=== PATIENT | male | born 1940 | race Caucasian/White ===

== ENCOUNTER → 2018-04-27 11:59 | Outpatient (CLI) | payer MEDICARE, OTHER, SELFPAY ==
--- NOTE | 2018-04-27 12:09 | RAD_ITS ---
STUDY: X-RAY CHEST REASON FOR EXAM: Male, 77 years old. Pre-op for generator change TECHNIQUE: Frontal and lateral views of the chest. COMPARISON: None. FINDINGS: Median sternotomy wires. Dual-chamber pacemaker on the left. The lungs are clear and expanded. There is no demonstrated pleural abnormality. Normal size heart. Normal mediastinum and luana. Normal visualized pulmonary arteries. Normal visualized aortic arch and descending thoracic aorta. Normal visualized thoracic spine. Normal visualized ribs, clavicles, and shoulders. There is no demonstrated abnormality of the visualized soft tissue structures of the upper abdomen. RAD/Chest PA and Lateral IMPRESSION: No acute pulmonary findings. Electronically Signed: Ramon Mireles MD at 8:41 EST Tel , Service support ,
[2018-04-27 12:35] LABS: Mucous, Urine 0 SEEN /hpf (<or=2+); Red Blood Cells-Urine 0 SEEN /hpf (0-5); Squamous Epithelial Cells - UA 0 SEEN /hpf (0-5)
[2018-04-27 13:44] LABS: Hematocrit 39.6 % (40-54); Hemoglobin 13.4 g/dl (13.0-16.5); Mean Corp Hgb Conc 33.8 g/gl (32-36); Mean Corpuscular Hgb 32.1 pg (27.0-32.0); Mean Platelet Vol. 9.3 fl (6.2-12.0); Platelet Count 95 K/mm3 (150-450); RBC Distribution Width CV 13.3 % (11.6-14.6); RBC Distribution Width SD 44.2 fl (35.1-43.9); Red Blood Count 4.17 M/mm3 (4.6-6.2); White Blood Count 5.2 K/mm3 (4.4-11.0)
[2018-04-27 13:46] LABS: Scan Indicated on CBC? Y/N NO
[2018-04-27 13:54] LABS: International Normalized Ratio 2.1; Prothrombin Time (Protime)PT. 23.9 SECONDS (11.7-14.9)
[2018-04-27 14:00] LABS: Color, Urine Yellow (Yellow); Glucose, Dipstick Normal (Normal); Ketone-Dipstick Negative (Negative); Leukocyte Esterase-Dipstick 25 /ul (Negative); Nitrite-Dipstick Negative (Negative); Occult Blood-Urine Negative /ul (Negative); Protein-Dipstick Negative (Negative); Specific Gravity, Urine 1.015 (1.002-1.030); Urine Bilirubin Dipstick Negative (Negative); Urine Clarity Clear (Clear); Urine Urobilinogen 1 mg/dl (Normal); Urine pH 6.5 (5.0 - 8.0)
[2018-04-27 14:07] LABS: Bacteria RARE /hpf (None Seen); White Blood Cells 0-5 SEEN /hpf (0-5)
[2018-04-27 14:09] LABS: Anion Gap 6 (5-15); BUN 32 mg/dL (7-18); BUN/Creat Ratio 22.9 RATIO (10-20); Calcium,Total 9.1 mg/dL (8.5-10.1); Chloride 104 mmol/L (98-107); EST Glomerular Filtration Rate 52 mL/min (>60); Est Glom Filt Rate - Afr Amer 63 mL/min (>60); Glucose 195 mg/dL (74-106); Potassium 4.7 mmol/L (3.5-5.1); Sodium Level 140 mmol/L (136-145)
== END ==
PROVIDERS: Family Provider Family Medicine; PCP Family Medicine; Referring Provider Internal Medicine Cardiovascular Disease; Visit Provider Internal Medicine Cardiovascular Disease
DX: I44.1 Atrioventricular block, second degree (principal); Z95.0 Presence of cardiac pacemaker; I48.92 Unspecified atrial flutter
CPT/HCPCS: 36415; 71046; 80048; 81001; 85027; 85610

== ENCOUNTER 2018-05-08 08:57 | Day surgery (SDC) | payer MEDICARE, OTHER, SELFPAY ==
[2018-05-08 09:40] LABS: International Normalized Ratio 1.2; Prothrombin Time (Protime)PT. 14.7 SECONDS (11.7-14.9)
--- NOTE | 2018-05-17 11:41 | CL.IE_ITS ---
Patient: WILBUR GORMAN Study Date: 05/08/2018 Performing: Marty Blankenship MD : 1940 Age: 77 Gender: male PROCEDURES PERFORMED [id number] REMOVAL+REPLACEMENT PACER-DUAL LEAD INDICATIONS End-of-life replacement indicator Sinoatrial node dysfunction/Sick sinus syndrome PROCEDURE DETAILS The patient was brought to the Catheterization Lab in the postabsorptive nonsedated state. Infor med consent was obtained prior to the procedure. Local anesthetic was given subcutaneously to the le ft subclavian region with Lidocaine 2%. Incision was made to the left upper chest. PPM generator was removed. PPM atrial lead (existing) was checked and tested. PPM ventricular lead (existing) was check ed and tested. Device pocket was irrigated with antibiotic. Steri-strips applied to left subclavicula r incision. Instrument, sponge, and needle counts were noted to be normal. The patient tolerated the procedure well. 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: [employer], Model # Elyse XT DR JAMIE Stack [id number] , Serial # [id number] H DEVICE PARAMETERS DEVICE PARAMETERS: Mode - DDDR lower rate - 60 upper rate - 130 rate response off Mode- DDDR Lower rate- 60 Upper rate- 130 CONCLUSIONS / RECOMMENDATIONS Device Conclusions: Successful implantation of a dual chamber pacemaker battery change and replacemen t Device Recommendations: Follow up with Primary Care Physician PROCEDURE MEDICATIONS Versed 1 mg IV Fentanyl 50 mcg IV Oxygen: 2 L/min via nasal cannula Ancef 2 Gm IV @ 05/08/2018 10:57:29 Signed By Marty Blankenship MD On 05/17/2018 11:40:26 Marty Blankenship MD
--- OUTSIDE RECORDS SUMMARY | 2018-08-09 20:20 | XMS RPT_ITS ---
:1940 Author Organization [place] Care Team Providers Name Role Phone LEONIDES WISE Attending Unavailable LEONIDES WISE Referring Unavailable TAMAR MERRILL Primary Care Unavailable LEONIDES WISE Attending Unavailable IMCA Referring Unavailable TAMAR MERRILL Primary Care Unavailable TAMAR MERRILL) Referring Unavailable LEONIDES WISE Referring Unavailable ABRAHAM GIBSON Attending Unavailable TAMAR MERRILL) Referring Unavailable TAMAR MERRILL) Referring Unavailable TAMAR MERRILL) Referring Unavailable TAMAR MERRILL) Attending Unavailable BURSLEY, TAMAR LEAL) Referring Unavailable BURSLEY, TAMAR LEAL) Referring Unavailable BURSLEY, TAMAR LEAL) Referring Unavailable BURSLEY, TAMAR LEAL) Referring Unavailable TESTRAKE, ABRAHAM Attending Unavailable BURSLEY, TAMAR LEAL) Referring Unavailable BURSLEY, TAMAR LEAL) Referring Unavailable BURSLEY, TAMAR LEAL) Referring Unavailable BURSLEY, TAMAR LEAL) Referring Unavailable BURSLEY, TAMAR LEAL) Referring Unavailable BURSLEY, TAMAR LEAL) Attending Unavailable BURSLEY, TAMAR LEAL) Referring Unavailable MASOUDJUNI) Attending Unavailable BURSLEY, TAMAR LEAL) Referring Unavailable TESTRAKE, ABRAHAM Attending Unavailable TESTRAKE, ABRAHAM Referring Unavailable BURSLEY, TAMAR LEAL) Referring Unavailable BURSLEY, TAMAR LEAL) Referring Unavailable FRANDY, LEONIDES E Attending Unavailable FRANDY, LEONIDES E Referring Unavailable BURSLEY, TAMAR LEAL) Referring Unavailable BURSLEY, TAMAR LEAL) Referring Unavailable FRANDY, LEONIDES Galindo Attending Unavailable FRANDY, LEONIDES E Referring Unavailable FRANDY, LEONIDES E Referring Unavailable BURSLEY, TAMAR LEAL) Attending Unavailable BURSLEY, TAMAR LEAL) Referring Unavailable BURSLEY, TAMAR LEAL) Referring Unavailable BURSLEY, TAMAR LEAL) Referring Unavailable BURSLEY, TAMAR LEAL) Referring Unavailable TESTRAKE, ABRAHAM Attending Unavailable TESTRAKE, ABRAHAM Referring Unavailable FRANDY, LEONIDES E Attending Unavailable RAMON ELLIS Referring Unavailable Luis, Latanya Attending Unavailable Pattie, Marty Attending Unavailable Pattie, Sheridan Referring Unavailable Bursley, Billy Primary Care Unavailable Luis, Latanya Attending Unavailable Bursley, Billy Referring Unavailable Pattie, Sheridan Attending Unavailable Penfield, Leonides Referring Unavailable Luis, Latanya Attending Unavailable Bursley, Billy Referring Unavailable Luis, Latanya Attending Unavailable Bursley, Billy Referring Unavailable Luis, Latanya Attending Unavailable Bursley, Billy Referring Unavailable Pattie, Sheridan Attending Unavailable Pattie, Sheridan Referring Unavailable Bursley, Billy Primary Care Unavailable PROBLEMS PROBLEMS DATE TYPE CONDITION / CODE ATTENDING STATUS SOURCE Active Sick sinus syndrome / NA Active [facility] I49.5(ICD-10) Clinic Main [place] Repository Unknown I48.92 - Unspecified Latanya Smith Active [facility] atrial flutter / Community I48.92(ICD-10) Hospital Repository Unknown I44.1 - Latanya Smith Active [facility] Atrioventricular Community block, second degree Hospital / I44.1(ICD-10) Repository Unknown Z95.0 - Presence of Latanya Smith Active [facility] cardiac pacemaker / Community Z95.0(ICD-10) Hospital Repository Active Type 2 diabetes NA Active [facility] 8 mellitus with [facility] diabetic [place] polyneuropathy / Repository E11.42(ICD-10) Active Mixed hyperlipidemia NA Active [facility] / E78.2(ICD-10) Clinic Main [place] Repository Active Thrombocytopenia, NA Active [facility] unspecified / Clinic Main D69.6(ICD-10) [place] Repository Active Unknown / DESIRAE Active [facility] UNK(Unknown) TAAMR Hay [facility] AMOS) [place] Repository Active Type 2 diabetes NA Active [facility] 8 mellitus with [facility] Main proliferative [place] diabetic retinopathy Repository without macular edema, unspecified eye / E11.3599(ICD-10) Active Essential (primary) NA Active [facility] hypertension / Clinic Main I10(ICD-10) [place] Repository Active Atherosclerotic heart NA Active [facility] disease of [place] [facility] coronary artery [place] without angina Repository pectoris / I25.10(ICD-10) Admitting Unknown / LEONIDES WISE Active [facility] 6 diagnosis UNK(Unknown) Health System Repository PROCEDURES PROCEDURES No Procedure Records FoundRESULTS RESULTS PROGRESS Observed: 06/09/2018 Status: COMPLETED Source: [place] 1:30 PM [facility] REPOSITORY HNO ID: [id number] Author: Abraham Gibson Service: (none) Author Type: Physician Type: Progress Notes Filed: 06/09/2018 1:39 PM Note Text: Subjective: Patient presents to clinic c/o painful toenails. They state that the nails are especially painful with shoe gear and pressure. Patient states that nails 1-5 b/l are painful. Patient admits to being diabetic but has not checked his sugars. No other pedal complaints at this time. Patient states no change in medications or medical history since last visit. Objective: Patient presents to clinic ambulating in diabetic shoes. Vasc: DP and PT pulses are decreased bilateral. CFT is less than 5 seconds bilateral. Skin temperature is warm to cool proximal to distal bilateral. There is moderate edema or varicosities noted. Neuro: Protective sensation is absent to the foot and toes when tested with the 5.07 SWM bilateral. Vibratory sensation is absent at the hallux IPJ bilateral. The hallux is downgoing bilateral. Derm: Nails 1-5 b/l are discolored-yellow, thick, crumbly, dystrophic and with subungal debris. Skin is thin, dry, shiny. There is pallor upon elevation. There are no hyperkeratosis, ulcerations, scars, verruca or other lesions noted. Ortho: Muscle strength is 5/5 for all pedal groups tested. Ankle joint DF is full with the knee extended with no pain or crepitus noted. 1st MPJ ROM is full bilateral. Assessment: (B35.1) Onychomycosis (primary encounter diagnosis) (M79.675) Pain in toe of left foot (M79.674) Pain in toe of right foot (E11.42) Diabetic polyneuropathy associated with type 2 diabetes mellitus (HCC) (I87.2) Venous (peripheral) insufficiency Plan: Patient was seen and evaluated. Nails 1-5 bilateral were debrided in length and thickness. Continue with elevation and light compression if possible for swelling Recommend lotion to feet daily. Patient was instructed on the continued importance of diabetic foot care along with proper diet and keeping their blood sugar under control to prevent complications. Patient is to RTC in 3-4 months. Abraham Gibson DPM PROGRESS Observed: 06/09/2018 Status: COMPLETED Source: [place] 1:18 PM [facility] REPOSITORY HNO ID: [id number] Author: Cinthya Yusuf Ma Service: (none) Author Type: (none) Type: Progress Notes Filed: 06/09/2018 1:39 PM Note Text: AMB ROOMING INTAKE FLOWSHEET DATA Risk Screening Do you have concerns about personal safety or safety in the home?: No Patient here for diabetic nail care. States he has no pain. No redness or swelling present on feet. States that his blood sugar this morning was 160. CNOV Observed: 06/09/2018 Status: COMPLETED Source: [place] 12:50 PM [facility] REPOSITORY Office Visit (PODIWS) WILBUR WRIGHT ([id number]) 1940 M Date Time Provider Department 06/09/18 12:50 PM ABRAHAM GIBSON PODIWS During your visit today, we recorded the following information about you: Cinthya Yusuf Ma 06/09/2018 1:39 PM Signed [facility] FLOWSHEET DATA Risk Screening Do you have concerns about personal safety or safety in the home?: No Patient here for diabetic nail care. States he has no pain. No redness or swelling present on feet. States that his blood sugar this morning was 160. Abraham Gibson DPM 06/09/2018 1:39 PM Signed Subjective: Patient presents to clinic c/o painful toenails. They state that the nails are especially painful with shoe gear and pressure. Patient states that nails 1-5 b/l are painful. Patient admits to being diabetic but has not checked his sugars. No other pedal complaints at this time. Patient states no change in medications or medical history since last visit. Objective: Patient presents to clinic ambulating in diabetic shoes. Vasc: DP and PT pulses are decreased bilateral. CFT is less than 5 seconds bilateral. Skin temperature is warm to cool proximal to distal bilateral. There is moderate edema or varicosities noted. Neuro: Protective sensation is absent to the foot and toes when tested with the 5.07 SWM bilateral. Vibratory sensation is absent at the hallux IPJ bilateral. The hallux is downgoing bilateral. Derm: Nails 1-5 b/l are discolored-yellow, thick, crumbly, dystrophic and with subungal debris. Skin is thin, dry, shiny. There is pallor upon elevation. There are no hyperkeratosis, ulcerations, scars, verruca or other lesions noted. Ortho: Muscle strength is 5/5 for all pedal groups tested. Ankle joint DF is full with the knee extended with no pain or crepitus noted. 1st MPJ ROM is full bilateral. Assessment: (B35.1) Onychomycosis (primary encounter diagnosis) (M79.675) Pain in toe of left foot (M79.674) Pain in toe of right foot (E11.42) Diabetic polyneuropathy associated with type 2 diabetes mellitus (HCC) (I87.2) Venous (peripheral) insufficiency Plan: Patient was seen and evaluated. Nails 1-5 bilateral were debrided in length and thickness. Continue with elevation and light compression if possible for swelling Recommend lotion to feet daily. Patient was instructed on the continued importance of diabetic foot care along with proper diet and keeping their blood sugar under control to prevent complications. Patient is to RTC in 3-4 months. Abraham Gibson DPM Referring Provider: ABRAHAM GIBSON [[id number]] Allergies As of Date: 06/09/2018 Noted Allergy Reaction AVANDIA (ROSIGLITAZONE MALEATE) 02/18/2005 7 - Swelling Comments: fluid retention GLIMEPIRIDE 07/12/2013 5 - Intolerance Comments: hypoglycemia AMLODIPINE 05/18/2012 7 - Swelling Comments: Leg swelling with 2.5mg Date Reviewed: 06/09/2018 Reviewed by: Cinthya Yusuf Ma - Fully Assessed Reason for Visit: Established Patient [175] Primary Visit Diagnosis:Onychomycosis [B35.1] Other Visit Diagnoses:Pain in toe of left foot [M79.675] Pain in toe of right foot [M79.674] Diabetic polyneuropathy associated with type 2 diabetes mellitus (HCC) [E11.42] Venous (peripheral) insufficiency [I87.2] Prescriptions as of 06/09/2018 Sig: LOVASTATIN 40 MG TABLET Take 1 tablet by mouth daily * COMPOUNDED PRESCRIPTION ZIPPERED KNEE HIGH COMPRESSIO* LISINOPRIL 20 MG-HYDROCHLOROT* Take 2 tablets by mouth every* METOPROLOL TARTRATE 25 MG TAB* Take 1 tablet by mouth twice * WARFARIN 2 MG TABLET 4 mg PO daily COMPOUNDED PRESCRIPTION Adjustable quad cane. To be u* BLOOD SUGAR DIAGNOSTIC STRIPS Pt usesTrue Metric Meter. Sarah* LANCETS Test blood sugar(s) 2 times d* ASPIRIN 81 MG TABLET Take 1 tablet by mouth once d* CHOLECALCIFEROL (VITAMIN D3) * 2 tab daily METFORMIN 1,000 MG TABLET Take 1 tablet by mouth twice * ALBUTEROL SULFATE HFA 90 MCG/* Inhale 2 Puffs as instructed * Patient not taking: Reported on 01/10/2018 Problem List As Of Date 06/09/2018 Noted Resolved Esophageal reflux [K21.9] INVALID FOR* More... ABDOMINAL PAIN( Epigastric) [R10.13] INVALID FOR*05/18/2012 Mixed hyperlipidemia [E78.2] INVALID FOR* More... Type II or unspecified type diabetes mellitus w*INVALID FOR*02/28/2013 More... Other malaise and fatigue [R53.81, R53.83] 05/18/2012 Infection and inflammatory reaction due to card*INVALID FOR*02/25/2016 ASHD (arteriosclerotic heart disease) [I25.10] INVALID FOR*08/07/2016 Thrombocytopenia [D69.6] INVALID FOR* Hypertension [I10] INVALID FOR*04/27/2016 CAD (coronary artery disease) [I25.10] INVALID FOR* More... Coronary atherosclerosis of [place] coronary art*INVALID FOR* More... Atrioventricular block, unspecified [I44.30] INVALID FOR*08/07/2016 More... Other second degree atrioventricular block [I44*INVALID FOR* More... Atrial flutter [I48.92] INVALID FOR* More... Other specified cardiac dysrhythmias [I49.8] INVALID FOR* More... Unspecified disorder of kidney and ureter [N28.*INVALID FOR* More... Cardiac pacemaker in situ [Z95.0] INVALID FOR* More... 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 TAMAYO (nonalcoholic steatohepatitis) [K75.81] INVALID FOR* Ischemic colitis (HCC) [K55.9] INVALID FOR*09/14/2017 Compression fracture of lumbar vertebra [S32.00*INVALID FOR* More... 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*INVALID FOR* Uncontrolled type 2 diabetes mellitus with diab*INVALID FOR*08/07/2016 Type 2 diabetes mellitus with diabetic polyneur*INVALID FOR*06/14/2017 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] INVALID FOR* Obesity (BMI 30.0-34.9) [E66.9] INVALID FOR* Essential hypertension [I10] INVALID FOR* Chronic anticoagulation [Z79.01] INVALID FOR* Dyspnea on exertion [R06.09] INVALID FOR* Chronic venous insufficiency [I87.2] INVALID FOR* Diabetes mellitus type II, controlled ([facility]) [E1* 06/14/2017 CKD (chronic kidney disease) stage 3, GFR 30-59* Falls infrequently [Z91.81] INVALID FOR* Encounter Status:Closed by ABRAHAM GIBSON DPM on 06/09/18 PROGRESS Observed: 06/01/2018 Status: COMPLETED Source: [place] 3:12 PM [facility] REPOSITORY HNO ID: [id number] Author: Tamar Merrill Service: (none) Author Type: Physician Type: Progress Notes Filed: 06/01/2018 3:12 PM Note Text: INR therapeutic. Continue current coumadin dosage and follow up in 4 weeks. PROGRESS Observed: 06/01/2018 Status: COMPLETED Source: [place] 2:25 PM [facility] REPOSITORY HNO ID: [id number] Author: Tanesha Shearer RN Service: (none) Author Type: (none) Type: Progress Notes Filed: 06/01/2018 2:26 PM Note Text: patient had inr completed at [facility] patients inr is 2.0 (patients inr range is 2.0-3.0) patient is currently taking 4mg daily patients last dose change was on 11/09/17 due to a high level of 3.5 (dose at that time was 6mg Mon and 4mg all other days) patient has had no changes in medication and no missed dosees and no change in diet Advised patient to continue on the same dose(s) and that they would only be contacted regarding dosage and follow up instructions after review with provider, if a change is needed. Written instructions given and patient verbalized understanding. Presently scheduled in 4 weeks (06/29/18) for follow up INR. PACEMAKER CHECK Observed: 05/29/2018 Status: F Source: [place] 6:44 AM [facility] REPOSITORY [facility] [address] [place] [address] Pacemaker Check Date of Service: 05/25/18 1200 MR#: [id number] Acct: [id number] Name: WILBUR WRIGHT Rep #: [id number] : 1940 From: Latanya Smith Age/Sex: 77/M Location: [facility] [place] Status: Signed Billing Codes PM Device Codes: PM Dev Prog Eval, Dual 05/25/18 1201 <Electronically signed by Latanya Smith > Date Latanya Smith 05/29/18 0644<Electronically signed by Marty Blankenship MD> Emaniign Signature: Date (if applicable) Marty Blankenship MD CC: PROGRESS Observed: 05/18/2018 Status: COMPLETED Source: [place] 5:48 PM [facility] REPOSITORY O ID: [id number] Author: Sudeep Bautista Ma Service: (none) Author Type: (none) Type: Progress Notes Filed: 05/18/2018 5:49 PM Note Text: Patient notified - verbalized understanding. Scheduled for 1 week INR and tracker updated. Sudeep Bautista Ma PROGRESS Observed: 05/18/2018 Status: COMPLETED Source: [place] 4:29 PM [facility] REPOSITORY HNO ID: [id number] Author: Tamar Leal) Desirae Service: (none) Author Type: Physician Type: Progress Notes Filed: 05/18/2018 4:30 PM Note Text: INR subtherapeutic. Take 6 mg for next dose, then resume 4mg daily and recheck in 1 week. PROGRESS Observed: 05/18/2018 Status: COMPLETED Source: [place] 3:48 PM [facility] REPOSITORY HNO ID: [id number] Author: Tanesha Shearer RN Service: (none) Author Type: (none) Type: Progress Notes Filed: 05/18/2018 3:50 PM Note Text: patient had inr completed at [facility] patients inr is 1.4 (patients inr range is 2.0-3.0) patient is currently taking 4mg daily patients last dose change was on 11/09/17 due to a high level of 3.5 (dose at that time was 6mg Mon and 4mg all other days) patient has had no changes in medication and no missed doses and no change in diet FYI - patient was off coumadin from 05/03 - 05/09 and restarted coumadin on 05/10 for pacer change Advised patient that they would be contacted regarding medication dose and when to follow up after information is reviewed by provider. After provider review please contact the patient with information and schedule follow up appointment with coumadin clinic. FYI - patient has been scheduled for a 2 week follow up in [place] 06/01/18 ALBUMIN/CREAT RATIO Collected: 05/12/2018 Status: F Source: [place] 4:11 PM [facility] REPOSITORY TYPE CODE TESTS RESULT OUT OF REFERENCE UNITS RANGE LAB UCRR 20-300 mg/dL Creatinine,Ur 133.6 ine,Ran LAB UALBR 0.0-23.0 mg/L High Albumin Urine 52.7 Random LAB UALBCR 0-30 mg/g High Albumin/Creat 39 Ratio Result Comment: 30 to 300 mg/g indicates an increased risk for diabetic nephropathy. Greater than 300 mg/g is consistent with clinical nephropathy. (Am J Kidney Disease 1995, 25:107) Performed By: #### UACR #### [facility] [address] [place], [place] [address] PROGRESS Observed: 05/12/2018 Status: COMPLETED Source: [place] 3:02 PM [facility] REPOSITORY HNO ID: [id number] Author: Nohemy Hutton Ma Service: (none) Author Type: (none) Type: Progress Notes Filed: 05/12/2018 3:36 PM Note Text: 77 year old male here for INACTIVATED INFLUENZA VACCINE. [id number] Season Patient is identified by name and date of : Yes [] CONTRAINDICATIONS color enhanced section Age less than 6 months? No Allergy to eggs, chicken, chicken feathers, or chicken dander? No Allergy to thimerosal (a preservative) or formaldehyde, gelatin? No History of severe reaction to any vaccine component or a previous dose of influenza vaccination? No History of Guillain-[place] Syndrome within 6 weeks after a previous influenza vaccine? No Patient is not moderately or severely ill? No Current temperature greater or equal to 100.4F? No History of Bone Marrow Transplant prior 6 months or solid organ transplant in the past 3 months ? No History of fainting after a prior injection or medical procedure? No- ? If patient has fainted in the past, the CDC recommends sitting or lying down for 15 minutes after the vaccination. [] VERIFICATION color enhanced section Was the answer Yes for any of the above contraindications? No contraindications present. Acceptable to proceed with vaccine. Patient/guardian agrees the above answers are true to the best of their knowledge? Yes Flu vaccine information sheet given? Yes [facility] adminstered today. Patient age: [age] year old For The 7897-9681 Flu Season 6-35 months old: Fluzone 0.25 ml - IM (Preservative Free) 3 years of age: Fluzone 0.5 ml - IM (Preservative Free) 3 years and older: Fluzone 0.5 ml- IM-(with Preservatives) 65+ years old: 2-49 years old Fluzone High-Dose 0.5 ml - IM (Preservative Free) FLUMIST- intranasal REMEMBER: If patient is less than 9 years of age and this is the first vaccine of Influenza to be received in any flu season, they should receive a second dose in one months time. CNOV Observed: 05/12/2018 Status: COMPLETED Source: [place] 2:40 PM [facility] REPOSITORY [facility] ([id number]) 1940 M Date Time Provider Department 05/12/18 2:40 PM TAMAR MERRILL) [facility] During your visit today, we recorded the following information about you: Temperature Pulse Respiration Blood pressure 97.1 degrees 76/minute 14/minute 134/82 Weight 90.7 kg Tamar Merrill MD 05/12/2018 3:36 PM Signed Chief Complaint Patient presents with: Follow Up HPI Wilbur Wright is a 77 year old male who presents here today for 4 month follow up. Patient has been in good health without ER visits or recent falls. DIABETES MELLITUS: Mr. Wright was last seen 4 months ago. Since our last visit he denies excessive thirst or increased frequency of urination, numbness, tingling or pain in extremities, new or unusual visual symptoms and low sugar/hypoglycemic reactions. Follows a diabetic diet generally not very much. He is compliant with medication(s) and is tolerating med(s) without any side effects. He reports checking his glucose on a twice a day schedule with sugars in the <150 range. Patient's last HgA1C was Hemoglobin A1C (%) Date Value 01/04/2018 7.4 06/08/2017 7.8 Hemoglobin A1C (POCT) Date Value 05/12/2018 6.9 09/14/2017 6.2 % ) Last Ophthalmology exam was within the past 12 months-mild proliferative DM retinopathy bilaterally Last Podiatry exam was within the past 12 months CAD/a fib/sick sinus syndrome: pacemaker replaced on 05/08 without complication. Incision site healing well with steri strips in place. Thinks he has follow up on 05/25 with provider, but does not remember who and no OV scheduled in the system for this date. Recent blood work from Dr. Wise's office normal. Asymptomatic on current regimen. GERD: denies heartburn symptoms, not on daily medications. Edema: occasional swelling in LE. Admits to not watching salt in diet. Has compression stockings at home, but does not wear. Would consider if they were zippered stockings. HTN: controlled on current regimen. Due for influenza vaccine today. Past medical history, appointments, medications, allergies reviewed. Previous Medical History PAST MEDICAL HISTORY Diagnosis Date - Atrial fibrillation (HCC) - CAD (coronary artery disease) Seeing Dr. Wise - Cataracts, bilateral - CKD (chronic kidney disease) stage 3, GFR 30-59 ml/min ([facility]) - Compression fracture of lumbar vertebra ([facility]) - DDD (degenerative disc disease), lumbar - Diabetes mellitus type II, controlled ([facility]) - Diabetic neuropathy ([facility]) Dr. Gibson - Diabetic retinopathy ([facility]) Dr. Maria - Edema - GERD (gastroesophageal reflux disease) - Hyperlipidemia - Ischemic colitis ([facility]) - TAMAYO (nonalcoholic steatohepatitis) - Other malaise and fatigue - Pacemaker - PVD (peripheral vascular disease) ([facility]) - Thrombocytopenia ([facility]) - Unspecified essential hypertension Previous Surgical History PAST SURGICAL HISTORY Procedure Laterality Date - APPENDECTOMY 1951 - CABG (4) VEIN GRAFTS AND ARTERIAL GRAFT(S) 2008 aortocoronary bypass grafting - CATARACT EXTRACTION HX Right 2016 - COLONOSCOP W/ OR W/O [facility] SPEC 08/02/2005 Colonoscopy - COLONOSCOP W/ OR W/O [facility] SPEC 07/07/2011 Colonoscopy inpt [facility] - PAST SURGICAL HISTORY OF 03/06/2008 pacemaker placement - PAST SURGICAL HISTORY OF Bilateral laser eye surgery Family History FAMILY HISTORY Problem Relation Age of Onset - Heart Mother Patient Allergies ALLERGIES Allergen Reactions - Avandia [Rosiglitaz* Swelling fluid retention - Glimepiride Intolerance hypoglycemia - Amlodipine Swelling Leg swelling with 2.5mg Current Medications Current Outpatient Prescriptions on File Prior to Visit: albuterol HFA (VENTOLIN HFA) 90 mcg/actuation inhaler Inhale 2 Puffs as instructed every 4 hours as needed. (Patient not taking: Reported on 01/10/2018 ) Aspirin 81 mg Tab Take 1 tablet by mouth once daily. Take 1/2hr before niacin with food. blood sugar diagnostic (BLOOD GLUCOSE TEST) test strip Pt usesTrue Metric Meter. Test twice daily. Dx E11.65 Insulin: No CHOLECALCIFEROL (VITAMIN D3) 1,000 UNIT CAP 2 tab daily COMPOUNDED PRESCRIPTION Adjustable quad cane. To be used daily for ambulation. Dx: age related debility Lancets lancets Test blood sugar(s) 2 times daily. Dx: Type 2 DM - Uncontrolled E11.65 Insulin: No lisinopril-hydrochlorothiazide (PRINZIDE,ZESTORETIC) 20-12.5 mg per tablet Take 2 tablets by mouth every morning. Lovastatin 40 mg tablet Take 1 tablet by mouth daily at bedtime. metFORMIN (GLUCOPHAGE) 1,000 mg tablet Take 1 tablet by mouth twice daily with meals. metoprolol tartrate, short acting, (LOPRESSOR) 25 mg tablet Take 1 tablet by mouth twice daily. warfarin (COUMADIN) 2 mg tablet 4 mg PO daily No current facility-administered medications on file prior to visit. Social History Social History Marital status: Spouse name: Years of education: Number of children: Social History Main Topics Smoking status: Former Smoker Packs/day: 1.00 Years: 15.00 Types: Cigarettes Quit date: 05/23/1969 Smokeless tobacco: Never Used Alcohol use: No Drug use: No Sexual activity: Yes Partners with: Female Review of Symptoms REVIEW OF SYSTEMS GENERAL: No weight loss, malaise or fevers RESPIRATORY: Negative for cough, hemoptysis, wheezing, COPD, dyspnea or shortness of breath CARDIOVASCULAR: Negative for chest pain, leg swelling, hypertension, CHF or palpitations GI: No nausea, vomiting, or diarrhea SKIN: Negative for lesions, rash, and itching EXAM: BP 134/82 Pulse 76 Temp 36.2 ?C (97.1 ?F) (Left Tympanic) Resp 14 Wt 90.7 kg (200 lb) BMI 30.41 kg/m? General Appearance: Well appearing, alert, in no acute distress, well-hydrated, well nourished.. Skin: Skin color, texture, turgor normal, no suspicious rashes or lesions. Incision site for pacemaker replacement healing well. Steri strips in place. No erythema or drainage. Lungs: lungs clear to auscultation. No wheezing, rhonchi, rales. Heart: RRR without murmur, gallop, or rubs. No ectopy. Abdomen: Normal abdominal exam, Abdomen soft, non-tender. Bowel sounds normal. No masses, organomegaly. Extremities: Edema: Trace to mid boss bilaterally. Feet: Shoes and socks removed, No deformities, ulcers, calluses and normal distal pulses Health Maintenance List BP CONTROLLED (<130/80) due on 1956 INFLUENZA(1) due on 01/21/2018 URINE ALBUMIN:CREATININE RATIO due on 06/08/2018 STATIN MED ADHERENCE due on 05/23/2018 HBA1C due on 07/07/2018 DIABETIC FOOT EXAM due on 09/14/2018 LDL CHOLESTEROL due on 01/04/2019 SERUM CREATININE due on 01/04/2019 ANNUAL PCP TEAM CHRONIC DISEASE VISIT due on 01/10/2019 DILATED RETINAL EXAM due on 04/24/2019 COLORECTAL CANCER SCREENING,SEE MODIFIER due on 07/07/2021 DTAP,TDAP,TD(3 - Td) due on 05/18/2022 ADULT PREVNAR-13 Completed PNEUMOVAX AGE 65 AND OVER WITH 5YR LOOKBACK Completed Data reviewed Component Latest Ref Rng AND Units 01/04/2018 WBC 3.70 - 11.00 k/uL 5.08 RBC 4.20 - 6.00 m/uL 4.09 (L) Hemoglobin 13.0 - 17.0 g/dL 12.8 (L) Hematocrit 39.0 - 51.0 % 39.6 MCV 80.0 - 100.0 fL 96.8 MCH 26.0 - 34.0 pG 31.3 MCHC 30.5 - 36.0 g/dL 32.3 RDW-CV 11.5 - 15.0 % 13.6 Platelet Count 150 - 400 k/uL 92 (L) MPV 9.0 - 12.7 fL 9.3 Neut% % 44.3 Abs Neut (ANC) 1.45 - 7.50 k/uL 2.25 Lymph% % 29.3 Abs Lymph 1.00 - 4.00 k/uL 1.49 Meigs% % 8.3 Abs Meigs <0.87 k/uL 0.42 Eosin% % 17.5 Abs Eosin <0.46 k/uL 0.89 (H) Baso% % 0.6 Abs Baso <0.11 k/uL 0.03 Nucleated Reds 0 /100 WBC 0.0 Absolute nRBC <0.01 k/uL <0.01 Diff Type Auto Diff Protein, Total 6.3 - 8.0 g/dL 7.0 Albumin 3.9 - 4.9 g/dL 4.0 Calcium 8.5 - 10.2 mg/dL 9.1 Bilirubin, Total 0.2 - 1.3 mg/dL 0.5 Alkaline Phosphatase 36 - 108 U/L 55 AST 14 - 40 U/L 19 Glucose 74 - 99 mg/dL 174 (H) BUN 9 - 24 mg/dL 24 Creatinine 0.73 - 1.22 mg/dL 1.14 Sodium 136 - 144 mmol/L 139 Potassium 3.7 - 5.1 mmol/L 4.6 Chloride 97 - 105 mmol/L 101 CO2 22 - 30 mmol/L 27 Anion Gap 9 - 18 mmol/L 11 ALT 10 - 54 U/L 10 eGFR- >60 eGFR-All Other Races . >60 Cholesterol, Total <200 mg/dL 128 Triglyceride <150 mg/dL 160 (H) HDL Cholesterol >39 mg/dL 25 (L) LDL Cholesterol <100 mg/dL 71 Non HDL Cholesterol <130 mg/dL 103 Fasting Time hrs 12 VLDL Cholesterol <30 mg/dL 32 (H) TC:HDL Ratio <5.10 5.12 (H) LDL:HDL Ratio <2.54 2.84 (H) Hemoglobin A1C 4.3 - 5.6 % 7.4 (H) Estimated Average Glucose mg/dL 166 ASSESSMENT/PLAN: 1. 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 - Continue current medications - Blood glucose monitoring on a once a day schedule - Encouraged regular aerobic exercise and weight loss - Daily Asprin therapy recommended - Follow up in 4 months, sooner should any other issues arise. - Discussed diabetic education issues of intermediate accountant diabetic complications, hypoglycemic symptoms, hyperglycemic symptoms, diet, medications- side effects and need for compliance and importance of exercise with patient. - HEMOGLOBIN A1C (POC) - ALBUMIN/CREAT RATIO RND UR 2. CKD (chronic kidney disease) stage 3, GFR 30-59 ml/min (HCC) - ICD9: 585.3, ICD10: N18.3 Stable with CMP earlier this month. 3. Essential hypertension - ICD9: 401.9, ICD10: I10 - good control - Continue current medication(s) - Encouraged dietary sodium restriction/DASH diet - Recommended regular aerobic exercise. - Reviewed risks of HTN and principles of treatment - Goal of BP <140/90 4. Obesity (BMI 30.0-34.9) - ICD9: 278.00, ICD10: E66.9 Diabetic diet and exercise as recommended. 5. Coronary artery disease involving [place] heart without angina pectoris, unspecified vessel or lesion type - ICD9: 414.01, ICD10: I25.10 Asymptomatic on current regimen. F/u with Dr. Wise as recommended. 6. Mixed hyperlipidemia - ICD9: 272.2, ICD10: E78.2 - good control - Continue current medication. - Encouraged following a low fat, low cholesterol diet. - Discussed the benefits of regular aerobic exercise and weight loss. 7. Atrial flutter, unspecified type (HCC) - ICD9: 427.32, ICD10: I48.92 Rate controlled. Continue beta cecil and coumadin. Recommendations per cardiology. 8. Cardiac pacemaker in situ - ICD9: V45.01, ICD10: Z95.0 Replacement successful. Healing well. 9. Chronic anticoagulation - ICD9: V58.61, ICD10: Z79.01 Continue coumadin at current dosage. Recheck INR on 05/18. 10. Bilateral lower extremity edema - ICD9: 782.3, ICD10: R60.0 zipppered compression stockings daily. Low sodium diet. Continue HCTZ/lisinopril combo. - COMPOUNDED PRESCRIPTION 11. Need for vaccination - ICD9: V05.9, ICD10: Z23 - INFLUENZA SEASONAL HIGH DOSE AGE 65+ MD Nohemy Gibbs Ma 05/12/2018 3:36 PM Signed 77 year old male here for INACTIVATED INFLUENZA VACCINE. [id number] Season Patient is identified by name and date of : Yes [] CONTRAINDICATIONS color enhanced section Age less than 6 months? No Allergy to eggs, chicken, chicken feathers, or chicken dander? No Allergy to thimerosal (a preservative) or formaldehyde, gelatin? No History of severe reaction to any vaccine component or a previous dose of influenza vaccination? No History of Guillain-[place] Syndrome within 6 weeks after a previous influenza vaccine? No Patient is not moderately or severely ill? No Current temperature greater or equal to 100.4F? No History of Bone Marrow Transplant prior 6 months or solid organ transplant in the past 3 months ? No History of fainting after a prior injection or medical procedure? No- ? If patient has fainted in the past, the CDC recommends sitting or lying down for 15 minutes after the vaccination. [] VERIFICATION color enhanced section Was the answer Yes for any of the above contraindications? No contraindications present. Acceptable to proceed with vaccine. Patient/guardian agrees the above answers are true to the best of their knowledge? Yes Flu vaccine information sheet given? Yes See immunization activity in [facility] for details of immunizations adminstered today. Patient age: [age] year old For The [id number] Flu Season 6-35 months old: Fluzone 0.25 ml - IM (Preservative Free) 3 years of age: Fluzone 0.5 ml - IM (Preservative Free) 3 years and older: Fluzone 0.5 ml- IM-(with Preservatives) 65+ years old: 2-49 years old Fluzone High-Dose 0.5 ml - IM (Preservative Free) FLUMIST- intranasal REMEMBER: If patient is less than 9 years of age and this is the first vaccine of Influenza to be received in any flu season, they should receive a second dose in one months time. 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01] Bilateral lower extremity edema [R60.0] Need for vaccination [Z23] Order(s):HEMOGLOBIN A1C (POC) [[id number]] Order #: [id number] ALBUMIN/CREAT RATIO RND UR [SQUACR] Order #: [id number] FUTURE INFLUENZA SEASONAL HIGH DOSE AGE 65+ [[id number]] Order #: [id number] Compression Knee HighsZIPPERED KNEE HIGH COMPRESSION STOCKINGS 20-30 MM. DX: EDEMADisp: 1 DeviceRfl: 1 Prescriptions as of 05/12/2018 Sig: ASPIRIN 81 MG TABLET Take 1 tablet by mouth once d* CHOLECALCIFEROL (VITAMIN D3) * 2 tab daily LISINOPRIL 20 MG-HYDROCHLOROT* Take 2 tablets by mouth every* LOVASTATIN 40 MG TABLET Take 1 tablet by mouth daily * METOPROLOL TARTRATE 25 MG TAB* Take 1 tablet by mouth twice * WARFARIN 2 MG TABLET 4 mg PO daily ALBUTEROL SULFATE HFA 90 MCG/* Inhale 2 Puffs as instructed * Patient not taking: Reported on 01/10/2018 BLOOD SUGAR DIAGNOSTIC STRIPS Pt usesTrue Metric Meter. Sarah* COMPOUNDED PRESCRIPTION Adjustable quad cane. To be u* COMPOUNDED PRESCRIPTION ZIPPERED KNEE HIGH COMPRESSIO* LANCETS Test blood sugar(s) 2 times d* METFORMIN 1,000 MG TABLET Take 1 tablet by mouth twice * Problem List As Of Date 05/12/2018 Noted Resolved Esophageal reflux [K21.9] INVALID FOR* More... ABDOMINAL PAIN( Epigastric) [R10.13] INVALID FOR*05/18/2012 Mixed hyperlipidemia [E78.2] INVALID FOR* More... Type II or unspecified type diabetes mellitus w*INVALID FOR*02/28/2013 More... Other malaise and fatigue [R53.81, R53.83] 05/18/2012 Infection and inflammatory reaction due to card*INVALID FOR*02/25/2016 ASHD (arteriosclerotic heart disease) [I25.10] INVALID FOR*08/07/2016 Thrombocytopenia [D69.6] INVALID FOR* Hypertension [I10] INVALID FOR*04/27/2016 CAD (coronary artery disease) [I25.10] INVALID FOR* More... Coronary atherosclerosis of [place] coronary art*INVALID FOR* More... Atrioventricular block, unspecified [I44.30] INVALID FOR*08/07/2016 More... Other second degree atrioventricular block [I44*INVALID FOR* More... Atrial flutter [I48.92] INVALID FOR* More... Other specified cardiac dysrhythmias [I49.8] INVALID FOR* More... Unspecified disorder of kidney and ureter [N28.*INVALID FOR* More... Cardiac pacemaker in situ [Z95.0] INVALID FOR* More... 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 TAMAYO (nonalcoholic steatohepatitis) [K75.81] INVALID FOR* Ischemic colitis (HCC) [K55.9] INVALID FOR*09/14/2017 Compression fracture of lumbar vertebra [S32.00*INVALID FOR* More... 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*INVALID FOR* Uncontrolled type 2 diabetes mellitus with diab*INVALID FOR*08/07/2016 Type 2 diabetes mellitus with diabetic polyneur*INVALID FOR*06/14/2017 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 DX: EDEMA Disposition: Return in about 4 months (around 09/10/2018). Follow-up and Disposition History Recorded Encounter Status:Closed by TAMAR MERRILL MD on 05/12/18 PROGRESS Observed: 05/12/2018 Status: COMPLETED Source: [place] 2:21 PM [facility] REPOSITORY O ID: [id number] Author: Tamar Leal) Desirae Service: (none) Author Type: Physician Type: Progress Notes Filed: 05/12/2018 3:36 PM Note Text: Chief Complaint Patient presents with: Follow Up HPI Wilbur Wright is a 77 year old male who presents here today for 4 month follow up. Patient has been in good health without ER visits or recent falls. DIABETES MELLITUS: Mr. Wright was last seen 4 months ago. Since our last visit he denies excessive thirst or increased frequency of urination, numbness, tingling or pain in extremities, new or unusual visual symptoms and low sugar/hypoglycemic reactions. Follows a diabetic diet generally not very much. He is compliant with medication(s) and is tolerating med(s) without any side effects. He reports checking his glucose on a twice a day schedule with sugars in the <150 range. Patient's last HgA1C was Hemoglobin A1C (%) Date Value 01/04/2018 7.4 06/08/2017 7.8 Hemoglobin A1C (POCT) Date Value 05/12/2018 6.9 09/14/2017 6.2 % ) Last Ophthalmology exam was within the past 12 months-mild proliferative DM retinopathy bilaterally Last Podiatry exam was within the past 12 months CAD/a fib/sick sinus syndrome: pacemaker replaced on 05/08 without complication. Incision site healing well with steri strips in place. Thinks he has follow up on 05/25 with provider, but does not remember who and no OV scheduled in the system for this date. Recent blood work from Dr. Wise's office normal. Asymptomatic on current regimen. GERD: denies heartburn symptoms, not on daily medications. Edema: occasional swelling in LE. Admits to not watching salt in diet. Has compression stockings at home, but does not wear. Would consider if they were zippered stockings. HTN: controlled on current regimen. Due for influenza vaccine today. Past medical history, appointments, medications, allergies reviewed. Previous Medical History PAST MEDICAL HISTORY Diagnosis Date - Atrial fibrillation (HCC) - CAD (coronary artery disease) Seeing Dr. Wise - Cataracts, bilateral - CKD (chronic kidney disease) stage 3, GFR 30-59 ml/min ([facility]) - Compression fracture of lumbar vertebra ([facility]) - DDD (degenerative disc disease), lumbar - Diabetes mellitus type II, controlled ([facility]) - Diabetic neuropathy ([facility]) Dr. Gibson - Diabetic retinopathy ([facility]) Dr. Maria - Edema - GERD (gastroesophageal reflux disease) - Hyperlipidemia - Ischemic colitis ([facility]) - TAMAYO (nonalcoholic steatohepatitis) - Other malaise and fatigue - Pacemaker - PVD (peripheral vascular disease) (HCC) - Thrombocytopenia (HCC) - Unspecified essential hypertension Previous Surgical History PAST SURGICAL HISTORY Procedure Laterality Date - APPENDECTOMY 1951 - CABG (4) VEIN GRAFTS AND ARTERIAL GRAFT(S) 2008 aortocoronary bypass grafting - CATARACT EXTRACTION HX Right 2016 - COLONOSCOP W/ OR W/O [facility] SPEC 08/02/2005 Colonoscopy - COLONOSCOP W/ OR W/O [facility] SPEC 07/07/2011 Colonoscopy inpt [facility] - PAST SURGICAL HISTORY OF 03/06/2008 pacemaker placement - PAST SURGICAL HISTORY OF Bilateral laser eye surgery Family History FAMILY HISTORY Problem Relation Age of Onset - Heart Mother Patient Allergies ALLERGIES Allergen Reactions - Avandia [Rosiglitaz* Swelling fluid retention - Glimepiride Intolerance hypoglycemia - Amlodipine Swelling Leg swelling with 2.5mg Current Medications Current Outpatient Prescriptions on File Prior to Visit: albuterol HFA (VENTOLIN HFA) 90 mcg/actuation inhaler Inhale 2 Puffs as instructed every 4 hours as needed. (Patient not taking: Reported on 01/10/2018 ) Aspirin 81 mg Tab Take 1 tablet by mouth once daily. Take 1/2hr before niacin with food. blood sugar diagnostic (BLOOD GLUCOSE TEST) test strip Pt usesTrue Metric Meter. Test twice daily. Dx E11.65 Insulin: No CHOLECALCIFEROL (VITAMIN D3) 1,000 UNIT CAP 2 tab daily COMPOUNDED PRESCRIPTION Adjustable quad cane. To be used daily for ambulation. Dx: age related debility Lancets lancets Test blood sugar(s) 2 times daily. Dx: Type 2 DM - Uncontrolled E11.65 Insulin: No lisinopril-hydrochlorothiazide (PRINZIDE,ZESTORETIC) 20-12.5 mg per tablet Take 2 tablets by mouth every morning. Lovastatin 40 mg tablet Take 1 tablet by mouth daily at bedtime. metFORMIN (GLUCOPHAGE) 1,000 mg tablet Take 1 tablet by mouth twice daily with meals. metoprolol tartrate, short acting, (LOPRESSOR) 25 mg tablet Take 1 tablet by mouth twice daily. warfarin (COUMADIN) 2 mg tablet 4 mg PO daily No current facility-administered medications on file prior to visit. Social History Social History Marital status: Spouse name: Years of education: Number of children: Social History Main Topics Smoking status: Former Smoker Packs/day: 1.00 Years: 15.00 Types: Cigarettes Quit date: 05/23/1969 Smokeless tobacco: Never Used Alcohol use: No Drug use: No Sexual activity: Yes Partners with: Female Review of Symptoms REVIEW OF SYSTEMS GENERAL: No weight loss, malaise or fevers RESPIRATORY: Negative for cough, hemoptysis, wheezing, COPD, dyspnea or shortness of breath CARDIOVASCULAR: Negative for chest pain, leg swelling, hypertension, CHF or palpitations GI: No nausea, vomiting, or diarrhea SKIN: Negative for lesions, rash, and itching EXAM: BP 134/82 Pulse 76 Temp 36.2 ?C (97.1 ?F) (Left Tympanic) Resp 14 Wt 90.7 kg (200 lb) BMI 30.41 kg/m? General Appearance: Well appearing, alert, in no acute distress, well-hydrated, well nourished.. Skin: Skin color, texture, turgor normal, no suspicious rashes or lesions. Incision site for pacemaker replacement healing well. Steri strips in place. No erythema or drainage. Lungs: lungs clear to auscultation. No wheezing, rhonchi, rales. Heart: RRR without murmur, gallop, or rubs. No ectopy. Abdomen: Normal abdominal exam, Abdomen soft, non-tender. Bowel sounds normal. No masses, organomegaly. Extremities: Edema: Trace to mid boss bilaterally. Feet: Shoes and socks removed, No deformities, ulcers, calluses and normal distal pulses Health Maintenance List BP CONTROLLED (<130/80) due on 1956 INFLUENZA(1) due on 01/21/2018 URINE ALBUMIN:CREATININE RATIO due on 06/08/2018 STATIN MED ADHERENCE due on 05/23/2018 HBA1C due on 07/07/2018 DIABETIC FOOT EXAM due on 09/14/2018 LDL CHOLESTEROL due on 01/04/2019 SERUM CREATININE due on 01/04/2019 ANNUAL PCP TEAM CHRONIC DISEASE VISIT due on 01/10/2019 DILATED RETINAL EXAM due on 04/24/2019 COLORECTAL CANCER SCREENING,SEE MODIFIER due on 07/07/2021 DTAP,TDAP,TD(3 - Td) due on 05/18/2022 ADULT PREVNAR-13 Completed PNEUMOVAX AGE 65 AND OVER WITH 5YR LOOKBACK Completed Data reviewed Component Latest Ref Rng AND Units 01/04/2018 WBC 3.70 - 11.00 k/uL 5.08 RBC 4.20 - 6.00 m/uL 4.09 (L) Hemoglobin 13.0 - 17.0 g/dL 12.8 (L) Hematocrit 39.0 - 51.0 % 39.6 MCV 80.0 - 100.0 fL 96.8 MCH 26.0 - 34.0 pG 31.3 MCHC 30.5 - 36.0 g/dL 32.3 RDW-CV 11.5 - 15.0 % 13.6 Platelet Count 150 - 400 k/uL 92 (L) MPV 9.0 - 12.7 fL 9.3 Neut% % 44.3 Abs Neut (ANC) 1.45 - 7.50 k/uL 2.25 Lymph% % 29.3 Abs Lymph 1.00 - 4.00 k/uL 1.49 Meigs% % 8.3 Abs [place] <0.87 k/uL 0.42 Eosin% % 17.5 Abs Eosin <0.46 k/uL 0.89 (H) Baso% % 0.6 Abs Baso <0.11 k/uL 0.03 Nucleated Reds 0 /100 WBC 0.0 Absolute nRBC <0.01 k/uL <0.01 Diff Type Auto Diff Protein, Total 6.3 - 8.0 g/dL 7.0 Albumin 3.9 - 4.9 g/dL 4.0 Calcium 8.5 - 10.2 mg/dL 9.1 Bilirubin, Total 0.2 - 1.3 mg/dL 0.5 Alkaline Phosphatase 36 - 108 U/L 55 AST 14 - 40 U/L 19 Glucose 74 - 99 mg/dL 174 (H) BUN 9 - 24 mg/dL 24 Creatinine 0.73 - 1.22 mg/dL 1.14 Sodium 136 - 144 mmol/L 139 Potassium 3.7 - 5.1 mmol/L 4.6 Chloride 97 - 105 mmol/L 101 CO2 22 - 30 mmol/L 27 Anion Gap 9 - 18 mmol/L 11 ALT 10 - 54 U/L 10 eGFR- >60 eGFR-All Other Races . >60 Cholesterol, Total <200 mg/dL 128 Triglyceride <150 mg/dL 160 (H) HDL Cholesterol >39 mg/dL 25 (L) LDL Cholesterol <100 mg/dL 71 Non HDL Cholesterol <130 mg/dL 103 Fasting Time hrs 12 VLDL Cholesterol <30 mg/dL 32 (H) TC:HDL Ratio <5.10 5.12 (H) LDL:HDL Ratio <2.54 2.84 (H) Hemoglobin A1C 4.3 - 5.6 % 7.4 (H) Estimated Average Glucose mg/dL 166 ASSESSMENT/PLAN: 1. 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 - Continue current medications - Blood glucose monitoring on a once a day schedule - Encouraged regular aerobic exercise and weight loss - Daily Asprin therapy recommended - Follow up in 4 months, sooner should any other issues arise. - Discussed diabetic education issues of intermediate accountant diabetic complications, hypoglycemic symptoms, hyperglycemic symptoms, diet, medications- side effects and need for compliance and importance of exercise with patient. - HEMOGLOBIN A1C (POC) - ALBUMIN/CREAT RATIO RND UR 2. CKD (chronic kidney disease) stage 3, GFR 30-59 ml/min (HCC) - ICD9: 585.3, ICD10: N18.3 Stable with CMP earlier this month. 3. Essential hypertension - ICD9: 401.9, ICD10: I10 - good control - Continue current medication(s) - Encouraged dietary sodium restriction/DASH diet - Recommended regular aerobic exercise. - Reviewed risks of HTN and principles of treatment - Goal of BP <140/90 4. Obesity (BMI 30.0-34.9) - ICD9: 278.00, ICD10: E66.9 Diabetic diet and exercise as recommended. 5. Coronary artery disease involving [place] heart without angina pectoris, unspecified vessel or lesion type - ICD9: 414.01, ICD10: I25.10 Asymptomatic on current regimen. F/u with Dr. Wise as recommended. 6. Mixed hyperlipidemia - ICD9: 272.2, ICD10: E78.2 - good control - Continue current medication. - Encouraged following a low fat, low cholesterol diet. - Discussed the benefits of regular aerobic exercise and weight loss. 7. Atrial flutter, unspecified type (HCC) - ICD9: 427.32, ICD10: I48.92 Rate controlled. Continue beta cecil and coumadin. Recommendations per cardiology. 8. Cardiac pacemaker in situ - ICD9: V45.01, ICD10: Z95.0 Replacement successful. Healing well. 9. Chronic anticoagulation - ICD9: V58.61, ICD10: Z79.01 Continue coumadin at current dosage. Recheck INR on 05/18. 10. Bilateral lower extremity edema - ICD9: 782.3, ICD10: R60.0 zipppered compression stockings daily. Low sodium diet. Continue HCTZ/lisinopril combo. - COMPOUNDED PRESCRIPTION 11. Need for vaccination - ICD9: V05.9, ICD10: Z23 - INFLUENZA SEASONAL HIGH DOSE AGE 65+ Tamar Merrill MD PROTHROMBIN TIME W/INR Collected: 05/08/2018 Status: F Source: [place] 9:06 AM [facility] REPOSITORY TYPE CODE TESTS RESULT OUT OF RANGE REFERENCE UNITS LAB L300.4150 11.7-14.9 SECONDS Normal PROTIME 14.7 LAB L300.4200 Normal INR 1.2 Performed By: #### L300.3900 #### [facility] [address] [place], [address] EKG1 Observed: 05/04/2018 Status: F Source: [place] 4:05 PM [facility] REPOSITORY NAME : WILBUR WRIGHT PID : [id number] : 1940 Gender : Male Race : ORD : Procedure Date : May 04 2018 16:05:14 Edit Date : May 05 2018 10:39:47 Diagnosis:ELECTRONIC VENTRICULAR PACEMAKER BACKGROUND RHYTHM PROBABLY SINUS, WITHOUT AV CONDUCTION CONSIDER PACEMAKER MALFUNCTION Confirmed by LEONIDES WISE MD ([id number]) on 05/05/2018 10:39:38 AM Ventricular Rate : 65 BPM Atrial Rate : 64 BPM QRS Duration : 170 ms Q-T Interval : 448 ms QTC Calculation(Bezet) : 465 ms R [place] : -68 degrees T [place] : 92 degrees Test Reason : Location : 136 : [place] Overread By : LEONIDES WISE MD Edited By : LEONIDES WISE MD Referred By : LEONIDES WISE Acquired by : GLORIA, PROGRESS Observed: 05/04/2018 Status: COMPLETED Source: [place] 3:17 PM [facility] REPOSITORY HNO ID: [id number] Author: Leonides Wise Service: (none) Author Type: Physician Type: Progress Notes Filed: 05/04/2018 5:33 PM Note Text: PERTINENT CARDIAC HISTORY ASHD - CABG (DELGADO to the LAD and vein grafts to the first diagonal, obtuse marginal and PDA) 2008 SSS - PPM 2007 Atrial fib - chronic?, on a/c HTN HL DM PAD Venous insufficiency Obesity ADHERENCE TO GUIDELINES PRIYANKA-I or ARB for HF with prior LVEF<40 (NQF 0081) - N/A ASA or Plavix for ASHD (NQF 0067) - met Beta cecil for ASHD with prior NV or prior LVEF<40 (NQF 0070) - N/A Beta cecil for HF with prior LVEF<40 (NQF 0083) - N/A PRIYANKA-I or ARB for ASHD with DM or prior LVEF<40 (NQF 0066) - met Statin therapy for ASHD or FHL or DM - met BMI documented and plan if >25 (NQF 0421) - lifestyle recommendation form Tobacco use screening and referral (NQF 0028) - lifestyle recommendation form Recommendation for whole food, plant based diet - lifestyle recommendation form CLINICAL IMPRESSION/PLAN: Wilbur Wright is clinically stable. Pacemaker change out will be done at [facility]. This report and EKG will be faxed. He has not yet been told what to do with his warfarin and this will be clarified. He is optimized for surgery. I will see him as scheduled. Written and verbal health teaching given to patient, patient verbalizes understanding and agrees with treatment plan. DIAGNOSIS FOR VISIT: Sick sinus syndrome ASHD HISTORY OF PRESENT ILLNESS Wilbur Wright is seen for preoperative evaluation prior to pacemaker change out. His pacemaker is at [employer]. He has had no sensation of palpitations. He denies syncope or near syncope. He's had no recent chest discomfort. Exercise tolerance has been stable. He's had no orthopnea or edema. He denies TIAs, amaurosis and claudication. ALLERGIES: ALLERGIES Allergen Reactions - Avandia [Rosiglitaz* Swelling fluid retention - Glimepiride Intolerance hypoglycemia - Amlodipine Swelling Leg swelling with 2.5mg CURRENT OUTPATIENT MEDICATIONS: Aspirin 81 mg Tab Take 1 tablet by mouth once daily. Take 1/2hr before niacin with food. CHOLECALCIFEROL (VITAMIN D3) 1,000 UNIT CAP 2 tab daily COMPOUNDED PRESCRIPTION Adjustable quad cane. To be used daily for ambulation. Dx: age related debility lisinopril-hydrochlorothiazide (PRINZIDE,ZESTORETIC) 20-12.5 mg per tablet Take 2 tablets by mouth every morning. Lovastatin 40 mg tablet Take 1 tablet by mouth daily at bedtime. metFORMIN (GLUCOPHAGE) 1,000 mg tablet Take 1 tablet by mouth twice daily with meals. metoprolol tartrate, short acting, (LOPRESSOR) 25 mg tablet Take 1 tablet by mouth twice daily. warfarin (COUMADIN) 2 mg tablet 4 mg PO daily albuterol HFA (VENTOLIN HFA) 90 mcg/actuation inhaler Inhale 2 Puffs as instructed every 4 hours as needed. blood sugar diagnostic (BLOOD GLUCOSE TEST) test strip Pt usesTrue Metric Meter. Test twice daily. Dx E11.65 Insulin: No Lancets lancets Test blood sugar(s) 2 times daily. Dx: Type 2 DM - Uncontrolled E11.65 Insulin: No PAST MEDICAL HISTORY Diagnosis Date - Atrial fibrillation (HCC) - CAD (coronary artery disease) Seeing Dr. Wise - Cataracts, bilateral - CKD (chronic kidney disease) stage 3, GFR 30-59 ml/min ([facility]) - Compression fracture of lumbar vertebra ([facility]) - DDD (degenerative disc disease), lumbar - Diabetes mellitus type II, controlled ([facility]) - Diabetic neuropathy ([facility]) Dr. Gibson - Diabetic retinopathy ([facility]) Dr. Maria - Edema - GERD (gastroesophageal reflux disease) - Hyperlipidemia - Ischemic colitis ([facility]) - TAMAYO (nonalcoholic steatohepatitis) - Other malaise and fatigue - Pacemaker - PVD (peripheral vascular disease) ([facility]) - Thrombocytopenia ([facility]) - Unspecified essential hypertension PAST SURGICAL HISTORY Procedure Laterality Date - APPENDECTOMY 1951 - CABG (4) VEIN GRAFTS AND ARTERIAL GRAFT(S) 2008 aortocoronary bypass grafting - CATARACT EXTRACTION HX Right 2016 - COLONOSCOP W/ OR W/O [facility] SPEC 08/02/2005 Colonoscopy - COLONOSCOP W/ OR W/O [facility] SPEC 07/07/2011 [facility] - PAST SURGICAL HISTORY OF 03/06/2008 pacemaker placement - PAST SURGICAL HISTORY OF Bilateral laser eye surgery FAMILY HISTORY Problem Relation Age of Onset - Heart Mother Social History Marital status: Spouse name: Years of education: Number of children: Social History Main Topics Smoking status: Former Smoker Packs/day: 1.00 Years: 15.00 Types: Cigarettes Quit date: 05/23/1969 Smokeless tobacco: Never Used Alcohol use: No Drug use: No Sexual activity: Yes Partners with: Female REVIEW OF SYSTEMS: General: No chills, fever, weight loss, night sweats. Respiratory: No productive cough. Cardiac: As noted above. GI: No melena. : No dysuria. Musculoskeletal: No myalgias. PHYSICAL EXAMINATION: S/he is alert and in no distress. VITAL SIGNS: BP 140/67 Pulse 65 Wt 196 lb 3.2 oz (89.0kg) SHEENT: Skin is warm and dry. No xanthelasmas appreciated. Pharynx is benign. There is no oral cyanosis. Neck: supple. No adenopathy or thyroid enlargement. Chest: Clear to auscultation. Trachea is midline. Air entry is equal. There is no chest wall tenderness. Cardiac: Regular rhythm. S1 and S2 are normal. PMI is nondisplaced. There is a soft systolic ejection murmur. No click is heard. Carotids are brisk without bruits. JVP is less than 10 cm. Abdomen: Soft and nontender. There are no pulsatile masses or bruits. No liver enlargement. Bowel sounds are active. Extremities: 1 plus edema. Pulses are diminished but symmetrical. No clubbing or cyanosis. No femoral bruits. Neurologic: Grossly normal motor and sensory. S/he is alert and oriented x4. EKG shows electronic ventricular pacemaker. This seems to be independent of atrial activity, suggesting that it has reverted to a VVI mode. Electronically Signed: Leonides Wise MD May 04, 2018 3:17 PM CC:Tamar Merrill MD CNOV Observed: 05/04/2018 Status: COMPLETED Source: [place] 2:00 PM [facility] REPOSITORY Office Visit (CAWSTR) WILBUR WRIGHT ([id number]) 1940 M Date Time Provider Department 05/04/18 2:00 PM LEONIDES WISE During your visit today, we recorded the following information about you: Pulse Blood pressure Weight 65/minute 140/67 89 kg Leonides Wise MD 05/04/2018 5:33 PM Signed PERTINENT CARDIAC HISTORY ASHD - CABG (DELG[place]O to the LAD and vein grafts to the first diagonal, obtuse marginal and PDA) 2008 SSS - PPM 2007 Atrial fib - chronic?, on a/c HTN HL DM PAD Venous insufficiency Obesity ADHERENCE TO GUIDELINES PRIYANKA-I or ARB for HF with prior LVEF<40 (NQF 0081) - N/A ASA or Plavix for ASHD (NQF 0067) - met Beta cecil for ASHD with prior NV or prior LVEF<40 (NQF 0070) - N/A Beta cecil for HF with prior LVEF<40 (NQF 0083) - N/A PRIYANKA-I or ARB for ASHD with DM or prior LVEF<40 (NQF 0066) - met Statin therapy for ASHD or FHL or DM - met BMI documented and plan if >25 (NQF 0421) - lifestyle recommendation form Tobacco use screening and referral (NQF 0028) - lifestyle recommendation form Recommendation for whole food, plant based diet - lifestyle recommendation form CLINICAL IMPRESSION/PLAN: Wilbur Wright is clinically stable. Pacemaker change out will be done at [facility]. This report and EKG will be faxed. He has not yet been told what to do with his warfarin and this will be clarified. He is optimized for surgery. I will see him as scheduled. Written and verbal health teaching given to patient, patient verbalizes understanding and agrees with treatment plan. DIAGNOSIS FOR VISIT: Sick sinus syndrome ASHD HISTORY OF PRESENT ILLNESS Wilbur Wright is seen for preoperative evaluation prior to pacemaker change out. His pacemaker is at [employer]. He has had no sensation of palpitations. He denies syncope or near syncope. He's had no recent chest discomfort. Exercise tolerance has been stable. He's had no orthopnea or edema. He denies TIAs, amaurosis and claudication. ALLERGIES: ALLERGIES Allergen Reactions - Avandia [Rosiglitaz* Swelling fluid retention - Glimepiride Intolerance hypoglycemia - Amlodipine Swelling Leg swelling with 2.5mg CURRENT OUTPATIENT MEDICATIONS: Aspirin 81 mg Tab Take 1 tablet by mouth once daily. Take 1/2hr before niacin with food. CHOLECALCIFEROL (VITAMIN D3) 1,000 UNIT CAP 2 tab daily COMPOUNDED PRESCRIPTION Adjustable quad cane. To be used daily for ambulation. Dx: age related debility lisinopril-hydrochlorothiazide (PRINZIDE,ZESTORETIC) 20-12.5 mg per tablet Take 2 tablets by mouth every morning. Lovastatin 40 mg tablet Take 1 tablet by mouth daily at bedtime. metFORMIN (GLUCOPHAGE) 1,000 mg tablet Take 1 tablet by mouth twice daily with meals. metoprolol tartrate, short acting, (LOPRESSOR) 25 mg tablet Take 1 tablet by mouth twice daily. warfarin (COUMADIN) 2 mg tablet 4 mg PO daily albuterol HFA (VENTOLIN HFA) 90 mcg/actuation inhaler Inhale 2 Puffs as instructed every 4 hours as needed. blood sugar diagnostic (BLOOD GLUCOSE TEST) test strip Pt usesTrue Metric Meter. Test twice daily. Dx E11.65 Insulin: No Lancets lancets Test blood sugar(s) 2 times daily. Dx: Type 2 DM - Uncontrolled E11.65 Insulin: No PAST MEDICAL HISTORY Diagnosis Date - Atrial fibrillation (HCC) - CAD (coronary artery disease) Seeing Dr. Wise - Cataracts, bilateral - CKD (chronic kidney disease) stage 3, GFR 30-59 ml/min ([facility]) - Compression fracture of lumbar vertebra ([facility]) - DDD (degenerative disc disease), lumbar - Diabetes mellitus type II, controlled ([facility]) - Diabetic neuropathy ([facility]) Dr. Gibson - Diabetic retinopathy ([facility]) Dr. Maria - Edema - GERD (gastroesophageal reflux disease) - Hyperlipidemia - Ischemic colitis ([facility]) - TAMAYO (nonalcoholic steatohepatitis) - Other malaise and fatigue - Pacemaker - PVD (peripheral vascular disease) ([facility]) - Thrombocytopenia ([facility]) - Unspecified essential hypertension PAST SURGICAL HISTORY Procedure Laterality Date - APPENDECTOMY 1951 - CABG (4) VEIN GRAFTS AND ARTERIAL GRAFT(S) 2008 aortocoronary bypass grafting - CATARACT EXTRACTION HX Right 2016 - COLONOSCOP W/ OR W/O [facility] SPEC 08/02/2005 Colonoscopy - COLONOSCOP W/ OR W/O [facility] SPEC 07/07/2011 [facility] - PAST SURGICAL HISTORY OF 03/06/2008 pacemaker placement - PAST SURGICAL HISTORY OF Bilateral laser eye surgery FAMILY HISTORY Problem Relation Age of Onset - Heart Mother Social History Marital status: Spouse name: Years of education: Number of children: Social History Main Topics Smoking status: Former Smoker Packs/day: 1.00 Years: 15.00 Types: Cigarettes Quit date: 05/23/1969 Smokeless tobacco: Never Used Alcohol use: No Drug use: No Sexual activity: Yes Partners with: Female REVIEW OF SYSTEMS: General: No chills, fever, weight loss, night sweats. Respiratory: No productive cough. Cardiac: As noted above. GI: No melena. : No dysuria. Musculoskeletal: No myalgias. PHYSICAL EXAMINATION: S/he is alert and in no distress. VITAL SIGNS: BP 140/67 Pulse 65 Wt 196 lb 3.2 oz (89.0kg) SHEENT: Skin is warm and dry. No xanthelasmas appreciated. Pharynx is benign. There is no oral cyanosis. Neck: supple. No adenopathy or thyroid enlargement. Chest: Clear to auscultation. Trachea is midline. Air entry is equal. There is no chest wall tenderness. Cardiac: Regular rhythm. S1 and S2 are normal. PMI is nondisplaced. There is a soft systolic ejection murmur. No click is heard. Carotids are brisk without bruits. JVP is less than 10 cm. Abdomen: Soft and nontender. There are no pulsatile masses or bruits. No liver enlargement. Bowel sounds are active. Extremities: 1 plus edema. Pulses are diminished but symmetrical. No clubbing or cyanosis. No femoral bruits. Neurologic: Grossly normal motor and sensory. S/he is alert and oriented x4. EKG shows electronic ventricular pacemaker. This seems to be independent of atrial activity, suggesting that it has reverted to a VVI mode. Electronically Signed: Leonides Wise MD May 04, 2018 3:17 PM CC:Tamar Merrill MD Referring Provider: LEONIDES WISE [[id number]] Allergies As of Date: 05/04/2018 Noted Allergy Reaction AVANDIA (ROSIGLITAZONE MALEATE) 02/18/2005 7 - Swelling Comments: fluid retention GLIMEPIRIDE 07/12/2013 5 - Intolerance Comments: hypoglycemia AMLODIPINE 05/18/2012 7 - Swelling Comments: Leg swelling with 2.5mg Date Reviewed: 05/04/2018 Reviewed by: Jarred Alex RN - Fully Assessed Reason for Visit: Recheck [92] Primary Visit Diagnosis:Sick sinus syndrome (HCC) [I49.5] Order(s):ECG COMPLETE W INTERPRETATION [ECG01] Order #: [id number] FUTURE Prescriptions as of 05/04/2018 Sig: ASPIRIN 81 MG TABLET Take 1 tablet by mouth once d* CHOLECALCIFEROL (VITAMIN D3) * 2 tab daily COMPOUNDED PRESCRIPTION Adjustable quad cane. To be u* LISINOPRIL 20 MG-HYDROCHLOROT* Take 2 tablets by mouth every* LOVASTATIN 40 MG TABLET Take 1 tablet by mouth daily * METFORMIN 1,000 MG TABLET Take 1 tablet by mouth twice * METOPROLOL TARTRATE 25 MG TAB* Take 1 tablet by mouth twice * WARFARIN 2 MG TABLET 4 mg PO daily ALBUTEROL SULFATE HFA 90 MCG/* Inhale 2 Puffs as instructed * Patient not taking: Reported on 01/10/2018 BLOOD SUGAR DIAGNOSTIC STRIPS Pt usesTrue Metric Meter. Sarah* LANCETS Test blood sugar(s) 2 times d* Problem List As Of Date 05/04/2018 Noted Resolved Esophageal reflux [K21.9] INVALID FOR* More... ABDOMINAL PAIN( Epigastric) [R10.13] INVALID FOR*05/18/2012 Mixed hyperlipidemia [E78.2] INVALID FOR* More... Type II or unspecified type diabetes mellitus w*INVALID FOR*02/28/2013 More... Other malaise and fatigue [R53.81, R53.83] 05/18/2012 Infection and inflammatory reaction due to card*INVALID FOR*02/25/2016 ASHD (arteriosclerotic heart disease) [I25.10] INVALID FOR*08/07/2016 Thrombocytopenia [D69.6] INVALID FOR* Hypertension [I10] INVALID FOR*04/27/2016 CAD (coronary artery disease) [I25.10] INVALID FOR* More... Coronary atherosclerosis of [place] coronary art*INVALID FOR* More... Atrioventricular block, unspecified [I44.30] INVALID FOR*08/07/2016 More... Other second degree atrioventricular block [I44*INVALID FOR* More... Atrial flutter [I48.92] INVALID FOR* More... Other specified cardiac dysrhythmias [I49.8] INVALID FOR* More... Unspecified disorder of kidney and ureter [N28.*INVALID FOR* More... Cardiac pacemaker in situ [Z95.0] INVALID FOR* More... 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 TAMAYO (nonalcoholic steatohepatitis) [K75.81] INVALID FOR* Ischemic colitis (HCC) [K55.9] INVALID FOR*09/14/2017 Compression fracture of lumbar vertebra [S32.00*INVALID FOR* More... 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*INVALID FOR* Uncontrolled type 2 diabetes mellitus with diab*INVALID FOR*08/07/2016 Type 2 diabetes mellitus with diabetic polyneur*INVALID FOR*06/14/2017 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] INVALID FOR* Obesity (BMI 30.0-34.9) [E66.9] INVALID FOR* Essential hypertension [I10] INVALID FOR* Chronic anticoagulation [Z79.01] INVALID FOR* Dyspnea on exertion [R06.09] INVALID FOR* Chronic venous insufficiency [I87.2] INVALID FOR* Diabetes mellitus type II, controlled ([facility]) [E1* 06/14/2017 CKD (chronic kidney disease) stage 3, GFR 30-59* Falls infrequently [Z91.81] INVALID FOR* Follow-up and Disposition History Recorded Encounter Status:Closed by LEONIDES WISE MD on 05/04/18 CNNURSE Observed: 05/04/2018 Status: COMPLETED Source: [place] 10:30 AM [facility] REPOSITORY Nurse Visit (CAWSTR) SHERIFWILBUR ([id number]) 1940 M Date Time Provider Department 05/04/18 10:30 AM [facility] During your visit today, we recorded the following information about you: Jarred Johnson RN 05/04/2018 4:06 PM Signed Ekg completed per order. Pt tolerated procedure without distress. Jarred Johnson RN Referring Provider: LEONIDES WISE [[id number]] Allergies As of Date: 05/04/2018 Noted Allergy Reaction AVANDIA (ROSIGLITAZONE MALEATE) 02/18/2005 7 - Swelling Comments: fluid retention GLIMEPIRIDE 07/12/2013 5 - Intolerance Comments: hypoglycemia AMLODIPINE 05/18/2012 7 - Swelling Comments: Leg swelling with 2.5mg Date Reviewed: 05/04/2018 Reviewed by: Jarred Johnson RN - Fully Assessed Reason for Visit: Nurse Visit [792] Visit Diagnosis:Sick sinus syndrome (HCC) [I49.5] Order(s):ECG COMPLETE W INTERPRETATION [ECG01] Order #: [id number] Prescriptions as of 05/04/2018 Sig: ALBUTEROL SULFATE HFA 90 MCG/* Inhale 2 Puffs as instructed * Patient not taking: Reported on 01/10/2018 ASPIRIN 81 MG TABLET Take 1 tablet by mouth once d* BLOOD SUGAR DIAGNOSTIC STRIPS Pt usesTrue Metric Meter. Sarah* CHOLECALCIFEROL (VITAMIN D3) * 2 tab daily COMPOUNDED PRESCRIPTION Adjustable quad cane. To be u* LANCETS Test blood sugar(s) 2 times d* LISINOPRIL 20 MG-HYDROCHLOROT* Take 2 tablets by mouth every* LOVASTATIN 40 MG TABLET Take 1 tablet by mouth daily * METFORMIN 1,000 MG TABLET Take 1 tablet by mouth twice * METOPROLOL TARTRATE 25 MG TAB* Take 1 tablet by mouth twice * WARFARIN 2 MG TABLET 4 mg PO daily Problem List As Of Date 05/04/2018 Noted Resolved Esophageal reflux [K21.9] INVALID FOR* More... ABDOMINAL PAIN( Epigastric) [R10.13] INVALID FOR*05/18/2012 Mixed hyperlipidemia [E78.2] INVALID FOR* More... Type II or unspecified type diabetes mellitus w*INVALID FOR*02/28/2013 More... Other malaise and fatigue [R53.81, R53.83] 05/18/2012 Infection and inflammatory reaction due to card*INVALID FOR*02/25/2016 ASHD (arteriosclerotic heart disease) [I25.10] INVALID FOR*08/07/2016 Thrombocytopenia [D69.6] INVALID FOR* Hypertension [I10] INVALID FOR*04/27/2016 CAD (coronary artery disease) [I25.10] INVALID FOR* More... Coronary atherosclerosis of [place] coronary art*INVALID FOR* More... Atrioventricular block, unspecified [I44.30] INVALID FOR*08/07/2016 More... Other second degree atrioventricular block [I44*INVALID FOR* More... Atrial flutter [I48.92] INVALID FOR* More... Other specified cardiac dysrhythmias [I49.8] INVALID FOR* More... Unspecified disorder of kidney and ureter [N28.*INVALID FOR* More... Cardiac pacemaker in situ [Z95.0] INVALID FOR* More... 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 TAMAYO (nonalcoholic steatohepatitis) [K75.81] INVALID FOR* Ischemic colitis (HCC) [K55.9] INVALID FOR*09/14/2017 Compression fracture of lumbar vertebra [S32.00*INVALID FOR* More... 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*INVALID FOR* Uncontrolled type 2 diabetes mellitus with diab*INVALID FOR*08/07/2016 Type 2 diabetes mellitus with diabetic polyneur*INVALID FOR*06/14/2017 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] INVALID FOR* Obesity (BMI 30.0-34.9) [E66.9] INVALID FOR* Essential hypertension [I10] INVALID FOR* Chronic anticoagulation [Z79.01] INVALID FOR* Dyspnea on exertion [R06.09] INVALID FOR* Chronic venous insufficiency [I87.2] INVALID FOR* Diabetes mellitus type II, controlled (HCC) [E1* 06/14/2017 CKD (chronic kidney disease) stage 3, GFR 30-59* Falls infrequently [Z91.81] INVALID FOR* Visit Notes: >> Jarred Johnson RN [facility] May 04, 2018 4:06 PM Status: Signed Ekg completed per order. Pt tolerated procedure without distress. Jarred Johnson RN Encounter Status:Closed by JARRED JOHNSON RN on 05/04/18 PROGRESS Observed: 05/02/2018 Status: COMPLETED Source: [place] 2:45 PM [facility] REPOSITORY HNO ID: [id number] Author: Tamar Merrill Service: (none) Author Type: Physician Type: Progress Notes Filed: 05/02/2018 2:46 PM Note Text: INR therapeutic. Continue current coumadin dosage and follow up in 2 weeks. PROGRESS Observed: 05/02/2018 Status: COMPLETED Source: [place] 2:17 PM [facility] REPOSITORY HNO ID: [id number] Author: Tanesha Shearer RN Service: (none) Author Type: (none) Type: Progress Notes Filed: 05/02/2018 2:19 PM Note Text: patient had inr completed at [facility] patients inr is 2.1 (patients inr range is 2.0 - 3.0) patient is currently taking 4mg daily patients last dose change was on 11/09/17 due to a high level of 3.5 (dose at that time was 6mg Mon and 4mg all other days) patient has had no changes in medication and no missed doses and no change in diet FYI - patient will be stopping coumadin on 05/03/18 due to he is having a pacemaker change on Tuesday 05/08. Patient will be restarting coumadin on 05/09/18. Advised patient to continue on the same dose(s) and that they would only be contacted regarding dosage and follow up instructions after review with provider, if a change is needed. Written instructions given and patient verbalized understanding. Presently scheduled in 2 week (05/18/18 - 1 week after restarting couamdin) for follow up INR. PACEMAKER CHECK Observed: 05/01/2018 Status: F Source: [place] 7:29 AM [facility] [facility] REPOSITORY [facility] [address] [place] [address] Pacemaker Check Date of Service: 04/27/18 1303 MR#: [id number] Acct: [id number] Name: WILBUR WRIGHT Rep #: [id number] : 1940 From: Latanya Smith Age/Sex: 77/M Location: [facility] [place] Status: Signed Billing Codes PM Device Codes: PM Dev Prog Eval, Dual 04/27/18 1305 <Electronically signed by Latanya Smith > Date Latanya Smith 05/01/18 0729<Electronically signed by Marty Blankenship MD> Cosigner Signature: Date (if applicable) Marty Blankenship MD CC: CBC-COMPLETE BLOOD CNT Collected: 04/27/2018 Status: F Source: PHI NO DIFF 12:34 PM [facility] REPOSITORY TYPE CODE TESTS RESULT OUT OF RANGE REFERENCE UNITS LAB L100.1000 4.4-11.0 K/mm3 Normal WBC 5.2 LAB L100.1200 4.6-6.2 M/mm3 Low RBC 4.17 LAB L100.1300 13.0-16.5 g/dl Normal HGB 13.4 LAB L100.1400 40-54 % Low HCT 39.6 LAB L100.1500 80-94 fL High MCV 95.0 LAB L100.1600 27.0-32.0 pg High MCH 32.1 LAB L100.1700 32-36 g/gl Normal MCHC 33.8 LAB L100.1810 11.6-14.6 % Normal RDW CV 13.3 LAB L100.1820 35.1-43.9 fl High RDW SD 44.2 LAB L100.1900 150-450 K/mm3 Low PLT 95 LAB L100.2000 6.2-12.0 fl Normal MPV 9.3 Performed By: #### L100.0500 #### [facility] [address] [place], [place], [address] PROTHROMBIN TIME W/INR Collected: 04/27/2018 Status: F Source: [place] 12:34 PM [facility] REPOSITORY TYPE CODE TESTS RESULT OUT OF RANGE REFERENCE UNITS LAB L300.4150 11.7-14.9 SECONDS High PROTIME 23.9 LAB L300.4200 Normal INR 2.1 Performed By: #### L300.3900 #### [facility] [address] [place], [address] URINALYSIS, COMPLETE Collected: 04/27/2018 Status: F Source: [place] 12:34 PM [facility] REPOSITORY Order Comment: How was Urine Obtained? WELDER PRODUCTION LINE COMBINATION TO SPECIFY TYPE CODE TESTS RESULT OUT OF RANGE REFERENCE UNITS LAB L400.3000 Yellow COLOR Normal Yellow LAB L400.3050 Clear Normal CLARITY Clear LAB L400.3200 Normal mg/dl Normal GLUCOSE, UR Normal LAB L400.3300 Negative mg/dL Normal BILIRUBIN URINE Negative LAB L400.3400 Negative mg/dl Normal KETONE UR Negative LAB L400.3465 1.002-1.030 Normal SP.GR. DIPSTX 1.015 LAB L400.3550 5.0 - 8.0 pH UR Normal 6.5 LAB L400.3600 Negative mg/dl PROT Normal DIPSTX Negative LAB L400.3700 Normal mg/dl High 1 UROBILI LAB L400.3750 Negative Normal NITRITE UR Negative LAB L400.3780 Negative /ul Normal OCCULT BLOOD-UR Negative LAB L400.3800 Negative /ul High LEUK 25 ESTERASE LAB L400.4050 0-5 /hpf WBC Normal 0-5 SEEN LAB L400.4100 0-5 /hpf 0 Normal RBC-UA SEEN LAB L400.4150 0-5 /hpf SQUAM 0 Normal EPI SEEN LAB L400.4300 None Seen /hpf Normal BACTERIA RARE LAB L400.4350 <or=2+ /hpf 0 Normal MUCUS, URINE SEEN Performed By: #### L400.0001 #### [facility] [address] [place], [place], [address] BASIC METABOLIC Collected: 04/27/2018 Status: F Source: PHI PROFILE (BMP) 12:34 PM [facility] REPOSITORY TYPE CODE TESTS RESULT OUT OF RANGE REFERENCE UNITS LAB L501.0100 74-106 mg/dL High GLU 195 Result Comment: Fasting Glucose result greater than or equal to 126 mg/dL suggests DIABETES MELLITUS per A.D.A. criteria. Please note revised GLUCOSE reference range effective 2017. LAB L501.1000 7-18 mg/dL High BUN 32 LAB L501.1100 0.70-1.30 mg/dL High CREAT,SERUM 1.40 Result Comment: The validity of the calculated GFR AND GFRAA in patients over 70 years has not been determined. Clinical correlation is essential. LAB L501.1110 >60 mL/min Low EST GFR 52 Result Comment: Non- GFR Calc LAB L501.1115 >60 mL/min Normal EST GFR - AA 63 Result Comment: GFR Calc LAB L501.1300 10-20 RATIO High BUN/CRE 22.9 LAB L501.2200 8.5-10.1 mg/dL CA Normal 9.1 LAB L501.5300 136-145 mmol/L NA Normal 140 LAB L501.5600 3.5-5.1 mmol/L K Normal 4.7 LAB L501.5900 98-107 mmol/L CL Normal 104 LAB L501.6100 21.0-32.0 mmol/L Normal CO2 30.0 LAB L501.6200 5-15 Normal GAP 6 Performed By: #### L500.2500 #### [facility] [address] [place], [address] CHEST PA AND LATERAL Observed: 04/27/2018 Status: F Source: PHI 12:03 PM [facility] Imaging Services [address] [place] [address] Chest PA and Lateral MR#: [id number] Acct: [id number] Name: WILBUR WRIGHT Rep #: [id number] : 1940 M 77 From: Ramon Mireles MD PCP: Billy Merrill MD Status: REG CLI Study: Chest PA and Lateral Date of Exam: 04/27/18 Exam# [id number] Ordering Dr: Marty Blankenship MD STUDY: X-RAY CHEST REASON FOR EXAM: Male, 77 years old. Pre-op for generator change TECHNIQUE: Frontal and lateral views of the chest. COMPARISON: None. FINDINGS: Median sternotomy wires. Dual-chamber pacemaker on the left. The lungs are clear and expanded. There is no demonstrated pleural abnormality. Normal size heart. Normal mediastinum and luana. Normal visualized pulmonary arteries. Normal visualized aortic arch and descending thoracic aorta. Normal visualized thoracic spine. Normal visualized ribs, clavicles, and shoulders. There is no demonstrated abnormality of the visualized soft tissue structures of the upper abdomen. RAD/Chest PA and Lateral IMPRESSION: No acute pulmonary findings. Electronically Signed: Ramon Mireles MD at 8:41 EST Tel , Service support , CC: Billy Merrill MD; Marty Blankenship MD Flue Cleaner: Signed JENNYFERTOUTRRAMOS Observed: 04/25/2018 Status: COMPLETED Source: [place] 12:00 AM [facility] REPOSITORY Patient Outreach (INTMWH) WILBUR WRIGHT ([id number]) 1940 M Date Time Provider Department 04/25/18 TAMAR MERRILL) [facility] During your visit today, we recorded the following information about you: Allergies As of Date: 04/25/2018 Noted Allergy Reaction AVANDIA (ROSIGLITAZONE MALEATE) 02/18/2005 7 - Swelling Comments: fluid retention GLIMEPIRIDE 07/12/2013 5 - Intolerance Comments: hypoglycemia AMLODIPINE 05/18/2012 7 - Swelling Comments: Leg swelling with 2.5mg Date Reviewed: 03/07/2018 Reviewed by: Rebeca Arreola MA - Fully Assessed Visit Diagnosis:Medication management [Z79.899] Order(s):ALBUMIN/CREAT RATIO RND UR [SQUACR] Order #: [id number] FUTURE Prescriptions as of 04/25/2018 Sig: ALBUTEROL SULFATE HFA 90 MCG/* Inhale 2 Puffs as instructed * Patient not taking: Reported on 01/10/2018 ASPIRIN 81 MG TABLET Take 1 tablet by mouth once d* BLOOD SUGAR DIAGNOSTIC STRIPS Pt usesTrue Metric Meter. Sarah* CHOLECALCIFEROL (VITAMIN D3) * 2 tab daily COMPOUNDED PRESCRIPTION Adjustable quad cane. To be u* LANCETS Test blood sugar(s) 2 times d* LISINOPRIL 20 MG-HYDROCHLOROT* Take 2 tablets by mouth every* LOVASTATIN 40 MG TABLET Take 1 tablet by mouth daily * METFORMIN 1,000 MG TABLET Take 1 tablet by mouth twice * METOPROLOL TARTRATE 25 MG TAB* Take 1 tablet by mouth twice * WARFARIN 2 MG TABLET 4 mg PO daily Problem List As Of Date 04/25/2018 Noted Resolved Esophageal reflux [K21.9] INVALID FOR* More... ABDOMINAL PAIN( Epigastric) [R10.13] INVALID FOR*05/18/2012 Mixed hyperlipidemia [E78.2] INVALID FOR* More... Type II or unspecified type diabetes mellitus w*INVALID FOR*02/28/2013 More... Other malaise and fatigue [R53.81, R53.83] 05/18/2012 Infection and inflammatory reaction due to card*INVALID FOR*02/25/2016 ASHD (arteriosclerotic heart disease) [I25.10] INVALID FOR*08/07/2016 Thrombocytopenia [D69.6] INVALID FOR* Hypertension [I10] INVALID FOR*04/27/2016 CAD (coronary artery disease) [I25.10] INVALID FOR* More... Coronary atherosclerosis of [place] coronary art*INVALID FOR* More... Atrioventricular block, unspecified [I44.30] INVALID FOR*08/07/2016 More... Other second degree atrioventricular block [I44*INVALID FOR* More... Atrial flutter [I48.92] INVALID FOR* More... Other specified cardiac dysrhythmias [I49.8] INVALID FOR* More... Unspecified disorder of kidney and ureter [N28.*INVALID FOR* More... Cardiac pacemaker in situ [Z95.0] INVALID FOR* More... 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 TAMAYO (nonalcoholic steatohepatitis) [K75.81] INVALID FOR* Ischemic colitis (HCC) [K55.9] INVALID FOR*09/14/2017 Compression fracture of lumbar vertebra [S32.00*INVALID FOR* More... 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*INVALID FOR* Uncontrolled type 2 diabetes mellitus with diab*INVALID FOR*08/07/2016 Type 2 diabetes mellitus with diabetic polyneur*INVALID FOR*06/14/2017 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] INVALID FOR* Obesity (BMI 30.0-34.9) [E66.9] INVALID FOR* Essential hypertension [I10] INVALID FOR* Chronic anticoagulation [Z79.01] INVALID FOR* Dyspnea on exertion [R06.09] INVALID FOR* Chronic venous insufficiency [I87.2] INVALID FOR* Diabetes mellitus type II, controlled (HCC) [E1* 06/14/2017 CKD (chronic kidney disease) stage 3, GFR 30-59* Falls infrequently [Z91.81] INVALID FOR* Encounter Status:Closed by Curverider, PRODUSER on 05/18/18 PROGRESS Observed: 04/04/2018 Status: COMPLETED Source: [place] 3:24 PM [facility] REPOSITORY HNO ID: [id number] Author: Tamar Leal) Desirae Service: (none) Author Type: Physician Type: Progress Notes Filed: 04/04/2018 3:24 PM Note Text: INR therapeutic. Continue current coumadin dosage and follow up in 4 weeks. PROGRESS Observed: 04/04/2018 Status: COMPLETED Source: [place] 2:41 PM [facility] REPOSITORY HNO ID: [id number] Author: Tanesha Shearer RN Service: (none) Author Type: (none) Type: Progress Notes Filed: 04/04/2018 2:42 PM Note Text: patient had inr completed at [facility] patients inr is 2.2 (patients inr range is 2.0-3.0) patient is currently taking 4mg daily patients last dose change was on 11/09/17 due to a high level of 3.5 (dose at that time was 6mg Mon and 4mg all other days) patient has had no change in medicatin and no missed doses and no change in diet Advised patient to continue on the same dose(s) and that they would only be contacted regarding dosage and follow up instructions after review with provider, if a change is needed. Written instructions given and patient verbalized understanding. Presently scheduled in 4 weeks (05/02/18) for follow up INR. PROGRESS Observed: 03/14/2018 Status: COMPLETED Source: [place] 6:22 PM [facility] REPOSITORY HNO ID: [id number] Author: Tamar Leal) Desirae Service: (none) Author Type: Physician Type: Progress Notes Filed: 03/14/2018 6:22 PM Note Text: Reviewed. PROGRESS Observed: 03/14/2018 Status: COMPLETED Source: [place] 4:56 PM [facility] REPOSITORY HNO ID: [id number] Author: Juliane Staley) Edmundo Service: (none) Author Type: Registered Nurse Type: Progress Notes Filed: 03/14/2018 5:03 PM Note Text: PRIMARY CARE COORDINATION DISCHARGE Patient has been identified by name and date of : Yes Patient discharged from Primary Care Coordination: YES Goals met Appointment adherence (PCP and specialists) over 6-12 month period Diagnostic/laboratory/screening adherence over 6-12 month period Patient demonstrates ability to set and achieve healthcare self-management goals Demonstrates engagement through active participation in self-care Goals not met PCP determination Patient is overdue for DM Eye Exam but has scheduled appt with [facility] in April Patient knowledgeable and confident in contacting Health Care Providers for questions or concerns: YES Reinforced with patient and/or caregiver that Primary Care Coordination may be reinitiated if a change in status warrants navigation readmission: YES Discussed with: Patient PCP Agree What was the Focus/Challenges addressed in Care Coordination? Education on Chronic Disease Management Care Gaps Disposition: Follow up with PCP Care Team Tab - End: YES Discussed with PCP, pt's A1C of 7.4 is within goal. Pt's goal for BP is 140/90 Juliane Wyatt RN CNPTOUTREACH Observed: 03/14/2018 Status: COMPLETED Source: [place] 12:00 AM [facility] REPOSITORY Patient Outreach (FAMPWS) WILBUR WRIGHT ([id number]) 1940 M Date Time Provider Department 03/14/18 JULIANE WYATT) FAMPWS During your visit today, we recorded the following information about you: Juliane Wyatt RN 03/14/2018 5:03 PM Signed PRIMARY CARE COORDINATION DISCHARGE Patient has been identified by name and date of : Yes Patient discharged from Primary Care Coordination: YES Goals met Appointment adherence (PCP and specialists) over 6-12 month period Diagnostic/laboratory/screening adherence over 6-12 month period Patient demonstrates ability to set and achieve healthcare self-management goals Demonstrates engagement through active participation in self-care Goals not met PCP determination Patient is overdue for DM Eye Exam but has scheduled appt with [facility] in April Patient knowledgeable and confident in contacting Health Care Providers for questions or concerns: YES Reinforced with patient and/or caregiver that Primary Care Coordination may be reinitiated if a change in status warrants navigation readmission: YES Discussed with: Patient PCP Agree What was the Focus/Challenges addressed in Care Coordination? Education on Chronic Disease Management Care Gaps Disposition: Follow up with PCP Care Team Tab - End: YES Discussed with PCP, pt's A1C of 7.4 is within goal. Pt's goal for BP is 140/90 AKSHAT Munoz MD 03/14/2018 6:22 PM Signed Reviewed. 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 To be u* ALBUTEROL SULFATE HFA 90 MCG/* Inhale 2 Puffs as instructed * Patient not taking: Reported on 01/10/2018 BLOOD SUGAR DIAGNOSTIC STRIPS Pt usesTrue Metric Meter. Sarah* LANCETS Test blood sugar(s) 2 times d* ASPIRIN 81 MG TABLET Take 1 tablet by mouth once d* CHOLECALCIFEROL (VITAMIN D3) * 2 tab daily Problem List As Of Date 03/14/2018 Noted Resolved Esophageal reflux [K21.9] INVALID FOR* More... ABDOMINAL PAIN( Epigastric) [R10.13] INVALID FOR*05/18/2012 Mixed hyperlipidemia [E78.2] INVALID FOR* More... Type II or unspecified type diabetes mellitus w*INVALID FOR*02/28/2013 More... Other malaise and fatigue [R53.81, R53.83] 05/18/2012 Infection and inflammatory reaction due to card*INVALID FOR*02/25/2016 ASHD (arteriosclerotic heart disease) [I25.10] INVALID FOR*08/07/2016 Thrombocytopenia [D69.6] INVALID FOR* Hypertension [I10] INVALID FOR*04/27/2016 CAD (coronary artery disease) [I25.10] INVALID FOR* More... Coronary atherosclerosis of [place] coronary art*INVALID FOR* More... Atrioventricular block, unspecified [I44.30] INVALID FOR*08/07/2016 More... Other second degree atrioventricular block [I44*INVALID FOR* More... Atrial flutter [I48.92] INVALID FOR* More... Other specified cardiac dysrhythmias [I49.8] INVALID FOR* More... Unspecified disorder of kidney and ureter [N28.*INVALID FOR* More... Cardiac pacemaker in situ [Z95.0] INVALID FOR* More... 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 TAMAYO (nonalcoholic steatohepatitis) [K75.81] INVALID FOR* Ischemic colitis (HCC) [K55.9] INVALID FOR*09/14/2017 Compression fracture of lumbar vertebra [S32.00*INVALID FOR* More... 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*INVALID FOR* Uncontrolled type 2 diabetes mellitus with diab*INVALID FOR*08/07/2016 Type 2 diabetes mellitus with diabetic polyneur*INVALID FOR*06/14/2017 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] INVALID FOR* Obesity (BMI 30.0-34.9) [E66.9] INVALID FOR* Essential hypertension [I10] INVALID FOR* Chronic anticoagulation [Z79.01] INVALID FOR* Dyspnea on exertion [R06.09] INVALID FOR* Chronic venous insufficiency [I87.2] INVALID FOR* Diabetes mellitus type II, controlled (HCC) [E1* 06/14/2017 CKD (chronic kidney disease) stage 3, GFR 30-59* Falls infrequently [Z91.81] INVALID FOR* Encounter Status:Closed by TAMAR MERRILL MD on 03/14/18 PROGRESS Observed: 03/07/2018 Status: COMPLETED Source: [place] 3:41 PM [facility] REPOSITORY O ID: [id number] Author: Leonides Wise Service: (none) Author Type: Physician Type: Progress Notes Filed: 03/07/2018 3:49 PM Note Text: PERTINENT CARDIAC HISTORY ASHD - CABG (DELGADO to the LAD and vein grafts to the first diagonal, obtuse marginal and PDA) 2008 SSS - PPM 2007 Atrial fib - chronic?, on a/c HTN HL DM PAD Venous insufficiency Obesity ADHERENCE TO GUIDELINES PRIYANKA-I or ARB for HF with prior LVEF<40 (NQF 0081) - N/A ASA or Plavix for ASHD (NQF 0067) - met Beta cecil for ASHD with prior NV or prior LVEF<40 (NQF 0070) - N/A Beta cecil for HF with prior LVEF<40 (NQF 0083) - N/A PRIYANKA-I or ARB for ASHD with DM or prior LVEF<40 (NQF 0066) - met Statin therapy for ASHD or FHL or DM - met BMI documented and plan if >25 (NQF 0421) - lifestyle recommendation form Tobacco use screening and referral (NQF 0028) - lifestyle recommendation form Recommendation for whole food, plant based diet - lifestyle recommendation form CLINICAL IMPRESSION/PLAN: Wilbur Wright is doing well. Platelet count is stable. He's had no complications from his anticoagulation. Coronary disease is well controlled. Blood pressure is slightly high today, but he has been advised to contact us with vital signs in the next few weeks. He continues to decline stress testing. Exercise tolerance has been stable. His pacemaker is nearing RADHIKA. This is being monitored at [facility]. I'll see him in 6 months or as needed. If there is increased chest pain or shortness of breath, he has been advised to contact me. Written and verbal health teaching given to patient, patient verbalizes understanding and agrees with treatment plan. DIAGNOSIS FOR VISIT: ASHD Hypertension HISTORY OF PRESENT ILLNESS Wilbur Wright returns for follow-up of multiple cardiac issues, as noted above. He reports stable exercise tolerance. He's had no chest discomfort. He denies orthopnea. He has had minimal edema. He has had no syncope, palpitations, TIAs, amaurosis or claudication. He has been checking her blood pressures regularly at home, but has some difficulty. He will be getting a new blood pressure cuff. ALLERGIES: ALLERGIES Allergen Reactions - Avandia [Rosiglitaz* Swelling fluid retention - Glimepiride Intolerance hypoglycemia - Amlodipine Swelling Leg swelling with 2.5mg CURRENT OUTPATIENT MEDICATIONS: Lovastatin 40 mg tablet Take 1 tablet by mouth daily at bedtime. lisinopril-hydrochlorothiazide (PRINZIDE,ZESTORETIC) 20-12.5 mg per tablet Take 2 tablets by mouth every morning. metoprolol tartrate, short acting, (LOPRESSOR) 25 mg tablet Take 1 tablet by mouth twice daily. metFORMIN (GLUCOPHAGE) 1,000 mg tablet Take 1 tablet by mouth twice daily with meals. warfarin (COUMADIN) 2 mg tablet 4 mg PO daily COMPOUNDED PRESCRIPTION Adjustable quad cane. To be used daily for ambulation. Dx: age related debility blood sugar diagnostic (BLOOD GLUCOSE TEST) test strip Pt usesTrue Metric Meter. Test twice daily. Dx E11.65 Insulin: No Lancets lancets Test blood sugar(s) 2 times daily. Dx: Type 2 DM - Uncontrolled E11.65 Insulin: No Aspirin 81 mg Tab Take 1 tablet by mouth once daily. Take 1/2hr before niacin with food. CHOLECALCIFEROL (VITAMIN D3) 1,000 UNIT CAP 2 tab daily albuterol HFA (VENTOLIN HFA) 90 mcg/actuation inhaler Inhale 2 Puffs as instructed every 4 hours as needed. PHYSICAL EXAMINATION: VITAL SIGNS: BP 140/61 Pulse 76 Ht 5' 8 (1.73m) Chest: Clear to auscultation. Trachea is midline. Air entry is equal. Cardiac: Regular rhythm. S1 and S2 are normal. PMI is nondisplaced. There is a soft systolic ejection murmur. Carotids are brisk without bruits. JVP is less than 10 cm. Abdomen: Soft and nontender. He is obese. There are no pulsatile masses or bruits. No liver enlargement. Bowel sounds are active. Extremities: 1 plus edema. Pulses are diminished but symmetrical. Echocardiogram was performed since last visit. Global left ventricular function appears normal. There is no significant valvular abnormality. Recent labs were reviewed. Renal function is normal. LDL was 71. Platelet count was 92,000. Electronically Signed: Leonides Wise MD March 07, 2018 3:41 PM CC: Tamar Merrill MD CNOV Observed: 03/07/2018 Status: COMPLETED Source: [place] 3:30 PM [facility] REPOSITORY Office Visit (CAWSTR) WILBUR WRIGHT ([id number]) 1940 M Date Time Provider Department 03/07/18 3:30 PM LEONIDES WISE CAWSTR During your visit today, we recorded the following information about you: Pulse Blood pressure Height 76/minute 140/61 1.727 m Leonides Wise MD 03/07/2018 3:49 PM Signed PERTINENT CARDIAC HISTORY ASHD - CABG (DELGADO to the LAD and vein grafts to the first diagonal, obtuse marginal and PDA) 2008 SSS - PPM 2007 Atrial fib - chronic?, on a/c HTN HL DM PAD Venous insufficiency Obesity ADHERENCE TO GUIDELINES PRIYANKA-I or ARB for HF with prior LVEF<40 (NQF 0081) - N/A ASA or Plavix for ASHD (NQF 0067) - met Beta cecil for ASHD with prior NV or prior LVEF<40 (NQF 0070) - N/A Beta cecil for HF with prior LVEF<40 (NQF 0083) - N/A PRIYANKA-I or ARB for ASHD with DM or prior LVEF<40 (NQF 0066) - met Statin therapy for ASHD or FHL or DM - met BMI documented and plan if >25 (NQ 0421) - lifestyle recommendation form Tobacco use screening and referral (NQ 0028) - lifestyle recommendation form Recommendation for whole food, plant based diet - lifestyle recommendation form CLINICAL IMPRESSION/PLAN: Wilbur Wright is doing well. Platelet count is stable. He's had no complications from his anticoagulation. Coronary disease is well controlled. Blood pressure is slightly high today, but he has been advised to contact us with vital signs in the next few weeks. He continues to decline stress testing. Exercise tolerance has been stable. His pacemaker is nearing RADHIKA. This is being monitored at [facility]. I'll see him in 6 months or as needed. If there is increased chest pain or shortness of breath, he has been advised to contact me. Written and verbal health teaching given to patient, patient verbalizes understanding and agrees with treatment plan. DIAGNOSIS FOR VISIT: ASHD Hypertension HISTORY OF PRESENT ILLNESS Wilbur Wright returns for follow-up of multiple cardiac issues, as noted above. He reports stable exercise tolerance. He's had no chest discomfort. He denies orthopnea. He has had minimal edema. He has had no syncope, palpitations, TIAs, amaurosis or claudication. He has been checking her blood pressures regularly at home, but has some difficulty. He will be getting a new blood pressure cuff. ALLERGIES: ALLERGIES Allergen Reactions - Avandia [Rosiglitaz* Swelling fluid retention - Glimepiride Intolerance hypoglycemia - Amlodipine Swelling Leg swelling with 2.5mg CURRENT OUTPATIENT MEDICATIONS: Lovastatin 40 mg tablet Take 1 tablet by mouth daily at bedtime. lisinopril-hydrochlorothiazide (PRINZIDE,ZESTORETIC) 20-12.5 mg per tablet Take 2 tablets by mouth every morning. metoprolol tartrate, short acting, (LOPRESSOR) 25 mg tablet Take 1 tablet by mouth twice daily. metFORMIN (GLUCOPHAGE) 1,000 mg tablet Take 1 tablet by mouth twice daily with meals. warfarin (COUMADIN) 2 mg tablet 4 mg PO daily COMPOUNDED PRESCRIPTION Adjustable quad cane. To be used daily for ambulation. Dx: age related debility blood sugar diagnostic (BLOOD GLUCOSE TEST) test strip Pt usesTrue Metric Meter. Test twice daily. Dx E11.65 Insulin: No Lancets lancets Test blood sugar(s) 2 times daily. Dx: Type 2 DM - Uncontrolled E11.65 Insulin: No Aspirin 81 mg Tab Take 1 tablet by mouth once daily. Take 1/2hr before niacin with food. CHOLECALCIFEROL (VITAMIN D3) 1,000 UNIT CAP 2 tab daily albuterol HFA (VENTOLIN HFA) 90 mcg/actuation inhaler Inhale 2 Puffs as instructed every 4 hours as needed. PHYSICAL EXAMINATION: VITAL SIGNS: BP 140/61 Pulse 76 Ht 5' 8 (1.73m) Chest: Clear to auscultation. Trachea is midline. Air entry is equal. Cardiac: Regular rhythm. S1 and S2 are normal. PMI is nondisplaced. There is a soft systolic ejection murmur. Carotids are brisk without bruits. JVP is less than 10 cm. Abdomen: Soft and nontender. He is obese. There are no pulsatile masses or bruits. No liver enlargement. Bowel sounds are active. Extremities: 1 plus edema. Pulses are diminished but symmetrical. Echocardiogram was performed since last visit. Global left ventricular function appears normal. There is no significant valvular abnormality. Recent labs were reviewed. Renal function is normal. LDL was 71. Platelet count was 92,000. Electronically Signed: Leonides Wise MD March 07, 2018 3:41 PM CC: MD Leonides Gibbs MD 03/07/2018 3:41 PM Signed LIFESTYLE CHANGE A healthy lifestyle is the most important component of your overall treatment plan. Please give serious thought to the following areas and commit to making alf changes. EAT A WHOLE FOOD, PLANT BASED DIET The nutrition your body gets is more important than the medicine you take. What matters most is the overall way you eat. We encourage you to minimize the use of animal products (which include dairy and all meats except fatty fish) and use whole, unprocessed plant foods to provide your protein, vitamins and other nutrients. We have a lot of information to share with you on this topic. This is not a diet. It is a way of life that you will keep with you. EXERCISE REGULARLY It is not important to spend hours in the gym, lifting weights and perspiring heavily. A total of 2-3 hours per week of aerobic (causing you to be moderately short of breath) exercise is sufficient to improve your health. Talk to us before you begin a new exercise program, if you have heart disease or experience shortness of breath or chest pain. REDUCE STRESS Chronic emotional and physical stress leads to disease. Ways of reducing stress include meditation, visualization, prayer, yoga and other forms of relaxation therapy. Consistency is the garcia. Find a technique that works for you and do it every day. CULTIVATE RELATIONSHIPS Loneliness and isolation have a major negative impact on health. Seek out others who can love, care for and nurture you. Avoid hurtful relationships. MAINTAIN IDEAL BODY WEIGHT The best way to do this is to do all the things above. Our bodies naturally find the right weight if we keep moving and feed ourselves the right food. If your BMI is greater than 25, we strongly recommend a referral to a weight management program. Please speak to us or your family physician about available programs. AVOID NICOTINE IN ALL FORMS This includes all tobacco products, whether chewed, smoked, vaped, or rubbed on the skin. Smoking cessation programs, which can make use of tobacco substitutes, medications to suppress cravings and behavior management, are available. Please contact your family physician about programs in your area. Referring Provider: LEONIDES WISE [[id number]] Allergies As of Date: 03/07/2018 Noted Allergy Reaction AVANDIA (ROSIGLITAZONE MALEATE) 02/18/2005 7 - Swelling Comments: fluid retention GLIMEPIRIDE 07/12/2013 5 - Intolerance Comments: hypoglycemia AMLODIPINE 05/18/2012 7 - Swelling Comments: Leg swelling with 2.5mg Date Reviewed: 03/07/2018 Reviewed by: Rebeca Arreola MA - Fully Assessed Reason for Visit: Established Patient [175] Visit Diagnoses:ASHD (arteriosclerotic heart disease) [I25.10] Essential hypertension [I10] Prescriptions as of 03/07/2018 Sig: LOVASTATIN 40 MG TABLET Take 1 tablet by mouth daily * LISINOPRIL 20 MG-HYDROCHLOROT* Take 2 tablets by mouth every* METOPROLOL TARTRATE 25 MG TAB* Take 1 tablet by mouth twice * METFORMIN 1,000 MG TABLET Take 1 tablet by mouth twice * WARFARIN 2 MG TABLET 4 mg PO daily COMPOUNDED PRESCRIPTION Adjustable quad cane. To be u* BLOOD SUGAR DIAGNOSTIC STRIPS Pt usesTrue Metric Meter. Sarah* LANCETS Test blood sugar(s) 2 times d* ASPIRIN 81 MG TABLET Take 1 tablet by mouth once d* CHOLECALCIFEROL (VITAMIN D3) * 2 tab daily ALBUTEROL SULFATE HFA 90 MCG/* Inhale 2 Puffs as instructed * Patient not taking: Reported on 01/10/2018 Problem List As Of Date 03/07/2018 Noted Resolved Esophageal reflux [K21.9] INVALID FOR* More... ABDOMINAL PAIN( Epigastric) [R10.13] INVALID FOR*05/18/2012 Mixed hyperlipidemia [E78.2] INVALID FOR* More... Type II or unspecified type diabetes mellitus w*INVALID FOR*02/28/2013 More... Other malaise and fatigue [R53.81, R53.83] 05/18/2012 Infection and inflammatory reaction due to card*INVALID FOR*02/25/2016 ASHD (arteriosclerotic heart disease) [I25.10] INVALID FOR*08/07/2016 Thrombocytopenia [D69.6] INVALID FOR* Hypertension [I10] INVALID FOR*04/27/2016 CAD (coronary artery disease) [I25.10] INVALID FOR* More... Coronary atherosclerosis of [place] coronary art*INVALID FOR* More... Atrioventricular block, unspecified [I44.30] INVALID FOR*08/07/2016 More... Other second degree atrioventricular block [I44*INVALID FOR* More... Atrial flutter [I48.92] INVALID FOR* More... Other specified cardiac dysrhythmias [I49.8] INVALID FOR* More... Unspecified disorder of kidney and ureter [N28.*INVALID FOR* More... Cardiac pacemaker in situ [Z95.0] INVALID FOR* More... 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 TAMAYO (nonalcoholic steatohepatitis) [K75.81] INVALID FOR* Ischemic colitis (HCC) [K55.9] INVALID FOR*09/14/2017 Compression fracture of lumbar vertebra [S32.00*INVALID FOR* More... 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*INVALID FOR* Uncontrolled type 2 diabetes mellitus with diab*INVALID FOR*08/07/2016 Type 2 diabetes mellitus with diabetic polyneur*INVALID FOR*06/14/2017 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 Please give serious thought to the following areas and commit to making alf changes. EAT A WHOLE FOOD, PLANT BASED DIET The nutrition your body gets is more important than the medicine you take. What matters most is the overall way you eat. We encourage you to minimize the use of animal products (which include dairy and all meats except fatty fish) and use whole, unprocessed plant foods to provide your protein, vitamins and other nutrients. We have a lot of information to share with you on this topic. This is not a diet. It is a way of life that you will keep with you. EXERCISE REGULARLY It is not important to spend hours in the gym, lifting weights and perspiring heavily. A total of 2-3 hours per week of aerobic (causing you to be moderately short of breath) exercise is sufficient to improve your health. Talk to us before you begin a new exercise program, if you have heart disease or experience shortness of breath or chest pain. REDUCE STRESS Chronic emotional and physical stress leads to disease. Ways of reducing stress include meditation, visualization, prayer, yoga and other forms of relaxation therapy. Consistency is the garcia. Find a technique that works for you and do it every day. CULTIVATE RELATIONSHIPS Loneliness and isolation have a major negative impact on health. Seek out others who can love, care for and nurture you. Avoid hurtful relationships. MAINTAIN IDEAL BODY WEIGHT The best way to do this is to do all the things above. Our bodies naturally find the right weight if we keep moving and feed ourselves the right food. If your BMI is greater than 25, we strongly recommend a referral to a weight management program. Please speak to us or your family physician about available programs. AVOID NICOTINE IN ALL FORMS This includes all tobacco products, whether chewed, smoked, vaped, or rubbed on the skin. Smoking cessation programs, which can make use of tobacco substitutes, medications to suppress cravings and behavior management, are available. Please contact your family physician about programs in your area. Encounter Status:Closed by LEONIDES WISE MD on 03/07/18 PROGRESS Observed: 03/07/2018 Status: COMPLETED Source: [place] 3:21 PM [facility] REPOSITORY HNO ID: [id number] Author: Tamar Leal) Desirae Service: (none) Author Type: Physician Type: Progress Notes Filed: 03/07/2018 3:21 PM Note Text: INR therapeutic. Continue current coumadin dosage and follow up in 4 weeks. PROGRESS Observed: 03/07/2018 Status: COMPLETED Source: [place] 3:19 PM [facility] REPOSITORY HNO ID: [id number] Author: Tanesha Shearer RN Service: (none) Author Type: (none) Type: Progress Notes Filed: 03/07/2018 3:20 PM Note Text: patient had inr completed at [facility] patients inr is 2.3 (patients inr range is 2.0-3.0) patient is currently taking 4mg daily patients last dose change was on 11/09/17 due to a high level of 3.5 (dose at that time was 6mg Mon and 4mg all other days) patient has had no changes in medication and no missed doses and no change in diet Advised patient to continue on the same dose(s) and that they would only be contacted regarding dosage and follow up instructions after review with provider, if a change is needed. Written instructions given and patient verbalized understanding. Presently scheduled in 4 weeks (04/04/18) for follow up INR. CNPN Observed: 02/22/2018 Status: COMPLETED Source: [place] 12:00 AM [facility] REPOSITORY [facility] SHERIFWILBUR ([id number]) 1940 M Date Time Provider Department 02/22/18 TAMAR MERRILL) [facility] During your visit today, we recorded the following information about you: Smitha [employer] Psr 02/22/2018 3:17 PM Signed Left message for patient to call back and let us know if he is going to see Dermatology. If he needs help scheduling, we would be happy to help. This is the 2nd attempt. [employer] Psr 04/10/2018 8:32 AM Signed 3rd attempt to reach patient was made on 03/28/18 [employer] Ps[employer] 04/10/2018 8:32 AM Signed 4th attempt to reach patient- left message for patient to call back and let us know if he still needs the referral Allergies As of Date: 02/22/2018 Noted Allergy Reaction AVANDIA (ROSIGLITAZONE MALEATE) 02/18/2005 7 - Swelling Comments: fluid retention GLIMEPIRIDE 07/12/2013 5 - Intolerance Comments: hypoglycemia AMLODIPINE 05/18/2012 7 - Swelling Comments: Leg swelling with 2.5mg Date Reviewed: 02/09/2018 Reviewed by: Brandi Reynaga Ma - Fully Assessed Reason for Visit: ERIC DERM [Other] Prescriptions as of 02/22/2018 Sig: LISINOPRIL 20 MG-HYDROCHLOROT* Take 2 tablets by mouth every* X LOVASTATIN 40 MG TABLET Take 1 tablet by mouth daily * METOPROLOL TARTRATE 25 MG TAB* Take 1 tablet by mouth twice * METFORMIN 1,000 MG TABLET Take 1 tablet by mouth twice * WARFARIN 2 MG TABLET 4 mg PO daily COMPOUNDED PRESCRIPTION Adjustable quad cane. To be u* ALBUTEROL SULFATE HFA 90 MCG/* Inhale 2 Puffs as instructed * Patient not taking: Reported on 01/10/2018 BLOOD SUGAR DIAGNOSTIC STRIPS Pt usesTrue Metric Meter. Sarah* LANCETS Test blood sugar(s) 2 times d* ASPIRIN 81 MG TABLET Take 1 tablet by mouth once d* CHOLECALCIFEROL (VITAMIN D3) * 2 tab daily Problem List As Of Date 02/22/2018 Noted Resolved Esophageal reflux [K21.9] INVALID FOR* More... ABDOMINAL PAIN( Epigastric) [R10.13] INVALID FOR*05/18/2012 Mixed hyperlipidemia [E78.2] INVALID FOR* More... Type II or unspecified type diabetes mellitus w*INVALID FOR*02/28/2013 More... Other malaise and fatigue [R53.81, R53.83] 05/18/2012 Infection and inflammatory reaction due to card*INVALID FOR*02/25/2016 ASHD (arteriosclerotic heart disease) [I25.10] INVALID FOR*08/07/2016 Thrombocytopenia [D69.6] INVALID FOR* Hypertension [I10] INVALID FOR*04/27/2016 CAD (coronary artery disease) [I25.10] INVALID FOR* More... Coronary atherosclerosis of [place] coronary art*INVALID FOR* More... Atrioventricular block, unspecified [I44.30] INVALID FOR*08/07/2016 More... Other second degree atrioventricular block [I44*INVALID FOR* More... Atrial flutter [I48.92] INVALID FOR* More... Other specified cardiac dysrhythmias [I49.8] INVALID FOR* More... Unspecified disorder of kidney and ureter [N28.*INVALID FOR* More... Cardiac pacemaker in situ [Z95.0] INVALID FOR* More... 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 TAMAYO (nonalcoholic steatohepatitis) [K75.81] INVALID FOR* Ischemic colitis (HCC) [K55.9] INVALID FOR*09/14/2017 Compression fracture of lumbar vertebra [S32.00*INVALID FOR* More... 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*INVALID FOR* Uncontrolled type 2 diabetes mellitus with diab*INVALID FOR*08/07/2016 Type 2 diabetes mellitus with diabetic polyneur*INVALID FOR*06/14/2017 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] INVALID FOR* Obesity (BMI 30.0-34.9) [E66.9] INVALID FOR* Essential hypertension [I10] INVALID FOR* Chronic anticoagulation [Z79.01] INVALID FOR* Dyspnea on exertion [R06.09] INVALID FOR* Chronic venous insufficiency [I87.2] INVALID FOR* Diabetes mellitus type II, controlled (HCC) [E1* 06/14/2017 CKD (chronic kidney disease) stage 3, GFR 30-59* Falls infrequently [Z91.81] INVALID FOR* Encounter Status:Closed by SMITHA KING on 02/22/18 OTIS Observed: 02/21/2018 Status: COMPLETED Source: [place] 12:00 AM [facility] RE[facility]IT[facility] WILBUR WRIGHT ([id number]) 1940 M Date Time Provider Department 02/21/18 TAMAR MERRILL) [facility] During your visit today, we recorded the following information about you: Tamika Nagel 02/21/2018 11:42 AM Signed Patient phones requesting refills as follows: Pending Prescriptions Disp Refills LISINOPRIL 20 MG-HYDROCHLOROTHIAZIDE 12.5 MG TABLET 180 tablet 3 Sig: Take 2 tablets by mouth every morning. URSULA: No LOVASTATIN 40 MG TABLET 90 tablet 0 Sig: Take 1 tablet by mouth daily at bedtime. URSULA: No Please review and advise. Tamika Sim Psr Melba Cody MA, MA 02/22/2018 8:47 AM Signed Last Office Visit:01/10/18 Next Scheduled Office Visit:05/12/18 Last Refill:02/08/18 Qty:180 Refills:3-lisinopril 02/08/18 Qty:90 Refills:0-lovastatin TIM Tucker Psr 02/24/2018 8:29 AM Signed Patient is calling to check on the status of this refill request. Allergies As of Date: 02/21/2018 Noted Allergy Reaction AVANDIA (ROSIGLITAZONE MALEATE) 02/18/2005 7 - Swelling Comments: fluid retention GLIMEPIRIDE 07/12/2013 5 - Intolerance Comments: hypoglycemia AMLODIPINE 05/18/2012 7 - Swelling Comments: Leg swelling with 2.5mg Date Reviewed: 02/09/2018 Reviewed by: Brandi Reynaga Ma - Fully Assessed Reason for Visit: Refill Request [94] Visit Diagnosis:Essential hypertension [I10] Order(s):lisinopril-hydrochlorothiazide (PRINZIDE,ZESTORETIC) 20-12.5 mg per tabletTake 2 tablets by mouth every morning.Disp: 180 tabletRfl: 3 Lovastatin 40 mg tabletTake 1 tablet by mouth daily at bedtime.Disp: 90 tabletRfl: 0 Prescriptions as of 02/21/2018 Sig: LISINOPRIL 20 MG-HYDROCHLOROT* Take 2 tablets by mouth every* LOVASTATIN 40 MG TABLET Take 1 tablet by mouth daily * METOPROLOL TARTRATE 25 MG TAB* Take 1 tablet by mouth twice * METFORMIN 1,000 MG TABLET Take 1 tablet by mouth twice * WARFARIN 2 MG TABLET 4 mg PO daily COMPOUNDED PRESCRIPTION Adjustable quad cane. To be u* ALBUTEROL SULFATE HFA 90 MCG/* Inhale 2 Puffs as instructed * Patient not taking: Reported on 01/10/2018 BLOOD SUGAR DIAGNOSTIC STRIPS Pt usesTrue Metric Meter. Sarah* LANCETS Test blood sugar(s) 2 times d* ASPIRIN 81 MG TABLET Take 1 tablet by mouth once d* CHOLECALCIFEROL (VITAMIN D3) * 2 tab daily Problem List As Of Date 02/21/2018 Noted Resolved Esophageal reflux [K21.9] INVALID FOR* More... ABDOMINAL PAIN( Epigastric) [R10.13] INVALID FOR*05/18/2012 Mixed hyperlipidemia [E78.2] INVALID FOR* More... Type II or unspecified type diabetes mellitus w*INVALID FOR*02/28/2013 More... Other malaise and fatigue [R53.81, R53.83] 05/18/2012 Infection and inflammatory reaction due to card*INVALID FOR*02/25/2016 ASHD (arteriosclerotic heart disease) [I25.10] INVALID FOR*08/07/2016 Thrombocytopenia [D69.6] INVALID FOR* Hypertension [I10] INVALID FOR*04/27/2016 CAD (coronary artery disease) [I25.10] INVALID FOR* More... Coronary atherosclerosis of [place] coronary art*INVALID FOR* More... Atrioventricular block, unspecified [I44.30] INVALID FOR*08/07/2016 More... Other second degree atrioventricular block [I44*INVALID FOR* More... Atrial flutter [I48.92] INVALID FOR* More... Other specified cardiac dysrhythmias [I49.8] INVALID FOR* More... Unspecified disorder of kidney and ureter [N28.*INVALID FOR* More... Cardiac pacemaker in situ [Z95.0] INVALID FOR* More... 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 TAMAYO (nonalcoholic steatohepatitis) [K75.81] INVALID FOR* Ischemic colitis (HCC) [K55.9] INVALID FOR*09/14/2017 Compression fracture of lumbar vertebra [S32.00*INVALID FOR* More... 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*INVALID FOR* Uncontrolled type 2 diabetes mellitus with diab*INVALID FOR*08/07/2016 Type 2 diabetes mellitus with diabetic polyneur*INVALID FOR*06/14/2017 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 LOVASTATIN 40 MG TABLET 90 t* 0 02/22/2018 Route: ORAL Sig: Take 1 tablet by mouth daily at bedtime. Medications Discontinued During This Encounter lisinopril-hydrochlorothiazide (PRIN* 180 * 3 02/08/2018 02/22/2018 Route: ORAL Sig: Take 2 tablets by mouth every morning. Disc: Reason for discontinue is not on file. Lovastatin 40 mg tablet 90 t* 0 02/08/2018 02/22/2018 Route: ORAL Sig: Take 1 tablet by mouth daily at bedtime. Disc: Reason for discontinue is not on file. Encounter Status:Closed by PODLOGNEREYDA GONZALEZ CNP on 02/22/18 PROGRESS Observed: 02/15/2018 Status: COMPLETED Source: [place] 10:49 AM [facility] REPOSITORY HNO ID: [id number] Author: Juliane (Rn) Edmundo Service: (none) Author Type: Registered Nurse Type: Progress Notes Filed: 02/24/2018 5:14 PM Note Text: PRIMARY CARE COORDINATION FOLLOW-UP NOTE Provider Action/FYI No response from pt will contact pt in 2-3 weeks Patient identified by name and date of . YES Concerns: TC to patient, left message to please call PCC back regarding BS and how PT is doing. Juliane Wyatt RN February 15, 2018 10:49 AM Mobile Lounge Driver plan for next outreach: Will follow up 3 weeks Signature Juliane Wyatt RN February 15, 2018 JENNYFERTOUTRRAMOS Observed: 02/15/2018 Status: COMPLETED Source: [place] 12:00 AM [facility] REPOSITORY Patient Outreach ([facility]) WILBUR WRIGHT ([id number]) 1940 M Date Time Provider Department 02/15/18 JULIAN[facility] WYATT ([place] During your visit today, we recorded the following information about you: Juliane Wyatt RN 02/24/2018 5:14 PM Signed PRIMARY CARE COORDINATION FOLLOW-UP NOTE Provider Action/FYI No response from pt will contact pt in 2-3 weeks Patient identified by name and date of . YES Concerns: TC to patient, left message to please call PCC back regarding BS and how PT is doing. 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 To be u* ALBUTEROL SULFATE HFA 90 MCG/* Inhale 2 Puffs as instructed * Patient not taking: Reported on 01/10/2018 X METOPROLOL TARTRATE 25 MG TAB* Take 1 tablet by mouth twice * BLOOD SUGAR DIAGNOSTIC STRIPS Pt usesTrue Metric Meter. Sarah* LANCETS Test blood sugar(s) 2 times d* ASPIRIN 81 MG TABLET Take 1 tablet by mouth once d* CHOLECALCIFEROL (VITAMIN D3) * 2 tab daily Problem List As Of Date 02/15/2018 Noted Resolved Esophageal reflux [K21.9] INVALID FOR* More... ABDOMINAL PAIN( Epigastric) [R10.13] INVALID FOR*05/18/2012 Mixed hyperlipidemia [E78.2] INVALID FOR* More... Type II or unspecified type diabetes mellitus w*INVALID FOR*02/28/2013 More... Other malaise and fatigue [R53.81, R53.83] 05/18/2012 Infection and inflammatory reaction due to card*INVALID FOR*02/25/2016 ASHD (arteriosclerotic heart disease) [I25.10] INVALID FOR*08/07/2016 Thrombocytopenia [D69.6] INVALID FOR* Hypertension [I10] INVALID FOR*04/27/2016 CAD (coronary artery disease) [I25.10] INVALID FOR* More... Coronary atherosclerosis of [place] coronary art*INVALID FOR* More... Atrioventricular block, unspecified [I44.30] INVALID FOR*08/07/2016 More... Other second degree atrioventricular block [I44*INVALID FOR* More... Atrial flutter [I48.92] INVALID FOR* More... Other specified cardiac dysrhythmias [I49.8] INVALID FOR* More... Unspecified disorder of kidney and ureter [N28.*INVALID FOR* More... Cardiac pacemaker in situ [Z95.0] INVALID FOR* More... 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 TAMAYO (nonalcoholic steatohepatitis) [K75.81] INVALID FOR* Ischemic colitis (HCC) [K55.9] INVALID FOR*09/14/2017 Compression fracture of lumbar vertebra [S32.00*INVALID FOR* More... 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*INVALID FOR* Uncontrolled type 2 diabetes mellitus with diab*INVALID FOR*08/07/2016 Type 2 diabetes mellitus with diabetic polyneur*INVALID FOR*06/14/2017 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] INVALID FOR* Obesity (BMI 30.0-34.9) [E66.9] INVALID FOR* Essential hypertension [I10] INVALID FOR* Chronic anticoagulation [Z79.01] INVALID FOR* Dyspnea on exertion [R06.09] INVALID FOR* Chronic venous insufficiency [I87.2] INVALID FOR* Diabetes mellitus type II, controlled ([facility]) [E1* 06/14/2017 CKD (chronic kidney disease) stage 3, GFR 30-59* Falls infrequently [Z91.81] INVALID FOR* Encounter Status:Closed by JULIANE WYATT on 02/24/18 PROGRESS Observed: 02/09/2018 Status: COMPLETED Source: [place] 3:46 PM [facility] REPOSITORY HNO ID: [id number] Author: Joel Barlow Service: (none) Author Type: Physician Type: Progress Notes Filed: 02/09/2018 4:24 PM Note Text: I agree with the advice given; stay on 4 mg daily and recheck in 4 weeks Joel Barlow MD PROGRESS Observed: 02/09/2018 Status: COMPLETED Source: [place] 1:59 PM [facility] REPOSITORY HNO ID: [id number] Author: Tanesha Shearer RN Service: (none) Author Type: (none) Type: Progress Notes Filed: 02/09/2018 2:00 PM Note Text: patient had inr completed at [facility] patients inr is 2.9 (patients inr range is 2.0-3.0) patient is currently taking 4mg daily patients last dose change was on 11/09/17 due to a high level of 3.5 (dose at that time was 6mg Mon and 4mg all other days) patient has had no changes in medication and no missed doses and no change in diet Advised patient to continue on the same dose(s) and that they would only be contacted regarding dosage and follow up instructions after review with provider, if a change is needed. Written instructions given and patient verbalized understanding. Presently scheduled in 4 weeks (03/07/18) for follow up INR. PROGRESS Observed: 02/09/2018 Status: COMPLETED Source: [place] 12:58 PM [facility] REPOSITORY HNO ID: [id number] Author: Abraham Gibson Service: (none) Author Type: Physician Type: Progress Notes Filed: 02/09/2018 1:16 PM Note Text: Abraham Gibson DPM Department of Podiatry [address] [place] [id number] Dept: [phone] Dept Diabetic Nail Care SUBJECTIVE: Follow up office visit: This 77 year old male presents to clinic c/o painful toenails. Patient states that the nails are especially painful with shoe gear and pressure. Patient admits to being diabetic and states that their blood sugar was 192 mg/dL this AM. Patient denies claudication type symptoms when walking. No other pedal complaints at this time. No change in medications or medical history since last visit. The preliminary HPI obtained by the distribution technician was explained in detail with the patient and my findings have been incorporated in the documentation. Abraham Gibson DPM OBJECTIVE: Patient presents to clinic ambulating in Diabetic Shoes. Vasc: DP and PT pulses are faintly palpable bilateral. CFT is less than 5 seconds bilateral. Skin temperature is warm to warm proximal to distal bilateral. There is moderate edema or varicosities noted. Hair growth decreased. Neuro: Protective sensation is decreaesed to the foot and toes when tested with the 5.07 SWM bilateral. Vibratory sensation is decreased at the hallux bilateral. significant neurological defecits. Derm: Inspection and palpation performed. Nails 1-5 b/l are painful, discolored-yellow, thick, crumbly, dystrophic and with subungal debris. Left hallux lateral border is ingrowing with no signs of infection. Skin is of normal turgor and texture. Hyperkeratosis not present. No ulcerations, scars, verruca or other lesions noted. Ortho: Ankle joint DF is full with the knee extended and full with knee flexed. No pain or crepitus noted. STJ, MTJ ROM are full and free of pain or crepitus. Muscle strength is 5/5 for dorsiflexors, plantarflexors, inverters, everters. ASSESSMENT: (B35.1) Onychomycosis (primary encounter diagnosis) (M79.675) Pain in toe of left foot (M79.674) Pain in toe of right foot (E11.42) Diabetic polyneuropathy associated with type 2 diabetes mellitus (HCC) (B35.1) Onychomycosis (primary encounter diagnosis) (I87.2) Venous (peripheral) insufficiency PLAN: Patient was seen and evaluated. Nails 1-5 bilateral were debrided in length and thickness. Left hallux is ingrowing but no infection. Slant back was performed. Patient was instructed on the continued importance of diabetic foot care along with proper diet and keeping their blood sugar under control to prevent complications. Patient is to RTC in 3-4 months. Discussed swelling of legs. Offered compression stockings but he declined. Abraham Gibson DPM CNOV Observed: 02/09/2018 Status: COMPLETED Source: [place] 12:50 PM [facility] REPOSITORY Office Visit (PODIWS) WILBUR WRIGHT ([id number]) 1940 M Date Time Provider Department 02/09/18 12:50 PM ABRAHAM GIBSON [place] During your visit today, we recorded the following information about you: Abraham Gibson DPM 02/09/2018 1:16 PM Signed Abraham Gibson DPM Department of Podiatry [address] [facility] [address] Dept: [phone] Dept Diabetic Nail Care SUBJECTIVE: Follow up office visit: This 77 year old male presents to clinic c/o painful toenails. Patient states that the nails are especially painful with shoe gear and pressure. Patient admits to being diabetic and states that their blood sugar was 192 mg/dL this AM. Patient denies claudication type symptoms when walking. No other pedal complaints at this time. No change in medications or medical history since last visit. The preliminary HPI obtained by the distribution technician was explained in detail with the patient and my findings have been incorporated in the documentation. Abraham Gibson DPM OBJECTIVE: Patient presents to clinic ambulating in Diabetic Shoes. Vasc: DP and PT pulses are faintly palpable bilateral. CFT is less than 5 seconds bilateral. Skin temperature is warm to warm proximal to distal bilateral. There is moderate edema or varicosities noted. Hair growth decreased. Neuro: Protective sensation is decreaesed to the foot and toes when tested with the 5.07 SWM bilateral. Vibratory sensation is decreased at the hallux bilateral. significant neurological defecits. Derm: Inspection and palpation performed. Nails 1-5 b/l are painful, discolored-yellow, thick, crumbly, dystrophic and with subungal debris. Left hallux lateral border is ingrowing with no signs of infection. Skin is of normal turgor and texture. Hyperkeratosis not present. No ulcerations, scars, verruca or other lesions noted. Ortho: Ankle joint DF is full with the knee extended and full with knee flexed. No pain or crepitus noted. STJ, MTJ ROM are full and free of pain or crepitus. Muscle strength is 5/5 for dorsiflexors, plantarflexors, inverters, everters. ASSESSMENT: (B35.1) Onychomycosis (primary encounter diagnosis) (M79.675) Pain in toe of left foot (M79.674) Pain in toe of right foot (E11.42) Diabetic polyneuropathy associated with type 2 diabetes mellitus (HCC) (B35.1) Onychomycosis (primary encounter diagnosis) (I87.2) Venous (peripheral) insufficiency PLAN: Patient was seen and evaluated. Nails 1-5 bilateral were debrided in length and thickness. Left hallux is ingrowing but no infection. Slant back was performed. Patient was instructed on the continued importance of diabetic foot care along with proper diet and keeping their blood sugar under control to prevent complications. Patient is to RTC in 3-4 months. Discussed swelling of legs. Offered compression stockings but he declined. Arbaham Gibson DPM Referring Provider: ABRAHAM GIBSON [[id number]] Allergies As of Date: 02/09/2018 Noted Allergy Reaction AVANDIA (ROSIGLITAZONE MALEATE) 02/18/2005 7 - Swelling Comments: fluid retention GLIMEPIRIDE 07/12/2013 5 - Intolerance Comments: hypoglycemia AMLODIPINE 05/18/2012 7 - Swelling Comments: Leg swelling with 2.5mg Date Reviewed: 02/09/2018 Reviewed by: Brandi Reynaga Ma - Fully Assessed Reason for Visit: Diabetic Foot Care [916] Primary Visit Diagnosis:Onychomycosis [B35.1] Other Visit Diagnoses:Pain in toe of left foot [M79.675] Pain in toe of right foot [M79.674] Diabetic polyneuropathy associated with type 2 diabetes mellitus (HCC) [E11.42] Venous (peripheral) insufficiency [I87.2] Prescriptions as of 02/09/2018 Sig: LISINOPRIL 20 MG-HYDROCHLOROT* Take 2 tablets by mouth every* METFORMIN 1,000 MG TABLET Take 1 tablet by mouth twice * LOVASTATIN 40 MG TABLET Take 1 tablet by mouth daily * WARFARIN 2 MG TABLET 4 mg PO daily COMPOUNDED PRESCRIPTION Adjustable quad cane. To be u* ALBUTEROL SULFATE HFA 90 MCG/* Inhale 2 Puffs as instructed * Patient not taking: Reported on 01/10/2018 METOPROLOL TARTRATE 25 MG TAB* Take 1 tablet by mouth twice * BLOOD SUGAR DIAGNOSTIC STRIPS Pt usesTrue Metric Meter. Sarah* LANCETS Test blood sugar(s) 2 times d* ASPIRIN 81 MG TABLET Take 1 tablet by mouth once d* CHOLECALCIFEROL (VITAMIN D3) * 2 tab daily Problem List As Of Date 02/09/2018 Noted Resolved Esophageal reflux [K21.9] INVALID FOR* More... ABDOMINAL PAIN( Epigastric) [R10.13] INVALID FOR*05/18/2012 Mixed hyperlipidemia [E78.2] INVALID FOR* More... Type II or unspecified type diabetes mellitus w*INVALID FOR*02/28/2013 More... Other malaise and fatigue [R53.81, R53.83] 05/18/2012 Infection and inflammatory reaction due to card*INVALID FOR*02/25/2016 ASHD (arteriosclerotic heart disease) [I25.10] INVALID FOR*08/07/2016 Thrombocytopenia [D69.6] INVALID FOR* Hypertension [I10] INVALID FOR*04/27/2016 CAD (coronary artery disease) [I25.10] INVALID FOR* More... Coronary atherosclerosis of [place] coronary art*INVALID FOR* More... Atrioventricular block, unspecified [I44.30] INVALID FOR*08/07/2016 More... Other second degree atrioventricular block [I44*INVALID FOR* More... Atrial flutter [I48.92] INVALID FOR* More... Other specified cardiac dysrhythmias [I49.8] INVALID FOR* More... Unspecified disorder of kidney and ureter [N28.*INVALID FOR* More... Cardiac pacemaker in situ [Z95.0] INVALID FOR* More... 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 TAMAYO (nonalcoholic steatohepatitis) [K75.81] INVALID FOR* Ischemic colitis (HCC) [K55.9] INVALID FOR*09/14/2017 Compression fracture of lumbar vertebra [S32.00*INVALID FOR* More... 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*INVALID FOR* Uncontrolled type 2 diabetes mellitus with diab*INVALID FOR*08/07/2016 Type 2 diabetes mellitus with diabetic polyneur*INVALID FOR*06/14/2017 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 Follow-up and Disposition History Recorded Encounter Status:Closed by ABRAHAM GIBSON DPM on 02/09/18 PACEMAKER CHECK Observed: 02/04/2018 Status: F Source: [place] 2:06 PM [facility] REPOSITORY [facility] [address] [place] [address] Pacemaker Check Date of Service: 02/02/18 1133 MR#: [id number] Acct: [id number] Name: WILBUR WRIGHT Rep #: [id number] : 1940 From: Latanya Smith Age/Sex: 77/M Location: [facility] [place] Status: Signed Billing Codes PM Device Codes: PM Dev Prog Eval, Dual 02/02/18 1137 <Electronically signed by Latanya Smith > Date Latanya Smith 02/04/18 1406<Electronically signed by Marty Blankenship MD> Cosigner Signature: Date (if applicable) Marty Blankenship MD CC: PROGRESS Observed: 01/27/2018 Status: COMPLETED Source: [place] 7:10 AM [facility] REPOSITORY HNO ID: [id number] Author: Juni (Todd) Masoud Service: (none) Author Type: Physical Therapist Type: Progress Notes Filed: 01/27/2018 7:30 AM Note Text: Episode Visit Count: 1 Therapist That Will Oversee The Plan Of Care: Juni Meredith Start of Care Date: 01/24/18 Onset Date: 05/23/17 Plan of Care Certification Date: 01/24/18 Patient Identified by Name and Date of : Yes REHABILITATION AND SPORTS THERAPY PHYSICAL THERAPY EVALUATION PLAN OF CARE: Assessment: Wilbur Wright presents with the chief complaint of multiple falls and balance issues. He presents with impairments of decreased walking speed, poor narrow HELEN balance, poor left ankle strength and generally decreased lower extremity strength, and difficulty with uneven surface negotiation. He may benefit from skilled therapy services to improve the above noted deficits to decrease fall risk. Prognosis: Fair Fair due to: clinical presentation;multiple co- morbidities;advanced age;limited tolerance to activity Goals for Episode of Care: created on 01/24/18 through 03/26/18 Patient will report no falls. Improve score on Timed Up and Go Test to 9 seconds to reflect decreased fall risk. Improve score on 30 Second Chair Stand to 10 repetitions to reflect decreased fall risk. Improve performance on 4 Stage Balance Test to 10 sec in tandem bilaterally to reflect decreased fall risk. [place] in home exercise program including cardiovascular exercise. Patient will improve his/her AM-PAC T-scale score by 4 points to indicate a Minimal Clincial Important Difference. G CODE REPORTING Based on clinical assessment and the score on the AM-PAC Scale Score Assessment Tool, the G code and corresponding severity modifiers are documented below. Evaluation: 01/27/2018 Current Status: Mobility: Walking and Moving Around: G8978 20-39% impaired Goal Status: Mobility: Walking and Moving Around: G8979 20-39% impaired Planned Interventions, Frequency, and Duration: Current Frequency: 1x/week Duration: 4 weeks Total Number of Visits Planned: 4 Planned Treatment Interventions: Therapeutic exercise;Neuromuscular re-education;Manual therapy;Self-mcfp management;Gait Training;Patient/Family/Caregiver Education PLAN FOR NEXT VISIT: Initiate balance training, general LE strengthening Patient demonstrates good understanding of plan of care and treatment. The above goals and plan of care were discussed and agreed upon by patient/family. SUBJECTIVE: Wilbur Wright is a 77 year old male seen today for instability, falls, and generalized weakness. Pt was falling when he was taking his sons dog out. Still feels unsteady on grass or uneven surfaces. He bumps into ortega often and bruises easily. He has DM and on warfarin. Left foot is constantly numb, can't move the toes. When he turns too quickly he feels off balance. He just got a cane and this has helped. Pain Score: 0/10 OBJECTIVE MEASURES WITH LEVEL OF FUNCTION: LE Strength Trunk Strength: 4/5 R LE Strength: 5/5 L Hip Flexion (L2): 5/5 L Hip ABduction: 4/5 L Hip Internal Rotation: 5/5 L Hip External Rotation: 4+/5 L Knee Extension (L3): 5/5 L Knee Flexion: 5/5 L Ankle Dorsiflexion (L4): 4/5 L Ankle Plantar Flexion: 4+/5 L Ankle Inversion: 4/5 L Ankle Eversion: 4+/5 30 Second Sit to Stand Test (reps): 8 reps 4 Stage Balance Test Narrow base of support (sec): 10 sec Semi-tandem base of support (sec): 10 sec Tandem base of support (sec): 2 sec Timed Up and Go (sec): 10.7 sec Education: TREATMENT: Evaluation Billing: [facility]: Evaluation - Moderate Complexity ([id number]) Total time: 40 minutes Juni Meredith PT PROGRESS Observed: 01/26/2018 Status: COMPLETED Source: [place] 5:16 PM [facility] REPOSITORY HNO ID: [id number] Author: Sudeep Bautista Ma Service: (none) Author Type: (none) Type: Progress Notes Filed: 01/27/2018 12:39 PM Note Text: TC to patient. Unable to reach. Left message to call office. 01/26/2018 5:17 PM Sudeep Bautista Ma PROGRESS Observed: 01/26/2018 Status: COMPLETED Source: [place] 5:07 PM [facility] REPOSITORY HNO ID: [id number] Author: Tamar Leal) Desirae Service: (none) Author Type: Physician Type: Progress Notes Filed: 01/26/2018 5:08 PM Note Text: For his poor diet with cookies and ice cream, his sugars are suprisingly well controlled. Needs to eat more lean proteins and vegetables, less junk food. Potato chips are high in salt and are definitely not part of the DASH diet as previously discussed. PROGRESS Observed: 01/26/2018 Status: COMPLETED Source: [place] 4:42 PM [facility] REPOSITORY HNO ID: [id number] Author: Juliane Staley) Edmundo Service: (none) Author Type: Registered Nurse Type: Progress Notes Filed: 01/26/2018 4:51 PM Note Text: PRIMARY CARE COORDINATION FOLLOW-UP NOTE Provider Action/FYI Please note information below. Patient identified by name and date of . YES Spoke to patient Summary: Wilbur Wright is a 77 year old male who reports glucose readings as noted. DATE 01/25 01/24 01/23 01/22 01/21 01/20 Fasting 176 167 181 152 134 129 HS 115 132 116 127 172 110 Any low blood sugars during this period of reporting No Patient's diabetes medications as follows: metFORMIN (GLUCOPHAGE) 1,000 mg 1 tablet by mouth twice daily with meals. TAKES METFORMIN AND BREAKFAST AND SUPPER Pt eats 2 meals and HS snack Breakfast: cereal, coffee and cookies Supper: Spouse cooks meat (mostly chicken), veg (pt likes mixed veg), not much potatoes or pasta HS Snack: Sugarfree chocolate milk, cookies or ice cream Discussed pt is eating high carb foods especially at breakfast and snack. States he occasionally eats something else for snack when he runs out of ice cream. Pt doesn't take BP at home. Follows DASH diet except occasionally eats potato chips. Went for PT eval yesterday but hasn't f/u scheduling appt for next week. Encouraged to schedule appt. Mobile Lounge Driver plan for next outreach: Will follow up 2 weeks Signature Juliane Wyatt RN January 26, 2018 JENNYFERTOUTREACH Observed: 01/26/2018 Status: COMPLETED Source: [place] 12:00 AM [facility] REPOSITORY Patient Outreach (FAMPWS) WILBUR WRIGHT ([id number]) 1940 M Date Time Provider Department 01/26/18 JULIANE WYATT (RN) SLIMWS During your visit today, we recorded the following information about you: Juliane Wyatt RN 01/26/2018 4:51 PM Addendum PRIMARY CARE COORDINATION FOLLOW-UP NOTE Provider Action/FYI Please note information below. Patient identified by name and date of . YES Spoke to patient Summary: Wilbur Wright is a 77 year old male who reports glucose readings as noted. DATE 01/25 01/24 01/23 01/22 01/21 01/20 Fasting 176 167 181 152 134 129 HS 115 132 116 127 172 110 Any low blood sugars during this period of reporting No Patient's diabetes medications as follows: metFORMIN (GLUCOPHAGE) 1,000 mg 1 tablet by mouth twice daily with meals. TAKES METFORMIN AND BREAKFAST AND SUPPER Pt eats 2 meals and HS snack Breakfast: cereal, coffee and cookies Supper: Spouse cooks meat (mostly chicken), veg (pt likes mixed veg), not much potatoes or pasta HS Snack: Sugarfree chocolate milk, cookies or ice cream Discussed pt is eating high carb foods especially at breakfast and snack. States he occasionally eats something else for snack when he runs out of ice cream. Pt doesn't take BP at home. Follows DASH diet except occasionally eats potato chips. Went for PT eval yesterday but hasn't f/u scheduling appt for next week. Encouraged to schedule appt. Mobile Lounge Driver plan for next outreach: Will follow up 2 weeks Signature Juliane Wyatt RN January 26, 2018 Tamar Merrill MD 01/26/2018 5:08 PM Signed For his poor diet with cookies and ice cream, his sugars are suprisingly well controlled. Needs to eat more lean proteins and vegetables, less junk food. Potato chips are high in salt and are definitely not part of the DASH diet as previously discussed. Sudeep Bautista Ma 01/27/2018 12:39 PM Signed TC to patient. Unable to reach. Left message to call office. 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 To be u* LOVASTATIN 40 MG TABLET Take 1 tablet by mouth daily * LISINOPRIL 20 MG-HYDROCHLOROT* Take 2 tablets by mouth every* METFORMIN 1,000 MG TABLET Take 1 tablet by mouth twice * ALBUTEROL SULFATE HFA 90 MCG/* Inhale 2 Puffs as instructed * Patient not taking: Reported on 01/10/2018 METOPROLOL TARTRATE 25 MG TAB* Take 1 tablet by mouth twice * BLOOD SUGAR DIAGNOSTIC STRIPS Pt usesTrue Metric Meter. Sarah* LANCETS Test blood sugar(s) 2 times d* ASPIRIN 81 MG TABLET Take 1 tablet by mouth once d* CHOLECALCIFEROL (VITAMIN D3) * 2 tab daily Problem List As Of Date 01/26/2018 Noted Resolved Esophageal reflux [K21.9] INVALID FOR* More... ABDOMINAL PAIN( Epigastric) [R10.13] INVALID FOR*05/18/2012 Mixed hyperlipidemia [E78.2] INVALID FOR* More... Type II or unspecified type diabetes mellitus w*INVALID FOR*02/28/2013 More... Other malaise and fatigue [R53.81, R53.83] 05/18/2012 Infection and inflammatory reaction due to card*INVALID FOR*02/25/2016 ASHD (arteriosclerotic heart disease) [I25.10] INVALID FOR*08/07/2016 Thrombocytopenia [D69.6] INVALID FOR* Hypertension [I10] INVALID FOR*04/27/2016 CAD (coronary artery disease) [I25.10] INVALID FOR* More... Coronary atherosclerosis of [place] coronary art*INVALID FOR* More... Atrioventricular block, unspecified [I44.30] INVALID FOR*08/07/2016 More... Other second degree atrioventricular block [I44*INVALID FOR* More... Atrial flutter [I48.92] INVALID FOR* More... Other specified cardiac dysrhythmias [I49.8] INVALID FOR* More... Unspecified disorder of kidney and ureter [N28.*INVALID FOR* More... Cardiac pacemaker in situ [Z95.0] INVALID FOR* More... 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 TAMAYO (nonalcoholic steatohepatitis) [K75.81] INVALID FOR* Ischemic colitis (HCC) [K55.9] INVALID FOR*09/14/2017 Compression fracture of lumbar vertebra [S32.00*INVALID FOR* More... 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*INVALID FOR* Uncontrolled type 2 diabetes mellitus with diab*INVALID FOR*08/07/2016 Type 2 diabetes mellitus with diabetic polyneur*INVALID FOR*06/14/2017 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] INVALID FOR* Obesity (BMI 30.0-34.9) [E66.9] INVALID FOR* Essential hypertension [I10] INVALID FOR* Chronic anticoagulation [Z79.01] INVALID FOR* Dyspnea on exertion [R06.09] INVALID FOR* Chronic venous insufficiency [I87.2] INVALID FOR* Diabetes mellitus type II, controlled (HCC) [E1* 06/14/2017 CKD (chronic kidney disease) stage 3, GFR 30-59* Falls infrequently [Z91.81] INVALID FOR* Encounter Status:Closed by EDMUNDO, JULIANE on 01/27/18 CNTHERAPY Observed: 01/24/2018 Status: COMPLETED Source: [place] 3:00 PM [facility] REPOSITORY OT/PT/Speech Visit (PTWS) WILBUR WRIGHT ([id number]) 1940 M Date Time Provider Department 01/24/18 3:00 PM JUNI MEREDITH (PT) PTWS Date Time Provider Department Center 01/24/2018 3:00 PM [id number], SEAN (PT)PTWS [facility] Reason for Visit: PT Eval [747] Physical Therapy [503] Primary Visit Diagnosis:Falls infrequently [Z91.81] Allergies As of Date: 01/24/2018 Noted Allergy Reaction AVANDIA (ROSIGLITAZONE MALEATE) 02/18/2005 7 - Swelling Comments: fluid retention GLIMEPIRIDE 07/12/2013 5 - Intolerance Comments: hypoglycemia AMLODIPINE 05/18/2012 7 - Swelling Comments: Leg swelling with 2.5mg Date Reviewed: 01/10/2018 Reviewed by: Sudeep Bautista Ma - Fully Assessed Prescriptions as of 01/24/2018 Sig: WARFARIN 2 MG TABLET 4 mg PO daily COMPOUNDED PRESCRIPTION Adjustable quad cane. To be u* LOVASTATIN 40 MG TABLET Take 1 tablet by mouth daily * LISINOPRIL 20 MG-HYDROCHLOROT* Take 2 tablets by mouth every* METFORMIN 1,000 MG TABLET Take 1 tablet by mouth twice * ALBUTEROL SULFATE HFA 90 MCG/* Inhale 2 Puffs as instructed * Patient not taking: Reported on 01/10/2018 METOPROLOL TARTRATE 25 MG TAB* Take 1 tablet by mouth twice * BLOOD SUGAR DIAGNOSTIC STRIPS Pt usesTrue Metric Meter. Sarah* LANCETS Test blood sugar(s) 2 times d* ASPIRIN 81 MG TABLET Take 1 tablet by mouth once d* CHOLECALCIFEROL (VITAMIN D3) * 2 tab daily Progress Notes: Juni Meredith PT 01/27/2018 7:30 AM Signed Episode Visit Count: 1 Therapist That Will Oversee The Plan Of Care: Juni Masoud Start of Care Date: 01/24/18 Onset Date: 05/23/17 Plan of Care Certification Date: 01/24/18 Patient Identified by Name and Date of : Yes REHABILITATION AND SPORTS THERAPY PHYSICAL THERAPY EVALUATION PLAN OF CARE: Assessment: Wilbur Wright presents with the chief complaint of multiple falls and balance issues. He presents with impairments of decreased walking speed, poor narrow HELEN balance, poor left ankle strength and generally decreased lower extremity strength, and difficulty with uneven surface negotiation. He may benefit from skilled therapy services to improve the above noted deficits to decrease fall risk. Prognosis: Fair Fair due to: clinical presentation;multiple co- morbidities;advanced age;limited tolerance to activity Goals for Episode of Care: created on 01/24/18 through 03/26/18 Patient will report no falls. Improve score on Timed Up and Go Test to 9 seconds to reflect decreased fall risk. Improve score on 30 Second Chair Stand to 10 repetitions to reflect decreased fall risk. Improve performance on 4 Stage Balance Test to 10 sec in tandem bilaterally to reflect decreased fall risk. [place] in home exercise program including cardiovascular exercise. Patient will improve his/her AM-PAC T-scale score by 4 points to indicate a Minimal Clincial Important Difference. G CODE REPORTING Based on clinical assessment and the score on the AM-PAC Scale Score Assessment Tool, the G code and corresponding severity modifiers are documented below. Evaluation: 01/27/2018 Current Status: Mobility: Walking and Moving Around: [id number] 20-39% impaired Goal Status: Mobility: Walking and Moving Around: G8979 20-39% impaired Planned Interventions, Frequency, and Duration: Current Frequency: 1x/week Duration: 4 weeks Total Number of Visits Planned: 4 Planned Treatment Interventions: Therapeutic exercise;Neuromuscular re-education;Manual therapy;Self-mcfp management;Gait Training;Patient/Family/Caregiver Education PLAN FOR NEXT VISIT: Initiate balance training, general LE strengthening Patient demonstrates good understanding of plan of care and treatment. The above goals and plan of care were discussed and agreed upon by patient/family. SUBJECTIVE: Wilbur Wright is a 77 year old male seen today for instability, falls, and generalized weakness. Pt was falling when he was taking his sons dog out. Still feels unsteady on grass or uneven surfaces. He bumps into [place]ga often and bruises easily. He has DM and on warfarin. Left foot is constantly numb, can't move the toes. When he turns too quickly he feels off balance. He just got a cane and this has helped. Pain Score: 0/10 OBJECTIVE MEASURES WITH LEVEL OF FUNCTION: LE Strength Trunk Strength: 4/5 R LE Strength: 5/5 L Hip Flexion (L2): 5/5 L Hip ABduction: 4/5 L Hip Internal Rotation: 5/5 L Hip External Rotation: 4+/5 L Knee Extension (L3): 5/5 L Knee Flexion: 5/5 L Ankle Dorsiflexion (L4): 4/5 L Ankle Plantar Flexion: 4+/5 L Ankle Inversion: 4/5 L Ankle Eversion: 4+/5 30 Second Sit to Stand Test (reps): 8 reps 4 Stage Balance Test Narrow base of support (sec): 10 sec Semi-tandem base of support (sec): 10 sec Tandem base of support (sec): 2 sec Timed Up and Go (sec): 10.7 sec Education: TREATMENT: Evaluation Billing: [facility]: Evaluation - Moderate Complexity ([id number]) Total time: 40 minutes Juni Meredith PT PROGRESS Observed: 01/10/2018 Status: COMPLETED Source: [place] 3:15 PM [facility] REPOSITORY HNO ID: [id number] Author: Tamar Merrill Service: (none) Author Type: Physician Type: Progress Notes Filed: 01/10/2018 3:16 PM Note Text: INR therapeutic. Continue current coumadin dosage and follow up in 4 weeks. PROGRESS Observed: 01/10/2018 Status: COMPLETED Source: [place] 3:03 PM [facility] REPOSITORY HNO ID: [id number] Author: Tanesha Shearer RN Service: (none) Author Type: (none) Type: Progress Notes Filed: 01/10/2018 3:04 PM Note Text: patient had inr completed at [facility] patients inr is 2.5 (patients inr range is 2.0-3.0) patient is currently taking 4mg daily patients last dose change was on 11/09/17 due to a high level of 3.5 (dose at that time was 6mg Mon and 4mg all other days) patient has had no changes in medication and no missed doses and no change in diet Advised patient to continue on the same dose(s) and that they would only be contacted regarding dosage and follow up instructions after review with provider, if a change is needed. Written instructions given and patient verbalized understanding. Presently scheduled in 4 weeks (02/09/18 - appt with specialist this day also) for follow up INR. CNOV Observed: 01/10/2018 Status: COMPLETED Source: [place] 2:40 PM [facility] REPOSITORY [facility] ([id number]) 1940 M Date Time Provider Department 01/10/18 2:40 PM TAMAR MERRILL) [facility] During your visit today, we recorded the following information about you: Pulse Respiration Blood pressure Weight 80/minute 16/minute 138/74 88.9 kg Tamar Merrill MD 01/10/2018 4:25 PM Signed CC: 3 mo F/U for DM-II HPI: Patient is a 77 year old male presenting to the office today for 3 mo F/U. States he has been weak lately, has been running into ortega d/t stability and being unstable. Started noticing the stability issue a while back, unstable but does not feel like he is going to pass out and the room does not spin. Has been having problems with bruising. Last INR was on 01/10/18 and was 2.5. 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 Has been checking glucose twice per day, in the morning and at night. Has not been having problems a lot with N/T in the hands and feet; can have N/T when grasping for a long period. Has occasional cramping in the back of his legs at night. Saw podiatry within the last year (October), last saw eye doctor on 02/10/17. Energy level has been pretty low, and cannot walk very far: when walking far his hips hurt, and only has a little SOB. CV: will be seeing the Application Security Specialist, Dr. Domingo, in February 2017. Has not been having problems with GERD, well managed. Actinic keratosis: has not seen derm yet, had a referral but never followed through. ? Reviewed current medications, allergies, past medical history, surgical history, family history and social history today. MedicalHx: no changes in medical history since prior visit. PAST MEDICAL HISTORY Diagnosis Date - Atrial fibrillation (HCC) - CAD (coronary artery disease) Seeing Dr. Wise - Cataracts, bilateral - CKD (chronic kidney disease) stage 3, GFR 30-59 ml/min ([facility]) - Compression fracture of lumbar vertebra ([facility]) - DDD (degenerative disc disease), lumbar - Diabetes mellitus type II, controlled ([facility]) - Diabetic neuropathy ([facility]) Dr. Gibson - Diabetic retinopathy ([facility]) Dr. Maria - Edema - GERD (gastroesophageal reflux disease) - Hyperlipidemia - Ischemic colitis ([facility]) - TAMAYO (nonalcoholic steatohepatitis) - Other malaise and fatigue - Pacemaker - PVD (peripheral vascular disease) ([facility]) - Thrombocytopenia ([facility]) - Unspecified essential hypertension HospHx: no hospitalizations or surgery since prior visit. PAST SURGICAL HISTORY Procedure Laterality Date - APPENDECTOMY 1951 - CABG (4) VEIN GRAFTS AND ARTERIAL GRAFT(S) 2008 aortocoronary bypass grafting - CATARACT EXTRACTION HX Right 2016 - COLONOSCOP W/ OR W/O [facility] SPEC 08/02/2005 Colonoscopy - COLONOSCOP W/ OR W/O [facility] SPEC 07/07/2011 Colonoscopy inpt [facility] - PAST SURGICAL HISTORY OF 03/06/2008 pacemaker placement - PAST SURGICAL HISTORY OF Bilateral laser eye surgery Social History Marital status: Spouse name: Years of education: Number of children: Social History Main Topics Smoking status: Former Smoker Packs/day: 1.00 Years: 15.00 Types: Cigarettes Quit date: 05/23/1969 Smokeless tobacco: Never Used Alcohol use: No Drug use: No Sexual activity: Yes Partners with: Female MEDICATIONS: Current Outpatient Prescriptions: warfarin (COUMADIN) 2 mg tablet 6mg Mon and Fri, 4mg other days or as directed Lovastatin 40 mg tablet Take 1 tablet by mouth daily at bedtime. lisinopril-hydrochlorothiazide (PRINZIDE,ZESTORETIC) 20-12.5 mg per tablet Take 2 tablets by mouth every morning. metFORMIN (GLUCOPHAGE) 1,000 mg tablet Take 1 tablet by mouth twice daily with meals. metoprolol tartrate, short acting, (LOPRESSOR) 25 mg tablet Take 1 tablet by mouth twice daily. blood sugar diagnostic (BLOOD GLUCOSE TEST) test strip Pt usesTrue Metric Meter. Test twice daily. Dx E11.65 Insulin: No Lancets lancets Test blood sugar(s) 2 times daily. Dx: Type 2 DM - Uncontrolled E11.65 Insulin: No Aspirin 81 mg Tab Take 1 tablet by mouth once daily. Take 1/2hr before niacin with food. CHOLECALCIFEROL (VITAMIN D3) 1,000 UNIT CAP 2 tab daily albuterol HFA (VENTOLIN HFA) 90 mcg/actuation inhaler Inhale 2 Puffs as instructed every 4 hours as needed. (Patient not taking: Reported on 01/10/2018 ) No current facility-administered medications for this visit. ALLERGIES: ALLERGIES Allergen Reactions - Avandia [Rosiglitaz* Swelling fluid retention - Glimepiride Intolerance hypoglycemia - Amlodipine Swelling Leg swelling with 2.5mg REVIEW OF SYSTEMS General: denies fever, chills, can have night sweats, has had a slight decrease in weight Skin: has actinic keratosis on Left Cheek and has never seen derm. Head: denies headaches, trauma, loss of consciousness Eyes: denies change in vision, diplopia, discharge Ears: denies change in hearing, pain, discharge Nose: denies history of epistaxis, pain, sinus infections, discharge Neck: denies decreased ROM, lumps, nodules Throat: denies cough, soreness, or dysphagia Lungs: denies SOB when resting, but can have problems with long distances, wheezing, or cough CV: denies chest pain, palpitations, does not notice swelling Abdomen/GI: denies N/V/D, tenderness; can have diarrhea off and on Genital/Urinary: denies dysuria, hematuria, problems stopping or starting urination. Neuro: denies numbness, tingling, or extremity weakness. Can have N/T when gripping things Psych: can feel like he does not have energy HEALTH MAINTENANCE: Reviewed health maintenance issues today and recommended the following in detail. BLOOD PRESSURE CONTROLLED due on 1956 INFLUENZA(1) due on 01/21/2018 DILATED RETINAL EXAM due on 02/07/2018 VITALS: BP 138/74 Pulse 80 Resp 16 Wt 88.9 kg (196 lb) BMI 29.80 kg/m? Last 4 Encounter Wt Readings: Date: Wt: 01/10/2018 88.9 kg (196 lb) 09/14/2017 90.7 kg (200 lb) 07/08/2017 90.9 kg (200 lb 6.4 oz) 06/14/2017 88.5 kg (195 lb) PHYSICAL EXAMINATION: General appearance: Well appearing, alert, in no acute distress, well-hydrated, well nourished. Skin: Skin color, texture, turgor normal, no suspicious rashes or lesions Lungs: Lungs clear to auscultation. No wheezing, rhonchi, rales Heart: RRR without murmur, gallop, or rubs. No ectopy Abdomen: Normal abdominal exam, Abdomen soft, non-tender. Bowel sounds normal. No masses, organomegaly Extremities: mild non-pitting edema Assessment/Plan 1. Controlled Type II Diabetic mellitus -continue diet and exercise -continue medication regimen -F/U with Optho for diabetic retinal exam -F/U with Podiatry in 1 yr for diabetic foot exam 2. Actinic Keratosis -follow through with referral to Dermatology for evaluation DEVIN 3. Stability issues, risk of falls -prescribe quad cane to be used by patient -PT to increase strength and for vestibular therapy. Dorie Santiago, OMS-III @15:35 RTO in 4 months and prn. Attending Note I have personally performed a face to face assessment of the patient and have reviewed the medical student note. My garcia findings include: History is as above with addition: patient has walker and single tip cane at home, not using regularly. Would like rx for quad cane. Hesitant to start PT for generalized weakness. Exam is as above. Noted swelling in LE without pitting edema today. Component Latest Ref Rng AND Units 09/07/2017 09/14/2017 01/04/2018 WBC 3.70 - 11.00 k/uL 5.08 RBC 4.20 - 6.00 m/uL 4.09 (L) Hemoglobin 13.0 - 17.0 g/dL 12.8 (L) Hematocrit 39.0 - 51.0 % 39.6 MCV 80.0 - 100.0 fL 96.8 MCH 26.0 - 34.0 pG 31.3 MCHC 30.5 - 36.0 g/dL 32.3 RDW-CV 11.5 - 15.0 % 13.6 Platelet Count 150 - 400 k/uL 92 (L) MPV 9.0 - 12.7 fL 9.3 Neut% % 44.3 Abs Neut (ANC) 1.45 - 7.50 k/uL 2.25 Lymph% % 29.3 Abs Lymph 1.00 - 4.00 k/uL 1.49 Meigs% % 8.3 Abs Meigs <0.87 k/uL 0.42 Eosin% % 17.5 Abs Eosin <0.46 k/uL 0.89 (H) Baso% % 0.6 Abs Baso <0.11 k/uL 0.03 Nucleated Reds 0 /100 WBC 0.0 Absolute nRBC <0.01 k/uL <0.01 Diff Type Auto Diff Protein, Total 6.3 - 8.0 g/dL 7.4 7.0 Albumin 3.9 - 4.9 g/dL 4.1 4.0 Calcium 8.5 - 10.2 mg/dL 9.7 9.1 Bilirubin, Total 0.2 - 1.3 mg/dL 0.4 0.5 Alkaline Phosphatase 36 - 108 U/L 52 55 AST 14 - 40 U/L 20 19 Glucose 74 - 99 mg/dL 118 (H) 174 (H) BUN 9 - 24 mg/dL 28 (H) 24 Creatinine 0.73 - 1.22 mg/dL 1.31 (H) 1.14 Sodium 136 - 144 mmol/L 141 139 Potassium 3.7 - 5.1 mmol/L 4.4 4.6 Chloride 97 - 105 mmol/L 99 101 CO2 22 - 30 mmol/L 29 27 Anion Gap 9 - 18 mmol/L 13 11 ALT 10 - 54 U/L 15 10 eGFR- >60 >60 eGFR-All Other Races . 53 >60 Cholesterol, Total <200 mg/dL 128 Triglyceride <150 mg/dL 160 (H) HDL Cholesterol >39 mg/dL 25 (L) LDL Cholesterol <100 mg/dL 71 Non HDL Cholesterol <130 mg/dL 103 Fasting Time hrs 12 VLDL Cholesterol <30 mg/dL 32 (H) TC:HDL Ratio <5.10 5.12 (H) LDL:HDL Ratio <2.54 2.84 (H) Hemoglobin A1C 4.3 - 5.6 % 7.4 (H) Estimated Average Glucose mg/dL 166 Hemoglobin A1C (POCT) 4.2 - 5.6 % 6.2 (A) ASSESSMENT/PLAN: 1. 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 - Continue current medications - Blood glucose monitoring on a twice a day schedule - Ophthalmology referral for eval/management of diabetic eye changes - Encouraged regular aerobic exercise and weight loss - Daily Asprin therapy recommended - Follow up in 4 months, sooner should any other issues arise. 2. Essential hypertension - ICD9: 401.9, ICD10: I10 - good control - Continue current medication(s) - Encouraged dietary sodium restriction/DASH diet - Recommended regular aerobic exercise. - Reviewed risks of HTN and principles of treatment - Goal of BP <140/90 3. CKD (chronic kidney disease) stage 3, GFR 30-59 ml/min (HCC) - ICD9: 585.3, ICD10: N18.3 Improved on most recent labs. Continue current regimen, avoid NSAIDs, low sodium diet, push PO fluids. 4. Generalized weakness - ICD9: 780.79, ICD10: R53.1 Refer to PT, use walker/cane at home. - CONSULT TO PHYSICAL THERAPY 5. Atrial flutter, unspecified type (HCC) - ICD9: 427.32, ICD10: I48.92 Rate controlled, on anticoagulation. Continue current regimen and follow up with cardiology. 6. Coronary artery disease involving [place] heart without angina pectoris, unspecified vessel or lesion type - ICD9: 414.01, ICD10: I25.10 Asymptomatic. Continue current regimen. 7. Thrombocytopenia (HCC) - ICD9: 287.5, ICD10: D69.6 Stable. On anticoagulation. Will monitor regularly. Other additions or changes: None Signature: Tamar Merrill MD Date: 01/10/2018 Time: 2:57 PM Referring Provider: TAMAR MERRILL () [[id number]] Allergies As of Date: 01/10/2018 Noted Allergy Reaction AVANDIA (ROSIGLITAZONE MALEATE) 02/18/2005 7 - Swelling Comments: fluid retention GLIMEPIRIDE 07/12/2013 5 - Intolerance Comments: hypoglycemia AMLODIPINE 05/18/2012 7 - Swelling Comments: Leg swelling with 2.5mg Date Reviewed: 01/10/2018 Reviewed by: Sudeep Bautista Ma - Fully Assessed Reason for Visit: F/U 3 Month [443] Cmt: bruising , weakness Reason For Visit History Recorded Primary Visit Diagnosis: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, without long- term current use of insulin, unspecified laterality ([facility]) [E11.3599] Other Visit Diagnoses:Essential hypertension [I10] CKD (chronic kidney disease) stage 3, GFR 30-59 ml/min ([facility]) [N18.3] Generalized weakness [R53.1] Atrial flutter, unspecified type ([facility]) [I48.92] Coronary artery disease involving [place] heart without angina pectoris, unspecified vessel or lesion type [I25.10] Thrombocytopenia ([facility]) [D69.6] Order(s):CONSULT TO PHYSICAL THERAPY [9032] Order #: [id number]: 1 warfarin (COUMADIN) 2 mg tablet4 mg PO dailyDisp: 64 tabletRfl: 5 COMPOUNDED PRESCRIPTIONAdjustable quad cane. To be used daily for ambulation. Dx: age related debilityDisp: 1 DeviceRfl: 1 Prescriptions as of 01/10/2018 Sig: WARFARIN 2 MG TABLET 4 mg PO daily LOVASTATIN 40 MG TABLET Take 1 tablet by mouth daily * LISINOPRIL 20 MG-HYDROCHLOROT* Take 2 tablets by mouth every* METFORMIN 1,000 MG TABLET Take 1 tablet by mouth twice * METOPROLOL TARTRATE 25 MG TAB* Take 1 tablet by mouth twice * BLOOD SUGAR DIAGNOSTIC STRIPS Pt usesTrue Metric Meter. Sarah* LANCETS Test blood sugar(s) 2 times d* ASPIRIN 81 MG TABLET Take 1 tablet by mouth once d* CHOLECALCIFEROL (VITAMIN D3) * 2 tab daily COMPOUNDED PRESCRIPTION Adjustable quad cane. To be u* ALBUTEROL SULFATE HFA 90 MCG/* Inhale 2 Puffs as instructed * Patient not taking: Reported on 01/10/2018 Problem List As Of Date 01/10/2018 Noted Resolved Esophageal reflux [K21.9] INVALID FOR* More... ABDOMINAL PAIN( Epigastric) [R10.13] INVALID FOR*05/18/2012 Mixed hyperlipidemia [E78.2] INVALID FOR* More... Type II or unspecified type diabetes mellitus w*INVALID FOR*02/28/2013 More... Other malaise and fatigue [R53.81, R53.83] 05/18/2012 Infection and inflammatory reaction due to card*INVALID FOR*02/25/2016 ASHD (arteriosclerotic heart disease) [I25.10] INVALID FOR*08/07/2016 Thrombocytopenia [D69.6] INVALID FOR* Hypertension [I10] INVALID FOR*04/27/2016 CAD (coronary artery disease) [I25.10] INVALID FOR* More... Coronary atherosclerosis of [place] coronary art*INVALID FOR* More... Atrioventricular block, unspecified [I44.30] INVALID FOR*08/07/2016 More... Other second degree atrioventricular block [I44*INVALID FOR* More... Atrial flutter [I48.92] INVALID FOR* More... Other specified cardiac dysrhythmias [I49.8] INVALID FOR* More... Unspecified disorder of kidney and ureter [N28.*INVALID FOR* More... Cardiac pacemaker in situ [Z95.0] INVALID FOR* More... 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 TAMAYO (nonalcoholic steatohepatitis) [K75.81] INVALID FOR* Ischemic colitis (HCC) [K55.9] INVALID FOR*09/14/2017 Compression fracture of lumbar vertebra [S32.00*INVALID FOR* More... 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*INVALID FOR* Uncontrolled type 2 diabetes mellitus with diab*INVALID FOR*08/07/2016 Type 2 diabetes mellitus with diabetic polyneur*INVALID FOR*06/14/2017 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] INVALID FOR* Obesity (BMI 30.0-34.9) [E66.9] INVALID FOR* Essential hypertension [I10] INVALID FOR* Chronic anticoagulation [Z79.01] INVALID FOR* Dyspnea on exertion [R06.09] INVALID FOR* Chronic venous insufficiency [I87.2] INVALID FOR* Diabetes mellitus type II, controlled ([facility]) [E1* 06/14/2017 CKD (chronic kidney disease) stage 3, GFR 30-59* Prescriptions ordered this encounter Disp Refills Start End WARFARIN 2 MG TABLET 64 t* 5 01/10/2018 Class: Med Update Si mg PO daily COMPOUNDED PRESCRIPTION 1 De* 1 01/10/2018 Class: Print RX Sig: Adjustable quad cane. To be used daily for ambulation. Dx: age related debility Medications Discontinued During This Encounter warfarin (COUMADIN) 2 mg tablet 64 t* 5 11/22/2017 01/10/2018 Simg Mon and Fri, 4mg other days or as directed Disc: Reason for discontinue is not on file. Disposition: Return in about 4 months (around 05/12/2018). Follow-up and Disposition History Recorded Encounter Status:Closed by TAMAR MERRILL MD on 01/10/18 PROGRESS Observed: 01/10/2018 Status: COMPLETED Source: [place] 2:18 PM [facility] REPOSITORY HNO ID: [id number] Author: Tamar Leal) Desirae Service: (none) Author Type: Physician Type: Progress Notes Filed: 01/10/2018 4:25 PM Note Text: CC: 3 mo F/U for DM-II HPI: Patient is a 77 year old male presenting to the office today for 3 mo F/U. States he has been weak lately, has been running into [place]tega d/t stability and being unstable. Started noticing the stability issue a while back, unstable but does not feel like he is going to pass out and the room does not spin. Has been having problems with bruising. Last INR was on 01/10/18 and was 2.5. 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 Has been checking glucose twice per day, in the morning and at night. Has not been having problems a lot with N/T in the hands and feet; can have N/T when grasping for a long period. Has occasional cramping in the back of his legs at night. Saw podiatry within the last year (October), last saw eye doctor on 02/10/17. Energy level has been pretty low, and cannot walk very far: when walking far his hips hurt, and only has a little SOB. CV: will be seeing the Application Security Specialist, Dr. Domingo, in February 2017. Has not been having problems with GERD, well managed. Actinic keratosis: has not seen derm yet, had a referral but never followed through. ? Reviewed current medications, allergies, past medical history, surgical history, family history and social history today. MedicalHx: no changes in medical history since prior visit. PAST MEDICAL HISTORY Diagnosis Date - Atrial fibrillation ([facility]) - CAD (coronary artery disease) Seeing Dr. Wise - Cataracts, bilateral - CKD (chronic kidney disease) stage 3, GFR 30-59 ml/min ([facility]) - Compression fracture of lumbar vertebra ([facility]) - DDD (degenerative disc disease), lumbar - Diabetes mellitus type II, controlled ([facility]) - Diabetic neuropathy ([facility]) Dr. Gibson - Diabetic retinopathy ([facility]) Dr. Maria - Edema - GERD (gastroesophageal reflux disease) - Hyperlipidemia - Ischemic colitis ([facility]) - TAMAYO (nonalcoholic steatohepatitis) - Other malaise and fatigue - Pacemaker - PVD (peripheral vascular disease) ([facility]) - Thrombocytopenia ([facility]) - Unspecified essential hypertension HospHx: no hospitalizations or surgery since prior visit. PAST SURGICAL HISTORY Procedure Laterality Date - APPENDECTOMY 1951 - CABG (4) VEIN GRAFTS AND ARTERIAL GRAFT(S) 2009 aortocoronary bypass grafting - CATARACT EXTRACTION HX Right 2016 - COLONOSCOP W/ OR W/O [facility] SPEC 08/02/2005 Colonoscopy - COLONOSCOP W/ OR W/O [facility] SPEC 07/07/2011 Colonoscopy inpt [facility] - PAST SURGICAL HISTORY OF 03/06/2008 pacemaker placement - PAST SURGICAL HISTORY OF Bilateral laser eye surgery Social History Marital status: Spouse name: Years of education: Number of children: Social History Main Topics Smoking status: Former Smoker Packs/day: 1.00 Years: 15.00 Types: Cigarettes Quit date: 05/23/1969 Smokeless tobacco: Never Used Alcohol use: No Drug use: No Sexual activity: Yes Partners with: Female MEDICATIONS: Current Outpatient Prescriptions: warfarin (COUMADIN) 2 mg tablet 6mg Mon and Fri, 4mg other days or as directed Lovastatin 40 mg tablet Take 1 tablet by mouth daily at bedtime. lisinopril-hydrochlorothiazide (PRINZIDE,ZESTORETIC) 20-12.5 mg per tablet Take 2 tablets by mouth every morning. metFORMIN (GLUCOPHAGE) 1,000 mg tablet Take 1 tablet by mouth twice daily with meals. metoprolol tartrate, short acting, (LOPRESSOR) 25 mg tablet Take 1 tablet by mouth twice daily. blood sugar diagnostic (BLOOD GLUCOSE TEST) test strip Pt usesTrue Metric Meter. Test twice daily. Dx E11.65 Insulin: No Lancets lancets Test blood sugar(s) 2 times daily. Dx: Type 2 DM - Uncontrolled E11.65 Insulin: No Aspirin 81 mg Tab Take 1 tablet by mouth once daily. Take 1/2hr before niacin with food. CHOLECALCIFEROL (VITAMIN D3) 1,000 UNIT CAP 2 tab daily albuterol HFA (VENTOLIN HFA) 90 mcg/actuation inhaler Inhale 2 Puffs as instructed every 4 hours as needed. (Patient not taking: Reported on 01/10/2018 ) No current facility-administered medications for this visit. ALLERGIES: ALLERGIES Allergen Reactions - Avandia [Rosiglitaz* Swelling fluid retention - Glimepiride Intolerance hypoglycemia - Amlodipine Swelling Leg swelling with 2.5mg REVIEW OF SYSTEMS General: denies fever, chills, can have night sweats, has had a slight decrease in weight Skin: has actinic keratosis on Left Cheek and has never seen derm. Head: denies headaches, trauma, loss of consciousness Eyes: denies change in vision, diplopia, discharge Ears: denies change in hearing, pain, discharge Nose: denies history of epistaxis, pain, sinus infections, discharge Neck: denies decreased ROM, lumps, nodules Throat: denies cough, soreness, or dysphagia Lungs: denies SOB when resting, but can have problems with long distances, wheezing, or cough CV: denies chest pain, palpitations, does not notice swelling Abdomen/GI: denies N/V/D, tenderness; can have diarrhea off and on Genital/Urinary: denies dysuria, hematuria, problems stopping or starting urination. Neuro: denies numbness, tingling, or extremity weakness. Can have N/T when gripping things Psych: can feel like he does not have energy HEALTH MAINTENANCE: Reviewed health maintenance issues today and recommended the following in detail. BLOOD PRESSURE CONTROLLED due on 1956 INFLUENZA(1) due on 01/21/2018 DILATED RETINAL EXAM due on 02/07/2018 VITALS: BP 138/74 Pulse 80 Resp 16 Wt 88.9 kg (196 lb) BMI 29.80 kg/m? Last 4 Encounter Wt Readings: Date: Wt: 01/10/2018 88.9 kg (196 lb) 09/14/2017 90.7 kg (200 lb) 07/08/2017 90.9 kg (200 lb 6.4 oz) 06/14/2017 88.5 kg (195 lb) PHYSICAL EXAMINATION: General appearance: Well appearing, alert, in no acute distress, well-hydrated, well nourished. Skin: Skin color, texture, turgor normal, no suspicious rashes or lesions Lungs: Lungs clear to auscultation. No wheezing, rhonchi, rales Heart: RRR without murmur, gallop, or rubs. No ectopy Abdomen: Normal abdominal exam, Abdomen soft, non-tender. Bowel sounds normal. No masses, organomegaly Extremities: mild non-pitting edema Assessment/Plan 1. Controlled Type II Diabetic mellitus -continue diet and exercise -continue medication regimen -F/U with Optho for diabetic retinal exam -F/U with Podiatry in 1 yr for diabetic foot exam 2. Actinic Keratosis -follow through with referral to Dermatology for evaluation DEVIN 3. Stability issues, risk of falls -prescribe quad cane to be used by patient -PT to increase strength and for vestibular therapy. Dorie Santiago, OMS-III @15:35 RTO in 4 months and prn. Attending Note I have personally performed a face to face assessment of the patient and have reviewed the medical student note. My garcia findings include: History is as above with addition: patient has walker and single tip cane at home, not using regularly. Would like rx for quad cane. Hesitant to start PT for generalized weakness. Exam is as above. Noted swelling in LE without pitting edema today. Component Latest Ref Rng AND Units 09/07/2017 09/14/2017 01/04/2018 WBC 3.70 - 11.00 k/uL 5.08 RBC 4.20 - 6.00 m/uL 4.09 (L) Hemoglobin 13.0 - 17.0 g/dL 12.8 (L) Hematocrit 39.0 - 51.0 % 39.6 MCV 80.0 - 100.0 fL 96.8 MCH 26.0 - 34.0 pG 31.3 MCHC 30.5 - 36.0 g/dL 32.3 RDW-CV 11.5 - 15.0 % 13.6 Platelet Count 150 - 400 k/uL 92 (L) MPV 9.0 - 12.7 fL 9.3 Neut% % 44.3 Abs Neut (ANC) 1.45 - 7.50 k/uL 2.25 Lymph% % 29.3 Abs Lymph 1.00 - 4.00 k/uL 1.49 Meigs% % 8.3 Abs Meigs <0.87 k/uL 0.42 Eosin% % 17.5 Abs Eosin <0.46 k/uL 0.89 (H) Baso% % 0.6 Abs Baso <0.11 k/uL 0.03 Nucleated Reds 0 /100 WBC 0.0 Absolute nRBC <0.01 k/uL <0.01 Diff Type Auto Diff Protein, Total 6.3 - 8.0 g/dL 7.4 7.0 Albumin 3.9 - 4.9 g/dL 4.1 4.0 Calcium 8.5 - 10.2 mg/dL 9.7 9.1 Bilirubin, Total 0.2 - 1.3 mg/dL 0.4 0.5 Alkaline Phosphatase 36 - 108 U/L 52 55 AST 14 - 40 U/L 20 19 Glucose 74 - 99 mg/dL 118 (H) 174 (H) BUN 9 - 24 mg/dL 28 (H) 24 Creatinine 0.73 - 1.22 mg/dL 1.31 (H) 1.14 Sodium 136 - 144 mmol/L 141 139 Potassium 3.7 - 5.1 mmol/L 4.4 4.6 Chloride 97 - 105 mmol/L 99 101 CO2 22 - 30 mmol/L 29 27 Anion Gap 9 - 18 mmol/L 13 11 ALT 10 - 54 U/L 15 10 eGFR- >60 >60 eGFR-All Other Races . 53 >60 Cholesterol, Total <200 mg/dL 128 Triglyceride <150 mg/dL 160 (H) HDL Cholesterol >39 mg/dL 25 (L) LDL Cholesterol <100 mg/dL 71 Non HDL Cholesterol <130 mg/dL 103 Fasting Time hrs 12 VLDL Cholesterol <30 mg/dL 32 (H) TC:HDL Ratio <5.10 5.12 (H) LDL:HDL Ratio <2.54 2.84 (H) Hemoglobin A1C 4.3 - 5.6 % 7.4 (H) Estimated Average Glucose mg/dL 166 Hemoglobin A1C (POCT) 4.2 - 5.6 % 6.2 (A) ASSESSMENT/PLAN: 1. 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 - Continue current medications - Blood glucose monitoring on a twice a day schedule - Ophthalmology referral for eval/management of diabetic eye changes - Encouraged regular aerobic exercise and weight loss - Daily Asprin therapy recommended - Follow up in 4 months, sooner should any other issues arise. 2. Essential hypertension - ICD9: 401.9, ICD10: I10 - good control - Continue current medication(s) - Encouraged dietary sodium restriction/DASH diet - Recommended regular aerobic exercise. - Reviewed risks of HTN and principles of treatment - Goal of BP <140/90 3. CKD (chronic kidney disease) stage 3, GFR 30-59 ml/min ([facility]) - ICD9: 585.3, ICD10: N18.3 Improved on most recent labs. Continue current regimen, avoid NSAIDs, low sodium diet, push PO fluids. 4. Generalized weakness - ICD9: 780.79, ICD10: R53.1 Refer to PT, use walker/cane at home. - CONSULT TO PHYSICAL THERAPY 5. Atrial flutter, unspecified type (HCC) - ICD9: 427.32, ICD10: I48.92 Rate controlled, on anticoagulation. Continue current regimen and follow up with cardiology. 6. Coronary artery disease involving [place] heart without angina pectoris, unspecified vessel or lesion type - ICD9: 414.01, ICD10: I25.10 Asymptomatic. Continue current regimen. 7. Thrombocytopenia (HCC) - ICD9: 287.5, ICD10: D69.6 Stable. On anticoagulation. Will monitor regularly. Other additions or changes: None Signature: Tamar Merrill MD Date: 01/10/2018 Time: 2:57 PM CBC AND DIFFERENTIAL Collected: 01/04/2018 Status: F Source: [place] 12:30 PM [facility] REPOSITORY TYPE CODE TESTS RESULT OUT OF REFERENCE UNITS RANGE LAB WBC 3.70-11.00 k/uL WBC 5.08 LAB RBC 4.20-6.00 m/uL Low RBC 4.09 LAB HGB 13.0-17.0 g/dL Low Hemoglobin 12.8 LAB HCT 39.0-51.0 % Hematocrit 39.6 LAB MCV 80.0-100.0 fL MCV 96.8 LAB MCH 26.0-34.0 pG MCH 31.3 LAB MCHC 30.5-36.0 g/dL MCHC 32.3 LAB RDWCV 11.5-15.0 % RDW-CV 13.6 LAB PLTCT 150-400 k/uL Low Platelet Count 92 Result Comment: No clot detected. LAB MPV 9.0-12.7 fL MPV 9.3 LAB ANEUT % Neut% 44.3 LAB AANEUT 1.45-7.50 k/uL Abs Neut 2.25 LAB ALYMP % Lymph% 29.3 LAB AALYMP 1.00-4.00 k/uL Abs Lymph 1.49 LAB AMONO % Meigs% 8.3 LAB AAMONO <0.87 k/uL Abs Meigs 0.42 LAB AEOS % Eosin% 17.5 LAB AAEOS <0.46 k/uL Abs High Eosin 0.89 LAB ABASO % Baso% 0.6 LAB AABASO <0.11 k/uL Abs Baso 0.03 LAB AUNRBC 0 /100 WBC NRBCs 0.0 LAB ABNRBC <0.01 k/uL Absolute nRBC <0.01 LAB DTYP DTYPE Auto Diff Performed By: #### CBCDIF, CMP, LIPB #### [facility] [address] [place], [place] [address] COMP METABOLIC PANEL Collected: 01/04/2018 Status: F Source: [place] 12:30 PM [facility] REPOSITORY TYPE CODE TESTS RESULT OUT OF REFERENCE UNITS RANGE LAB TP 6.3-8.0 g/dL Protein, Total 7.0 LAB ALB 3.9-4.9 g/dL Albumin 4.0 LAB CA 8.5-10.2 mg/dL Calcium, Total 9.1 LAB TBIL 0.2-1.3 mg/dL Bilirubin, Total 0.5 LAB ALKP 36-108 U/L Alkaline Phosphatase 55 LAB AST 14-40 U/L AST 19 LAB GLU 74-99 mg/dL Glucose High 174 Result Comment: The [place] Diabetes Association (ADA) provides guidance for cutoff values for fasting glucose and random glucose. The ADA defines fasting as no caloric intake for at least 8 hours. Fas ting plasma glucose results between 100 to 125 mg/dL indicate increased risk for diabetes (prediabetes). Fasting plasma glucose results greater than or equal to 126 mg/dL meet the criteria for diagnosis of diabetes. In the absence of unequivocal hyperglycemia, results should be confirmed by repeat testing. In a patient with classic symptoms of hyperglycemia or hyperglycemic crisis, random plasma glucose results greater than or equal to 200 mg/dL meet the criteria for diagnosis of diabetes. Reference: Standards of Medical Care in Diabetes 2016, [place] Diabetes Association. Diabetes Care. 2016.39(Suppl 1). LAB BUN 9-24 mg/dL BUN 24 LAB CRET 0.73-1.22 mg/dL Creatinine 1.14 LAB NA 136-144 mmol/L Sodium 139 LAB K 3.7-5.1 mmol/L Potassium 4.6 LAB CL 97-105 mmol/L Chloride 101 LAB CO2 22-30 mmol/L CO2 27 LAB AGAP 9-18 mmol/L Anion Gap 11 LAB ALT 10-54 U/L ALT 10 LAB GFRAA eGFR- Amer. >60 LAB GFRNAA . eGFR-All Other Races >60 Result Comment: eGFR (Estimated GFR) Units of measure: mL/min/1.73 meters squared eGFR is derived from the reexpressed MDRD Study equation using the following parameters: serum creatinine, age, gender and race. The creatinine assay has been calibrated to be traceable to IDRI. An eGFR <60 mL/min/1.73m2 for >3 months is consistent with chronic kidney disease. Refer to KDOQI guidelines for clinical interpretation. In patients with unstable renal function, e.g. those with acute kidney injury, the eGFR may not accurately reflect actual GFR. Performed By: #### CBCDIF, CMP, LIPB #### [facility] [address] [place] [address] LIPID PANEL, BASIC Collected: 01/04/2018 Status: F Source: [place] 12:30 PM [facility] REPOSITORY TYPE CODE TESTS RESULT OUT OF REFERENCE UNITS RANGE LAB CHOL <200 mg/dL Cholesterol 128 Result Comment: <200 mg/dL, Desirable 200-239 mg/dL, Borderline high >239 mg/dL, High LAB TRIGLY <150 mg/dL Triglyceride High 160 Result Comment: <150 mg/dL, Normal 150-199 mg/dL, Borderline high 200-499 mg/dL, High >499 mg/dL, Very high LAB HDL >39 mg/dL HDL-Cholesterol Low 25 Result Comment: 40-59 mg/dL, Acceptable >59 mg/dL, High: Negative risk factor for coronary heart disease <40 mg/dL, Low: Positive risk factor for coronary heart disease LAB LDL <100 mg/dL LDL-Cholesterol 71 Result Comment: <100 mg/dL, Optimal 100-129 mg/dL, Near optimal/above optimal 130-159 mg/dL, Borderline high 160-189 mg/dL, High >189 mg/dL, Very high Secondary prevention optimal LDL Cholesterol levels are recommended to be < 70 mg/dL LAB NONHDL <130 mg/dL Non HDL Cholesterol 103 Result Comment: <130 mg/dL, Optimal 130-159 mg/dL, Near optimal/above optimal 160-189 mg/dL, Borderline high 190-219 mg/dL, High >219 mg/dL, Very high Secondary prevention optimal non HDL Cholesterol levels are recommended to be < 100 mg/dL LAB FT hrs Fasting Time 12 LAB VLDL <30 mg/dL High VLDL Cholesterol 32 LAB TCHDL <5.10 High TC:HDL Ratio 5.12 LAB LDLHDL <2.54 High LDL:HDL Ratio 2.84 Result Comment: Reference: 1. National Cholesterol Education Program ATP III Guideline At-A-Glance Quick Desk Reference: National Heart, Lung, and Blood [place]. National Institutes of Health. 2001: NIH Publication No. 01-3305. 2. An International Atherosclerosis Society position paper: global recommendations for the management of dyslipidemia: executive summary, Atherosclerosis. 2014: 232(2):410-413. Performed By: #### CBCDIF, CMP, LIPB #### [facility] [address], [place] [address] HEMOGLOBIN A1C Collected: 01/04/2018 Status: F Source: [place] 12:30 PM [facility] REPOSITORY TYPE CODE TESTS RESULT OUT OF REFERENCE UNITS RANGE LAB HGBA1C 4.3-5.6 % High Hemoglobin A1c 7.4 LAB HBA0 mg/dL Est. Average Glucose 166 Result Comment: eAG: (Estimated average glucose) is a calculated value from HgbA1c and is office services representative of the average blood glucose level in the last 2-3 month period. Performed By: #### HBA1C #### [facility] [address], [place] [address] PROGRESS Observed: 12/16/2017 Status: COMPLETED Source: [place] 1:42 PM [facility] REPOSITORY HNO ID: [id number] Author: Juliane Staley) Edmundo Service: (none) Author Type: Registered Nurse Type: Progress Notes Filed: 12/16/2017 2:22 PM Note Text: PRIMARY CARE COORDINATION CHART REVIEW Patient identified for Care Coordination from: [facility] Last PCP office visit: 09/14/2017 Next OV: 01/10/2018 Pt has labs ordered CHRONIC DX: DM HTN Hyperlipidemia CAD A Fib CKD CARE GAPS: No LDL in past year BP above 140/90 UTILIZATION WITHIN THE LAST 12 MONTHS: ? ED: None ? HOSPITAL: None ? SNF: None PRIMARY CARE COORDINATION OUTREACH PLAN: Will reach out to patient for Care Coordination Juliane Wyatt RN CNPTOUTREACH Observed: 12/16/2017 Status: COMPLETED Source: [place] 12:00 AM [facility] REPOSITORY Patient Outreach (FAMPWS) SHERIFWILBUR ([id number]) 1940 M Date Time Provider Department 12/16/17 JULIANE WYATTRN) ARIELLEPWS During your visit today, we recorded the following information about you: Juliane Wyatt RN 12/16/2017 2:22 PM Signed PRIMARY CARE COORDINATION CHART REVIEW Patient identified for Care Coordination from: [facility] Last PCP office visit: 09/14/2017 Next OV: 01/10/2018 Pt has labs ordered CHRONIC DX: DM HTN Hyperlipidemia CAD A Fib CKD CARE GAPS: No LDL in past year BP above 140/90 UTILIZATION WITHIN THE LAST 12 MONTHS: ? ED: None ? HOSPITAL: None ? 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 Sarah* LANCETS Test blood sugar(s) 2 times d* ASPIRIN 81 MG TABLET Take 1 tablet by mouth once d* CHOLECALCIFEROL (VITAMIN D3) * 2 tab daily Problem List As Of Date 12/16/2017 Noted Resolved Esophageal reflux [K21.9] INVALID FOR* More... ABDOMINAL PAIN( Epigastric) [R10.13] INVALID FOR*05/18/2012 Mixed hyperlipidemia [E78.2] INVALID FOR* More... Type II or unspecified type diabetes mellitus w*INVALID FOR*02/28/2013 More... Other malaise and fatigue [R53.81, R53.83] 05/18/2012 Infection and inflammatory reaction due to card*INVALID FOR*02/25/2016 ASHD (arteriosclerotic heart disease) [I25.10] INVALID FOR*08/07/2016 Thrombocytopenia [D69.6] INVALID FOR* Hypertension [I10] INVALID FOR*04/27/2016 CAD (coronary artery disease) [I25.10] INVALID FOR* More... Coronary atherosclerosis of [place] coronary art*INVALID FOR* More... Atrioventricular block, unspecified [I44.30] INVALID FOR*08/07/2016 More... Other second degree atrioventricular block [I44*INVALID FOR* More... Atrial flutter [I48.92] INVALID FOR* More... Other specified cardiac dysrhythmias [I49.8] INVALID FOR* More... Unspecified disorder of kidney and ureter [N28.*INVALID FOR* More... Cardiac pacemaker in situ [Z95.0] INVALID FOR* More... 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 TAMAYO (nonalcoholic steatohepatitis) [K75.81] INVALID FOR* Ischemic colitis (HCC) [K55.9] INVALID FOR*09/14/2017 Compression fracture of lumbar vertebra [S32.00*INVALID FOR* More... 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*INVALID FOR* Uncontrolled type 2 diabetes mellitus with diab*INVALID FOR*08/07/2016 Type 2 diabetes mellitus with diabetic polyneur*INVALID FOR*06/14/2017 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] INVALID FOR* Obesity (BMI 30.0-34.9) [E66.9] INVALID FOR* Essential hypertension [I10] INVALID FOR* Chronic anticoagulation [Z79.01] INVALID FOR* Dyspnea on exertion [R06.09] INVALID FOR* Chronic venous insufficiency [I87.2] INVALID FOR* Diabetes mellitus type II, controlled ([facility]) [E1* 06/14/2017 CKD (chronic kidney disease) stage 3, GFR 30-59* Encounter Status:Closed by JULIANE WYATT on 12/19/17 PROGRESS Observed: 12/06/2017 Status: COMPLETED Source: [place] 2:16 PM [facility] REPOSITORY HNO ID: [id number] Author: Tamar Leal) Desirae Service: (none) Author Type: Physician Type: Progress Notes Filed: 12/06/2017 2:16 PM Note Text: INR therapeutic. Continue current coumadin dosage and follow up in 5 weeks. PROGRESS Observed: 12/06/2017 Status: COMPLETED Source: [place] 2:11 PM [facility] REPOSITORY HNO ID: [id number] Author: Tanesha Shearer RN Service: (none) Author Type: (none) Type: Progress Notes Filed: 12/06/2017 2:12 PM Note Text: patient had inr completed at [facility] patients inr is 2.2 (patients inr range is 2.0-3.0) patient is currently taking 4mg daily patients last dose change was on 11/09/17 due to a high level of 3.5 (dose at that time was 6mg Mon and 4mg all other days) patient has had no changes in medication and no missed doses and no change in diet Advised patient to continue on the same dose(s) and that they would only be contacted regarding dosage and follow up instructions after review with provider, if a change is needed. Written instructions given and patient verbalized understanding. Presently scheduled in 5 weeks (01/10/18 - due to appt with pcp this day also) for follow up INR. PROGRESS Observed: 11/22/2017 Status: COMPLETED Source: [place] 4:34 PM [facility] REPOSITORY HNO ID: [id number] Author: Tamar Leal) Desirae Service: (none) Author Type: Physician Type: Progress Notes Filed: 11/22/2017 4:34 PM Note Text: INR therapeutic. Continue current coumadin dosage and follow up in 2 weeks. PROGRESS Observed: 11/22/2017 Status: COMPLETED Source: [place] 4:25 PM [facility] REPOSITORY HNO ID: [id number] Author: Tanesha Shearer RN Service: (none) Author Type: (none) Type: Progress Notes Filed: 11/22/2017 4:26 PM Note Text: patient had inr completed at [facility] patients inr is 2.8 (patients inr range is 2.0-3.0) patient is currently taking 4mg daily patients last dose change was on 11/09/17 due to a high level of 3.5 (dose at that time was 6mg Mon and 4mg all other days) patient has had no changes in medication except for coumadin and no missed doses and no change in diet Advised patient to continue on the same dose(s) and that they would only be contacted regarding dosage and follow up instructions after review with provider, if a change is needed. Written instructions given and patient verbalized understanding. Presently scheduled in 2 weeks (12/06/17) for follow up INR. PROGRESS Observed: 11/09/2017 Status: COMPLETED Source: [place] 3:44 PM [facility] REPOSITORY HNO ID: [id number] Author: Nohemy Hutton Ma Service: (none) Author Type: (none) Type: Progress Notes Filed: 11/09/2017 3:44 PM Note Text: Detailed message left on pt's vm. Asked to return call and to schedule appt with cc. Tracker updated. PROGRESS Observed: 11/09/2017 Status: COMPLETED Source: [place] 3:30 PM [facility] REPOSITORY HNO ID: [id number] Author: Tamar Merrill Service: (none) Author Type: Physician Type: Progress Notes Filed: 11/09/2017 3:30 PM Note Text: INR supra therapeutic still. Decrease coumadin to 4 mg daily and recheck in 1 week. PROGRESS Observed: 11/09/2017 Status: COMPLETED Source: [place] 2:31 PM [facility] REPOSITORY HNO ID: [id number] Author: Fide Henderson RN Service: (none) Author Type: (none) Type: Progress Notes Filed: 11/09/2017 2:32 PM Note Text: Patient had INR completed at [facility] Patient's INR is 3.5 Patient is currently taking 6mg Mon and 4 mg all other days Patient's last dose change was 01/05/17 due to high INR at 3.5 Patient has had no medication and no change in diet. Advised patient that they would be contacted regarding medication dose and follow-up once reviewed by provider. After provider review, please contact patient with information and schedule follow-up appointment with coumadin clinic. PROGRESS Observed: 2017 Status: COMPLETED Source: [place] 1:39 PM [facility] REPOSITORY HNO ID: [id number] Author: Abraham Gibson Service: (none) Author Type: Physician Type: Progress Notes Filed: 2017 2:00 PM Note Text: Abraham Gibson DPM Department of Podiatry [facility] [address] [facility] [address] Dept: [phone] Dept Diabetic Nail Care SUBJECTIVE: Follow up office visit: This 77 year old male presents to clinic c/o painful toenails. Patient states that the nails are especially painful with shoe gear and pressure. He admits to being a diabetic and reports that his blood sugar was 230 mg/dL after breakfast. Patient does complain of right ankle pain but states the pain is improving. Patient denies claudication type symptoms when walking. No other pedal complaints at this time. No change in medications or medical history since last visit. Hemoglobin A1C (%) Date Value 06/08/2017 7.8 Hemoglobin A1C (POCT) (%) Date Value 09/14/2017 6.2 OBJECTIVE: Patient presents ambulating in diabetic shoes. Vasc: DP and PT pulses are decreased bilateral. CFT is less than 5 seconds bilateral. Skin temperature is warm to cool proximal to distal bilateral. There is moderate edema or varicosities noted. Hair growth decreased. Neuro: Protective sensation is absent to the foot and toes when tested with the 5.07 SWM bilateral. Vibratory sensation is absent at the hallux bilateral. significant neurological defecits. Derm: Inspection and palpation performed. Nails 1-5 b/l are painful, discolored-yellow, thick, crumbly, dystrophic and with subungal debris. Skin is thin b/l. There is pallor with elevation Hyperkeratosis no. NO ulcerations, scars, verruca or other lesions noted. Ortho: Ankle joint DF is decreased with the knee extended and decreased with knee flexed. Mild pain present to right ankle. No pain or crepitus noted. STJ, MTJ ROM are full and free of pain or crepitus. Muscle strength is 5/5 for dorsiflexors, plantarflexors, inverters, everters. ASSESSMENT: (B35.1) Onychomycosis (primary encounter diagnosis) Plan: 1. Patient was seen and evaluated. 2. Nails 1-5 bilateral were debrided in length and thickness. 3. Patient was instructed on the continued importance of diabetic foot care along with proper diet and keeping their blood sugar under control to prevent complications. 4. RTC 3-4 months for DFC (M79.675) Pain in toe of left foot Plan: same as above (M79.674) Pain in toe of right foot Plan: same as above (E11.42) Diabetic polyneuropathy associated with type 2 diabetes mellitus (HCC) Plan: same as above Right ankle pain: Discussed getting xray. He declined. If pain fails to improve, consider xray. JAY Iraheta Observed: 2017 Status: COMPLETED Source: [place] 1:10 PM [facility] REPOSITORY Office Visit (PODIWS) WILBUR WRIGHT ([id number]) 1940 M Date Time Provider Department 11/02/17 1:10 PM ABRAHAM GIBSON During your visit today, we recorded the following information about you: Abraham Gibson DPM 2017 2:00 PM Signed Abraham Gibson DPM Department of Podiatry [address] [facility] [address] Dept: [phone] Dept Diabetic Nail Care SUBJECTIVE: Follow up office visit: This 77 year old male presents to clinic c/o painful toenails. Patient states that the nails are especially painful with shoe gear and pressure. He admits to being a diabetic and reports that his blood sugar was 230 mg/dL after breakfast. Patient does complain of right ankle pain but states the pain is improving. Patient denies claudication type symptoms when walking. No other pedal complaints at this time. No change in medications or medical history since last visit. Hemoglobin A1C (%) Date Value 06/08/2017 7.8 Hemoglobin A1C (POCT) (%) Date Value 09/14/2017 6.2 OBJECTIVE: Patient presents ambulating in diabetic shoes. Vasc: DP and PT pulses are decreased bilateral. CFT is less than 5 seconds bilateral. Skin temperature is warm to cool proximal to distal bilateral. There is moderate edema or varicosities noted. Hair growth decreased. Neuro: Protective sensation is absent to the foot and toes when tested with the 5.07 SWM bilateral. Vibratory sensation is absent at the hallux bilateral. significant neurological defecits. Derm: Inspection and palpation performed. Nails 1-5 b/l are painful, discolored-yellow, thick, crumbly, dystrophic and with subungal debris. Skin is thin b/l. There is pallor with elevation Hyperkeratosis no. NO ulcerations, scars, verruca or other lesions noted. Ortho: Ankle joint DF is decreased with the knee extended and decreased with knee flexed. Mild pain present to right ankle. No pain or crepitus noted. STJ, MTJ ROM are full and free of pain or crepitus. Muscle strength is 5/5 for dorsiflexors, plantarflexors, inverters, everters. ASSESSMENT: (B35.1) Onychomycosis (primary encounter diagnosis) Plan: 1. Patient was seen and evaluated. 2. Nails 1-5 bilateral were debrided in length and thickness. 3. Patient was instructed on the continued importance of diabetic foot care along with proper diet and keeping their blood sugar under control to prevent complications. 4. RTC 3-4 months for DFC (M79.675) Pain in toe of left foot Plan: same as above (M79.674) Pain in toe of right foot Plan: same as above (E11.42) Diabetic polyneuropathy associated with type 2 diabetes mellitus (HCC) Plan: same as above Right ankle pain: Discussed getting xray. He declined. If pain fails to improve, consider xray. Abraham Gibson DPM Referring Provider: TAMAR MERRILL) [[id number]] Allergies As of Date: 2017 Noted Allergy Reaction AVANDIA (ROSIGLITAZONE MALEATE) 02/18/2005 7 - Swelling Comments: fluid retention GLIMEPIRIDE 07/12/2013 5 - Intolerance Comments: hypoglycemia AMLODIPINE 05/18/2012 7 - Swelling Comments: Leg swelling with 2.5mg Date Reviewed: 2017 Reviewed by: Pari Camarillo RN - Fully Assessed Reason for Visit: Established Patient [175] Cmt: nail care Primary Visit Diagnosis:Onychomycosis [B35.1] Other Visit Diagnoses:Pain in toe of left foot [M79.675] Pain in toe of right foot [M79.674] Diabetic polyneuropathy associated with type 2 diabetes mellitus (HCC) [E11.42] Prescriptions as of 2017 Sig: LISINOPRIL 20 MG-HYDROCHLOROT* Take 2 tablets by mouth every* LOVASTATIN 40 MG TABLET Take 1 tablet by mouth daily * METFORMIN 1,000 MG TABLET Take 1 tablet by mouth twice * ALBUTEROL SULFATE HFA 90 MCG/* Inhale 2 Puffs as instructed * METOPROLOL TARTRATE 25 MG TAB* Take 1 tablet by mouth twice * WARFARIN 2 MG TABLET 6mg Mon and Fri, 4mg other da* BLOOD SUGAR DIAGNOSTIC STRIPS Pt usesTrue Metric Meter. Sarah* LANCETS Test blood sugar(s) 2 times d* ASPIRIN 81 MG TABLET Take 1 tablet by mouth once d* CHOLECALCIFEROL (VITAMIN D3) * 2 tab daily Problem List As Of Date 2017 Noted Resolved Esophageal reflux [K21.9] INVALID FOR* More... ABDOMINAL PAIN( Epigastric) [R10.13] INVALID FOR*05/18/2012 Mixed hyperlipidemia [E78.2] INVALID FOR* More... Type II or unspecified type diabetes mellitus w*INVALID FOR*02/28/2013 More... Other malaise and fatigue [R53.81, R53.83] 05/18/2012 Infection and inflammatory reaction due to card*INVALID FOR*02/25/2016 ASHD (arteriosclerotic heart disease) [I25.10] INVALID FOR*08/07/2016 Thrombocytopenia [D69.6] INVALID FOR* Hypertension [I10] INVALID FOR*04/27/2016 CAD (coronary artery disease) [I25.10] INVALID FOR* More... Coronary atherosclerosis of [place] coronary art*INVALID FOR* More... Atrioventricular block, unspecified [I44.30] INVALID FOR*08/07/2016 More... Other second degree atrioventricular block [I44*INVALID FOR* More... Atrial flutter [I48.92] INVALID FOR* More... Other specified cardiac dysrhythmias [I49.8] INVALID FOR* More... Unspecified disorder of kidney and ureter [N28.*INVALID FOR* More... Cardiac pacemaker in situ [Z95.0] INVALID FOR* More... 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 TAMAYO (nonalcoholic steatohepatitis) [K75.81] INVALID FOR* Ischemic colitis (HCC) [K55.9] INVALID FOR*09/14/2017 Compression fracture of lumbar vertebra [S32.00*INVALID FOR* More... 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*INVALID FOR* Uncontrolled type 2 diabetes mellitus with diab*INVALID FOR*08/07/2016 Type 2 diabetes mellitus with diabetic polyneur*INVALID FOR*06/14/2017 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] INVALID FOR* Obesity (BMI 30.0-34.9) [E66.9] INVALID FOR* Essential hypertension [I10] INVALID FOR* Chronic anticoagulation [Z79.01] INVALID FOR* Dyspnea on exertion [R06.09] INVALID FOR* Chronic venous insufficiency [I87.2] INVALID FOR* Diabetes mellitus type II, controlled ([facility]) [E1* 06/14/2017 CKD (chronic kidney disease) stage 3, GFR 30-59* Encounter Status:Closed by ABRAHAM GIBSON DPM on 11/02/17 PROGRESS Observed: 10/26/2017 Status: COMPLETED Source: [place] 3:31 PM [facility] REPOSITORY HNO ID: [id number] Author: Stacy Magdaleno LPN Service: (none) Author Type: (none) Type: Progress Notes Filed: 10/26/2017 3:31 PM Note Text: Pt notified via voicemail. PROGRESS Observed: 10/26/2017 Status: COMPLETED Source: [place] 2:42 PM [facility] REPOSITORY HNO ID: [id number] Author: Tamar Merrill Service: (none) Author Type: Physician Type: Progress Notes Filed: 10/26/2017 2:43 PM Note Text: INR slightly supratherapeutic. Continue same dosage and recheck in 2 weeks. PROGRESS Observed: 10/26/2017 Status: COMPLETED Source: [place] 2:36 PM [facility] REPOSITORY HNO ID: [id number] Author: Fide Henderson RN Service: (none) Author Type: (none) Type: Progress Notes Filed: 10/26/2017 2:38 PM Note Text: Patient had INR completed at [facility] Patient's INR is 3.1 Patient is currently taking 6mg Mon and 4 mg all other days Patient's last dose change was 01/19/17 due to high INR at 3.2 Patient has had no medication and no change in diet. Advised patient that they would be contacted regarding medication dose and follow-up once reviewed by provider. After provider review, please contact patient with information and schedule follow-up appointment with coumadin clinic. PROGRESS Observed: 09/28/2017 Status: COMPLETED Source: [place] 4:42 PM [facility] REPOSITORY HNO ID: [id number] Author: Arabella Rivas LPN Service: (none) Author Type: (none) Type: Progress Notes Filed: 09/28/2017 4:44 PM Note Text: Pt checked in for BP check but never came to nurses desk. This nurse checked the waiting rooms for pt AND didn't find him. Arabella Rivas LPN PROGRESS Observed: 09/28/2017 Status: COMPLETED Source: [place] 1:15 PM [facility] REPOSITORY HNO ID: [id number] Author: Tamar Merrill) Service: (none) Author Type: Physician Type: Progress Notes Filed: 09/28/2017 1:15 PM Note Text: INR therapeutic. Continue current coumadin dosage and follow up in 4 weeks. CNNURSE Observed: 09/28/2017 Status: COMPLETED Source: [place] 1:00 PM [facility] REPOSITORY Nurse Visit (FAMPWS) WILBUR WRIGHT ([id number]) 1940 M Date Time Provider Department 09/28/17 1:00 PM [facility] During your visit today, we recorded the following information about you: Arabella Rivas LPN 09/28/2017 4:44 PM Signed Pt checked in for BP check but never came to nurses desk. This nurse checked the waiting rooms for pt AND didn't find him. Arabella Rivas LPN Referring Provider: TAMAR MERRILL) [[id number]] Allergies As of Date: 09/28/2017 Noted Allergy Reaction AVANDIA (ROSIGLITAZONE MALEATE) 02/18/2005 7 - Swelling Comments: fluid retention GLIMEPIRIDE 07/12/2013 5 - Intolerance Comments: hypoglycemia AMLODIPINE 05/18/2012 7 - Swelling Comments: Leg swelling with 2.5mg Date Reviewed: 09/28/2017 Reviewed by: Tanesha Shearer RN - Fully Assessed Primary Visit Diagnosis:Hypertension, essential [I10] Prescriptions as of 09/28/2017 Sig: LISINOPRIL 20 MG-HYDROCHLOROT* Take 2 tablets by mouth every* LOVASTATIN 40 MG TABLET Take 1 tablet by mouth daily * METFORMIN 1,000 MG TABLET Take 1 tablet by mouth twice * ALBUTEROL SULFATE HFA 90 MCG/* Inhale 2 Puffs as instructed * METOPROLOL TARTRATE 25 MG TAB* Take 1 tablet by mouth twice * WARFARIN 2 MG TABLET 6mg Mon and Fri, 4mg other da* BLOOD SUGAR DIAGNOSTIC STRIPS Pt usesTrue Metric Meter. Sarah* LANCETS Test blood sugar(s) 2 times d* ASPIRIN 81 MG TABLET Take 1 tablet by mouth once d* CHOLECALCIFEROL (VITAMIN D3) * 2 tab daily Problem List As Of Date 09/28/2017 Noted Resolved Esophageal reflux [K21.9] INVALID FOR* More... ABDOMINAL PAIN( Epigastric) [R10.13] INVALID FOR*05/18/2012 Mixed hyperlipidemia [E78.2] INVALID FOR* More... Type II or unspecified type diabetes mellitus w*INVALID FOR*02/28/2013 More... Other malaise and fatigue [R53.81, R53.83] 05/18/2012 Infection and inflammatory reaction due to card*INVALID FOR*02/25/2016 ASHD (arteriosclerotic heart disease) [I25.10] INVALID FOR*08/07/2016 Thrombocytopenia [D69.6] INVALID FOR* Hypertension [I10] INVALID FOR*04/27/2016 CAD (coronary artery disease) [I25.10] INVALID FOR* More... Coronary atherosclerosis of [place] coronary art*INVALID FOR* More... Atrioventricular block, unspecified [I44.30] INVALID FOR*08/07/2016 More... Other second degree atrioventricular block [I44*INVALID FOR* More... Atrial flutter [I48.92] INVALID FOR* More... Other specified cardiac dysrhythmias [I49.8] INVALID FOR* More... Unspecified disorder of kidney and ureter [N28.*INVALID FOR* More... Cardiac pacemaker in situ [Z95.0] INVALID FOR* More... 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 TAMAYO (nonalcoholic steatohepatitis) [K75.81] INVALID FOR* Ischemic colitis (HCC) [K55.9] INVALID FOR*09/14/2017 Compression fracture of lumbar vertebra [S32.00*INVALID FOR* More... 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*INVALID FOR* Uncontrolled type 2 diabetes mellitus with diab*INVALID FOR*08/07/2016 Type 2 diabetes mellitus with diabetic polyneur*INVALID FOR*06/14/2017 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] INVALID FOR* Obesity (BMI 30.0-34.9) [E66.9] INVALID FOR* Essential hypertension [I10] INVALID FOR* Chronic anticoagulation [Z79.01] INVALID FOR* Dyspnea on exertion [R06.09] INVALID FOR* Chronic venous insufficiency [I87.2] INVALID FOR* Diabetes mellitus type II, controlled ([facility]) [E1* 06/14/2017 CKD (chronic kidney disease) stage 3, GFR 30-59* Encounter Status:Closed by ARABELLA RIVAS LPN on 09/28/17 PROGRESS Observed: 09/28/2017 Status: COMPLETED Source: [place] 12:01 PM [facility] REPOSITORY HNO ID: [id number] Author: Tanesha Shearer RN Service: (none) Author Type: (none) Type: Progress Notes Filed: 09/28/2017 12:02 PM Note Text: patient had inr completed at [facility] patients inr is 2.9 (patients inr range is 2.0-3.0) patient is currently taking 6mg Mon and 4mg all other days) patients last dose change was on 01/05/17 due to a high level of 3.5 (dose at that time ws 6mg Mon,Fri and 4mg all other days) patient has had no changes in medication and no missed doses and no change in diet Advised patient to continue on the same dose(s) and that they would only be contacted regarding dosage and follow up instructions after review with provider, if a change is needed. Written instructions given and patient verbalized understanding. Presently scheduled in 4 weeks (10/26/17) for follow up INR. PROGRESS Observed: 09/14/2017 Status: COMPLETED Source: [place] 3:49 PM [facility] REPOSITORY O ID: [id number] Author: Tamar Leal) Desirae Service: (none) Author Type: Physician Type: Progress Notes Filed: 09/14/2017 10:13 PM Note Text: Chief Complaint Patient presents with: F/U 3 Month HPI Wilbur Wright is a 76 year old male who presents here today for 3 month f/u of DM. DIABETES MELLITUS: Mr. Wright was last seen 3 months ago. Since our last visit he denies excessive thirst or increased frequency of urination, numbness, tingling or pain in extremities, new or unusual visual symptoms and low sugar/hypoglycemic reactions. Follows a diabetic diet most of the time. He is compliant with medication(s) and is tolerating med(s) without any side effects. He reports checking his glucose on a twice a day schedule with sugars in the <200 range. Patient's last HgA1C was Hemoglobin A1C (%) Date Value 06/08/2017 7.8 12/14/2016 6.5 ) Following up with direct care professional and last recorded glucose readings are as follows: DATE 08/30 08/29 08/28 08/27 08/26 08/25 08/24 Fasting 82 121 164 174 128 115 112 Bedtime ? 161 93 112 109 138 118 ? Last Ophthalmology exam was within the past 12 months Last Podiatry exam was within the past 12 months Requesting evaluation of red spots on face with crusting. Has not been seen by dermatology in the past, but would like referral today. Denies bleeding or recent changes. Has not had any bleeding symptoms with use of anticoagulation and history of thrombocytopenia. Per Dr. Wise's last note, will continue unless it decreases <60,000. Denies new chest pain or palpitations on current regimen. Past medical history, appointments, medications, allergies reviewed. Previous Medical History PAST MEDICAL HISTORY Diagnosis Date - Atrial fibrillation (HCC) - CAD (coronary artery disease) Seeing Dr. Wise - Cataracts, bilateral - CKD (chronic kidney disease) stage 3, GFR 30-59 ml/min - Compression fracture of lumbar vertebra ([facility]) - DDD (degenerative disc disease), lumbar - Diabetes mellitus type II, controlled ([facility]) - Diabetic neuropathy ([facility]) Dr. Gibson - Diabetic retinopathy ([facility]) Dr. Maria - Edema - GERD (gastroesophageal reflux disease) - Hyperlipidemia - Ischemic colitis ([facility]) - TAMAYO (nonalcoholic steatohepatitis) - Other malaise and fatigue - Pacemaker - PVD (peripheral vascular disease) ([facility]) - Thrombocytopenia ([facility]) - Unspecified essential hypertension Previous Surgical History PAST SURGICAL HISTORY Procedure Laterality Date - APPENDECTOMY 1951 - CABG (4) VEIN GRAFTS AND ARTERIAL GRAFT(S) 2008 aortocoronary bypass grafting - CATARACT EXTRACTION HX Right 2016 - COLONOSCOP W/ OR W/O [facility] SPEC 08/02/2005 Colonoscopy - COLONOSCOP W/ OR W/O [facility] SPEC 07/07/2011 [facility] - PAST SURGICAL HISTORY OF 03/06/2008 pacemaker placement - PAST SURGICAL HISTORY OF Bilateral laser eye surgery Family History FAMILY HISTORY Problem Relation Age of Onset - Heart Mother Patient Allergies ALLERGIES Allergen Reactions - Avandia [Rosiglitaz* Swelling fluid retention - Glimepiride Intolerance hypoglycemia - Amlodipine Swelling Leg swelling with 2.5mg Current Medications Current Outpatient Prescriptions on File Prior to Visit: lisinopril-hydrochlorothiazide (PRINZIDE,ZESTORETIC) 20-12.5 mg per tablet Take 2 tablets by mouth every morning. Lovastatin 40 mg tablet Take 1 tablet by mouth daily at bedtime. glipiZIDE (GLUCOTROL) 5 mg tablet Take 0.5 tablets by mouth once daily. metFORMIN (GLUCOPHAGE) 1,000 mg tablet Take 1 tablet by mouth twice daily with meals. albuterol HFA (VENTOLIN HFA) 90 mcg/actuation inhaler Inhale 2 Puffs as instructed every 4 hours as needed. metoprolol tartrate, short acting, (LOPRESSOR) 25 mg tablet Take 1 tablet by mouth twice daily. metFORMIN (GLUCOPHAGE) 500 mg tablet Take 2 tablets by mouth twice daily with meals. warfarin (COUMADIN) 2 mg tablet 6mg Mon and Fri, 4mg other days or as directed blood sugar diagnostic (BLOOD GLUCOSE TEST) test strip Pt usesTrue Metric Meter. Test twice daily. Dx E11.65 Insulin: No Lancets lancets Test blood sugar(s) 2 times daily. Dx: Type 2 DM - Uncontrolled E11.65 Insulin: No Aspirin 81 mg Tab Take 1 tablet by mouth once daily. Take 1/2hr before niacin with food. CHOLECALCIFEROL (VITAMIN D3) 1,000 UNIT CAP 2 tab daily No current facility-administered medications on file prior to visit. Social History Social History Marital status: Spouse name: Years of education: Number of children: Social History Main Topics Smoking status: Former Smoker Packs/day: 1.00 Years: 15.00 Types: Cigarettes Quit date: 05/23/1969 Smokeless status: Never Used Alcohol use: No Drug use: No Sexual activity: Yes Partners with: Female Review of Symptoms REVIEW OF SYSTEMS GENERAL: No weight loss, malaise or fevers NECK: Negative for lumps, goiter, pain and significant neck swelling RESPIRATORY: Negative for cough, hemoptysis, wheezing, COPD, dyspnea or shortness of breath CARDIOVASCULAR: Negative for chest pain, leg swelling, hypertension, CHF or palpitations GI: No nausea, vomiting, or diarrhea SKIN: See HPI EXAM: BP 144/86 Pulse 80 Resp 16 Wt 90.7 kg (200 lb) BMI 30.41 kg/m2 General Appearance: Well appearing, alert, in no acute distress, well-hydrated, well nourished.. Skin: erythematous macule on left side of face with crusting. Non tender, no bleeding or discharge. Lungs: Lungs clear to auscultation. No wheezing, rhonchi, rales. Heart: RRR without murmur, gallop, or rubs. No ectopy. Abdomen: Normal abdominal exam, Abdomen soft, non-tender. Bowel sounds normal. No masses, organomegaly. Extremities: No deformities, edema, skin discoloration, clubbing or cyanosis. Good capillary refill. . Feet: Shoes and socks removed, No deformities, ulcers, calluses and normal distal pulses Health Maintenance List LDL due on 08/06/2017 HBA1C due on 12/06/2017 DILATED RETINAL EXAM due on 02/07/2018 URINE ALBUMIN CREATININE RATIO due on 06/08/2018 DIABETIC FOOT EXAM due on 07/20/2018 COLORECTAL CANCER SCREENING,SEE MODIFIER due on 07/07/2021 TETANUS due on 05/18/2022 PROSTATE CANCER SCREENING DISCUSSION Completed ADULT PREVNAR-13 Completed INFLUENZA Completed PNEUMOVAX AGE 65 AND OVER WITH 5YR LOOKBACK Completed Data reviewed Component Latest Ref Rng AND Units 06/08/2017 09/07/2017 WBC 3.70 - 11.00 k/uL 4.95 RBC 4.20 - 6.00 m/uL 4.34 Hemoglobin 13.0 - 17.0 g/dL 13.5 Hematocrit 39.0 - 51.0 % 41.6 MCV 80.0 - 100.0 fL 95.9 MCH 26.0 - 34.0 pG 31.1 MCHC 30.5 - 36.0 g/dL 32.5 RDW-CV 11.5 - 15.0 % 13.9 Platelet Count 150 - 400 k/uL 96 (L) MPV 9.0 - 12.7 fL 10.0 Neut% % 52.3 Abs Neut (ANC) 1.45 - 7.50 k/uL 2.58 Lymph% % 26.9 Abs Lymph 1.00 - 4.00 k/uL 1.33 Meigs% % 7.5 Abs Meigs <0.87 k/uL 0.37 Eosin% % 12.9 Abs Eosin <0.46 k/uL 0.64 (H) Baso% % 0.4 Abs Baso <0.11 k/uL <0.03 Nucleated Reds 0 /100 WBC 0.0 Absolute nRBC <0.01 k/uL <0.01 Diff Type Auto Diff Protein, Total 6.3 - 8.0 g/dL 7.4 7.4 Albumin 3.9 - 4.9 g/dL 3.9 4.1 Calcium 8.5 - 10.2 mg/dL 9.2 9.7 Bilirubin, Total 0.2 - 1.3 mg/dL 0.5 0.4 Alkaline Phosphatase 36 - 108 U/L 60 52 AST 14 - 40 U/L 22 20 Glucose 74 - 99 mg/dL 170 (H) 118 (H) BUN 9 - 24 mg/dL 22 28 (H) Creatinine 0.73 - 1.22 mg/dL 1.19 1.31 (H) Sodium 136 - 144 mmol/L 142 141 Potassium 3.7 - 5.1 mmol/L 4.2 4.4 Chloride 97 - 105 mmol/L 101 99 CO2 22 - 30 mmol/L 26 29 Anion Gap 9 - 18 mmol/L 15 13 ALT 10 - 54 U/L 9 (L) 15 eGFR- >60 >60 eGFR-All Other Races . 59 53 Creatinine, Ur Random (UCRR) 20 - 300 mg/dL 175.2 Albumin, Urine Random 0.0 - 23.0 mg/L 20.4 Albumin/Creat Ratio 0 - 30 mg/g 12 Hemoglobin A1C 4.3 - 5.6 % 7.8 (H) Estimated Average Glucose mg/dL 177 Component Latest Ref Rng AND Units 09/14/2017 Hemoglobin A1C (POCT) 4.2 - 5.6 % 6.2 (A) ASSESSMENT/PLAN: 1. 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 - HEMOGLOBIN A1C (POC) - COMP METABOLIC PANEL - HGB A1C 2. Actinic keratosis - ICD9: 702.0, ICD10: L57.0 Will refer to derm for further eval and treatment. - CONSULT TO DERMATOLOGY 3. Mixed hyperlipidemia - ICD9: 272.2, ICD10: E78.2 - to be determined upon return of lab results - Continue current medication. - Encouraged following a low fat, low cholesterol diet. - Discussed the benefits of regular aerobic exercise and weight loss. - LIPID PANEL BASIC 4. Essential hypertension - ICD9: 401.9, ICD10: I10 - suboptimal control - Continue current medication(s) - Encouraged dietary sodium restriction/DASH diet - Recommended regular aerobic exercise. - Follow up in 1 month for BP recheck. - Reviewed risks of HTN and principles of treatment - Goal of BP <140/90 - COMP METABOLIC PANEL 5. Coronary artery disease involving [place] heart without angina pectoris, unspecified vessel or lesion type - ICD9: 414.01, ICD10: I25.10 Stable. Will continue medical management and follow up with cardiology. 6. Gastroesophageal reflux disease, esophagitis presence not specified - ICD9: 530.81, ICD10: K21.9 Controlled on current regimen. 7. Typical atrial flutter (HCC) - ICD9: 427.32, ICD10: I48.3 Rate controlled. Continue beta cecil and coumadin. 8. Chronic anticoagulation - ICD9: V58.61, ICD10: Z79.01 See above. Goal INR 2-3 with coumadin. 9. PVD (peripheral vascular disease) (HCC) - ICD9: 443.9, ICD10: I73.9 No new symptoms. Will monitor. 10. Thrombocytopenia (HCC) - ICD9: 287.5, ICD10: D69.6 Repeat CBC and will call with results. To call our office with bleeding symptoms and would hold coumadin. - CBC + DIFF 11. Diabetic polyneuropathy associated with type 2 diabetes mellitus (HCC) - ICD9: 250.60, 357.2, ICD10: E11.42 See above. 12. CKD (chronic kidney disease) stage 3, GFR 30-59 ml/min - ICD9: 585.3, ICD10: N18.3 Mild increase from 3 months ago. Will recheck at future OV and have patient push PO fluids, avoid NSAIDs, and reduce sodium in diet. Tamar Merrill MD CNOV Observed: 09/14/2017 Status: COMPLETED Source: [place] 3:40 PM [facility] REPOSITORY Office Visit (FAMPWS) WILBUR WRIGHT ([id number]) 1940 M Date Time Provider Department 09/14/17 3:40 PM TAMAR MERRILL) TAMI During your visit today, we recorded the following information about you: Pulse Respiration Blood pressure Weight 80/minute 16/minute 144/86 90.7 kg Tamar Merrill MD 09/14/2017 10:13 PM Signed Chief Complaint Patient presents with: F/U 3 Month HPI Wilbur Wright is a 76 year old male who presents here today for 3 month f/u of DM. DIABETES MELLITUS: Mr. Wright was last seen 3 months ago. Since our last visit he denies excessive thirst or increased frequency of urination, numbness, tingling or pain in extremities, new or unusual visual symptoms and low sugar/hypoglycemic reactions. Follows a diabetic diet most of the time. He is compliant with medication(s) and is tolerating med(s) without any side effects. He reports checking his glucose on a twice a day schedule with sugars in the ANDlt;200 range. Patient's last HgA1C was Hemoglobin A1C (%) Date Value 06/08/2017 7.8 12/14/2016 6.5 ) Following up with direct care professional and last recorded glucose readings are as follows: DATE 08/30 08/29 08/28 08/27 08/26 08/25 08/24 Fasting 82 121 164 174 128 115 112 Bedtime ? 161 93 112 109 138 118 ? Last Ophthalmology exam was within the past 12 months Last Podiatry exam was within the past 12 months Requesting evaluation of red spots on face with crusting. Has not been seen by dermatology in the past, but would like referral today. Denies bleeding or recent changes. Has not had any bleeding symptoms with use of anticoagulation and history of thrombocytopenia. Per Dr. Wise's last note, will continue unless it decreases ANDlt;60,000. Denies new chest pain or palpitations on current regimen. Past medical history, appointments, medications, allergies reviewed. Previous Medical History PAST MEDICAL HISTORY Diagnosis Date - Atrial fibrillation (HCC) - CAD (coronary artery disease) Seeing Dr. Wise - Cataracts, bilateral - CKD (chronic kidney disease) stage 3, GFR 30-59 ml/min - Compression fracture of lumbar vertebra (HCC) - DDD (degenerative disc disease), lumbar - Diabetes mellitus type II, controlled (HCC) - Diabetic neuropathy (HCC) Dr. Gibson - Diabetic retinopathy ([facility]) Dr. Maria - Edema - GERD (gastroesophageal reflux disease) - Hyperlipidemia - Ischemic colitis (HCC) - TAMAYO (nonalcoholic steatohepatitis) - Other malaise and fatigue - Pacemaker - PVD (peripheral vascular disease) (HCC) - Thrombocytopenia (HCC) - Unspecified essential hypertension Previous Surgical History PAST SURGICAL HISTORY Procedure Laterality Date - APPENDECTOMY 1951 - CABG (4) VEIN GRAFTS ANDamp; ARTERIAL GRAFT(S) 2008 aortocoronary bypass grafting - CATARACT EXTRACTION HX Right 2016 - COLONOSCOP W/ OR W/O [facility] SPEC 08/02/2005 Colonoscopy - COLONOSCOP W/ OR W/O [facility] SPEC 07/07/2011 [facility] - PAST SURGICAL HISTORY OF 03/06/2008 pacemaker placement - PAST SURGICAL HISTORY OF Bilateral laser eye surgery Family History FAMILY HISTORY Problem Relation Age of Onset - Heart Mother Patient Allergies ALLERGIES Allergen Reactions - Avandia [Rosiglitaz* Swelling fluid retention - Glimepiride Intolerance hypoglycemia - Amlodipine Swelling Leg swelling with 2.5mg Current Medications Current Outpatient Prescriptions on File Prior to Visit: lisinopril-hydrochlorothiazide (PRINZIDE,ZESTORETIC) 20-12.5 mg per tablet Take 2 tablets by mouth every morning. Lovastatin 40 mg tablet Take 1 tablet by mouth daily at bedtime. glipiZIDE (GLUCOTROL) 5 mg tablet Take 0.5 tablets by mouth once daily. metFORMIN (GLUCOPHAGE) 1,000 mg tablet Take 1 tablet by mouth twice daily with meals. albuterol HFA (VENTOLIN HFA) 90 mcg/actuation inhaler Inhale 2 Puffs as instructed every 4 hours as needed. metoprolol tartrate, short acting, (LOPRESSOR) 25 mg tablet Take 1 tablet by mouth twice daily. metFORMIN (GLUCOPHAGE) 500 mg tablet Take 2 tablets by mouth twice daily with meals. warfarin (COUMADIN) 2 mg tablet 6mg Mon and Fri, 4mg other days or as directed blood sugar diagnostic (BLOOD GLUCOSE TEST) test strip Pt usesTrue Metric Meter. Test twice daily. Dx E11.65 Insulin: No Lancets lancets Test blood sugar(s) 2 times daily. Dx: Type 2 DM - Uncontrolled E11.65 Insulin: No Aspirin 81 mg Tab Take 1 tablet by mouth once daily. Take 1/2hr before niacin with food. CHOLECALCIFEROL (VITAMIN D3) 1,000 UNIT CAP 2 tab daily No current facility-administered medications on file prior to visit. Social History Social History Marital status: Spouse name: Years of education: Number of children: Social History Main Topics Smoking status: Former Smoker Packs/day: 1.00 Years: 15.00 Types: Cigarettes Quit date: 05/23/1969 Smokeless status: Never Used Alcohol use: No Drug use: No Sexual activity: Yes Partners with: Female Review of Symptoms REVIEW OF SYSTEMS GENERAL: No weight loss, malaise or fevers NECK: Negative for lumps, goiter, pain and significant neck swelling RESPIRATORY: Negative for cough, hemoptysis, wheezing, COPD, dyspnea or shortness of breath CARDIOVASCULAR: Negative for chest pain, leg swelling, hypertension, CHF or palpitations GI: No nausea, vomiting, or diarrhea SKIN: See HPI EXAM: BP 144/86 Pulse 80 Resp 16 Wt 90.7 kg (200 lb) BMI 30.41 kg/m2 General Appearance: Well appearing, alert, in no acute distress, well-hydrated, well nourished.. Skin: erythematous macule on left side of face with crusting. Non tender, no bleeding or discharge. Lungs: Lungs clear to auscultation. No wheezing, rhonchi, rales. Heart: RRR without murmur, gallop, or rubs. No ectopy. Abdomen: Normal abdominal exam, Abdomen soft, non-tender. Bowel sounds normal. No masses, organomegaly. Extremities: No deformities, edema, skin discoloration, clubbing or cyanosis. Good capillary refill. . Feet: Shoes and socks removed, No deformities, ulcers, calluses and normal distal pulses Health Maintenance List LDL due on 08/06/2017 HBA1C due on 12/06/2017 DILATED RETINAL EXAM due on 02/07/2018 URINE ALBUMIN CREATININE RATIO due on 06/08/2018 DIABETIC FOOT EXAM due on 07/20/2018 COLORECTAL CANCER SCREENING,SEE MODIFIER due on 07/07/2021 TETANUS due on 05/18/2022 PROSTATE CANCER SCREENING DISCUSSION Completed ADULT PREVNAR-13 Completed INFLUENZA Completed PNEUMOVAX AGE 65 AND OVER WITH 5YR LOOKBACK Completed Data reviewed Component Latest Ref Rng ANDamp; Units 06/08/2017 09/07/2017 WBC 3.70 - 11.00 k/uL 4.95 RBC 4.20 - 6.00 m/uL 4.34 Hemoglobin 13.0 - 17.0 g/dL 13.5 Hematocrit 39.0 - 51.0 % 41.6 MCV 80.0 - 100.0 fL 95.9 MCH 26.0 - 34.0 pG 31.1 MCHC 30.5 - 36.0 g/dL 32.5 RDW-CV 11.5 - 15.0 % 13.9 Platelet Count 150 - 400 k/uL 96 (L) MPV 9.0 - 12.7 fL 10.0 Neut% % 52.3 Abs Neut (ANC) 1.45 - 7.50 k/uL 2.58 Lymph% % 26.9 Abs Lymph 1.00 - 4.00 k/uL 1.33 Meigs% % 7.5 Abs Meigs ANDlt;0.87 k/uL 0.37 Eosin% % 12.9 Abs Eosin ANDlt;0.46 k/uL 0.64 (H) Baso% % 0.4 Abs Baso ANDlt;0.11 k/uL ANDlt;0.03 Nucleated Reds 0 /100 WBC 0.0 Absolute nRBC ANDlt;0.01 k/uL ANDlt;0.01 Diff Type Auto Diff Protein, Total 6.3 - 8.0 g/dL 7.4 7.4 Albumin 3.9 - 4.9 g/dL 3.9 4.1 Calcium 8.5 - 10.2 mg/dL 9.2 9.7 Bilirubin, Total 0.2 - 1.3 mg/dL 0.5 0.4 Alkaline Phosphatase 36 - 108 U/L 60 52 AST 14 - 40 U/L 22 20 Glucose 74 - 99 mg/dL 170 (H) 118 (H) BUN 9 - 24 mg/dL 22 28 (H) Creatinine 0.73 - 1.22 mg/dL 1.19 1.31 (H) Sodium 136 - 144 mmol/L 142 141 Potassium 3.7 - 5.1 mmol/L 4.2 4.4 Chloride 97 - 105 mmol/L 101 99 CO2 22 - 30 mmol/L 26 29 Anion Gap 9 - 18 mmol/L 15 13 ALT 10 - 54 U/L 9 (L) 15 eGFR- ANDgt;60 ANDgt;60 eGFR-All Other Races . 59 53 Creatinine, Ur Random (UCRR) 20 - 300 mg/dL 175.2 Albumin, Urine Random 0.0 - 23.0 mg/L 20.4 Albumin/Creat Ratio 0 - 30 mg/g 12 Hemoglobin A1C 4.3 - 5.6 % 7.8 (H) Estimated Average Glucose mg/dL 177 Component Latest Ref Rng ANDamp; Units 09/14/2017 Hemoglobin A1C (POCT) 4.2 - 5.6 % 6.2 (A) ASSESSMENT/PLAN: 1. 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 - HEMOGLOBIN A1C (POC) - COMP METABOLIC PANEL - HGB A1C 2. Actinic keratosis - ICD9: 702.0, ICD10: L57.0 Will refer to derm for further eval and treatment. - CONSULT TO DERMATOLOGY 3. Mixed hyperlipidemia - ICD9: 272.2, ICD10: E78.2 - to be determined upon return of lab results - Continue current medication. - Encouraged following a low fat, low cholesterol diet. - Discussed the benefits of regular aerobic exercise and weight loss. - LIPID PANEL BASIC 4. Essential hypertension - ICD9: 401.9, ICD10: I10 - suboptimal control - Continue current medication(s) - Encouraged dietary sodium restriction/DASH diet - Recommended regular aerobic exercise. - Follow up in 1 month for BP recheck. - Reviewed risks of HTN and principles of treatment - Goal of BP ANDlt;140/90 - COMP METABOLIC PANEL 5. Coronary artery disease involving [place] heart without angina pectoris, unspecified vessel or lesion type - ICD9: 414.01, ICD10: I25.10 Stable. Will continue medical management and follow up with cardiology. 6. Gastroesophageal reflux disease, esophagitis presence not specified - ICD9: 530.81, ICD10: K21.9 Controlled on current regimen. 7. Typical atrial flutter (HCC) - ICD9: 427.32, ICD10: I48.3 Rate controlled. Continue beta cecil and coumadin. 8. Chronic anticoagulation - ICD9: V58.61, ICD10: Z79.01 See above. Goal INR 2-3 with coumadin. 9. PVD (peripheral vascular disease) (HCC) - ICD9: 443.9, ICD10: I73.9 No new symptoms. Will monitor. 10. Thrombocytopenia (HCC) - ICD9: 287.5, ICD10: D69.6 Repeat CBC and will call with results. To call our office with bleeding symptoms and would hold coumadin. - CBC + DIFF 11. Diabetic polyneuropathy associated with type 2 diabetes mellitus (HCC) - ICD9: 250.60, 357.2, ICD10: E11.42 See above. 12. CKD (chronic kidney disease) stage 3, GFR 30-59 ml/min - ICD9: 585.3, ICD10: N18.3 Mild increase from 3 months ago. Will recheck at future OV and have patient push PO fluids, avoid NSAIDs, and reduce sodium in diet. 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, without long- term current use of insulin, unspecified laterality (HCC) [E11.3599] Other Visit Diagnoses:Actinic keratosis [L57.0] Mixed hyperlipidemia [E78.2] Essential hypertension [I10] Coronary artery disease involving [place] heart without angina pectoris, unspecified vessel or lesion type [I25.10] Gastroesophageal reflux disease, esophagitis presence not specified [K21.9] Typical atrial flutter (HCC) [I48.3] Chronic anticoagulation [Z79.01] PVD (peripheral vascular disease) (HCC) [I73.9] Thrombocytopenia (HCC) [D69.6] Diabetic polyneuropathy associated with type 2 diabetes mellitus (HCC) [E11.42] CKD (chronic kidney disease) stage 3, GFR 30-59 ml/min [N18.3] Order(s):HEMOGLOBIN A1C (POC) [5045860] Order #: [id number]. #:[id number] LIPID PANEL BASIC [SQLIPB] Order #: [id number] FUTURE COMP METABOLIC PANEL [SQCMP] Order #: [id number] FUTURE HGB A1C [WZKNR9S] Order #: [id number] FUTURE CBC + DIFF [SQCBCDIF] Order #: [id number] FUTURE CONSULT TO DERMATOLOGY [9006] Order #: [id number]: 1 Prescriptions as of 09/14/2017 Sig: LISINOPRIL 20 MG-HYDROCHLOROT* Take 2 tablets by mouth every* LOVASTATIN 40 MG TABLET Take 1 tablet by mouth daily * METFORMIN 1,000 MG TABLET Take 1 tablet by mouth twice * ALBUTEROL SULFATE HFA 90 MCG/* Inhale 2 Puffs as instructed * METOPROLOL TARTRATE 25 MG TAB* Take 1 tablet by mouth twice * WARFARIN 2 MG TABLET 6mg Mon and Fri, 4mg other da* BLOOD SUGAR DIAGNOSTIC STRIPS Pt usesTrue Metric Meter. Sarah* LANCETS Test blood sugar(s) 2 times d* ASPIRIN 81 MG TABLET Take 1 tablet by mouth once d* CHOLECALCIFEROL (VITAMIN D3) * 2 tab daily Problem List As Of Date 09/14/2017 Noted Resolved Esophageal reflux [K21.9] INVALID FOR* More... ABDOMINAL PAIN( Epigastric) [R10.13] INVALID FOR*05/18/2012 Mixed hyperlipidemia [E78.2] INVALID FOR* More... Type II or unspecified type diabetes mellitus w*INVALID FOR*02/28/2013 More... Other malaise and fatigue [R53.81, R53.83] 05/18/2012 Infection and inflammatory reaction due to card*INVALID FOR*02/25/2016 ASHD (arteriosclerotic heart disease) [I25.10] INVALID FOR*08/07/2016 Thrombocytopenia [D69.6] INVALID FOR* Hypertension [I10] INVALID FOR*04/27/2016 CAD (coronary artery disease) [I25.10] INVALID FOR* More... Coronary atherosclerosis of [place] coronary art*INVALID FOR* More... Atrioventricular block, unspecified [I44.30] INVALID FOR*08/07/2016 More... Other second degree atrioventricular block [I44*INVALID FOR* More... Atrial flutter [I48.92] INVALID FOR* More... Other specified cardiac dysrhythmias [I49.8] INVALID FOR* More... Unspecified disorder of kidney and ureter [N28.*INVALID FOR* More... Cardiac pacemaker in situ [Z95.0] INVALID FOR* More... 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 TAMAYO (nonalcoholic steatohepatitis) [K75.81] INVALID FOR* Ischemic colitis (HCC) [K55.9] INVALID FOR*09/14/2017 Compression fracture of lumbar vertebra [S32.00*INVALID FOR* More... 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*INVALID FOR* Uncontrolled type 2 diabetes mellitus with diab*INVALID FOR*08/07/2016 Type 2 diabetes mellitus with diabetic polyneur*INVALID FOR*06/14/2017 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] INVALID FOR* Obesity (BMI 30.0-34.9) [E66.9] INVALID FOR* Essential hypertension [I10] INVALID FOR* Chronic anticoagulation [Z79.01] INVALID FOR* Dyspnea on exertion [R06.09] INVALID FOR* Chronic venous insufficiency [I87.2] INVALID FOR* Diabetes mellitus type II, controlled (HCC) [E1* 06/14/2017 CKD (chronic kidney disease) stage 3, GFR 30-59* Medications Discontinued During This Encounter metFORMIN (GLUCOPHAGE) 500 mg tablet 360 * 1 01/04/2017 09/14/2017 Route: ORAL Sig: Take 2 tablets by mouth twice daily with meals. Disc: Reason for discontinue is not on file. glipiZIDE (GLUCOTROL) 5 mg tablet 30 t* 5 06/28/2017 09/14/2017 Route: ORAL Sig: Take 0.5 tablets by mouth once daily. Disc: Reason for discontinue is not on file. Disposition: Return in about 3 months (around 12/14/2017). Follow-up and Disposition History Recorded Encounter Status:Closed by TAMAR MERRILL MD on 09/14/17 COMP METABOLIC PANEL Collected: 09/07/2017 Status: F Source: [place] 11:11 AM [facility] REPOSITORY TYPE CODE TESTS RESULT OUT OF REFERENCE UNITS RANGE LAB TP 6.3-8.0 g/dL Protein, Total 7.4 LAB ALB 3.9-4.9 g/dL Albumin 4.1 LAB CA 8.5-10.2 mg/dL Calcium, Total 9.7 LAB TBIL 0.2-1.3 mg/dL Bilirubin, Total 0.4 LAB ALKP 36-108 U/L Alkaline Phosphatase 52 LAB AST 14-40 U/L AST 20 LAB GLU 74-99 mg/dL Glucose High 118 Result Comment: The [place] [employer] Association (ADA) provides guidance for cutoff values for fasting glucose and random glucose. The ADA defines fasting as no caloric intake for at least 8 hours. Fas ting plasma glucose results between 100 to 125 mg/dL indicate increased risk for diabetes (prediabetes). Fasting plasma glucose results greater than or equal to 126 mg/dL meet the criteria for diagnosis of diabetes. In the absence of unequivocal hyperglycemia, results should be confirmed by repeat testing. In a patient with classic symptoms of hyperglycemia or hyperglycemic crisis, random plasma glucose results greater than or equal to 200 mg/dL meet the criteria for diagnosis of diabetes. Reference: Standards of Medical Care in Diabetes 2016, [place] [employer] Association. Diabetes Care. 2016.39(Suppl 1). LAB BUN 9-24 mg/dL BUN High 28 LAB CRET 0.73-1.22 mg/dL Creatinine High 1.31 LAB NA 136-144 mmol/L Sodium 141 LAB K 3.7-5.1 mmol/L Potassium 4.4 LAB CL 97-105 mmol/L Chloride 99 LAB CO2 22-30 mmol/L CO2 29 LAB AGAP 9-18 mmol/L Anion Gap 13 LAB ALT 10-54 U/L ALT 15 LAB GFRAA eGFR- Amer. >60 LAB GFRNAA . eGFR-All Other Races 53 Result Comment: eGFR (Estimated GFR) Units of measure: mL/min/1.73 meters squared eGFR is derived from the reexpressed MDRD Study equation using the following parameters: serum creatinine, age, gender and race. The creatinine assay has been calibrated to be traceable to IDMS. An eGFR <60 mL/min/1.73m2 for >3 months is consistent with chronic kidney disease. Refer to KDOQI guidelines for clinical interpretation. In patients with unstable renal function, e.g. those with acute kidney injury, the eGFR may not accurately reflect actual GFR. Performed By: #### CMP #### [facility] [address] [id number] PROGRESS Observed: 08/31/2017 Status: COMPLETED Source: [place] 12:06 PM [facility] REPOSITORY HNO ID: [id number] Author: Tamar Leal) Desirae Service: (none) Author Type: Physician Type: Progress Notes Filed: 08/31/2017 12:07 PM Note Text: INR therapeutic. Continue current coumadin dosage and follow up in 4 weeks. PROGRESS Observed: 08/31/2017 Status: COMPLETED Source: [place] 11:47 AM [facility] REPOSITORY HNO ID: [id number] Author: Tanesha Shearer RN Service: (none) Author Type: (none) Type: Progress Notes Filed: 08/31/2017 11:48 AM Note Text: patient had inr completed at [facility] patients inr is 2.6 (patients inr range is 2.0-3.0) patient is currently taking 6mg Mon and 4mg all other days patients last dose change was on 01/05/17 due to a high level of 3.5 (dose at that time was 6mg Mon,Fri and 4mg all other days) patient has had no changes in medication and no missed doses and no change in diet Advised patient to continue on the same dose(s) and that they would only be contacted regarding dosage and follow up instructions after review with provider, if a change is needed. Written instructions given and patient verbalized understanding. Presently scheduled in 4 weeks (09/28/17) for follow up INR. PROGRESS Observed: 08/30/2017 Status: COMPLETED Source: [place] 6:41 PM [facility] REPOSITORY HNO ID: [id number] Author: Tamar Leal) Desirae Service: (none) Author Type: Physician Type: Progress Notes Filed: 08/30/2017 6:41 PM Note Text: Reviewed. Needs to eat less cookies. Can bring them here if he cant be trusted with them at home. PROGRESS Observed: 08/30/2017 Status: COMPLETED Source: [place] 5:48 PM [facility] REPOSITORY HNO ID: [id number] Author: Juliane Staley) Edmundo Service: (none) Author Type: Registered Nurse Type: Progress Notes Filed: 08/30/2017 6:02 PM Note Text: PRIMARY CARE COORDINATION FOLLOW-UP NOTE Provider Action/FYI Pt had a few high blood sugars, states he was eating too many cookies. Discussed not eating cookies since it elevates BS Patient identified by name and date of . YES Spoke to patient Summary: Reports cough and wheezing at night last week. States he didn't think to take his inhaler, just fell back to sleep Instructed to take his rescue inhaler when he is wheezing, verbalized understanding. No bruising or bleeding while on warfarin Wilbur Wright is a 76 year old male who reports glucose readings as noted. DATE 08/30 08/29 08/28 08/27 08/26 08/25 08/24 Fasting 82 121 164 174 128 115 112 Bedtime 161 93 112 109 138 118 Any low blood sugars during this period of reporting No Patient's diabetes medications as follows: glipiZIDE (GLUCOTROL) 5 mg Take 0.5 tablets by mouth once daily. metFORMIN (GLUCOPHAGE) 1,000 mg Take 1 tablet by mouth twice daily with meals. Mobile Lounge Driver plan for next outreach: Will follow up 2 weeks Signature Juliane Wyatt RN August 30, 2017 CNPTOUTREACH Observed: 08/30/2017 Status: COMPLETED Source: [place] 12:00 AM [facility] REPOSITORY Patient Outreach (FAMPWS) WILBUR WRIGHT ([id number]) 1940 M Date Time Provider Department 08/30/17 JULIANE WYATT) TAMI During your visit today, we recorded the following information about you: Juliane Wyatt RN 08/30/2017 6:02 PM Signed PRIMARY CARE COORDINATION FOLLOW-UP NOTE Provider Action/FYI Pt had a few high blood sugars, states he was eating too many cookies. Discussed not eating cookies since it elevates BS Patient identified by name and date of . YES Spoke to patient Summary: Reports cough and wheezing at night last week. States he didn't think to take his inhaler, just fell back to sleep Instructed to take his rescue inhaler when he is wheezing, verbalized understanding. No bruising or bleeding while on warfarin Wilbur Wright is a 76 year old male who reports glucose readings as noted. DATE 08/30 08/29 08/28 08/27 08/26 08/25 08/24 Fasting 82 121 164 174 128 115 112 Bedtime 161 93 112 109 138 118 Any low blood sugars during this period of reporting No Patient's diabetes medications as follows: glipiZIDE (GLUCOTROL) 5 mg Take 0.5 tablets by mouth once daily. metFORMIN (GLUCOPHAGE) 1,000 mg Take 1 tablet by mouth twice daily with meals. Mobile Lounge Driver plan for next outreach: Will follow up 2 weeks Signature Juliane Wyatt RN August 30, 2017 Tamar Merrill MD 08/30/2017 6:41 PM Signed Reviewed. Needs to eat less cookies. Can bring them here if he cant be trusted with them at home. Allergies As of Date: 08/30/2017 Noted Allergy Reaction AVANDIA (ROSIGLITAZONE MALEATE) 02/18/2005 7 - Swelling Comments: fluid retention GLIMEPIRIDE 07/12/2013 5 - Intolerance Comments: hypoglycemia AMLODIPINE 05/18/2012 7 - Swelling Comments: Leg swelling with 2.5mg Date Reviewed: 08/03/2017 Reviewed by: Tanesha Shearer RN - Fully Assessed Prescriptions as of 08/30/2017 Sig: LISINOPRIL 20 MG-HYDROCHLOROT* Take 2 tablets by mouth every* LOVASTATIN 40 MG TABLET Take 1 tablet by mouth daily * GLIPIZIDE 5 MG TABLET Take 0.5 tablets by mouth onc* METFORMIN 1,000 MG TABLET Take 1 tablet by mouth twice * ALBUTEROL SULFATE HFA 90 MCG/* Inhale 2 Puffs as instructed * METOPROLOL TARTRATE 25 MG TAB* Take 1 tablet by mouth twice * METFORMIN 500 MG TABLET Take 2 tablets by mouth twice* WARFARIN 2 MG TABLET 6mg Mon and Fri, 4mg other da* BLOOD SUGAR DIAGNOSTIC STRIPS Pt usesTrue Metric Meter. Sarah* LANCETS Test blood sugar(s) 2 times d* ASPIRIN 81 MG TABLET Take 1 tablet by mouth once d* CHOLECALCIFEROL (VITAMIN D3) * 2 tab daily Problem List As Of Date 08/30/2017 Noted Resolved Esophageal reflux [K21.9] INVALID FOR* More... ABDOMINAL PAIN( Epigastric) [R10.13] INVALID FOR*05/18/2012 Mixed hyperlipidemia [E78.2] INVALID FOR* More... Type II or unspecified type diabetes mellitus w*INVALID FOR*02/28/2013 More... Other malaise and fatigue [R53.81, R53.83] 05/18/2012 Infection and inflammatory reaction due to card*INVALID FOR*02/25/2016 ASHD (arteriosclerotic heart disease) [I25.10] INVALID FOR*08/07/2016 Thrombocytopenia [D69.6] INVALID FOR* Hypertension [I10] INVALID FOR*04/27/2016 CAD (coronary artery disease) [I25.10] INVALID FOR* More... Coronary atherosclerosis of [place] coronary art*INVALID FOR* More... Atrioventricular block, unspecified [I44.30] INVALID FOR*08/07/2016 More... Other second degree atrioventricular block [I44*INVALID FOR* More... Atrial flutter [I48.92] INVALID FOR* More... Other specified cardiac dysrhythmias [I49.8] INVALID FOR* More... Unspecified disorder of kidney and ureter [N28.*INVALID FOR* More... Cardiac pacemaker in situ [Z95.0] INVALID FOR* More... 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 TAMAYO (nonalcoholic steatohepatitis) [K75.81] INVALID FOR* Ischemic colitis [K55.9] INVALID FOR* Compression fracture of lumbar vertebra [S32.00*INVALID FOR* More... 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*INVALID FOR* Uncontrolled type 2 diabetes mellitus with diab*INVALID FOR*08/07/2016 Type 2 diabetes mellitus with diabetic polyneur*INVALID FOR*06/14/2017 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] INVALID FOR* Obesity (BMI 30.0-34.9) [E66.9] INVALID FOR* Essential hypertension [I10] INVALID FOR* Chronic anticoagulation [Z79.01] INVALID FOR* Dyspnea on exertion [R06.09] INVALID FOR* Chronic venous insufficiency [I87.2] INVALID FOR* Diabetes mellitus type II, controlled (HCC) [E1* 06/14/2017 Encounter Status:Closed by JULIANE WYATT on 08/31/17 CNCO Observed: 08/15/2017 Status: COMPLETED Source: [place] 12:00 AM [facility] REPOSITORY Letter Text [address] [place] [address] [phone] 08/15/2017 Wilbur Wright [address] [facility] [address] Dear Mr. Wright: Due to a change in the provider's schedule, it has been necessary to reschedule your appointment. Enclosed please find a new appointment reminder that will replace the one previously sent to you. If this appointment is not convenient for you, please contact our office at [phone]. Thank you for choosing the [facility] as your Healthcare Provider. Sincerely, Appointment Office PROGRESS Observed: 08/03/2017 Status: COMPLETED Source: [place] 11:53 AM [facility] REPOSITORY HNO ID: [id number] Author: Tamar Leal) Desirae Service: (none) Author Type: Physician Type: Progress Notes Filed: 08/03/2017 11:53 AM Note Text: INR therapeutic. Continue current coumadin dosage and follow up in 4 weeks. PROGRESS Observed: 08/03/2017 Status: COMPLETED Source: [place] 11:25 AM [facility] REPOSITORY HNO ID: [id number] Author: Tanesha Shearer RN Service: (none) Author Type: (none) Type: Progress Notes Filed: 08/03/2017 11:26 AM Note Text: patient had inr completed at [facility] patients inr is 2.8 (patients inr range is 2.0-3.0) patient is currently taking 6mg Mon and 4mg all other days patients last dose change was on 01/05/17 due to a high level of 3.5 (dose at that time was 6mg Mon,Fri and 4mg all other days) patient has had no changes in medication and no missed doses and no change in diet Advised patient to continue on the same dose(s) and that they would only be contacted regarding dosage and follow up instructions after review with provider, if a change is needed. Written instructions given and patient verbalized understanding. Presently scheduled in 4 weeks (08/31/17) for follow up INR. PROGRESS Observed: 07/29/2017 Status: COMPLETED Source: [place] 3:07 PM [facility] REPOSITORY HNO ID: [id number] Author: Tamar Leal) Desirae Service: (none) Author Type: Physician Type: Progress Notes Filed: 07/29/2017 3:08 PM Note Text: Sugars appear in good range aside from elevated reading on morning of 07/27. Continue current regimen. Thank you for help with getting medications through [facility]. PROGRESS Observed: 07/26/2017 Status: COMPLETED Source: [place] 3:21 PM [facility] REPOSITORY HNO ID: [id number] Author: Juliane LeblancRn) Edmundo Service: (none) Author Type: Registered Nurse Type: Progress Notes Filed: 07/29/2017 2:19 PM Note Text: PRIMARY CARE COORDINATION FOLLOW-UP NOTE Provider Action/FYI See BS below Patient identified by name and date of . YES Spoke to patient Summary: Reports infrequent dry cough No increased bleeding, chest pain or SOB Wilburmarquis Wright is a 76 year old male who reports glucose readings as noted. DATE 07/29 07/28 07/27 07/26 07/25 07/24 Fasting 143 137 180 124 128 121 Bedtime 84 96 89 123 120 Any low blood sugars during this period of reporting No Patient's diabetes medications as follows: metFORMIN (GLUCOPHAGE) 1,000 mg Take 1 tablet by mouth twice daily with meals. glipiZIDE (GLUCOTROL) 5 mg Take 0.5 tablets by mouth once daily. Pt still having trouble being able to afford medication. Pt could not understand instructions to purchase medications on [facility]'s $4 Medication List. Informed PCC will call pharmacy. TC to brenda at [facility], asked her to make note on patient's chart stating to run all his monthly medications without insurance because they are all on $4 list, verbalized agreement. Concerns: TC to patient, left message to please call PCC back regarding BS and how pt is feeling. Juilane Wyatt RN July 26, 2017 3:22 PM Mobile Lounge Driver plan for next outreach: Will follow up one month Signature Juliane Wyatt RN July 26, 2017 CNPTOUTREACH Observed: 07/26/2017 Status: COMPLETED Source: [place] 12:00 AM [facility] REPOSITORY Patient Outreach (FAMPWS) WILBUR WRIGHT ([id number]) 1940 M Date Time Provider Department 07/26/17 JULIANE WYATT) TAMI During your visit today, we recorded the following information about you: Juliane Wyatt RN 07/29/2017 2:19 PM Signed PRIMARY CARE COORDINATION FOLLOW-UP NOTE Provider Action/FYI See BS below Patient identified by name and date of . YES Spoke to patient Summary: Reports infrequent dry cough No increased bleeding, chest pain or SOB Wilbur Wright is a 76 year old male who reports glucose readings as noted. DATE 07/29 07/28 07/27 07/26 07/25 07/24 Fasting 143 137 180 124 128 121 Bedtime 84 96 89 123 120 Any low blood sugars during this period of reporting No Patient's diabetes medications as follows: metFORMIN (GLUCOPHAGE) 1,000 mg Take 1 tablet by mouth twice daily with meals. glipiZIDE (GLUCOTROL) 5 mg Take 0.5 tablets by mouth once daily. Pt still having trouble being able to afford medication. Pt could not understand instructions to purchase medications on [facility]'s $4 Medication List. Informed PCC will call pharmacy. TC to brenda at [facility], asked her to make note on patient's chart stating to run all his monthly medications without insurance because they are all on $4 list, verbalized agreement. Concerns: TC to patient, left message to please call PCC back regarding BS and how pt is feeling. Juliane Wyatt RN July 26, 2017 3:22 PM Mobile Lounge Driver plan for next outreach: Will follow up one month Signature Juliane Wyatt RN July 26, 2017 Tamar Merrill MD 07/29/2017 3:08 PM Signed Sugars appear in good range aside from elevated reading on morning of 07/27. Continue current regimen. Thank you for help with getting medications through [facility]. 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 Sarah* LANCETS Test blood sugar(s) 2 times d* ASPIRIN 81 MG TABLET Take 1 tablet by mouth once d* CHOLECALCIFEROL (VITAMIN D3) * 2 tab daily Problem List As Of Date 07/26/2017 Noted Resolved Esophageal reflux [K21.9] INVALID FOR* More... ABDOMINAL PAIN( Epigastric) [R10.13] INVALID FOR*05/18/2012 Mixed hyperlipidemia [E78.2] INVALID FOR* More... Type II or unspecified type diabetes mellitus w*INVALID FOR*02/28/2013 More... Other malaise and fatigue [R53.81, R53.83] 05/18/2012 Infection and inflammatory reaction due to card*INVALID FOR*02/25/2016 ASHD (arteriosclerotic heart disease) [I25.10] INVALID FOR*08/07/2016 Thrombocytopenia [D69.6] INVALID FOR* Hypertension [I10] INVALID FOR*04/27/2016 CAD (coronary artery disease) [I25.10] INVALID FOR* More... Coronary atherosclerosis of [place] coronary art*INVALID FOR* More... Atrioventricular block, unspecified [I44.30] INVALID FOR*08/07/2016 More... Other second degree atrioventricular block [I44*INVALID FOR* More... Atrial flutter [I48.92] INVALID FOR* More... Other specified cardiac dysrhythmias [I49.8] INVALID FOR* More... Unspecified disorder of kidney and ureter [N28.*INVALID FOR* More... Cardiac pacemaker in situ [Z95.0] INVALID FOR* More... 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 TAMAYO (nonalcoholic steatohepatitis) [K75.81] INVALID FOR* Ischemic colitis [K55.9] INVALID FOR* Compression fracture of lumbar vertebra [S32.00*INVALID FOR* More... 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*INVALID FOR* Uncontrolled type 2 diabetes mellitus with diab*INVALID FOR*08/07/2016 Type 2 diabetes mellitus with diabetic polyneur*INVALID FOR*06/14/2017 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] INVALID FOR* Obesity (BMI 30.0-34.9) [E66.9] INVALID FOR* Essential hypertension [I10] INVALID FOR* Chronic anticoagulation [Z79.01] INVALID FOR* Dyspnea on exertion [R06.09] INVALID FOR* Chronic venous insufficiency [I87.2] INVALID FOR* Diabetes mellitus type II, controlled ([facility]) [E1* 06/14/2017 Encounter Status:Closed by JULIANE WYATT on 07/29/17 PROGRESS Observed: 07/20/2017 Status: COMPLETED Source: [place] 1:28 PM [facility] RE[facility] HNO ID: [id number] Author: Abraham Gibson Service: (none) Author Type: Physician Type: Progress Notes Filed: 07/20/2017 1:37 PM Note Text: Subjective: Patient presents to clinic c/o painful toenails. They state that the nails are especially painful with shoe gear and pressure. Patient states that nails 1-5 b/l are painful. Patient admits to being diabetic and states that their blood sugar was 152 mg/dL this AM. No other pedal complaints at this time. Patient states no change in medications or medical history since last visit. Objective: Patient presents to clinic ambulating in diabetic shoes Vasc: DP and PT pulses are decresaed bilateral. CFT is less than 5 seconds bilateral. Skin temperature is warm to cool proximal to distal bilateral. There is moderate edema or varicosities noted. Neuro: Protective sensation is absent to the foot and toes when tested with the 5.07 SWM bilateral. Vibratory sensation is absent at the hallux IPJ bilateral. The hallux is downgoing bilateral. Derm: Nails 1-5 b/l are painful, discolored-yellow, thick, crumbly, dystrophic and with subungal debris. Skin is dry and scaly, texture and hair growth is absent bilateral. There are no hyperkeratosis, ulcerations, scars, verruca or other lesions noted. Ortho: Muscle strength is 5/5 for all pedal groups tested. Ankle joint DF is decreased with the knee extended with no pain or crepitus noted. 1st MPJ ROM is decreased bilateral. Assessment: (B35.1) Onychomycosis (primary encounter diagnosis) (M79.675) Pain in toe of left foot (M79.674) Pain in toe of right foot (E11.42) Diabetic polyneuropathy associated with type 2 diabetes mellitus (HCC) (I87.2) Venous (peripheral) insufficiency Plan: Patient was seen and evaluated. Nails 1-5 bilateral were debrided in length and thickness. Patient was instructed on the continued importance of diabetic foot care along with proper diet and keeping their blood sugar under control to prevent complications. Offered compression stockings. He declined. Continue with lotion for dryness. Patient is to RTC in 3-4 months. Abraham Gibsno DPM CNOV Observed: 07/20/2017 Status: COMPLETED Source: [place] 1:10 PM [facility] REPOSITORY Office Visit (PODIWS) WILBUR WRIGHT ([id number]) 1940 M Date Time Provider Department 07/20/17 1:10 PM ABRAHAM GIBSON During your visit today, we recorded the following information about you: Abraham Gibson DPM 07/20/2017 1:37 PM Signed Subjective: Patient presents to clinic c/o painful toenails. They state that the nails are especially painful with shoe gear and pressure. Patient states that nails 1-5 b/l are painful. Patient admits to being diabetic and states that their blood sugar was 152 mg/dL this AM. No other pedal complaints at this time. Patient states no change in medications or medical history since last visit. Objective: Patient presents to clinic ambulating in diabetic shoes Vasc: DP and PT pulses are decresaed bilateral. CFT is less than 5 seconds bilateral. Skin temperature is warm to cool proximal to distal bilateral. There is moderate edema or varicosities noted. Neuro: Protective sensation is absent to the foot and toes when tested with the 5.07 SWM bilateral. Vibratory sensation is absent at the hallux IPJ bilateral. The hallux is downgoing bilateral. Derm: Nails 1-5 b/l are painful, discolored-yellow, thick, crumbly, dystrophic and with subungal debris. Skin is dry and scaly, texture and hair growth is absent bilateral. There are no hyperkeratosis, ulcerations, scars, verruca or other lesions noted. Ortho: Muscle strength is 5/5 for all pedal groups tested. Ankle joint DF is decreased with the knee extended with no pain or crepitus noted. 1st MPJ ROM is decreased bilateral. Assessment: (B35.1) Onychomycosis (primary encounter diagnosis) (M79.675) Pain in toe of left foot (M79.674) Pain in toe of right foot (E11.42) Diabetic polyneuropathy associated with type 2 diabetes mellitus (HCC) (I87.2) Venous (peripheral) insufficiency Plan: Patient was seen and evaluated. Nails 1-5 bilateral were debrided in length and thickness. Patient was instructed on the continued importance of diabetic foot care along with proper diet and keeping their blood sugar under control to prevent complications. Offered compression stockings. He declined. Continue with lotion for dryness. Patient is to RTC in 3-4 months. Abraham Gibson DPM Referring Provider: SELF [[id number]] Allergies As of Date: 07/20/2017 Noted Allergy Reaction AVANDIA (ROSIGLITAZONE MALEATE) 02/18/2005 7 - Swelling Comments: fluid retention GLIMEPIRIDE 07/12/2013 5 - Intolerance Comments: hypoglycemia AMLODIPINE 05/18/2012 7 - Swelling Comments: Leg swelling with 2.5mg Date Reviewed: 07/20/2017 Reviewed by: Brandi Reynaga Ma - Fully Assessed Reason for Visit: Diabetic Foot Care [916] Primary Visit Diagnosis:Onychomycosis [B35.1] Other Visit Diagnoses:Pain in toe of left foot [M79.675] Pain in toe of right foot [M79.674] Diabetic polyneuropathy associated with type 2 diabetes mellitus (HCC) [E11.42] Venous (peripheral) insufficiency [I87.2] Prescriptions as of 07/20/2017 Sig: GLIPIZIDE 5 MG TABLET Take 0.5 tablets by mouth onc* METFORMIN 1,000 MG TABLET Take 1 tablet by mouth twice * ALBUTEROL SULFATE HFA 90 MCG/* Inhale 2 Puffs as instructed * LISINOPRIL 20 MG-HYDROCHLOROT* Take 2 tablets by mouth every* METOPROLOL TARTRATE 25 MG TAB* Take 1 tablet by mouth twice * METFORMIN 500 MG TABLET Take 2 tablets by mouth twice* WARFARIN 2 MG TABLET 6mg Mon and Fri, 4mg other da* LOVASTATIN 40 MG TABLET Take 1 tablet by mouth daily * BLOOD SUGAR DIAGNOSTIC STRIPS Pt usesTrue Metric Meter. Sarah* LANCETS Test blood sugar(s) 2 times d* ASPIRIN 81 MG TABLET Take 1 tablet by mouth once d* CHOLECALCIFEROL (VITAMIN D3) * 2 tab daily Problem List As Of Date 07/20/2017 Noted Resolved Esophageal reflux [K21.9] INVALID FOR* More... ABDOMINAL PAIN( Epigastric) [R10.13] INVALID FOR*05/18/2012 Mixed hyperlipidemia [E78.2] INVALID FOR* More... Type II or unspecified type diabetes mellitus w*INVALID FOR*02/28/2013 More... Other malaise and fatigue [R53.81, R53.83] 05/18/2012 Infection and inflammatory reaction due to card*INVALID FOR*02/25/2016 ASHD (arteriosclerotic heart disease) [I25.10] INVALID FOR*08/07/2016 Thrombocytopenia [D69.6] INVALID FOR* Hypertension [I10] INVALID FOR*04/27/2016 CAD (coronary artery disease) [I25.10] INVALID FOR* More... Coronary atherosclerosis of [place] coronary art*INVALID FOR* More... Atrioventricular block, unspecified [I44.30] INVALID FOR*08/07/2016 More... Other second degree atrioventricular block [I44*INVALID FOR* More... Atrial flutter [I48.92] INVALID FOR* More... Other specified cardiac dysrhythmias [I49.8] INVALID FOR* More... Unspecified disorder of kidney and ureter [N28.*INVALID FOR* More... Cardiac pacemaker in situ [Z95.0] INVALID FOR* More... 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 TAMAYO (nonalcoholic steatohepatitis) [K75.81] INVALID FOR* Ischemic colitis [K55.9] INVALID FOR* Compression fracture of lumbar vertebra [S32.00*INVALID FOR* More... 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 Follow-up and Disposition History Recorded Encounter Status:Closed by ABRAHAM GIBSON DPM on 07/20/17 PROGRESS Observed: 07/08/2017 Status: COMPLETED Source: [place] 1:36 PM CLINIC OTHER CAMPUS REPOSITORY O ID: [id number] Author: Leonides Wise Service: (none) Author Type: Physician Type: Progress Notes Filed: 07/08/2017 5:24 PM Note Text: PERTINENT CARDIAC HISTORY ASHD - CABG (DELGADO to the LAD and vein grafts to the first diagonal, obtuse marginal and PDA) 2008 SSS - PPM 2007 Atrial fib - chronic?, on a/c HTN HL DM PAD Venous insufficiency Obesity ADHERENCE TO GUIDELINES PRIYANKA-I or ARB for HF with prior LVEF<40 (NQF 0081) - N/A ASA or Plavix for ASHD (NQF 0067) - met Beta cecil for ASHD with prior NV or prior LVEF<40 (NQF 0070) - N/A Beta cecil for HF with prior LVEF<40 (NQF 0083) - N/A PRIYANKA-I or ARB for ASHD with DM or prior LVEF<40 (NQF 0066) - met Statin therapy for ASHD or FHL or DM - met BMI documented and plan if >25 (NQF 0421) - lifestyle recommendation form Tobacco use screening and referral (NQF 0028) - lifestyle recommendation form Recommendation for whole food, plant based diet - lifestyle recommendation form CLINICAL IMPRESSION/PLAN: Wilbur Wright has multiple cardiac issues, which are all relatively stable. He has no evidence of ongoing ischemia. His pacemaker is likely nearing RADHIKA. He reports that this is being followed at [facility]. Change will be done there with the time comes. He continues to decline stress testing. He reports that his exercise tolerance has been stable. He is willing to undergo echocardiogram to assess LV function and valves. He has had chronic thrombocytopenia. We will have to rethink chronic anticoagulation, if platelet count drops below 60,000. He's been advised to let us know promptly should he have any abnormal bruising or bleeding. He confirms that INRs are being followed in primary care. He's been advised to continue his current medication. He is unable to tolerate statin therapy. He will continue his PRIYANKA inhibitor and beta cecil. I will see him in 8 months or as needed. If there is increased chest pain or shortness of breath, he has been advised to contact me. Written and verbal health teaching given to patient, patient verbalizes understanding and agrees with treatment plan. This note was generated using [employer] voice recognition system, and there may be some incorrect words, spellings, and punctuation that were not noted in checking the note before saving. DIAGNOSIS FOR VISIT: ASHD Atrial fibrillation HISTORY OF PRESENT ILLNESS Wilbur Wright is a 76 showed gentleman with multiple cardiac issues, as noted above, who presents for follow-up. He was formerly a patient of Dr. Ellis. He reports that he has had stable exercise tolerance. He's had no recent chest discomfort and has used no nitroglycerin. He denies orthopnea, edema, TIAs, amaurosis, claudication. He's had no palpitations. He denies syncope. He is tolerating medications well and has had no complications from his anticoagulation. ALLERGIES: ALLERGIES Allergen Reactions - Avandia [Rosiglitaz* Swelling fluid retention - Glimepiride Intolerance hypoglycemia - Amlodipine Swelling Leg swelling with 2.5mg CURRENT OUTPATIENT MEDICATIONS: glipiZIDE (GLUCOTROL) 5 mg tablet Take 0.5 tablets by mouth once daily. metFORMIN (GLUCOPHAGE) 1,000 mg tablet Take 1 tablet by mouth twice daily with meals. albuterol HFA (VENTOLIN HFA) 90 mcg/actuation inhaler Inhale 2 Puffs as instructed every 4 hours as needed. lisinopril-hydrochlorothiazide (PRINZIDE,ZESTORETIC) 20-12.5 mg per tablet Take 2 tablets by mouth every morning. metoprolol tartrate, short acting, (LOPRESSOR) 25 mg tablet Take 1 tablet by mouth twice daily. metFORMIN (GLUCOPHAGE) 500 mg tablet Take 2 tablets by mouth twice daily with meals. warfarin (COUMADIN) 2 mg tablet 6mg Mon and Fri, 4mg other days or as directed Lovastatin 40 mg tablet Take 1 tablet by mouth daily at bedtime. blood sugar diagnostic (BLOOD GLUCOSE TEST) test strip Pt usesTrue Metric Meter. Test twice daily. Dx E11.65 Insulin: No Lancets lancets Test blood sugar(s) 2 times daily. Dx: Type 2 DM - Uncontrolled E11.65 Insulin: No Aspirin 81 mg Tab Take 1 tablet by mouth once daily. Take 1/2hr before niacin with food. CHOLECALCIFEROL (VITAMIN D3) 1,000 UNIT CAP 2 tab daily PAST MEDICAL HISTORY Diagnosis Date - Atrial fibrillation (HCC) - CAD (coronary artery disease) Seeing Dr. Wise - Cataracts, bilateral - CKD (chronic kidney disease) stage 3, GFR 30-59 ml/min - Compression fracture of lumbar vertebra (HCC) - DDD (degenerative disc disease), lumbar - Diabetes mellitus type II, controlled ([facility]) - Diabetic neuropathy ([facility]) Dr. Gibson - Diabetic retinopathy ([facility]) Dr. Maria - Edema - GERD (gastroesophageal reflux disease) - Hyperlipidemia - Ischemic colitis ([facility]) - TAMAYO (nonalcoholic steatohepatitis) - Other malaise and fatigue - Pacemaker - PVD (peripheral vascular disease) ([facility]) - Thrombocytopenia ([facility]) - Unspecified essential hypertension PAST SURGICAL HISTORY Procedure Laterality Date - APPENDECTOMY 1951 - CABG (4) VEIN GRAFTS AND ARTERIAL GRAFT(S) 2008 aortocoronary bypass grafting - CATARACT EXTRACTION HX Right 2016 - COLONOSCOP W/ OR W/O [facility] SPEC 08/02/2005 Colonoscopy - COLONOSCOP W/ OR W/O [facility] SPEC 07/07/[facility] - PAST SURGICAL HISTORY OF 03/06/2008 pacemaker placement - PAST SURGICAL HISTORY OF Bilateral laser eye surgery FAMILY HISTORY Problem Relation Age of Onset - Heart Mother Social History Marital status: Spouse name: Years of education: Number of children: Social History Main Topics Smoking status: Former Smoker Packs/day: 1.00 Years: 15.00 Types: Cigarettes Quit date: 05/23/1969 Smokeless status: Never Used Alcohol use: No Drug use: No Sexual activity: Yes Partners with: Female REVIEW OF SYSTEMS: General: No chills, fever, weight loss, night sweats. Respiratory: No productive cough. Cardiac: As noted above. GI: No melena. : No dysuria. Musculoskeletal: No myalgias. PHYSICAL EXAMINATION: S/he is alert and in no distress. VITAL SIGNS: BP 142/80 Pulse 80 Ht 5' 8 (1.73m) Wt 200 lb 6.4 oz (90.9kg) BMI 30.48 kg/(m2). SHEENT: Skin is warm and dry. No xanthelasmas appreciated. Pharynx is benign. There is no oral cyanosis. Neck: supple. No adenopathy or thyroid enlargement. Chest: Clear to percussion and auscultation. Trachea is midline. Air entry is equal. There is no chest wall tenderness. Cardiac: Regular rhythm. S1 and S2 are normal. PMI is nondisplaced. There is a 1/6 systolic ejection murmur. No click is heard. Carotids are brisk without bruits. JVP is less than 10 cm. Abdomen: Soft and nontender. Obesity precludes adequate examination. There are no pulsatile masses or bruits. No liver enlargement. Bowel sounds are active. Extremities: 2 plus pitting edema. Pulses are diminished but symmetrical. No clubbing or cyanosis. No femoral bruits. Neurologic: Grossly normal motor and sensory. S/he is alert and oriented x4. Previous records were reviewed. EKG shows electronic ventricular pacemaker. Background rhythm cannot be determined but is likely atrial fibrillation. Carotid examination in 2014 showed moderate bilateral plaque but no high-grade disease. Recent labs were reviewed. Platelet count was 96,000. Renal function is normal. LDL was 52. Triglycerides were elevated. Electronically Signed: Leonides Wise MD July 08, 2017 1:36 PM CC:Tamar Merrill MD CNOV Observed: 07/08/2017 Status: COMPLETED Source: [place] 1:00 PM CLINIC OTHER CAMPUS REPOSITORY Office Visit (AGCARDWST) WILBUR RWIGHT ([id number]) 1940 M Date Time Provider Department 07/08/17 1:00 PM LEONIDES WISE AGCARDWST During your visit today, we recorded the following information about you: Pulse Blood pressure Weight Height 80/minute 142/80 90.9 kg 1.727 m Leonides Wise MD 07/08/2017 5:24 PM Signed PERTINENT CARDIAC HISTORY ASHD - CABG (DELGADO to the LAD and vein grafts to the first diagonal, obtuse marginal and PDA) 2008 SSS - PPM 2007 Atrial fib - chronic?, on a/c HTN HL DM PAD Venous insufficiency Obesity ADHERENCE TO GUIDELINES PRIYANKA-I or ARB for HF with prior LVEFANDlt;40 (NQF 0081) - N/A ASA or Plavix for ASHD (NQF 0067) - met Beta cecil for ASHD with prior NV or prior LVEFANDlt;40 (NQF 0070) - N/A Beta cecil for HF with prior LVEFANDlt;40 (NQF 0083) - N/A PRIYANKA-I or ARB for ASHD with DM or prior LVEFANDlt;40 (NQF 0066) - met Statin therapy for ASHD or FHL or DM - met BMI documented and plan if ANDgt;25 (NQF 0421) - lifestyle recommendation form Tobacco use screening and referral (NQF 0028) - lifestyle recommendation form Recommendation for whole food, plant based diet - lifestyle recommendation form CLINICAL IMPRESSION/PLAN: Wilbur Wright has multiple cardiac issues, which are all relatively stable. He has no evidence of ongoing ischemia. His pacemaker is likely nearing RADHIKA. He reports that this is being followed at [facility]. Change will be done there with the time comes. He continues to decline stress testing. He reports that his exercise tolerance has been stable. He is willing to undergo echocardiogram to assess LV function and valves. He has had chronic thrombocytopenia. We will have to rethink chronic anticoagulation, if platelet count drops below 60,000. He's been advised to let us know promptly should he have any abnormal bruising or bleeding. He confirms that INRs are being followed in primary care. He's been advised to continue his current medication. He is unable to tolerate statin therapy. He will continue his PRIYANKA inhibitor and beta cecil. I will see him in 8 months or as needed. If there is increased chest pain or shortness of breath, he has been advised to contact me. Written and verbal health teaching given to patient, patient verbalizes understanding and agrees with treatment plan. This note was generated using [employer] voice recognition system, and there may be some incorrect words, spellings, and punctuation that were not noted in checking the note before saving. DIAGNOSIS FOR VISIT: ASHD Atrial fibrillation HISTORY OF PRESENT ILLNESS Wilbur Wright is a 76 showed gentleman with multiple cardiac issues, as noted above, who presents for follow-up. He was formerly a patient of Dr. Ellis. He reports that he has had stable exercise tolerance. He's had no recent chest discomfort and has used no nitroglycerin. He denies orthopnea, edema, TIAs, amaurosis, claudication. He's had no palpitations. He denies syncope. He is tolerating medications well and has had no complications from his anticoagulation. ALLERGIES: ALLERGIES Allergen Reactions - Avandia [Rosiglitaz* Swelling fluid retention - Glimepiride Intolerance hypoglycemia - Amlodipine Swelling Leg swelling with 2.5mg CURRENT OUTPATIENT MEDICATIONS: glipiZIDE (GLUCOTROL) 5 mg tablet Take 0.5 tablets by mouth once daily. metFORMIN (GLUCOPHAGE) 1,000 mg tablet Take 1 tablet by mouth twice daily with meals. albuterol HFA (VENTOLIN HFA) 90 mcg/actuation inhaler Inhale 2 Puffs as instructed every 4 hours as needed. lisinopril-hydrochlorothiazide (PRINZIDE,ZESTORETIC) 20-12.5 mg per tablet Take 2 tablets by mouth every morning. metoprolol tartrate, short acting, (LOPRESSOR) 25 mg tablet Take 1 tablet by mouth twice daily. metFORMIN (GLUCOPHAGE) 500 mg tablet Take 2 tablets by mouth twice daily with meals. warfarin (COUMADIN) 2 mg tablet 6mg Mon and Fri, 4mg other days or as directed Lovastatin 40 mg tablet Take 1 tablet by mouth daily at bedtime. blood sugar diagnostic (BLOOD GLUCOSE TEST) test strip Pt usesTrue Metric Meter. Test twice daily. Dx E11.65 Insulin: No Lancets lancets Test blood sugar(s) 2 times daily. Dx: Type 2 DM - Uncontrolled E11.65 Insulin: No Aspirin 81 mg Tab Take 1 tablet by mouth once daily. Take 1/2hr before niacin with food. CHOLECALCIFEROL (VITAMIN D3) 1,000 UNIT CAP 2 tab daily PAST MEDICAL HISTORY Diagnosis Date - Atrial fibrillation (HCC) - CAD (coronary artery disease) Seeing Dr. Wise - Cataracts, bilateral - CKD (chronic kidney disease) stage 3, GFR 30-59 ml/min - Compression fracture of lumbar vertebra (HCC) - DDD (degenerative disc disease), lumbar - Diabetes mellitus type II, controlled ([facility]) - Diabetic neuropathy ([facility]) Dr. Gibson - Diabetic retinopathy ([facility]) Dr. Maria - Edema - GERD (gastroesophageal reflux disease) - Hyperlipidemia - Ischemic colitis ([facility]) - TAMAYO (nonalcoholic steatohepatitis) - Other malaise and fatigue - Pacemaker - PVD (peripheral vascular disease) (HCC) - Thrombocytopenia (HCC) - Unspecified essential hypertension PAST SURGICAL HISTORY Procedure Laterality Date - APPENDECTOMY 1951 - CABG (4) VEIN GRAFTS ANDamp; ARTERIAL GRAFT(S) 2008 aortocoronary bypass grafting - CATARACT EXTRACTION HX Right 2016 - COLONOSCOP W/ OR W/O [facility] SPEC 08/02/2005 Colonoscopy - COLONOSCOP W/ OR W/O [facility] SPEC 07/07/2011 Colonoscopy [facility] - PAST SURGICAL HISTORY OF 03/06/2008 pacemaker placement - PAST SURGICAL HISTORY OF Bilateral laser eye surgery FAMILY HISTORY Problem Relation Age of Onset - Heart Mother Social History Marital status: Spouse name: Years of education: Number of children: Social History Main Topics Smoking status: Former Smoker Packs/day: 1.00 Years: 15.00 Types: Cigarettes Quit date: 05/23/1969 Smokeless status: Never Used Alcohol use: No Drug use: No Sexual activity: Yes Partners with: Female REVIEW OF SYSTEMS: General: No chills, fever, weight loss, night sweats. Respiratory: No productive cough. Cardiac: As noted above. GI: No melena. : No dysuria. Musculoskeletal: No myalgias. PHYSICAL EXAMINATION: S/he is alert and in no distress. VITAL SIGNS: BP 142/80 Pulse 80 Ht 5' 8ANDquot; (1.73m) Wt 200 lb 6.4 oz (90.9kg) BMI 30.48 kg/(m2). SHEENT: Skin is warm and dry. No xanthelasmas appreciated. Pharynx is benign. There is no oral cyanosis. Neck: supple. No adenopathy or thyroid enlargement. Chest: Clear to percussion and auscultation. Trachea is midline. Air entry is equal. There is no chest wall tenderness. Cardiac: Regular rhythm. S1 and S2 are normal. PMI is nondisplaced. There is a 1/6 systolic ejection murmur. No click is heard. Carotids are brisk without bruits. JVP is less than 10 cm. Abdomen: Soft and nontender. Obesity precludes adequate examination. There are no pulsatile masses or bruits. No liver enlargement. Bowel sounds are active. Extremities: 2 plus pitting edema. Pulses are diminished but symmetrical. No clubbing or cyanosis. No femoral bruits. Neurologic: Grossly normal motor and sensory. S/he is alert and oriented x4. Previous records were reviewed. EKG shows electronic ventricular pacemaker. Background rhythm cannot be determined but is likely atrial fibrillation. Carotid examination in 2014 showed moderate bilateral plaque but no high-grade disease. Recent labs were reviewed. Platelet count was 96,000. Renal function is normal. LDL was 52. Triglycerides were elevated. Electronically Signed: Leonides Wise MD July 08, 2017 1:36 PM CC:MD Leonides Gibbs MD 07/08/2017 1:36 PM Signed LIFESTYLE CHANGE A healthy lifestyle is the most important component of your overall treatment plan. Please give serious thought to the following areas and commit to making alf changes. EAT A WHOLE FOOD, PLANT BASED DIET The nutrition your body gets is more important than the medicine you take. What matters most is the overall way you eat. We encourage you to minimize the use of animal products (which include dairy and all meats except fatty fish) and use whole, unprocessed plant foods to provide your protein, vitamins and other nutrients. We have a lot of information to share with you on this topic. We also hold Shared Medical Appointments, where you can come visit with Dr. Wise in the company of other patients and spend over an hour talking about the challenges of changing the way you eat. This is not a ANDquot;dietANDquot;. It is a way of life that you will keep with you. EXERCISE REGULARLY It is not important to spend hours in the gym, lifting weights and perspiring heavily. A total of 2-3 hours per week of aerobic (causing you to be moderately short of breath) exercise is sufficient to improve your health. Talk to us before you begin a new exercise program, if you have heart disease or experience shortness of breath or chest pain. REDUCE STRESS Chronic emotional and physical stress leads to disease. Ways of reducing stress include meditation, visualization, prayer, yoga and other forms of relaxation therapy. Consistency is the garcia. Find a technique that works for you and do it every day. CULTIVATE RELATIONSHIPS Loneliness and isolation have a major negative impact on health. Seek out others who can love, care for and nurture you. Avoid hurtful relationships. MAINTAIN IDEAL BODY WEIGHT The best way to do this is to do all the things above. Our bodies naturally find the right weight if we keep moving and feed ourselves the right food. If your BMI is greater than 25, we strongly recommend a referral to a weight management program. Please speak to us or your family physician about available programs. AVOID NICOTINE IN ALL FORMS This includes all tobacco products, whether chewed, smoked, vaped, or rubbed on the skin. Smoking cessation programs, which can make use of tobacco substitutes, medications to suppress cravings and behavior management, are available. Please contact your family physician about programs in your area. Referring Provider: RAMON ELLIS [[id number]] Allergies As of Date: 07/08/2017 Noted Allergy Reaction AVANDIA (ROSIGLITAZONE MALEATE) 02/18/2005 7 - Swelling Comments: fluid retention GLIMEPIRIDE 07/12/2013 5 - Intolerance Comments: hypoglycemia AMLODIPINE 05/18/2012 7 - Swelling Comments: Leg swelling with 2.5mg Date Reviewed: 07/08/2017 Reviewed by: Preeti Ace - Fully Assessed Reason for Visit: Follow Up [171] Primary Visit Diagnosis:ASHD (arteriosclerotic heart disease) [I25.10] Other Visit Diagnosis:Essential hypertension [I10] Order(s):ECG B/O W INTERP (MED OFFICE) [ECG06] Order #: [id number] FUTURE MAGNESIUM BLD [SQMG1] Order #: [id number] FUTURE LIPID PANEL BASIC [SQLIPB] Order #: [id number] FUTURE ECHO [217433] Order #: [id number]: 1 FUTURE Prescriptions as of 07/08/2017 Sig: GLIPIZIDE 5 MG TABLET Take 0.5 tablets by mouth onc* METFORMIN 1,000 MG TABLET Take 1 tablet by mouth twice * ALBUTEROL SULFATE HFA 90 MCG/* Inhale 2 Puffs as instructed * LISINOPRIL 20 MG-HYDROCHLOROT* Take 2 tablets by mouth every* METOPROLOL TARTRATE 25 MG TAB* Take 1 tablet by mouth twice * METFORMIN 500 MG TABLET Take 2 tablets by mouth twice* WARFARIN 2 MG TABLET 6mg Mon and Fri, 4mg other da* LOVASTATIN 40 MG TABLET Take 1 tablet by mouth daily * BLOOD SUGAR DIAGNOSTIC STRIPS Pt usesTrue Metric Meter. Sarah* LANCETS Test blood sugar(s) 2 times d* ASPIRIN 81 MG TABLET Take 1 tablet by mouth once d* CHOLECALCIFEROL (VITAMIN D3) * 2 tab daily Problem List As Of Date 07/08/2017 Noted Resolved Esophageal reflux [K21.9] INVALID FOR* More... ABDOMINAL PAIN( Epigastric) [R10.13] INVALID FOR*05/18/2012 Mixed hyperlipidemia [E78.2] INVALID FOR* More... Type II or unspecified type diabetes mellitus w*INVALID FOR*02/28/2013 More... Other malaise and fatigue [R53.81, R53.83] 05/18/2012 Infection and inflammatory reaction due to card*INVALID FOR*02/25/2016 ASHD (arteriosclerotic heart disease) [I25.10] INVALID FOR*08/07/2016 Thrombocytopenia [D69.6] INVALID FOR* Hypertension [I10] INVALID FOR*04/27/2016 CAD (coronary artery disease) [I25.10] INVALID FOR* More... Coronary atherosclerosis of [place] coronary art*INVALID FOR* More... Atrioventricular block, unspecified [I44.30] INVALID FOR*08/07/2016 More... Other second degree atrioventricular block [I44*INVALID FOR* More... Atrial flutter [I48.92] INVALID FOR* More... Other specified cardiac dysrhythmias [I49.8] INVALID FOR* More... Unspecified disorder of kidney and ureter [N28.*INVALID FOR* More... Cardiac pacemaker in situ [Z95.0] INVALID FOR* More... 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 TAMAYO (nonalcoholic steatohepatitis) [K75.81] INVALID FOR* Ischemic colitis [K55.9] INVALID FOR* Compression fracture of lumbar vertebra [S32.00*INVALID FOR* More... 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*INVALID FOR* Uncontrolled type 2 diabetes mellitus with diab*INVALID FOR*08/07/2016 Type 2 diabetes mellitus with diabetic polyneur*INVALID FOR*06/14/2017 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] INVALID FOR* Obesity (BMI 30.0-34.9) [E66.9] INVALID FOR* Essential hypertension [I10] INVALID FOR* Chronic anticoagulation [Z79.01] INVALID FOR* Dyspnea on exertion [R06.09] INVALID FOR* Chronic venous insufficiency [I87.2] INVALID FOR* Diabetes mellitus type II, controlled ([facility]) [E1* 06/14/2017 Other instructions from your clinician: LIFESTYLE CHANGE A healthy lifestyle is the most important component of your overall treatment plan. Please give serious thought to the following areas and commit to making alf changes. EAT A WHOLE FOOD, PLANT BASED DIET The nutrition your body gets is more important than the medicine you take. What matters most is the overall way you eat. We encourage you to minimize the use of animal products (which include dairy and all meats except fatty fish) and use whole, unprocessed plant foods to provide your protein, vitamins and other nutrients. We have a lot of information to share with you on this topic. We also hold Shared Medical Appointments, where you can come visit with Dr. Wise in the company of other patients and spend over an hour talking about the challenges of changing the way you eat. This is not a diet. It is a way of life that you will keep with you. EXERCISE REGULARLY It is not important to spend hours in the gym, lifting weights and perspiring heavily. A total of 2-3 hours per week of aerobic (causing you to be moderately short of breath) exercise is sufficient to improve your health. Talk to us before you begin a new exercise program, if you have heart disease or experience shortness of breath or chest pain. REDUCE STRESS Chronic emotional and physical stress leads to disease. Ways of reducing stress include meditation, visualization, prayer, yoga and other forms of relaxation therapy. Consistency is the garcia. Find a technique that works for you and do it every day. CULTIVATE RELATIONSHIPS Loneliness and isolation have a major negative impact on health. Seek out others who can love, care for and nurture you. Avoid hurtful relationships. MAINTAIN IDEAL BODY WEIGHT The best way to do this is to do all the things above. Our bodies naturally find the right weight if we keep moving and feed ourselves the right food. If your BMI is greater than 25, we strongly recommend a referral to a weight management program. Please speak to us or your family physician about available programs. AVOID NICOTINE IN ALL FORMS This includes all tobacco products, whether chewed, smoked, vaped, or rubbed on the skin. Smoking cessation programs, which can make use of tobacco substitutes, medications to suppress cravings and behavior management, are available. Please contact your family physician about programs in your area. Encounter Status:Closed by LEONIDES WISE MD on 07/08/17 PROGRESS Observed: 07/06/2017 Status: COMPLETED Source: [place] 1:05 PM [facility] REPOSITORY HNO ID: [id number] Author: Tamar Leal) Desirae Service: (none) Author Type: Physician Type: Progress Notes Filed: 07/06/2017 1:06 PM Note Text: INR therapeutic. Continue current coumadin dosage and follow up in 4 weeks. PROGRESS Observed: 07/06/2017 Status: COMPLETED Source: [place] 1:02 PM [facility] REPOSITORY HNO ID: [id number] Author: Tanesha Shearer RN Service: (none) Author Type: (none) Type: Progress Notes Filed: 07/06/2017 1:03 PM Note Text: patient had inr completed at [facility] patients inr is 2.9 (patients inr range is 2.0-3.0) patient is currently taking 6mg Mon, and 4mg all other days patients last dose change was on 01/05/17 due to a high level of 3.5 (dose at that time was 6mg Mon,Fri and 4mg all other days) patient has had no changes in medication and no missed doses and no change in diet Advised patient to continue on the same dose(s) and that they would only be contacted regarding dosage and follow up instructions after review with provider, if a change is needed. Written instructions given and patient verbalized understanding. Presently scheduled in 4 weeks (08/03/17) for follow up INR. PROGRESS Observed: 06/28/2017 Status: COMPLETED Source: [place] 3:43 PM [facility] REPOSITORY HNO ID: [id number] Author: Tamar Leal) Desirae Service: (none) Author Type: Physician Type: Progress Notes Filed: 06/28/2017 4:32 PM Note Text: Medications filed. Last INR was therapeutic at 2.3. If bleeding continues may need referral to ENT for further evaluation and cauterization. Glad to hear wheezing resolved. Continue lozenges. PROGRESS Observed: 06/28/2017 Status: COMPLETED Source: [place] 10:27 AM [facility] REPOSITORY HNO ID: [id number] Author: Juliane LeblancRn) Edmundo Service: (none) Author Type: Registered Nurse Type: Progress Notes Filed: 06/28/2017 3:37 PM Note Text: PRIMARY CARE COORDINATION FOLLOW-UP NOTE Provider Action/FYI Please file verbal orders for medications Slight nosebleeds with warfarin, stop without intervention Slight cough still but wheezing has stopped. Patient identified by name and date of . YES Spoke to patient Summary: Wilbur Wright is a 76 year old male who reports glucose readings as noted. DATE 06/28 06/27 06/26 06/25 06/24 06/23 Fasting 96 72 112 117 100 114 Bedtime 108 75 124 119 95 Any low blood sugars during this period of reporting No, however states when his blood sugars get into the 70's he starts to have vision problems. Pt can't read or see the TV. Discussed with PCP, instructed pt to decrease glipizide to 2.5 mg once daily, pt verbalized understanding with teach back. Patient's diabetes medications as follows: glipiZIDE (GLUCOTROL) 5 mg Take 0.5 tablets by mouth twice daily before meals. metFORMIN (GLUCOPHAGE) 500 mg Take 2 tablets by mouth twice daily with meals States he has had some minor nosebleeds while on warfarin. States they stop on their own after a short time Continues to note slight cough, helped with throat lozenges. No wheezing, no need for rescue inhaler since yesterday. States energy level is improving since his illness Pt is having problems affording medications, especially metformin. Discussed with SW, noted metformin is on $4 list at [facility]. Discussed with PCP, will order 1000 mg tablets BID and 60 tabs will cost $4/month without running through insurance. Called spouse and informed of new script and don't run through pt's insurance card, verbalized understanding. Concerns: TC to patient, talked to spouse, asked to call back later. Juliane Wyatt RN June 28, 2017 10:28 AM Mobile Lounge Driver plan for next outreach: Will follow up 1-2 weeks Signature Juliane Wyatt RN June 28, 2017 OFFICE VISIT REPORT Observed: 06/28/2017 Status: F Source: PHI 10:10 AM [facility] [address] [place] [address] OFFICE VISIT Date of Service: 06/22/17 MR#: [id number] Acct: [id number] Patient: WILBUR WRIGHT Rep #: [id number] : 1940 Provider: Latanya Smith Age/Sex: 76/M Location: [facility] [place] Status: Signed Comments Summary Comments: Dual Chamber Pacemaker Evaluation: Interrogation shows 5,229 MS episodes, 99.8% total time and no VH episodes since last check 03/16/17. Left pectoral pocket/incision w/o s/s of infection or erosion. Pt offers no cardiac complaints. Presenting rhythm shows Ventricular paced @ 72 ppm with underlying atrial flutter. PRECISION HONER=99.7%. Battery longevity approx 21 mos. Lead impedances, sensing and ventricular pace/sense threshold remain stable. No parameter changes made. Counters cleared. next f/u appt scheduled for in 3 mos. Device Device Date Interviewed: 06/22/17 Follow-up Location: in office Interview Reason: routine follow up Pen Tender: Medtronic Name: Adapta L Model: [id number] Serial #: [id number] Implant Date: 03/06/08 Year(s): 9 Implant Physician: Dr. Ulises Lund Patient Characteristics Atrial Indication: Atrial tachycardia (atrial flutter) AV/Node Indication: Second degree AV block (Mobitz ll) Ejection fraction %: 50 to 54 By: Echo Underlying rhythm: Atrial flutter Pacemaker Dependent: No Device Characteristics Device: Dual Chamber Type: Pacemaker Remote Follow-Up: No Device Physical Exam Yes Incision well healed Leads Lead #1 Pen Tender Lead 1: Medtronic Model Lead 1: 5076/52 Serial# Lead 1: [id number] Date Implanted Lead 1: 03/06/08 Position Lead 1: RA Lead #2 Pen Tender Lead 2: Medtronic Model Lead 2: 5076/58 Serial# Lead 2: [id number] Date Implanted Lead 2: 03/06/08 Position Lead 2: RV Diagnostics Pacing % RA Pacin.4 % RV Pacin.7 Mode Switching Total # Episodes: 5,229 % Mode switched: 99.8 Arrhythmias Non-Sust Episodes: 0 Measurements Battery Voltage (V): 2.71 Magnet Rate (bmp): 85 Predicted Remaining Longevity (months or years): 21 months RA Measurements Signal Amplitude (mV): 5.6 Impedance (Ohms): 484 RV Measurements Signal Amplitude (mV): 11.2 Impedance (Ohms): 456 Threshold Voltage: 0.5 @ PW(ms): 0.4 Kendrick Settings Kendrick Settings Pacemaker Mode AAIR+ Output/Sensing V/PW (ms) 1.5/0.4 2.0/0.4 Sensitivity RA RV LV Comments: Billing Codes PM Device Codes: PM Dev Prog Eval, Dual 06/24/171920 <Electronically signed by Latanya Smith > Date Latanya Smith 06/28/17 1010<Electronically signed by Marty Blankenship MD> [facility] Signature: Date (if applicable) Marty Blankenship MD CC: CNPTOUTREACH Observed: 06/28/2017 Status: COMPLETED Source: [place] 12:00 AM [facility] REPOSITORY Patient Outreach (FAMPWS) WILBUR WRIGHT ([id number]) 1940 M Date Time Provider Department 06/28/17 JULIANE WYATT (RN) TAMI During your visit today, we recorded the following information about you: Juliane Wyatt RN 06/28/2017 3:37 PM Signed PRIMARY CARE COORDINATION FOLLOW-UP NOTE Provider Action/FYI Please file verbal orders for medications Slight nosebleeds with warfarin, stop without intervention Slight cough still but wheezing has stopped. Patient identified by name and date of . YES Spoke to patient Summary: Wilbur Wright is a 76 year old male who reports glucose readings as noted. DATE 06/28 06/27 06/26 06/25 06/24 06/23 Fasting 96 72 112 117 100 114 Bedtime 108 75 124 119 95 Any low blood sugars during this period of reporting No, however states when his blood sugars get into the 70's he starts to have vision problems. Pt can't read or see the TV. Discussed with PCP, instructed pt to decrease glipizide to 2.5 mg once daily, pt verbalized understanding with teach back. Patient's diabetes medications as follows: glipiZIDE (GLUCOTROL) 5 mg Take 0.5 tablets by mouth twice daily before meals. metFORMIN (GLUCOPHAGE) 500 mg Take 2 tablets by mouth twice daily with meals States he has had some minor nosebleeds while on warfarin. States they stop on their own after a short time Continues to note slight cough, helped with throat lozenges. No wheezing, no need for rescue inhaler since yesterday. States energy level is improving since his illness Pt is having problems affording medications, especially metformin. Discussed with SW, noted metformin is on $4 list at [facility]. Discussed with PCP, will order 1000 mg tablets BID and 60 tabs will cost $4/month without running through insurance. Called spouse and informed of new script and don't run through pt's insurance card, verbalized understanding. Concerns: TC to patient, talked to spouse, asked to call back later. Juliane Wyatt RN June 28, 2017 10:28 AM Mobile Lounge Driver plan for next outreach: Will follow up 1-2 weeks Signature Juliane Wyatt RN June 28, 2017 Tamar Merrill MD 06/28/2017 4:32 PM Signed Medications filed. Last INR was therapeutic at 2.3. If bleeding continues may need referral to ENT for further evaluation and cauterization. Glad to hear wheezing resolved. Continue lozenges. 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, without long-term current use of insulin, unspecified laterality (HCC) [E11.3599] Diabetic polyneuropathy associated with type 2 diabetes mellitus (HCC) [E11.42] Order(s):glipiZIDE (GLUCOTROL) 5 mg tabletTake 0.5 tablets by mouth once daily.Disp: 30 tabletRfl: 5 metFORMIN (GLUCOPHAGE) 1,000 mg tabletTake 1 tablet by mouth twice daily with meals.Disp: 60 tabletRfl: 11 Prescriptions as of 06/28/2017 Sig: GLIPIZIDE 5 MG TABLET Take 0.5 tablets by mouth onc* METFORMIN 1,000 MG TABLET Take 1 tablet by mouth twice * ALBUTEROL SULFATE HFA 90 MCG/* Inhale 2 Puffs as instructed * LISINOPRIL 20 MG-HYDROCHLOROT* Take 2 tablets by mouth every* METOPROLOL TARTRATE 25 MG TAB* Take 1 tablet by mouth twice * METFORMIN 500 MG TABLET Take 2 tablets by mouth twice* WARFARIN 2 MG TABLET 6mg Mon and Fri, 4mg other da* LOVASTATIN 40 MG TABLET Take 1 tablet by mouth daily * BLOOD SUGAR DIAGNOSTIC STRIPS Pt usesTrue Metric Meter. Sarah* LANCETS Test blood sugar(s) 2 times d* ASPIRIN 81 MG TABLET Take 1 tablet by mouth once d* CHOLECALCIFEROL (VITAMIN D3) * 2 tab daily Problem List As Of Date 06/28/2017 Noted Resolved Esophageal reflux [K21.9] INVALID FOR* More... ABDOMINAL PAIN( Epigastric) [R10.13] INVALID FOR*05/18/2012 Mixed hyperlipidemia [E78.2] INVALID FOR* More... Type II or unspecified type diabetes mellitus w*INVALID FOR*02/28/2013 More... Other malaise and fatigue [R53.81, R53.83] 05/18/2012 Infection and inflammatory reaction due to card*INVALID FOR*02/25/2016 ASHD (arteriosclerotic heart disease) [I25.10] INVALID FOR*08/07/2016 Thrombocytopenia [D69.6] INVALID FOR* Hypertension [I10] INVALID FOR*04/27/2016 CAD (coronary artery disease) [I25.10] INVALID FOR* More... Coronary atherosclerosis of [place] coronary art*INVALID FOR* More... Atrioventricular block, unspecified [I44.30] INVALID FOR*08/07/2016 More... Other second degree atrioventricular block [I44*INVALID FOR* More... Atrial flutter [I48.92] INVALID FOR* More... Other specified cardiac dysrhythmias [I49.8] INVALID FOR* More... Unspecified disorder of kidney and ureter [N28.*INVALID FOR* More... Cardiac pacemaker in situ [Z95.0] INVALID FOR* More... 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 TAMAYO (nonalcoholic steatohepatitis) [K75.81] INVALID FOR* Ischemic colitis [K55.9] INVALID FOR* Compression fracture of lumbar vertebra [S32.00*INVALID FOR* More... 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*INVALID FOR* Uncontrolled type 2 diabetes mellitus with diab*INVALID FOR*08/07/2016 Type 2 diabetes mellitus with diabetic polyneur*INVALID FOR*06/14/2017 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 METFORMIN 1,000 MG TABLET 60 t* 11 06/28/2017 Cmt: Do not run through insurance. Patient will pay for prescription off the $4 List Route: ORAL Sig: Take 1 tablet by mouth twice daily with meals. Medications Discontinued During This Encounter glipiZIDE (GLUCOTROL) 5 mg tablet 180 * 1 06/14/2017 06/28/2017 Route: ORAL Sig: Take 0.5 tablets by mouth twice daily before meals. Disc: Reason for discontinue is not on file. Encounter Status:Closed by JULIANE WYATT on 06/28/17 PROGRESS Observed: 06/15/2017 Status: COMPLETED Source: [place] 11:07 AM [facility] REPOSITORY HNO ID: [id number] Author: Juliane (Akshat) Edmundo Service: (none) Author Type: Registered Nurse Type: Progress Notes Filed: 06/15/2017 11:10 AM Note Text: PRIMARY CARE COORDINATION IN OFFICE VISIT WITH PCP Late Entry for 06/14/17 Patient has been identified by name and date of . PCP Assessment/Plan: Reviewed PCP plan with patient using Teach Back Discussed PCC program PCC Plan of Care: Patient concerns: Patient is feeling ill today, did not discuss goals. PCC will call in two weeks for BS and will do Intake at future call. Next Office Visit: 06/14/2017 Plan For Next Call: Two weeks Juliane Wyatt RN June 15, 2017 JENNYFERTOUTREACH Observed: 06/14/2017 Status: COMPLETED Source: [place] 12:00 AM [facility] REPOSITORY Patient Outreach (FAMPWS) SHERIFWILBUR ([id number]) 1940 M Date Time Provider Department 06/14/17 JULIANE WYATT (RN) TAMI During your visit today, we recorded the following information about you: Juliane Wyatt RN 06/15/2017 11:10 AM Signed PRIMARY CARE COORDINATION IN OFFICE VISIT WITH PCP Late Entry for 06/14/17 Patient has been identified by name and date of . PCP Assessment/Plan: Reviewed PCP plan with patient using Teach Back Discussed PCC program PCC Plan of Care: Patient concerns: Patient is feeling ill today, did not discuss goals. PCC will call in two weeks for BS and will do Intake at future call. 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 Sarah* LANCETS Test blood sugar(s) 2 times d* ASPIRIN 81 MG TABLET Take 1 tablet by mouth once d* CHOLECALCIFEROL (VITAMIN D3) * 2 tab daily Problem List As Of Date 06/14/2017 Noted Resolved Esophageal reflux [K21.9] INVALID FOR* More... ABDOMINAL PAIN( Epigastric) [R10.13] INVALID FOR*05/18/2012 Mixed hyperlipidemia [E78.2] INVALID FOR* More... Type II or unspecified type diabetes mellitus w*INVALID FOR*02/28/2013 More... Other malaise and fatigue [R53.81, R53.83] 05/18/2012 Infection and inflammatory reaction due to card*INVALID FOR*02/25/2016 ASHD (arteriosclerotic heart disease) [I25.10] INVALID FOR*08/07/2016 Thrombocytopenia [D69.6] INVALID FOR* Hypertension [I10] INVALID FOR*04/27/2016 CAD (coronary artery disease) [I25.10] INVALID FOR* More... Coronary atherosclerosis of [place] coronary art*INVALID FOR* More... Atrioventricular block, unspecified [I44.30] INVALID FOR*08/07/2016 More... Other second degree atrioventricular block [I44*INVALID FOR* More... Atrial flutter [I48.92] INVALID FOR* More... Other specified cardiac dysrhythmias [I49.8] INVALID FOR* More... Unspecified disorder of kidney and ureter [N28.*INVALID FOR* More... Cardiac pacemaker in situ [Z95.0] INVALID FOR* More... 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 TAMAYO (nonalcoholic steatohepatitis) [K75.81] INVALID FOR* Ischemic colitis [K55.9] INVALID FOR* Compression fracture of lumbar vertebra [S32.00*INVALID FOR* More... 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*INVALID FOR* Uncontrolled type 2 diabetes mellitus with diab*INVALID FOR*08/07/2016 Type 2 diabetes mellitus with diabetic polyneur*INVALID FOR*06/14/2017 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] INVALID FOR* Obesity (BMI 30.0-34.9) [E66.9] INVALID FOR* Essential hypertension [I10] INVALID FOR* Chronic anticoagulation [Z79.01] INVALID FOR* Dyspnea on exertion [R06.09] INVALID FOR* Chronic venous insufficiency [I87.2] INVALID FOR* Diabetes mellitus type II, controlled (HCC) [E1* 06/14/2017 Encounter Status:Closed by JULIANE WYATT on 06/15/17 ALLERGIES ALLERGIES DATE TYPE / NAME / CODE REACTION SEVERITY SOURCE CODE 05/05/2018 Drug amlodipine/[id number] Unknown Unknown [facility] Allergy/41 72(RXNORM) [facility] [id number]([facility]) Repository 05/05/2018 Drug glimepiride/[id number] Unknown Unknown [facility] Allergy/41 624(RXNORM) [facility] [id number]([facility]) Repository 05/05/2018 Drug rosiglitazone/F0060 Unknown Unknown [place] Allergy/41 45019(RXNORM) [facility] [id number]([facility]) Repository 07/12/2013 DRUG GLIMEPIRIDE INTOLERANCE [place] Main [id number]([facility]) Repository 05/18/2012 DRUG AMLODIPINE SWELLING [place] [address] Main [id number]([facility]) Repository 02/18/2005 DRUG ROSIGLITAZONE SWELLING Med [place]/41 [facility] Main [id number]([facility]) Repository NG/[id number] ROSIGLITAZONE [facility] 06([facility]) Repository NG/[id number] GLIMEPIRIDE [facility] 06([employer] [facility]) Repository NG/[id number] AMLODIPINE [facility] 06([employer] [facility]) Repository ENCOUNTERS ENCOUNTERS ADMIT/DISCHARGE ACCOUNT NUMBER ADMITTING ENCOUNTER LOCATION SOURCE CLASS 06/09/2018/06/12/19 [id number] Ambulatory [address] Main [place] Repository 06/01/2018/06/02/19 [id number] Ambulatory [address] Repository 05/25/2018/05/25/19 [id number] Ambulatory BMSBuilding: Phi 19 [facility] Repository 05/18/2018/05/19/20 [id number] Ambulatory [address] [place] Repository 05/12/2018/05/12/20 [id number] Ambulatory [address] Repository 05/12/2018/05/15/20 [id number] Ambulatory [address] Repository 05/08/2018/05/08/20 [id number] Ambulatory [place] [address] ding:[facility] Repository 05/08/2018/05/08/20 [id number] Ambulatory BMSBuilding: Phi [facility] Repository 05/04/2018/05/05/20 [id number] Ambulatory [address] Repository 05/04/2018/05/04/20 [id number] Ambulatory [address] Repository 05/02/2018/05/03/20 [id number] Ambulatory [address] Repository 04/27/2018 [id number] Ambulatory [facility] ding:RAD Repository 04/27/2018/04/27/20 [id number] Ambulatory BMSBuilding: [place] 18 [facility] Repository 04/04/2018/04/05/20 [id number] Ambulatory [address] Repository 03/07/2018/03/08/20 [id number] Ambulatory [address] Repository 03/07/2018/03/08/20 [id number] Ambulatory [address] Repository 03/07/2018 [id number] Ambulatory [facility] MEDICAL Repository CENTERBuildi ng:CAGWS 02/09/2018/02/11/20 [id number] Ambulatory [address] Repository 02/09/2018/02/11/20 [id number] Ambulatory [address] Repository 02/02/2018/02/03/20 [id number] Ambulatory BMSBuilding: [place] 18 [facility] Repository 01/24/2018/01/28/20 [id number] Ambulatory [address] Repository 01/10/2018/01/12/20 [id number] Ambulatory [place] [address] [place] [address] Main [place] Repository 01/10/2018/01/12/20 [id number] Ambulatory [address] Main [place] Repository 01/04/2018/01/05/20 [id number] Ambulatory [address] Main [place] Repository 01/04/2018 [id number] [facility] [place] Rep[facility] 12/06/2017/12/08/19 [id number] Ambulatory [address] Main [place] Repository 11/22/2017/11/25/19 [id number] Ambulatory [address] Main [place] Repository 11/09/2017/11/11/19 [id number] Ambulatory [address] Main [place] Repository 11/02/2017/11/04/19 [id number] Ambulatory [address] Main [place] Repository 10/26/2017/10/27/19 [id number] Ambulatory BMSBuilding: Ph[place] 18 [facility] Repository 10/26/2017/10/28/19 [id number] Ambulatory [address] Main [place] Repository 09/28/2017/09/30/19 [id number] Ambulatory [address] Main [place] Repository 09/28/2017/09/29/19 [id number] Ambulatory [address] Main [place] Repository 09/14/2017/09/16/19 [id number] Ambulatory [address] Main [place] Repository 09/07/2017 [id number] Ambulatory [facility] Main [place] Repository 08/31/2017/09/02/19 [id number] Ambulatory [address] Main [place] Repository 08/03/2017/08/05/19 [id number] Ambulatory [address] [place] [facility] 07/20/2017/07/26/19 [id number] Ambulatory [address] [place] [facility] 07/13/2017/07/13/19 [id number] Ambulatory [address] [place] [facility] 07/08/2017/07/08/19 [id number] Ambulatory [address] Other [place] [facility] 07/08/2017/07/08/19 [id number] Ambulatory JOE [address] MEDICAL Repository CENTERBuildi ng:CAGWS 07/06/2017/07/07/19 [id number] Ambulatory [address] [place] [facility] 06/22/2017/06/22/19 [id number] Ambulatory BMSBuilding: [place] 18 BMS.[facility] Hospital Repository PAYERS PAYERS ENCOUNTER GUARANTOR PAYER SUBSCRIBER SOURCE 05/25/2018 WILBUR E Primary WILBUR E Phi [id number] N Insurance:MEDICARE WELTMERDOB: [facility] MILL PART A [facility] [id number] [facility] Number: Repository , [place] [address]Atc: [id number] Date:2018-05-08 () 05/25/2018 Secondary WILBUR E Phi Insurance:CIGNAPolicy [facility] Number: [id number] Hospital [id number] Repository Date:8088-84-51WL [facility] 298113ZZTZYYMWORQ, [place] [address]LI: 05/25/2018 Tertiary NOT GIVENUNK Phi Insurance:SELF PAY [facility] Number: Effective Repository Date:2018-05-25 05/08/2018 WILBUR E Primary WILBUR E [place] [id number] N Insurance:MEDICARE WELTMERDOB: [facility] PART A [facility] [id number] Community [facility] Number: Repository , [place] [address]Ows: [id number] Date:2018-04-27 () 05/08/2018 Secondary WILBUR E Phi Insurance:CIGNAPolicy WELTMERDOB: [facility] Number: [id number] Hospital [id number] Repository Date:1875-89-24ET [facility] [id number], [place] [address]II: 05/08/2018 Tertiary NOT GIVENUNK Phi Insurance:SELF PAY [facility] Number: Effective Repository Date:2018-04-27 05/08/2018 WILBUR E Primary WILBUR E Phi [id number] N Insurance:MEDICARE WELTMERDOB: [facility] PART A [facility] [id number] Community Hospital Number: Repository , [place] [address]Env: [id number] Date:2018-04-27 () 05/08/2018 Secondary WILBUR E Phi Insurance:CIGNAPolicy WELTMERDOB: Community Number: [id number] Hospital [id number] Repository Date:2486-24-94[address]QZ[address], [place] [address]SK: 05/08/2018 Tertiary NOT GIVENUNK Phi Insurance:SELF PAY [facility] Number: Effective Repository Date:2018-05-08 04/27/2018 WILBUR E Primary WILBUR E [place] [id number] N Insurance:MEDICARE WELTMERDOB: Community MILL PART A [facility] [id number] Community Hospital Number: [place], [place] [address]Qmf: [id number] Date:2018-04-27 () 04/27/2018 Secondary WILBUR E [place] Insurance:CIGNAPolicy WELTMERDOB: Community Number: [id number] Hospital [id number] Repository Date:3444-79-95IW [address]SWKNHIRZLFQ, [place] [address]GG: 04/27/2018 Tertiary NOT GIVENUNK Phi Insurance:SELF PAY [facility] Number: Effective Repository Date:2018-04-27 04/27/2018 WILBUR E Primary WILBUR E Phi [id number] N Insurance:MEDICARE WELTMERDOB: [facility] PART A [facility] [id number] Community Hospital Number: Repository , [place] [address]Exe: [id number] Date:2018-02-02 () 04/27/2018 Secondary WILBUR E Phi Insurance:CIGNAPolicy WELTMERDOB: Community Number: [id number] Hospital [id number] Repository Date:9457-53-33[address]JVDSRXACYZP, [place] [address]XX: 04/27/2018 Tertiary NOT GIVENUNK [place] Insurance:SELF PAY [facility] Number: Effective Repository Date:2018-04-27 03/07/2018 WILBRU E Primary WILBUR E [facility] WELTMERDOB: Insurance:MEDICARE A WELTMERDOB: [facility] N AND [facility] Number: [id number] Repository [facility] [id number] [facility] Date: , [place] [address]Ssh: () 03/07/2018 Secondary WILBUR E [facility] Insurance:CIGNA WELTMERDOB: [facility] Number: [id number] Repository [id number] Date: 02/02/2018 WILBUR E Primary WILBUR E Phi [id number] N Insurance:MEDICARE WELTMERDOB: Community [facility] PART A [facility] [id number] Community Hospital Number: Repository , [place] [address]Taq: [id number] Date:2017-11-03 () 02/02/2018 Secondary WILBUR E [place] Insurance:CIGNAPolicy WELTMERDOB: Community Number: [id number] Hospital [id number] Repository Date:9037-95-94[address]GALBYFNWUFF, [place] [address]SM: 02/02/2018 Tertiary NOT GIVENUNK [place] Insurance:SELF PAY [facility] Number: Effective Repository Date:2018-02-02 10/26/2017 WILBUR E Primary WILBUR E [place] [id number] N Insurance:MEDICARE WELTMERDOB: [facility] PART A [facility] [id number] Community Hospital Number: Repository , [place] [address]Sji: [id number] Date:2017-06-22 () 10/26/2017 Secondary WILBUR E Phi Insurance:CIGNAPolicy WELTMERDOB: Community Number: [id number] Hospital [id number] Repository Date:9030-11-38[address]PWVHBRWYLRV, [place] [address]DS: 10/26/2017 Tertiary NOT GIVENUNK Phi Insurance:SELF PAY [facility] Number: Effective Repository Date:2017-09-29 07/08/2017 WILBUR E Primary WILBUR E [facility] WELTMERDOB: Insurance:MEDICARE [facility] N AND [facility] Number: [id number] [facility] [id number] [facility] Date: , [place] [address]Mmi: () 07/08/2017 Secondary WILBUR E [facility] Insurance:CIGNA WELTMERDOB: [facility] Number: [id number] Repository [id number] Date: 06/22/2017 WILBUR E Primary WILBUR E [place] [id number] N Insurance:MEDICARE WELTMERDOB: [facility] PART A [facility] [id number] Community Hospital Number: Repository , [place] [address]Lwn: [id number] Date:2017-04-26 () 06/22/2017 Secondary WILBUR E Phi [facility] Number: [id number] Hospital [id number] Repository Date:4116-76-34GQ [address]JDORZJNSAE, [place] [address]YN: 06/22/2017 Tertiary NOT GIVENUNK [place] Insurance:SELF PAY [facility] Number: Effective Repository Date:2017-04-26
== END 2018-05-08 13:10 | disposition home or self-care (01) ==
PROVIDERS: Family Provider Family Medicine; PCP Family Medicine; Referring Provider Internal Medicine Cardiovascular Disease; Visit Provider Internal Medicine Cardiovascular Disease
DX: Z45.010 Encounter for checking and testing of cardiac pacemaker pulse generator [battery] (principal); I49.5 Sick sinus syndrome; I25.10 Atherosclerotic heart disease of native coronary artery without angina pectoris; E11.22 Type 2 diabetes mellitus with diabetic chronic kidney disease; I12.9 Hypertensive chronic kidney disease with stage 1 through stage 4 chronic kidney disease, or unspecified chronic kidney disease; N18.3 Chronic kidney disease, stage 3 (moderate); I48.91 Unspecified atrial fibrillation; E78.5 Hyperlipidemia, unspecified; I73.9 Peripheral vascular disease, unspecified; I87.2 Venous insufficiency (chronic) (peripheral); M51.36 Other intervertebral disc degeneration, lumbar region; E11.40 Type 2 diabetes mellitus with diabetic neuropathy, unspecified; E11.319 Type 2 diabetes mellitus with unspecified diabetic retinopathy without macular edema; K75.81 Nonalcoholic steatohepatitis (NASH); E66.9 Obesity, unspecified; Z87.19 Personal history of other diseases of the digestive system; Z86.2 Personal history of diseases of the blood and blood-forming organs and certain disorders involving the immune mechanism; Z95.1 Presence of aortocoronary bypass graft; Z79.82 Long term (current) use of aspirin; Z79.84 Long term (current) use of oral hypoglycemic drugs; Z79.01 Long term (current) use of anticoagulants; Z79.899 Other long term (current) drug therapy; Z87.891 Personal history of nicotine dependence; Z00.6 Encounter for examination for normal comparison and control in clinical research program
CPT/HCPCS: 33228; 36415; 85610; 99152; 99153; J7040; J7050

== ENCOUNTER → 2019-06-28 | Outpatient (CLI) | payer MEDICARE, OTHER, SELFPAY ==
[2019-06-28 18:13] LABS: International Normalized Ratio 2.2; Prothrombin Time (Protime)PT. 24.6 SECONDS (11.7-14.9)
== END | disposition home or self-care (01) ==
LOC: LABSPEC 17:02
PROVIDERS: PCP Family Medicine; Referring Provider Family Medicine; Visit Provider Family Medicine
DX: I48.92 Unspecified atrial flutter (principal)
CPT/HCPCS: 85610

== ENCOUNTER → 2019-11-02 | Outpatient (CLI) | payer MEDICARE, OTHER, SELFPAY ==
[2019-11-02 17:40] LABS: International Normalized Ratio 2.6; Prothrombin Time (Protime)PT. 27.4 SECONDS (11.7-14.9)
== END | disposition home or self-care (01) ==
LOC: LABSPEC 16:48
PROVIDERS: PCP Family Medicine; Referring Provider Family Medicine; Visit Provider Family Medicine
DX: I48.20 Chronic atrial fibrillation, unspecified (principal)
CPT/HCPCS: 85610

== ENCOUNTER → 2019-12-18 | Outpatient (CLI) | payer MEDICARE, OTHER, SELFPAY ==
[2019-12-18 15:38] LABS: International Normalized Ratio 2.4; Prothrombin Time (Protime)PT. 25.5 SECONDS (11.7-14.9)
== END | disposition home or self-care (01) ==
LOC: LABSPEC 15:21
PROVIDERS: PCP Family Medicine; Referring Provider Family Medicine; Visit Provider Family Medicine
DX: I48.20 Chronic atrial fibrillation, unspecified (principal)
CPT/HCPCS: 85610

== ENCOUNTER → 2020-09-29 15:00 | Outpatient (CLI) | payer MEDICARE, OTHER, SELFPAY ==
--- NOTE | 2020-09-29 15:09 | US_ITS ---
STUDY: RENAL ULTRASOUND - COMPLETE REASON FOR EXAM: Male, 79 years old. ACUTE ON CHRONIC RENAL FAILURE TECHNIQUE: Ultrasound evaluation of the kidneys was performed with real-time and static monroy-scale imaging. COMPARISON: None. FINDINGS: RIGHT KIDNEY: Normal location of the right kidney, which is normal in size. The right kidney measures 9.5 cm. There is a normal cortex of the right kidney. The renal cortex measures 1.2 cm. 1.2 cm cyst in the upper pole the right kidney. There are no right renal calculi. There is no right hydronephrosis. DISTAL RIGHT URETER: There is non-visualization of the distal right ureter. There is no demonstrated right ureterovesical junction calculus. There is a visualized right ureteral jet. LEFT KIDNEY: Normal location of the left kidney, which is normal in size. The left kidney measures 9.1 cm. There is a normal cortex of the left kidney. The renal cortex measures 1.3 cm. There is no left renal mass or cyst. There are no left renal calculi. There is no left hydronephrosis. DISTAL LEFT URETER: There is non-visualization of the distal left ureter. There is no demonstrated left ureterovesical junction calculus. There is a visualized left ureteral jet. BLADDER: The distended urinary bladder has a volume of 58 ml. The empty urinary bladder has a volume of ml. There is a normal wall thickness of the distended urinary bladder. There is no demonstrated mass within the urinary bladder. There are no demonstrated bladder calculi. US/Kidney and Bladder IMPRESSION: Normal ultrasound of the kidneys and urinary bladder. Electronically Signed: Keith Bell MD at 16:33 EDT Tel , Service support ,
== END ==
PROVIDERS: PCP Family Medicine; Referring Provider Internal Medicine Nephrology; Visit Provider Internal Medicine Nephrology
DX: N17.9 Acute kidney failure, unspecified (principal)
CPT/HCPCS: 76770

== ENCOUNTER → 2020-11-06 13:57 | Outpatient (CLI) | payer MEDICARE, OTHER, SELFPAY ==
[2020-11-06 15:15] LABS: Protein, Urine (Random) 10.8 mg/dL (<11.9); Protein:Creat Ratio 118 mg/g CRE (0-200)
[2020-11-06 15:19] LABS: Albumin, Serum 3.5 g/dL (3.2-5.0); BUN 21 mg/dL (7-18); BUN/Creat Ratio 15.3 RATIO (10-20); Calcium,Total 9.1 mg/dL (8.5-10.1); Chloride 104 mmol/L (98-107); Creatinine, Serum 1.37 mg/dL (0.70-1.30); EST Glomerular Filtration Rate 53 mL/min (>60); Est Glom Filt Rate - Afr Amer 64 mL/min (>60); Glucose 214 mg/dL (74-106); Potassium 4.6 mmol/L (3.5-5.1); Sodium Level 138 mmol/L (136-145)
[2020-11-06 15:21] LABS: PTHIN 82.9 pg/mL (18.4-80.1)
== END ==
PROVIDERS: PCP Family Medicine; Referring Provider Internal Medicine Nephrology; Visit Provider Internal Medicine Nephrology
DX: E11.22 Type 2 diabetes mellitus with diabetic chronic kidney disease (principal); N18.31 Chronic kidney disease, stage 3a
CPT/HCPCS: 36415; 80069; 82570; 83970; 84156

== ENCOUNTER 2020-12-23 16:33 | Emergency (ER) | payer MEDICARE, OTHER, SELFPAY ==
[2020-12-23 16:35] VITALS: BP 119/57; PULSE 65; RESP 18; TEMP 36.6; O2SAT 98; BMI 29.3
--- NOTE | 2020-12-23 16:46 | EKG12_ITS ---
Test Reason : Blood Pressure : / mmHG Vent. Rate : 067 BPM Atrial Rate : 065 BPM P-R Int : 186 ms QRS Dur : 154 ms QT Int : 448 ms P-R-T Axes : 080 -63 092 degrees QTc Int : 473 ms AV dual-paced rhythm Abnormal ECG Confirmed by TRESA CULLEN, SOLOMON ([id number]), editor department DORYS GEORGE ([id number]) on 12/29/2020 9:27:32 AM Referred By: RUSTAM Confirmed By:SOLOMON GTZ MD
--- NOTE | 2020-12-23 16:48 | EDS_ITS ---
HPI History of Present Illness Chief Complaint: Abd Pain Narrative Narrative: 80-year-old male presenting with dyspnea, cough for about a week. Patient states he feels he is wheezing. Patient denies any history of asthma or COPD but states he was a previous smoker. Patient also complaining of some left upper quadrant pain which he believes is secondary to coughing so much. He does admit to some history of constipation and states his last bowel movement was yesterday. Patient does take MiraLAX and a stool softener. He denies black or bloody stools. Patient anticoagulated on Coumadin for history of a flutter. He does deny chest pain. Patient denies nausea, vomiting. He has not had a fever, chills, change in taste or smell. He has been vaccinated for COVID-19. Denies any new sick contacts. PFSH PFSH Home Medications Lisinopril/Hydrochlorothiazide [Zestoretic 11/05.5 Tablet] 2 tab PO DAILY 05/05/18 [History Last Taken 05/08/18] Lovastatin [Mevacor] 40 mg PO DAILY 05/05/18 [History Last Taken Unknown] albuterol sulfate [Ventolin Hfa (SP)] 2 puff INHALATION Q4H PRN PRN 05/05/18 [History Last Taken Unknown] aspirin 81 mg PO DAILY@0800 05/05/18 [History Last Taken Unknown] cholecalciferol (vitamin D3) [Vitamin D] 2,000 unit PO DAILY 05/05/18 [History Last Taken Unknown] metformin 1,000 mg PO DAILY 05/05/18 [History Last Taken Unknown] metoprolol tartrate 25 mg PO BID 05/05/18 [History Last Taken 05/08/18] warfarin [Coumadin (PBKC)] 4 mg PO DAILY 05/05/18 [History Last Taken Unknown] prednisone 50 mg PO DAILY 4 Days #20 tab 12/23/20 [Rx Last Taken Unknown] Allergy/AdvReac Type Severity Reaction Status Date / Time amlodipine Allergy Unknown Verified 12/23/20 16:38 glimepiride Allergy Unknown Verified 12/23/20 16:38 rosiglitazone [From Avandia] Allergy Unknown Verified 12/23/20 16:38 Social History Smoking Status: Former smoker ROS ROS ED Constitutional Constitutional ED: Denies chills or fever(s) Eyes Eyes: Denies blurry vision or diplopia ENT ENT ED: Denies rhinorrhea or sore throat Cardiovascular Cardiovascular: Denies chest pain, orthopnea, palpitations or racing heartbeat Respiratory/Chest Respiratory/Chest: Reports cough and dyspnea; Denies orthopnea Gastrointestinal Gastrointestinal: Reports abdominal pain and constipation; Denies nausea or v omiting Genitourinary Genitourinary ED: Denies dysuria or hematuria Musculoskeletal Musculoskeletal: Denies arthralgias, back pain, myalgias or neck pain Integumentary Denies abscess or rash Neurologic Neurologic: Denies headache(s) or paresthesias EXAM Physical Exam Const Vital Signs: 12/23/20 16:35 12/23/20 16:57 12/23/20 17:08 Temperature 98 F Temperature Source Temporal Pulse Rate 65 62 Respiratory Rate 18 18 Respiratory Effort Respiratory Depth Respiratory Pattern Normal Blood Pressure 119/57 L Blood Pressure Mean 77 Pulse Ox 98 97 Oxygen Delivery Method Room Air Room Air 12/23/20 17:20 12/23/20 18:34 Temperature Temperature Source Pulse Rate 62 Respiratory Rate 13 Respiratory Effort Non-Labored Short of Breath Respiratory Depth Normal Respiratory Pattern Normal Blood Pressure 110/55 L Blood Pressure Mean 73 Pulse Ox 96 Oxygen Delivery Method Room Air Room Air Positive well nourished General Appearance ED: NAD; Negative for pallor HEENT Reports moist mucous membranes atraumatic Eyes PERRL and EOMs intact bilaterally General Eye ED: Negative for pale conjunctiva or scleral icterus Resp normal respiratory effort and clear to auscultation bilaterally Cardio regular rate and regular rhythm GI non-distended GI Narrative: Mild tenderness in the left upper quadrant. No CVA tenderness on the left. No palpable tenderness elsewhere in the abdomen. Palpation: soft Back/Spine no CVA tenderness Extremity normal to inspection Neuro oriented x3, CN's II-XII intact bilaterally and no sensory deficits noted Sensorium / Orientation: alert Motor Exam: strength 5/5 throughout Psych mental status grossly normal Thought Process: normal thought process Skin General Skin Exam: Negative for jaundice or pallor Lesions: no lesions Rashes: no rashes MDM MDM MDM Narrative Medical decision making narrative: 80-year-old male presenting with cough and dyspnea for about a week. He states he feels he is wheezing. He has history of smoking but no COPD or asthma that he knows of. On arrival he was wheezing and was given breathing treatments as well as Solu-Medrol 125 IV. EKG on my interpretation shows a AV dual paced rhythm at 67 bpm without interval change from EKG 05 July 2011. Troponin 15.4. CBC a.m. BMP remarkable only for potassium of 5.2 and patient was given a liter of IV fluids. There are no EKG changes associated. LFTs and lipase are normal. INR is therapeutic at 2.3. Patient feels improved from a respiratory standpoint after treatments. He was still complaining some left upper quadrant abdominal pain. He had a CT of the abdomen pelvis with IV contrast which shows no acute intra-abdominal process. Patient likely has pain due to frequent coughing. Discussed with patient's PCP for follow-up given that he is on Coumadin will be starting prednisone. They will arrange close follow-up for monitoring of his INR. Patient was given an albuterol inhaler and a prednisone burst from the ED. Patient given return precautions and is stable for discharge at this time. Impression: 1. Acute bronchitis 2. Abdominal pain unknown cause Lab Data Labs: Laboratory Results - last 24 hr 12/23/20 12/23/20 12/23/20 16:55 16:55 16:55 WBC 6.4 RBC 4.35 L Hgb 13.2 Hct 40.3 MCV 92.6 MCH 30.3 MCHC 32.8 RDW Std Deviation 45.1 H RDW Coeff of Mila 13.3 Plt Count 105 L MPV 8.7 Immature Gran % (Auto) 0.300 Neut % (Auto) 61.3 Lymph % (Auto) 23.5 [place] % (Auto) 7.0 Eos % (Auto) 7.4 H Baso % (Auto) 0.5 Absolute Neuts (auto) 3.9 Absolute Lymphs (auto) 1.50 Nucleated RBC % 0 PT INR Sodium 135 L Potassium 5.2 H Chloride 102 Carbon Dioxide 29.0 Anion Gap 4 L BUN 24 H Creatinine 1.31 H Estim Creat Clear Calc 42.06 Est GFR (MDRD) Af Amer 67 Est GFR (MDRD) Non-Af 56 L BUN/Creatinine Ratio 18.3 Glucose 131 H Calcium 8.8 Total Bilirubin 0.60 Direct Bilirubin 0.11 AST 31 ALT 24 Alkaline Phosphatase 65 Troponin I High Sens 15.4 Total Protein 7.6 Albumin 3.4 Globulin 4.2 Lipase 148 12/23/20 17:00 WBC RBC Hgb Hct MCV MCH MCHC RDW Std Deviation RDW Coeff of Mila Plt Count MPV Immature Gran % (Auto) Neut % (Auto) Lymph % (Auto) [place] % (Auto) Eos % (Auto) Baso % (Auto) Absolute Neuts (auto) Absolute Lymphs (auto) Nucleated RBC % PT 24.9 H INR 2.3 Sodium Potassium Chloride Carbon Dioxide Anion Gap BUN Creatinine Estim Creat Clear Calc Est GFR (MDRD) Af Amer Est GFR (MDRD) Non-Af BUN/Creatinine Ratio Glucose Calcium Total Bilirubin Direct Bilirubin AST ALT Alkaline Phosphatase Troponin I High Sens Total Protein Albumin Globulin Lipase Radiography Diagnostic Testing: Radiology Impression Chest X-Ray 12/23/20 17:08 IMPRESSION: No radiographic evidence of acute cardiopulmonary disease. at 1750 Reported and signed by: Derrick Pang MD Electronically Signed: Derrick Pang MD at 17:48 EDT Tel , Service support , Abdomen/Pelvis CT 12/23/20 17:58 IMPRESSION: No acute findings in the abdomen or pelvis. Individualized dose optimization techniques were used for this CT. at 1843 Reported and signed by: Derrick Pang MD Electronically Signed: Derrick Pang MD at 18:42 EDT Tel , Service support , Discharge Plan Triage Chief Complaint: Abd Pain Other Complaint: Shortness of Breath ED Provider: Tomas Abarca Dx/Rx/DC Orders Instructions: ED Bronchitis with Wheezing (Adult) Prescriptions: New prednisone 10 mg tablet 50 mg PO DAILY 4 Days Qty: 20 RF: 0 No Action warfarin [Jantoven] 4 MG tablet 4 mg PO DAILY RF: 0 metformin 1,000 MG tablet 1,000 mg PO DAILY RF: 0 aspirin 81 MG tablet,chewable 81 mg PO DAILY@0800 RF: 0 albuterol sulfate [Ventolin HFA] 1 INHALER inhaler 2 puff inhalation Q4H PRN PRN (Reason: Wheezing) RF: 0 metoprolol tartrate 25 MG tablet 25 mg PO BID RF: 0 cholecalciferol (vitamin D3) [Vitamin D3] 1,000 UNIT tablet 2,000 unit PO DAILY RF: 0 Lisinopril/Hydrochlorothiazide [Zestoretic 20/12.5 Tablet] 1 TABLET tablet 2 tab PO DAILY RF: 0 Lovastatin [Mevacor] 40 MG tablet 40 mg PO DAILY RF: 0 Primary Care Provider: Billy Merrill Referrals: Billy Merrill MD [Primary Care Provider] -
[2020-12-23] MEDS: Albuterol 2.5 MG/3 ML VIAL.NEB. INHALATION (16:56)
[2020-12-23] MEDS: Ipratropium/Albuterol Sulfate 3 ML AMPUL.NEB INHALATION (16:56)
[2020-12-23 16:57] VITALS: PULSE 62; RESP 18
[2020-12-23 17:08] VITALS: O2SAT 97
--- NOTE | 2020-12-23 17:08 | RAD_ITS ---
HISTORY: cough EXAMINATION/TECHNIQUE: XR Chest 1 View: Portable upright AP chest x-ray COMPARISON: 04/27/18 FINDINGS: LINES/DEVICES: Stable transvenous pacemaker. LUNGS: No consolidation, edema or effusion. No pneumothorax. MEDIASTINUM AND CARDIOVASCULAR STRUCTURES: Cardiac silhouette not enlarged. Stable CABG changes. Central airways and mediastinal contour are unremarkable. BONES AND SOFT TISSUES: No acute bony abnormalities. RAD/Chest 1 View (Portable) IMPRESSION: No radiographic evidence of acute cardiopulmonary disease. at 1750 Reported and signed by: Derrick Pang MD Electronically Signed: Derrick Pang MD at 17:48 EDT Tel , Service support ,
[2020-12-23 17:13] LABS: Absolute Neutrophil Count 3.9 X10^3/uL (2.0-7.7); Basophil# 0.03 X10^3/uL; Basophil% 0.5 % (0-1); Eosinophil# 0.47 X10^3/uL; Eosinophils% 7.4 % (0-5); Hematocrit 40.3 % (40-54); Hemoglobin 13.2 g/dL (13.0-16.5); Lymphocyte % 23.5 % (19-41); Mean Corp Hgb Conc 32.8 g/dL (32-36); Mean Corpuscular Hgb 30.3 pg (27.0-32.0); Mean Corpuscular Volume 92.6 fL (80-94); Mean Platelet Vol. 8.7 fl (6.2-12.0); Monocyte# 0.45 X10^3/uL; NRBC Flagged by Analyzer 0 % (0-5); Neutrophil # 3.92 X10^3/uL (2.7-7.7); Neutrophil % 61.3 % (47-70); Platelet Count 105 K/mm3 (150-450); RBC Distribution Width CV 13.3 % (11.6-14.6); RBC Distribution Width SD 45.1 fl (35.1-43.9); Red Blood Count 4.35 M/mm3 (4.6-6.2); White Blood Count 6.4 K/mm3 (4.4-11.0)
[2020-12-23] MEDS: MethylPREDNISolone 125 MG/2 ML Vial IV (17:15)
[2020-12-23 17:19] LABS: AST(SGOT) 31 U/L (15-37); Alanine Aminotransfer ALT/SGPT 24 U/L (16-61); Albumin, Serum 3.4 g/dL (3.2-5.0); Alkaline Phosphatase 65 U/L (45-117); Bilirubin, Direct 0.11 mg/dL (0.00-0.30); Globulin 4.2 g/dL (2.2-4.2); Protein, Total 7.6 g/dL (6.4-8.2)
[2020-12-23 17:20] VITALS: O2SAT 94
[2020-12-23 17:20] LABS: International Normalized Ratio 2.3; Prothrombin Time (Protime)PT. 24.9 SECONDS (11.7-14.9)
[2020-12-23 17:46] LABS: Anion Gap 4 (5-15); BUN 24 mg/dL (7-18); BUN/Creat Ratio 18.3 RATIO (10-20); Calcium,Total 8.8 mg/dL (8.5-10.1); Chloride 102 mmol/L (98-107); Creatinine, Serum 1.31 mg/dL (0.70-1.30); EST Glomerular Filtration Rate 56 mL/min (>60); Est Glom Filt Rate - Afr Amer 67 mL/min (>60); Estimated Creatinine Clearance 42.06 ml/min; Glucose 131 mg/dL (74-106); Lipase 148 U/L (73-393); Potassium 5.2 mmol/L (3.5-5.1); Sodium Level 135 mmol/L (136-145); Troponin-I HS 15.4 pg/mL (3.0-78.5)
--- NOTE | 2020-12-23 17:58 | CT_ITS ---
HISTORY: LUQ abdominal pain EXAMINATION: CT Abdomen And Pelvis W/ Contrast Injection TECHNIQUE: Helically acquired images were obtained of the abdomen and pelvis following IV contrast. A radiation dose optimization technique was used for this scan. IV Contrast dosage and agent: 100mL Isovue-300 Oral contrast: None. COMPARISON: 07/06/11 FINDINGS: LOWER CHEST: Lung bases are clear. No cardiomegaly or pericardial effusion. LIVER: Homogeneous. No focal mass. GALLBLADDER AND BILIARY TREE: Calcified gallstones. No gallbladder distension or wall edema. No intra- or extrahepatic biliary ductal dilation. PANCREAS: No focal cystic or solid mass. SPLEEN: Normal size without focal cystic or solid mass. ADRENAL GLANDS: No nodules. KIDNEYS AND URETERS: Normal renal size and position. No hydronephrosis. PERITONEUM: No ascites or free air. BOWEL: No evidence of acute appendicitis. No stomach or bowel distension. No focal inflammatory bowel wall changes. LYMPH NODES: No enlarged mesenteric or retroperitoneal lymph nodes. VESSELS: Aorta is non-dilated. URINARY BLADDER: Unremarkable. REPRODUCTIVE ORGANS: No pelvic masses. ABDOMINAL WALL: Stable fat-containing umbilical hernia. BONES: No acute or aggressive abnormality. Stable compression fractures T11, L1 and L2. CT/Abdomen/Pelvis W IV Cont ONLY IMPRESSION: No acute findings in the abdomen or pelvis. Individualized dose optimization techniques were used for this CT. at 1843 Reported and signed by: Derrick Pang MD Electronically Signed: Derrick Pang MD at 18:42 EDT Tel , Service support ,
[2020-12-23] MEDS: 0.9% Normal Saline 1,000 ML 999 ML IV (18:19)
[2020-12-23 18:34] VITALS: BP 110/55; PULSE 62; RESP 13; O2SAT 96
[2020-12-23 20:04] VITALS: BP 109/55; PULSE 67; RESP 20; O2SAT 95
== END 2020-12-23 20:19 | disposition home or self-care (01) ==
LOC: ED 17:16
PROVIDERS: Emergency Provider Student in an Organized Health Care Education/Training Program; PCP Family Medicine
DX: J20.9 Acute bronchitis, unspecified (principal); R10.12 Left upper quadrant pain; K59.00 Constipation, unspecified; I48.92 Unspecified atrial flutter; Z79.01 Long term (current) use of anticoagulants; Z87.891 Personal history of nicotine dependence
CPT/HCPCS: 71045; 74177; 80048; 80076; 83690; 84484; 85025; 85610; 93005; 94640; 96361; 96374; 99284; J7030; Q9967; A4216

== ENCOUNTER → 2021-05-13 14:25 | Outpatient (CLI) | payer MEDICARE, SELFPAY ==
[2021-05-13 16:05] LABS: Hematocrit 39.4 % (40-54); Hemoglobin 13.1 g/dL (13.0-16.5); Mean Corp Hgb Conc 33.2 g/dL (32-36); Mean Corpuscular Hgb 31.1 pg (27.0-32.0); Mean Corpuscular Volume 93.6 fL (80-94); Mean Platelet Vol. 9.4 fl (6.2-12.0); Platelet Count 101 K/mm3 (150-450); RBC Distribution Width CV 14.5 % (11.6-14.6); RBC Distribution Width SD 48.7 fl (35.1-43.9); Red Blood Count 4.21 M/mm3 (4.6-6.2); White Blood Count 8.5 K/mm3 (4.4-11.0)
[2021-05-13 16:14] LABS: Protein, Urine (Random) 38.8 mg/dL (<11.9); Protein:Creat Ratio 158 mg/g CRE (0-200)
[2021-05-13 16:31] LABS: Albumin, Serum 3.3 g/dL (3.2-5.0); BUN 35 mg/dL (7-18); BUN/Creat Ratio 22.2 RATIO (10-20); Calcium,Total 9.1 mg/dL (8.5-10.1); Chloride 103 mmol/L (98-107); Creatinine, Serum 1.58 mg/dL (0.70-1.30); EST Glomerular Filtration Rate 45 mL/min (>60); Est Glom Filt Rate - Afr Amer 54 mL/min (>60); Glucose 265 mg/dL (74-106); Phosphorus 2.4 mg/dL (2.5-4.9); Potassium 4.9 mmol/L (3.5-5.1); Sodium Level 140 mmol/L (136-145)
== END ==
PROVIDERS: PCP Family Medicine; Referring Provider Internal Medicine Nephrology; Visit Provider Internal Medicine Nephrology
DX: E11.22 Type 2 diabetes mellitus with diabetic chronic kidney disease (principal); N18.31 Chronic kidney disease, stage 3a
CPT/HCPCS: 36415; 80069; 82570; 84156; 85027

== ENCOUNTER 2021-10-05 16:17 | Inpatient (IN) | payer MEDICARE, SELFPAY ==
[2021-10-05 16:18] VITALS: BP 137/56; PULSE 80; RESP 16; TEMP 36.2; O2SAT 97; BMI 36.5
--- NOTE | 2021-10-05 16:35 | EKG12_ITS ---
Test Reason : Blood Pressure : / mmHG Vent. Rate : 065 BPM Atrial Rate : 357 BPM P-R Int : 000 ms QRS Dur : 164 ms QT Int : 438 ms P-R-T Axes : 000 -68 107 degrees QTc Int : 455 ms Ventricular-paced rhythm Abnormal ECG Confirmed by TRESA CULLEN, SOLOMON ([id number]), newspaper copy editor DORYS GEORGE ([id number]) on 10/07/2021 10:34:16 AM Referred By: KOKO Confirmed By:SOLOMON GTZ MD
--- NOTE | 2021-10-05 16:36 | EX.ED.DYSGE1 ---
HPI History of Present Illness Chief Complaint: Weakness Detail of Chief Complaint: Diarrhea for a week. Informant: patient Onset/Context/Timing Onset: Days Context: Gradual Onset Timing: Intermittent Current Severity: Mild Maximum Severity: Mild Narrative Narrative: 80-year-old male is just felt generally weak. He had diarrhea last week that was improving to return. He also has had nausea and vomiting last several days. No melena. No hematemesis. No fever. Today was so weak he was get in a car he fell. No significant injuries. He denies any headache. He has had no recent hospitalizations he has been on no recent antibiotics. He does have a history of atrial flutter on Coumadin and has a pacemaker and had a prior CABG and history of diabetes. Prior similar symptoms: No Recent Illness/Hospitalization: No [facility] Medical History (Updated 10/05/21 @ 19:[address] Derek Castillo MD) Atrial flutter Diabetes History of hyperlipidemia Hypertension Pacemaker Home Medications aspirin 81 mg PO DAILY@0800 05/05/18 [History Last Taken Unknown] cholecalciferol (vitamin D3) [Vitamin D] 2,000 unit PO DAILY 05/05/18 [History Last Taken Unknown] metoprolol tartrate 25 mg PO BID 05/05/18 [History Last Taken 18] warfarin [Coumadin (PBKC)] 4 mg PO DAILY 05/05/18 [History Last Taken Unknown] dulaglutide [Trulicity] 0.75 mg SUBCUT SA 10/05/21 [History Last Taken Unknown] lovastatin 40 mg PO QHS 10/05/21 [History Last Taken Unknown] sitagliptin [Januvia] 50 mg PO DAILY 10/05/21 [History Last Taken Unknown] Allergy/AdvReac Type Severity Reaction Status Date / Time amlodipine Allergy Unknown Verified 10/05/21 16:18 glimepiride Allergy Unknown Verified 10/05/21 16:18 rosiglitazone [From Avandia] Allergy Unknown Verified 10/05/21 16:18 Surgical History (Updated 10/05/21 @ 16:42 by Johanny Hillman) History of appendectomy Hx of CABG Social History Smoking Status: Former smoker ROS ROS ED ROS Narrative Nausea vomiting diarrhea. Weakness. Review of Systems ROS Unobtainable: Denies due to encephalopathy Constitutional Constitutional ED: Denies fever(s) Eyes Eyes: Denies change in vision ENT ENT ED: Denies ear pain Cardiovascular Cardiovascular: Denies chest pain Respiratory/Chest Respiratory/Chest: Denies cough or dyspnea Gastrointestinal Gastrointestinal: Reports diarrhea, nausea and vomiting; Denies abdominal pain, constipation or melena Genitourinary Genitourinary ED: Denies dysuria Musculoskeletal Musculoskeletal: Denies myalgias Integumentary Denies rash Neurologic Neurologic: Denies headache(s) Psychiatric Psychiatric: Denies depression Endocrine Endocrinology: Denies polyuria Allergic/Immunologic Allergic/Immunologic ED: Denies urticaria EXAM Physical Exam Narrative Exam Narrative: Pupils -[id number] male no acute distress sitting upright in bed. Family at bedside. Vital signs stable afebrile. Pulse ox 97% on room air no hypoxia. H EENT exam unremarkable atraumatic. Nontender. Facial tenderness. Neck nontender. Lungs clear to auscultation bilaterally. Heart regular rhythm rate about 80 no murmur. Abdomen soft nontender normal bowel sounds no peritoneal signs. Back nontender. Chest wall nontender. Pelvic girdle intact. Moving all 4 extremities. Equal symmetrical 5/5 mold runner strength. Dorsi plantarflexion intact. Neurologically is awake and alert with no focal motor deficits. Const Vital Signs: 10/05/21 16:18 Temperature 97.1 F L Temperature Source Temporal Pulse Rate 80 Respiratory Rate 16 Blood Pressure 137/56 H Blood Pressure Mean 83 Pulse Ox 97 Oxygen Delivery Method Room Air Positive well nourished and well developed; Negative for cachectic, contractures or unkempt General Appearance ED: well developed and NAD; Negative for unkempt, cachectic, contractures, cyanotic, diaphoretic or pallor Nutritional Appearance: Negative for cachectic HEENT Reports moist mucous membranes Negative for trauma or tenderness Eyes PERRL and EOMs intact bilaterally General Eye ED: Negative for pale conjunctiva or scleral icterus Neck no lymphadenopathy, supple and no JVD General: Negative for tenderness Chest Wall inspection of chest normal Resp normal respiratory effort and clear to auscultation bilaterally Auscultation: Negative for rales, rhonchi or wheezes Cardio regular rate, regular rhythm, S1 normal heart sound, S2 normal heart sound and no murmurs GI normal to inspection, nondistended, normoactive bowel sounds, non-tender, non-distended and no masses Inspection: Negative for abdominal distention Auscultation: normoactive bowel sounds Palpation: soft; Negative for tender, guarding or rebound tenderness present Back/Spine no CVA tenderness General Back: Negative for CVA tenderness Cervical Spine: Negative for cervical spine tenderness Thoracic Spine / Upper Back: Negative for thoracic spinal tenderness or paraspinal muscle tenderness Lumbar Spine / Lower Back: Negative for lumbar spinal tenderness Extremity normal to inspection General Extremety ED: Negative for edema or tenderness General Extremity: Negative for edema Neuro oriented x3 Sensorium / Orientation: alert; Negative for orientation impaired, lethargic or stuporous Motor Exam: strength 5/5 throughout; Negative for general weakness or strength abnormal Psych mental status grossly normal Appearance: Negative for unkempt Attitude: No agitated Mood & Affect: Negative for depressed, anxious or tearful Skin no rashes or lesions noted and no wounds General Skin Exam: Negative for jaundice or pallor MDM MDM MDM Narrative Medical decision making narrative: Older male week long history of diarrhea with nausea vomiting no generalized weakness. Fell today. Repeat exam patient is doing well at 7 PM. We went over his test results including the dehydration. He will be treated here with the liter of normal saline. He had family were instructed to hold his Coumadin the next 2 days have it rechecked on Tuesday and could not start until okayed by his doctor. Lab Data Attestation: I reviewed the patient's lab results. Lab results narrative: CBC White count 6. H&H 14 and 42. Platelet count 100 and low. His Coumadin levels elevated his INR is 8.4. Gap is 7 BUN of 61 creatinine 1.75. Glucose 322 liver enzymes unremarkable. Patient's platelet counts have run low before. He has mild dehydration with renal insufficiency. And a significantly elevated INR. Given his overall weakness and he fell today I will speak to hospitalist about admission. I did speak to his primary care physician let him know that his INR was significantly elevated and will need to be rechecked this week along with his Coumadin being held until its appropriate to restart it. Labs: Laboratory Results - last 24 hr 10/05/21 10/05/21 10/05/21 16:47 16:47 16:47 WBC 6.0 RBC 4.57 L Hgb 14.2 Hct 42.3 MCV 92.6 MCH 31.1 MCHC 33.6 RDW Std Deviation 49.0 H RDW Coeff of Mila 14.5 Plt Count 100 L MPV 9.2 Immature Gran % (Auto) 0.300 Neut % (Auto) 73.7 H Lymph % (Auto) 8.5 L [place] % (Auto) 16.2 H Eos % (Auto) 0.5 Baso % (Auto) 0.8 Absolute Neuts (auto) 4.4 Absolute Lymphs (auto) 0.51 L Nucleated RBC % 0 Differential Comment SCANNED PT 69.6 H INR 8.4 H* Sodium 137 Potassium 4.1 Chloride 100 Carbon Dioxide 30.0 Anion Gap 7 BUN 61 H Creatinine 1.75 H Estim Creat Clear Calc 31.49 Est GFR (MDRD) Af Amer 48 L Est GFR (MDRD) Non-Af 40 L BUN/Creatinine Ratio 34.9 H Glucose 322 H Calcium 9.3 Total Bilirubin 1.20 H AST 16 ALT 16 Alkaline Phosphatase 74 Total Protein 7.6 Albumin 3.2 Globulin 4.4 H Albumin/Globulin Ratio 0.7 L Urine Color Urine Clarity Urine pH Ur Specific [place] Urine Protein Urine Glucose (UA) Urine Ketones Urine Occult Blood Urine Nitrite Urine Bilirubin Urine Urobilinogen Ur Leukocyte Esterase Urine RBC Urine WBC Ur Squamous Epith Cells Urine Bacteria Hyaline Casts Fine Granular Casts Urine Mucus 10/05/21 18:45 WBC RBC Hgb Hct MCV MCH MCHC RDW Std Deviation RDW Coeff of Mila Plt Count MPV Immature Gran % (Auto) Neut % (Auto) Lymph % (Auto) [place] % (Auto) Eos % (Auto) Baso % (Auto) Absolute Neuts (auto) Absolute Lymphs (auto) Nucleated RBC % Differential Comment PT INR Sodium Potassium Chloride Carbon Dioxide Anion Gap BUN Creatinine Estim Creat Clear Calc Est GFR (MDRD) Af Amer Est GFR (MDRD) Non-Af BUN/Creatinine Ratio Glucose Calcium Total Bilirubin AST ALT Alkaline Phosphatase Total Protein Albumin Globulin Albumin/Globulin Ratio Urine Color Cindy Urine Clarity Clear Urine pH 5.0 Ur Specific [place] 1.025 Urine Protein 30 H Urine Glucose (UA) 100 H Urine Ketones 5 H Urine Occult Blood 10 H Urine Nitrite Negative Urine Bilirubin 3 H Urine Urobilinogen 1 H Ur Leukocyte Esterase 25 H Urine RBC 5-10 SEEN Urine WBC 0-5 SEEN Ur Squamous Epith Cells 25-50 SEEN Urine Bacteria 1+ Hyaline Casts 5-10 SEEN Fine Granular Casts 0-5 SEEN Urine Mucus 1+ Radiography Chest X-Ray - ED: 1 View, Read by ED Physician, Read by Radiologist, Heart, Lungs, Mediastinum, Bony Structures, No Acute Disease and Chronic Changes Diagnostic Testing: Clinical Impression(s) from Imaging Studies Chest X-Ray 10/05/21 17:00 IMPRESSION: There are no acute findings. Electronically Signed: Juni Hernandez MD at 17:28 EDT , Chest x-ray, portable, single view interpreted by myself and radiologist shows no acute abnormality. Chronic changes. Left-sided pacemaker. Rhythm Strip Rhythm Strip: Paced rhythm Rate: 65 Ectopy: None EKG Initial EKG: Attestation: I personally reviewed and interpreted this EKG as follows: Comments: Paced rhythm. Rate of 65. Unchanged from prior EKG from December 2020. Prior: Unchanged Discharge Plan Triage Chief Complaint: Weakness Other Complaint: Diarrhea ED Provider: Derek Castillo Dx/Rx/DC Orders Clinical Impression: Generalized weakness, Fall, Diarrhea, Acute dehydration, Acute kidney injury, Subtherapeutic anticoagulation, History of diabetes mellitus, Hx of atrial flutter Prescriptions: No Action warfarin [Jantoven] 4 MG tablet 4 mg PO DAILY RF: 0 aspirin 81 MG tablet,chewable 81 mg PO DAILY@0800 RF: 0 metoprolol tartrate 25 MG tablet 25 mg PO BID RF: 0 cholecalciferol (vitamin D3) [Vitamin D3] 1,000 UNIT tablet 2,000 unit PO DAILY RF: 0 lovastatin 40 mg tablet 40 mg PO QHS RF: 0 Januvia 50 mg tablet 50 mg PO DAILY RF: 0 Trulicity 0.75 mg/0.5 mL pen injector 0.75 mg SUBCUT SA RF: 0 Primary Care Provider: Billy Merrill Referrals: Billy Merrill MD [Primary Care Provider] - Disposition Disposition: Acute Care [facility]
[2021-10-05 16:54] LABS: Absolute Lymphocyte Count 0.51 X10^3/uL (0.83-4.51); Absolute Neutrophil Count 4.4 X10^3/uL (2.0-7.7); Basophil# 0.05 X10^3/uL; Basophil% 0.8 % (0-1); Eosinophil# 0.03 X10^3/uL; Eosinophils% 0.5 % (0-5); Hematocrit 42.3 % (40-54); Hemoglobin 14.2 g/dL (13.0-16.5); Lymphocyte # 0.51 X10^3/ul (0.83-4.51); Lymphocyte % 8.5 % (19-41); Mean Corp Hgb Conc 33.6 g/dL (32-36); Mean Corpuscular Hgb 31.1 pg (27.0-32.0); Mean Corpuscular Volume 92.6 fL (80-94); Mean Platelet Vol. 9.2 fl (6.2-12.0); Monocyte# 0.97 X10^3/uL; Monocyte% 16.2 % (0-10); NRBC Flagged by Analyzer 0 % (0-5); Neutrophil # 4.39 X10^3/uL (2.7-7.7); Neutrophil % 73.7 % (47-70); POSITIVE DIFFERENTIAL YES; POSITIVE MORPHOLOGY YES; Platelet Count 100 K/mm3 (150-450); RBC Distribution Width CV 14.5 % (11.6-14.6); Red Blood Count 4.57 M/mm3 (4.6-6.2)
[2021-10-05 16:56] LABS: Differential Indicated SCAN CRITERIA MET
--- NOTE | 2021-10-05 17:00 | RAD_ITS ---
STUDY: X-RAY CHEST REASON FOR EXAM: Male, 80 years old. weakness TECHNIQUE: XR Chest 1 View COMPARISON: 8.3.21 FINDINGS: There is no demonstrated pleural abnormality. There is a left sided pacemaker batterypack. There are multiple median sternotomy wires. There is no pneumothorax. Normal size heart. Normal mediastinum and luana. Normal visualized pulmonary arteries. There is atherosclerotic calcification of the aortic arch with tortuosity. There are diffuse degenerative changes of the visualized thoracic spine. There is degenerative osteoarthritis of the bilateral shoulders. There is no demonstrated abnormality of the visualized soft tissue structures of the upper abdomen. RAD/Chest 1 View (Portable) IMPRESSION: There are no acute findings. Electronically Signed: Juni Hernandez MD at 17:28 EDT ,
[2021-10-05 17:06] LABS: Prothrombin Time (Protime)PT. 69.6 SECONDS (11.7-14.9)
[2021-10-05 17:10] LABS: ALB/GLOB Ratio 0.7 RATIO (0.9-2.4); AST(SGOT) 16 U/L (15-37); Alanine Aminotransfer ALT/SGPT 16 U/L (16-61); Albumin, Serum 3.2 g/dL (3.2-5.0); Alkaline Phosphatase 74 U/L (45-117); Anion Gap 7 (5-15); BUN 61 mg/dL (7-18); BUN/Creat Ratio 34.9 RATIO (10-20); Calcium,Total 9.3 mg/dL (8.5-10.1); Chloride 100 mmol/L (98-107); Creatinine, Serum 1.75 mg/dL (0.70-1.30); EST Glomerular Filtration Rate 40 mL/min (>60); Est Glom Filt Rate - Afr Amer 48 mL/min (>60); Estimated Creatinine Clearance 31.49 ml/min; Globulin 4.4 g/dL (2.2-4.2); Glucose 322 mg/dL (74-106); Potassium 4.1 mmol/L (3.5-5.1); Protein, Total 7.6 g/dL (6.4-8.2); Sodium Level 137 mmol/L (136-145)
[2021-10-05 17:19] LABS: International Normalized Ratio 8.4
[2021-10-05 17:33] LABS: Differential Comment SCANNED
[2021-10-05 18:57] LABS: Color, Urine Amber (Yellow); Glucose, Dipstick 100 mg/dl (Normal); Ketone-Dipstick 5 mg/dl (Negative); Leukocyte Esterase-Dipstick 25 /ul (Negative); Nitrite-Dipstick Negative (Negative); Occult Blood-Urine 10 /ul (Negative); Protein-Dipstick 30 mg/dl (Negative); Specific Gravity, Urine 1.025 (1.002-1.030); Urine Clarity Clear (Clear); Urine Urobilinogen 1 mg/dl (Normal)
[2021-10-05 19:01] LABS: Urine Bilirubin Dipstick 3 mg/dL (Negative)
[2021-10-05 19:11] LABS: Red Blood Cells-Urine 5-10 SEEN /hpf (0-5); Squamous Epithelial Cells - UA 25-50 SEEN /hpf (0-5); White Blood Cells 0-5 SEEN /hpf (0-5)
[2021-10-05] MEDS: 0.9% Normal Saline 1,000 ML 999 ML IV (19:11)
[2021-10-05 19:12] LABS: Bacteria 1+ /hpf (None Seen); Fine Granular Cast- Urine 0-5 SEEN /lpf (0-5); Mucous, Urine 1+ /hpf (<or=2+)
[2021-10-05 19:13] LABS: Hyaline Cast 5-10 SEEN /lpf (0-5)
[2021-10-05 19:39] VITALS: BMI 28.8
--- NOTE | 2021-10-05 19:45 | HP.PCM.HOS_ITS ---
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 He denies any specific ill contacts. Work-up in the ED included T97.1, heart rate 80, BP 137/56, respiratory rate 16, 97% on room air, CBC with WC 6, hemoglobin 14.2, platelet 100 without marked left shift with mild lymphopenia, coags with PT 69.6, INR 8.4, CMP with BUN/creatinine 61/1.75, glucose 322, T bili 1.20 otherwise not marked appearing hepatic profile, urinalysis with significant evidence of dehydration however it is a poor sample with notable squamous epithelial cells, chest x-ray with no acute cardiopulmonary findings. In the ED patient ministered normal saline and Zofran therapy. [facility] Medical History (Updated 10/05/21 @ 20:[address] Denise Kolb MD) Atrial flutter Diabetes History of hyperlipidemia Hypertension Pacemaker Home Medications aspirin 81 mg PO DAILY@0800 05/05/18 [History Last Taken 10/05/21] cholecalciferol (vitamin D3) [Vitamin D] 2,000 unit PO DAILY 05/05/18 [History Last Taken 10/05/21] metoprolol tartrate 25 mg PO BID 05/05/18 [History Last Taken 10/05/21] warfarin [Coumadin (PBKC)] 4 mg PO DAILY 05/05/18 [History Last Taken 10/04/21] dulaglutide [Trulicity] 0.75 mg SUBCUT SA 10/05/21 [History Last Taken 10/03/21] lovastatin 40 mg PO QHS 10/05/21 [History Last Taken 10/04/21] sitagliptin [Januvia] 50 mg PO DAILY 10/05/21 [History Last Taken 10/05/21] Allergy/AdvReac Type Severity Reaction Status Date / Time amlodipine Allergy Unknown Verified 10/05/21 16:18 glimepiride Allergy Unknown Verified 10/05/21 16:18 rosiglitazone [From Avandia] Allergy Unknown Verified 10/05/21 16:18 Family History (Updated 10/05/21 @ 20:[address] Denise Kolb MD) Mother Heart disease Father Heart disease Surgical History (Updated 10/05/21 @ 20:[address] Denise Kolb MD) History of appendectomy Hx of CABG Social History (Updated 10/05/21 @ 20:[address] Denise Kolb MD) household members: spouse and family Smoking Status: Former smoker how long ago did patient quit smoking: Quit remotely, prior smoked 1 ppd since early youth. alcohol intake: never substance use type: does not use ROS ROS Narrative Admission Review of Systems: CONSTITUTIONAL: No weight loss, fever, chills, + weakness or fatigue. HEENT: Eyes: No visual loss, blurred vision, double vision or yellow sclerae. Ears, Nose, Throat: No hearing loss, sneezing, congestion, runny nose or sore throat. SKIN: No rash or itching, lesions, wounds. CARDIOVASCULAR: No chest pain, chest pressure or chest discomfort, palpitations, edema, orthopnea, syncopal events. RESPIRATORY: + Cough (notes unchanged), no marked sputum, No shortness of breath, wheezing, hemoptysis. GASTROINTESTINAL: + Anorexia, nausea, vomiting, diarrhea, abdominal cramping, No melena, BRBPR. GENITOURINARY: No dysuria, frequency, urgency or retention. NEUROLOGICAL: No headache, dizziness, syncope, paralysis, ataxia, numbness or tingling in the extremities, focal weakness, change in bowel or bladder control, seizure. MUSCULOSKELETAL: + muscle, back pain, joint pain or stiffness. HEMATOLOGIC: No anemia, bleeding or bruising. LYMPHATICS: No enlarged nodes. No history of splenectomy. PSYCHIATRIC: No history of depression or anxiety. ENDOCRINOLOGIC: No reports of sweating, cold or heat intolerance. No polyuria or polydipsia. ALLERGIES: No history of asthma, hives, eczema or rhinitis. Vital Signs Vital Signs Vital Signs: 10/05/21 16:18 Temperature 97.1 F L Temperature Source Temporal Pulse Rate 80 Respiratory Rate 16 Blood Pressure 137/56 H Blood Pressure Mean 83 Pulse Ox 97 Oxygen Delivery Method Room Air Weight Weight: 240 lb Body Mass Index (BMI) 36.5 Physical Exam Narrative Physical Examination: General: Awake, alert, oriented x 3 and cooperative, seated upright in the ED bed, fatigued and ill-appearing Skin: Normal color, normal turgor, no icterus, no cyanosis. HEENT: AT/NC, EOMI, PERRLA, dry MM, no carotid bruits or JVD noted. Lungs: CTA bilaterally, moderate effort, mild decrease BL bases, no rales, ronchi or wheezing. Heart: Currently regular rate and rhythm/paced; no gallop, rub audible. Abdomen: Soft, obese, mild generalized discomfort without rebound or guarding, ND,distant hyperactive BS, no HSM. Extremities: No cyanosis, no clubbing, BL pedal to distal boss edema. Neurological: Patient awake, alert, oriented as noted, cognitive function intact; pupils equally reactive to light and accommodation, cranial nerves II- XII grossly normal, moving all 4 extremities, no focal deficits, strength moderately to severely globally decreased secondary to acute presentation. Psychiatric: Affect appears fatigued, ill appearing, no acute evidence of depressive or anxiety feelings. Results Lab / Micro Data Result Diagrams: 10/05/21 16:47 10/05/21 16:47 Labs: Laboratory Results - last 24 hr 10/05/21 16:47: WBC 6.0, RBC 4.57 L, Hgb 14.2, Hct 42.3, MCV 92.6, MCH 31.1, MCHC 33.6, RDW Std Deviation 49.0 H, RDW Coeff of Mila 14.5, Plt Count 100 L, MPV 9.2, Immature Gran % (Auto) 0.300, Neut % (Auto) 73.7 H, Lymph % (Auto) 8.5 L, [place] % (Auto) 16.2 H, Eos % (Auto) 0.5, Baso % (Auto) 0.8, Absolute Neuts (auto) 4.4, Absolute Lymphs (auto) 0.51 L, Nucleated RBC % 0, Differential Comment SCANNED 10/05/21 16:47: PT 69.6 H, INR 8.4 H* 10/05/21 16:47: Sodium 137, Potassium 4.1, Chloride 100, Carbon Dioxide 30.0, Anion Gap 7, BUN 61 H, Creatinine 1.75 H, Estim Creat Clear Calc 31.49, Est GFR (MDRD) Af Amer 48 L, Est GFR (MDRD) Non-Af 40 L, BUN/Creatinine Ratio 34.9 H, Glucose 322 H, Calcium 9.3, Total Bilirubin 1.20 H, AST 16, ALT 16, Alkaline Phosphatase 74, Total Protein 7.6, Albumin 3.2, Globulin 4.4 H, Albumin/Globulin Ratio 0.7 L 10/05/21 18:45: Urine Color Cindy, Urine Clarity Clear, Urine pH 5.0, Ur Specific [place] 1.025, Urine Protein 30 H, Urine Glucose (UA) 100 H, Urine Ketones 5 H, Urine Occult Blood 10 H, Urine Nitrite Negative, Urine Bilirubin 3 H, Urine Urobilinogen 1 H, Ur Leukocyte Esterase 25 H, Urine RBC 5-10 SEEN, Urine WBC 0-5 SEEN, Ur Squamous Epith Cells 25-50 SEEN, Urine Bacteria 1+, Hyaline Casts 5-10 SEEN, Fine Granular Casts 0-5 SEEN, Urine Mucus 1+ Rhythm Strip Rhythm Strip: Paced rhythm Rate: 65 Ectopy: None Radiology Impression Chest X-Ray 10/05/21 17:00 IMPRESSION: There are no acute findings. 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 #1. N/V/D, Gastroenteritis: Given significantly therapeutic INR to be cautious will admit to PCU, maintain on judicious hydration, trial clear liquids and if improving advance to ADA diet, will plan repeat chest x-ray a.m. following overnight hydration to assure no pneumonia as patient on evaluation with mild coarse bilateral upper airway to anterior and posterior ryan despite chest x- ray not marked appearing if recurrent diarrhea obtain c diff, stool cx, will obtain respiratory viral panel as well as COVID testing, defer any usage of antibiotics as could be viral, as needed antiemetic, maintain on fall preca utions, PT/OT/case management consultation for discharge planning. #2. Supratherapeutic INR: Admission INR 8.4, dehydrated upon presentation, holding Coumadin, judiciously hydrating, trend INR, no obvious evidence of bleeding and stable hemoglobin, if any concerns arise may administer vitamin K. #3. Mild acute renal insufficiency on chronic kidney disease stage III, unclear subtype (Presentation NOT consistent with CESAR): Admission BUN/creatinine 61/1.75, baseline creatinine 1.3-1.5 primarily, judiciously hydrating, repeat BMP in a.m. #4. CAD: Status post CABG x4, we will temporarily hold Coumadin and antiplatelet therapy given supratherapeutic INR, add back once appropriate, continue statin therapy, metoprolol regimen. #5. History of atrial flutter: We will continue metoprolol regimen, holding Coumadin with supratherapeutic INR as noted, add back once appropriate. Status post pacemaker placement. #6. History of type II heart block: Status post pacemaker placement. #7. Hypertension: Continue home regimen including metoprolol with hold parameters as needed, PRN hydralazine. #8. Hyperlipidemia: We will continue statin therapy. #9. Diabetes mellitus type II: Hold oral home regimen, temporarily holding Trulicity, allowing clears with advance diet to ADA diet if able to tolerate, accu checks w/ ISS. #10. Chronic idiopathic thrombocytopenia: Admission platelets 100, baseline appears 90-100, stable, trend. #11. Obesity: Weight loss and lifestyle changes encouraged. #12. DVT prophylaxis: SCDs, holding Coumadin with INR trending, given no obvious evidence of bleeding and stable hemoglobin we will not reverse at this point but low threshold to do so if any concerns arise. #13. CODE status: Patient RHEA is his son and living will is currently in place. Discussed CODE status at length including difference between FULL code, DNR-CCA and DNR-CC status. Following discussions about the differences in these status, requested Full Code status. Advanced Care Planning Face to Face Time: 16 minutes. Charges/Coding Visit Charges OBSV E&M: 74289 Initial observation care L3 Procedures Hospitalists Procedures: [id number] Advncd Care Plan 30 Min
[2021-10-05] MEDS: Ondansetron 4 MG/2 ML Vial IV (19:51)
[2021-10-05 20:09] VITALS: BP 132/60; PULSE 81; RESP 16; TEMP 36.6; O2SAT 97
[2021-10-05 20:58] LABS: Procalcitonin 0.87 ng/mL (0.00-0.09)
[2021-10-05 22:44] VITALS: O2SAT 93
[2021-10-05] MEDS: 0.9% Normal Saline 1,000 ML 100 ML IV (22:50)
[2021-10-05] MEDS: proCHLORPERazine 10 MG/2 ML Vial 5 MG IV (22:59)
[2021-10-05 23:00] VITALS: BP 121/52; PULSE 63; RESP 18; TEMP 36.6; O2SAT 95
[2021-10-06] VITALS (49 sets, daily range): BP systolic 51–142; BP diastolic 33–72; PULSE 63–96; RESP 14–32; TEMP 36.1–38.7; O2SAT 74–100
[2021-10-06 00:36] LABS: Bedside Glucose 315 mg/dL (74-106)
--- NOTE | 2021-10-06 05:55 | RAD_ITS ---
EXAM: XR CHEST, 2 VIEWS CLINICAL INDICATION: Cough TECHNIQUE: Frontal and lateral views of the chest. This report was created using [employer] report generation technology. COMPARISON: 10/05/2021 FINDINGS: LUNGS AND PLEURAL SPACES: Unremarkable. No consolidation or edema. No pneumothorax. No effusion. HEART: Unremarkable. Cardiac silhouette not enlarged. MEDIASTINUM: Central airways and mediastinal contour are unremarkable. BONES/JOINTS: Unremarkable. SOFT TISSUES: Unremarkable. TUBES, LINES AND DEVICES: Left-sided pacemaker in stable position. RAD/Chest PA and Lateral IMPRESSION: No acute findings in the chest. Electronically Signed: Gilbert Perry MD at 8:36 EDT ,
--- NOTE | 2021-10-06 06:00 | NURSING ---
Erna notified of patient having black vomit and abdomen distended and hard
--- NOTE | 2021-10-06 06:14 | NURSING ---
Addendum entered by Rissa Overton 10/06/21 07:50: Patient vomiting black and abdomen distended and hard. Patient had CXR upon Arrival and is scheduled to have repeat in AM. Lungs diminished with rhonchi. Patient on 2L of 02 [place] notified and orders labs Original Note: Patient vomiting black and abdomen distended and hard. Patient had CXR upon Arrival and is scheduled to have repeat in AM. Lungs diminished with rhonchi. Patient on 2L of 02 [place] notified and orders labs. KUB suggested.
[2021-10-06] MEDS: Insulin Lispro 100 UNIT/ML INSULN.PEN SC ×3 (06:38→20:47)
[2021-10-06] MEDS: 0.9% Normal Saline 1,000 ML 100 ML IV (06:42)
[2021-10-06 06:57] LABS: Absolute Lymphocyte Count 0.74 X10^3/uL (0.83-4.51); Absolute Neutrophil Count 6.1 X10^3/uL (2.0-7.7); Hematocrit 44.6 % (40-54); Hemoglobin 14.2 g/dL (13.0-16.5); Lymphocyte # 0.74 X10^3/ul (0.83-4.51); Lymphocyte % 9.9 % (19-41); Mean Corp Hgb Conc 31.8 g/dL (32-36); Mean Corpuscular Hgb 30.8 pg (27.0-32.0); Mean Corpuscular Volume 96.7 fL (80-94); Mean Platelet Vol. 9.1 fl (6.2-12.0); Monocyte# 0.61 X10^3/uL; Monocyte% 8.2 % (0-10); NRBC Flagged by Analyzer 0.3 % (0-5); Neutrophil # 6.05 X10^3/uL (2.7-7.7); Neutrophil % 81.4 % (47-70); POSITIVE MORPHOLOGY YES; Platelet Count 107 K/mm3 (150-450); RBC Distribution Width CV 14.6 % (11.6-14.6); Red Blood Count 4.61 M/mm3 (4.6-6.2); White Blood Count 7.4 K/mm3 (4.4-11.0)
[2021-10-06 07:00] LABS: Bedside Glucose 331 mg/dL (74-106)
[2021-10-06 07:09] LABS: Differential Indicated SCAN CRITERIA MET
[2021-10-06 07:26] LABS: ALB/GLOB Ratio 0.5 RATIO (0.9-2.4); AST(SGOT) 27 U/L (15-37); Alanine Aminotransfer ALT/SGPT 18 U/L (16-61); Albumin, Serum 2.1 g/dL (3.2-5.0); Alkaline Phosphatase 62 U/L (45-117); Anion Gap 8 (5-15); BUN 72 mg/dL (7-18); BUN/Creat Ratio 42.1 RATIO (10-20); Calcium,Total 8.6 mg/dL (8.5-10.1); Chloride 100 mmol/L (98-107); Creatinine, Serum 1.71 mg/dL (0.70-1.30); EST Glomerular Filtration Rate 41 mL/min (>60); Est Glom Filt Rate - Afr Amer 49 mL/min (>60); Estimated Creatinine Clearance 32.22 ml/min; Globulin 4.4 g/dL (2.2-4.2); Glucose 334 mg/dL (74-106); Potassium 4.1 mmol/L (3.5-5.1); Protein, Total 6.5 g/dL (6.4-8.2); Sodium Level 133 mmol/L (136-145)
[2021-10-06 08:39] LABS: International Normalized Ratio 11.6; Prothrombin Time (Protime)PT. 90.1 SECONDS (11.7-14.9)
--- NOTE | 2021-10-06 09:47 | RAD_ITS ---
EXAM: XR CHEST, 1 VIEW CLINICAL INDICATION: hypoxia -- portable TECHNIQUE: Frontal view of the chest. This report was created using BI[employer] report generation technology. COMPARISON: 10/06/2021 at 0735 hours FINDINGS: LUNGS AND PLEURAL SPACES: Unremarkable. No consolidation or edema. No pneumothorax. No effusion. HEART: Unremarkable. Cardiac silhouette not enlarged. MEDIASTINUM: Central airways and mediastinal contour are unremarkable. BONES/JOINTS: Unremarkable. SOFT TISSUES: Unremarkable. RAD/Chest 1 View (Portable) IMPRESSION: No radiographic evidence of acute cardiopulmonary disease. Electronically Signed: Gilbert Perry MD at 10:36 EDT ,
--- NOTE | 2021-10-06 10:00 | RAD_ITS ---
EXAM: XR ABDOMEN, 2 VIEWS CLINICAL INDICATION: abdominal distension TECHNIQUE: Frontal view of the abdomen/pelvis with upright view of the abdomen. This report was created using myTips report generation technology. COMPARISON: None. FINDINGS: LOWER THORAX: No acute pathology. INTRAPERITONEAL SPACE: No free air. GASTROINTESTINAL TRACT: There are dilated gas-filled loops of small bowel compatible with mechanical obstruction. ORGANS: Unremarkable as visualized. No organomegaly. No abnormal calcifications. BONES/JOINTS: No acute pathology. SOFT TISSUES: No acute pathology. RAD/Abd Decub and/or Erect(Portabl IMPRESSION: Dilated gas-filled loops of small bowel compatible with small bowel obstruction. Electronically Signed: Gilbert Perry MD at 10:37 EDT ,
--- NOTE | 2021-10-06 11:10 | CT_ITS ---
EXAM: CT ABDOMEN AND PELVIS WITHOUT INTRAVENOUS CONTRAST CLINICAL INDICATION: abdominal distension with diarrhea -- including plevis TECHNIQUE: Helically acquired images were obtained of the abdomen and pelvis without intravenous contrast. This CT exam was performed using one or more of the following dose reduction techniques: automated exposure control, adjustment of the mA and/or kV according to patient size, and/or use of iterative reconstruction technique. This report was created using [employer] report generation technology. COMPARISON: 12/23/2020 FINDINGS: LOWER THORAX: There are nodular opacities seen within both lung bases which appearance of infectious etiology. Atelectasis. No cardiomegaly. No significant pericardial effusion. ABDOMEN: LIVER: Unremarkable. Homogeneous. GALLBLADDER AND BILE DUCTS: There are multiple gallstones present but no inflammation. No gallbladder distention or wall edema. No intra- or extrahepatic biliary ductal dilation. PANCREAS: Unremarkable. No focal cystic mass. SPLEEN: Unremarkable. Normal size without focal cystic or solid mass. ADRENALS: Unremarkable. No nodules. KIDNEYS AND URETERS: Unremarkable. Normal renal size and position. No hydronephrosis. STOMACH AND BOWEL: The stomach is fluid-filled and distended. There is dilatation of proximal small bowel loops with normal caliber distal bowel loops compatible with mechanical obstruction. There is no obvious transition point identified. No focal inflammatory change. PELVIS: APPENDIX: No evidence of acute appendicitis. BLADDER: Unremarkable. REPRODUCTIVE: Unremarkable as visualized. No mass. ABDOMEN and PELVIS: INTRAPERITONEAL SPACE: Unremarkable. No ascites or other fluid collection. No free air. BONES/JOINTS: Unremarkable. No suspicious lytic or blastic abnormality. SOFT TISSUES: There is a umbilical hernia which contains mesenteric fat. VASCULATURE: Unremarkable. Abdominal aorta is non-dilated. LYMPH NODES: Unremarkable. No enlarged lymph nodes. CT/Abdomen/Pelvis without Cont IMPRESSION: 1. Distended fluid-filled stomach with dilated gas and fluid-filled loops of small bowel proximally and normal caliber bowel loops distally compatible with mechanical structure in. There is no obvious transition point identified. Free air identified. 2. Bibasilar nodular opacities which have the appearance of an atypical infectious etiology. No effusions are identified. Electronically Signed: Gilbert Perry MD at 11:52 EDT ,
--- NOTE | 2021-10-06 11:54 | EX.PCM.CONCC ---
Assessment & Plan Assessment/Plan (1) Acute respiratory failure with hypoxemia: PLAN: RECOMMENDATIONS: 1. Proceed with intubation. Obtain and send sputum for culture. 2. Obtain arterial blood gas in 1 hour. 3. Surgery consultation, re: bowel obstruction 4. OG to wall suction. 5. Broad-spectrum empiric antimicrobials. 6. PPI therapy twice daily. 7. Recheck coags and CBC. IMPRESSIONS: 1. Acute hypoxemic respiratory failure The patient decompensated from a respiratory perspective following several episodes of profound emesis with elaine aspiration. He ultimately required ICU transfer and emergent intubation. The patient did have significant GI contents in his posterior oropharynx with witnessed aspiration at the time of intubation as well. He has been placed on empiric broad-spectrum antimicrobials. The patient will be continued on assist control mode of mechanical ventilation. FiO2 and PEEP will be weaned as tolerated. General surgery has been consulted to evaluate his bowel obstruction, as this is the primary etiology leading to his uncontrolled nausea and emesis. 2. Sepsis The patient presented with sepsis due to suspected aspiration pneumonia with acute sepsis related organ dysfunction as evidenced by acute respiratory failure requiring invasive mechanical ventilatory support. Will obtain blood and sputum cultures. The patient has been initiated on broad-spectrum antimicrobials. Supplemental fluids will be provided. Continue supportive measures as noted above. 3. Bowel obstruction CT abdomen/pelvis was concerning for an acute bowel obstruction. General surgery has been consulted. OG tube has been placed at the time of intubation and will be maintained on wall suction to facilitate gastric decompression. 4. Coagulopathy The patient is systemically anticoagulated on Coumadin as an outpatient. He presented with a supratherapeutic INR. In light of his clinical decompensation, vitamin K was provided. His coagulopathy has improved. Recommend following PT/INR daily. Continue to hold Coumadin for now. 5. History of coronary artery disease/atrial flutter/hypertension/hyperlipidemia/chronic ITP Complicates care, management, recovery and prognosis. Continue to hold home antihypertensives. TIME: 45 minutes of critical care time, inclusive of procedures, was spent addressing the patient's acute hypoxemic respiratory failure, bowel obstruction, coagulopathy, review of all data and collaboration with care team. HPI Consult Data Date of Consult: 10/07/21 HPI Narrative Reason for Consultation: Acute hypoxemic respiratory failure HPI Narrative: The patient is an 80-year-old male, with a history as outlined below, who presented to the emergency department on October 05 with generalized weakness in the setting of several days of nausea, vomiting and diarrhea. The patient's medical history is significant for coronary artery disease status post CABG along with chronic kidney disease chronic ITP and atrial flutter on Coumadin. On presentation to the emergency department, the patient was noted to be afebrile and hemodynamically stable. He was initially documented to be saturating well on room air. Initial laboratory evaluation revealed no evidence of a leukocytosis. Platelet count was low at 100,000, which is chronic. INR was supratherapeutic at 8.4. Chemistry profile was notable for a creatinine of 1.75. Total bili was increased at 1.2. COVID PCR was negative. Initial chest x-ray demonstrated no acute cardiopulmonary process. The patient was initially admitted to the progressive care unit for further management. Over the course of the morning on October 06, the patient developed progressive respiratory failure following several witnessed aspiration events. Ultimately, the patient was unable to be maintained from an oxygenation perspective on heated high flow. In light of his ongoing nausea and emesis, the use of BiPAP was contraindicated. Therefore, the patient was transferred to the medical intensive care unit, after which time, he was intubated. Intubation Indication: Progressive respiratory failure Consent was obtained from: Patient The patient was placed in the appropriate sniffing position. Preoxygenated sedation via Airvo heated high flow was provided for a minimum of 3 minutes. The patient had continuous cardiac as well as pulse oximetry monitoring during the procedure. Procedure sedation was provided by the administration of 4 mg of Versed and 20 mg of etomidate. Direct laryngoscopy was then performed using a number 4 MAC blade, which revealed a grade 1 view. A 7.5 mm endotracheal tube was visualized advancing between the cords to the level of 22 cm at the lip. The stylette was then removed and discarded. Tube placement was confirmed by fogging in the tube along with equal and bilateral breath sounds. Colorimetric change was visualized on the CO2 meter. The cuff was then inflated and the tube secured using a commercially available device. A good pulse oximetry waveform was seen on the monitor throughout the procedure. A portable chest x-ray has been ordered to confirm appropriate placement. Immediately following intubation and OG tube was placed and over 3 L of coffee-ground fluid was drained from the patient's stomach. [facility] Medical History (Updated 10/06/21 @ 17:[address] Antwon Fortune MD) Atrial flutter Diabetes History of hyperlipidemia Hypertension Pacemaker Home Medications aspirin 81 mg PO DAILY@0800 05/05/18 [History Last Taken 10/05/21] cholecalciferol (vitamin D3) [Vitamin D] 2,000 unit PO DAILY 05/05/18 [History Last Taken 10/05/21] metoprolol tartrate 25 mg PO BID 05/05/18 [History Last Taken 10/05/21] warfarin [Coumadin ([facility])] 4 mg PO DAILY 05/05/18 [History Last Taken 10/04/21] dulaglutide [Trulicity] 0.75 mg SUBCUT SA 10/05/21 [History Last Taken 10/03/21] lovastatin 40 mg PO QHS 10/05/21 [History Last Taken 10/04/21] sitagliptin [Januvia] 50 mg PO DAILY 10/05/21 [History Last Taken 10/05/21] Allergy/AdvReac Type Severity Reaction Status Date / Time amlodipine Allergy Unknown Verified 10/05/21 16:18 glimepiride Allergy Unknown Verified 10/05/21 16:18 rosiglitazone [From Avandia] Allergy Unknown Verified 10/05/21 16:18 Family History (Updated 10/05/21 @ 20:[address] Denise Kolb MD) Mother Heart disease Father Heart disease Surgical History (Updated 10/05/21 @ 20:[address] Denise Kolb MD) History of appendectomy Hx of CABG Social History (Updated 10/05/21 @ 20:[address] Denise Kolb MD) household members: spouse and family Smoking Status: Former smoker how long ago did patient quit smoking: Quit remotely, prior smoked 1 ppd since early youth. alcohol intake: never substance use type: does not use ROS Constitutional Constitutional: Reports fatigue and weakness Eyes Eyes: Denies blurry vision or change in vision ENT HEENT: Denies dizziness, dysphagia, epistaxis or headache(s) Cardiovascular Cardiovascular: Reports dyspnea Respiratory/Chest Respiratory/Chest: Reports cough and dyspnea Gastrointestinal Gastrointestinal: Reports diarrhea, nausea and vomiting Genitourinary Genitourinary: Denies difficulty urinating Musculoskeletal Musculoskeletal: Denies arthralgias, back pain or joint pain Integumentary Integumentary: Denies lesions, rash or skin ulcer Neurologic Neurologic: Denies abnormal gait or abnormal speech Psychiatric Psychiatric: Denies anxiety Endocrine Endocrinology: Reports fatigue Hematologic/Lymphatic Hematologic/Lymphatic: Denies easy bleeding or easy bruising Physical Exam Const alert General Appearance: in distress and ill appearing HEENT normocephalic and head/scalp atraumatic Eyes PERRL and EOMs intact bilaterally Neck supple General: trachea midline Chest inspection of chest normal Resp Effort and Inspection: tachypneic and labored Auscultation: rhonchi Cardio regular rate and regular rhythm GI non-tender Inspection: abdominal distention Palpation: Negative for guarding Extremity General Extremity: edema bilateral lower extremity; Negative for clubbing Skin no rashes or lesions noted Neuro CN's II-XII intact bilaterally, moves all extremities and no focal motor deficits Psych cooperative and affect normal Lab / Micro Data Result Diagrams: 10/06/21 14:25 10/06/21 06:50 Labs: Laboratory Results - last 24 hr 10/05/21 16:47: WBC 6.0, RBC 4.57 L, Hgb 14.2, Hct 42.3, MCV 92.6, MCH 31.1, MCHC 33.6, RDW Std Deviation 49.0 H, RDW Coeff of Mila 14.5, Plt Count 100 L, MPV 9.2, Immature Gran % (Auto) 0.300, Neut % (Auto) 73.7 H, Lymph % (Auto) 8.5 L, [place]wsley % (Auto) 16.2 H, Eos % (Auto) 0.5, Baso % (Auto) 0.8, Absolute Neuts (auto) 4.4, Absolute Lymphs (auto) 0.51 L, Nucleated RBC % 0, Differential Comment SCANNED 10/05/21 16:47: PT 69.6 H, INR 8.4 H* 10/05/21 16:47: Sodium 137, Potassium 4.1, Chloride 100, Carbon Dioxide 30.0, Anion Gap 7, BUN 61 H, Creatinine 1.75 H, Estim Creat Clear Calc 31.49, Est GFR (MDRD) Af Amer 48 L, Est GFR (MDRD) Non-Af 40 L, BUN/Creatinine Ratio 34.9 H, Glucose 322 H, Calcium 9.3, Total Bilirubin 1.20 H, AST 16, ALT 16, Alkaline Phosphatase 74, Total Protein 7.6, Albumin 3.2, Globulin 4.4 H, Albumin/Globulin Ratio 0.7 L 10/05/21 18:45: Urine Color Cindy, Urine Clarity Clear, Urine pH 5.0, Ur Specific [place] 1.025, Urine Protein 30 H, Urine Glucose (UA) 100 H, Urine Ketones 5 H, Urine Occult Blood 10 H, Urine Nitrite Negative, Urine Bilirubin 3 H, Urine Urobilinogen 1 H, Ur Leukocyte Esterase 25 H, Urine RBC 5-10 SEEN, Urine WBC 0-5 SEEN, Ur Squamous Epith Cells 25-50 SEEN, Urine Bacteria 1+, Hyaline Casts 5-10 SEEN, Fine Granular Casts 0-5 SEEN, Urine Mucus 1+ 10/05/21 20:19: Procalcitonin 0.87 H 10/05/21 22:35: COVID-19 ([facility]) Not Detected 10/05/21 22:37: POC Glucose 315 H 10/06/21 06:35: POC Glucose 331 H 10/06/21 06:50: WBC 7.4, RBC 4.61, Hgb 14.2, Hct 44.6, MCV 96.7 H, MCH 30.8, MCHC 31.8 L D, RDW Std Deviation 52.0 H, RDW Coeff of Mila 14.6, Plt Count 107 L, MPV 9.1, Immature Gran % (Auto) 0.500, Neut % (Auto) 81.4 H, Lymph % (Auto) 9.9 L, [place] % (Auto) 8.2, Eos % (Auto) 0.0, Baso % (Auto) 0.0, Absolute Neuts (auto) 6.1, Absolute Lymphs (auto) 0.74 L, Nucleated RBC % 0.3 10/06/21 06:50: PT 90.1 H, INR 11.6 H* 10/06/21 06:50: Sodium 133 L, Potassium 4.1, Chloride 100, Carbon Dioxide 25.0, Anion Gap 8, BUN 72 H, Creatinine 1.71 H, Estim Creat Clear Calc 32.22, Est GFR (MDRD) Af Amer 49 L, Est GFR (MDRD) Non-Af 41 L, BUN/Creatinine Ratio 42.1 H, Glucose 334 H, Calcium 8.6, Total Bilirubin 1.00, AST 27, ALT 18, Alkaline Phosphatase 62, Total Protein 6.5, Albumin 2.1 L, Globulin 4.4 H, Albumin/Globulin Ratio 0.5 L Rhythm Strip Rhythm Strip: Paced rhythm Rate: 65 Ectopy: None Radiology Impression Chest X-Ray 10/05/21 17:00 IMPRESSION: There are no acute findings. Electronically Signed: Juni Hernandez MD at 17:28 EDT , Chest X-Ray 10/06/21 05:55 IMPRESSION: No acute findings in the chest. Electronically Signed: Gilbert Perry MD at 8:36 EDT , Chest X-Ray 10/06/21 09:47 IMPRESSION: No radiographic evidence of acute cardiopulmonary disease. Electronically Signed: Gilbert Perry MD at 10:36 EDT , Abdomen X-Ray 10/06/21 10:00 IMPRESSION: Dilated gas-filled loops of small bowel compatible with small bowel obstruction. Electronically Signed: Gilbert Perry MD at 10:37 EDT , Abdomen/Pelvis CT 10/06/21 11:10 IMPRESSION: 1. Distended fluid-filled stomach with dilated gas and fluid-filled loops of small bowel proximally and normal caliber bowel loops distally compatible with mechanical structure in. There is no obvious transition point identified. Free air identified. 2. Bibasilar nodular opacities which have the appearance of an atypical infectious etiology. No effusions are identified. Electronically Signed: Gilbert Perry MD at 11:52 EDT , Charges/Coding [employer] Codes Hospitalists' Procedures Procedures: 54409 Critial Care 1st Hr
--- NOTE | 2021-10-06 12:30 | NURSING ---
Report called to HOURLY SHIFT MANAGERALEXANDRE Weinstein
[2021-10-06 12:41] LABS: Bedside Glucose 286 mg/dL (74-106)
--- NOTE | 2021-10-06 13:03 | NURSING ---
This RN attempted to call spouse about pt's condition and being transferred to ICU; no answer, left voicemail.
[2021-10-06] MEDS: Midazolam 2 MG/2 ML Syringe 4 MG IV (13:21)
[2021-10-06] MEDS: Etomidate 20 MG/10 ML Vial IV (13:23)
--- NOTE | 2021-10-06 13:29 | RAD_ITS ---
EXAM: XR ABDOMEN, 1 VIEW CLINICAL INDICATION: OG placement TECHNIQUE: Frontal supine view of the abdomen/pelvis. This report was created using [employer] report generation technology. COMPARISON: 10/06/2021 at 1344 hours FINDINGS: LOWER THORAX: No acute pathology. GASTROINTESTINAL TRACT: Unremarkable. Non-obstructive. No bowel or stomach distention. ORGANS: Unremarkable as visualized. No organomegaly. No abnormal calcifications. BONES/JOINTS: No acute pathology. SOFT TISSUES: No acute pathology. TUBES, LINES AND DEVICES: Nasogastric tube is in place with the distal tip just below the diaphragm and in the proximal stomach. This should be advanced several centimeters into the stomach. There are dilated gas-filled loops of small bowel. RAD/Abdomen Single View (Portable) IMPRESSION: Nasogastric tube with the distal tip just below the diaphragm and in the proximal stomach. This should be advanced several centimeters. There are dilated loops of small bowel compatible with obstruction. There is no acute pulmonary abnormality. Electronically Signed: Gilbert Perry MD at 14:30 EDT ,
[2021-10-06] MEDS: Propofol 10MG/Ml 1,000 MG/100 ML Bottle 5.2 MG CONT INF (13:30)
[2021-10-06] MEDS: 0.9% Normal Saline 1,000 ML 999 ML IV (13:35)
--- NOTE | 2021-10-06 13:40 | RAD_ITS ---
EXAM: XR CHEST, 1 VIEW CLINICAL INDICATION: ETT placement TECHNIQUE: Frontal view of the chest. This report was created using [employer] report generation technology. COMPARISON: 10/06/2021 at 0957 hours FINDINGS: LUNGS AND PLEURAL SPACES: There is minimal bibasilar airspace disease. No pneumothorax. No effusion. HEART: Unremarkable. Cardiac silhouette not enlarged. MEDIASTINUM: Central airways and mediastinal contour are unremarkable. BONES/JOINTS: Unremarkable. SOFT TISSUES: Unremarkable. TUBES, LINES AND DEVICES: Endotracheal tube is in place with the distal tip 6.6 cm above the jose g. Nasogastric tube is in place with the distal tip just below the diaphragm in the proximal stomach. This should be advanced several centimeters into the stomach. Left-sided pacemaker in stable position. RAD/Chest 1 View (Portable) IMPRESSION: 1. Minimal bibasilar airspace disease which may represent atelectasis. 2. Nasogastric tube distal tip just below the diaphragm and in the proximal stomach. This should be advanced several centimeters into the stomach. Endotracheal tube in good position. Electronically Signed: Gilbert Perry MD at 14:39 EDT ,
[2021-10-06] MEDS: Norepinephrine 8 mg/250 mL 0.9% NS 9.4 MG CONT INF (13:48)
--- NOTE | 2021-10-06 13:56 | PN.HOSP_ITS ---
Documented by User: Luther GARCIA 10/06/21 14:26 Subjective Subjective Patient is a 80-year-old male lying in bed, with multiple episodes of nausea and vomiting and reportedly short of breath with hypoxia. Objective Data Objective Data Vital Signs: Vital Signs Temp Pulse Resp BP Pulse Ox 97.9 F 83 19 H 142/60 H 86 10/06/21 09:49 10/06/21 13:30 10/06/21 13:30 10/06/21 09:49 10/06/21 13:30 Oxygen Flow Rate (L/min) 40 Oxygen Delivery Method Airvo Weight: 190 lb 14.725 oz Body Mass Index (BMI) 28.8 Intake & Output: Intake and Output for Last 24 Hours 10/04/21 10/05/21 10/06/21 23:59 23:59 23:59 Intake Total 982.35 / 982.35 1225.50 / 1225.50 Balance 982.35 / 982.35 1225.50 / 1225.50 Lab / Micro Data Result Diagrams: 10/06/21 14:25 10/06/21 06:50 Labs: Laboratory Results - last 24 hr 10/05/21 16:47: WBC 6.0, RBC 4.57 L, Hgb 14.2, Hct 42.3, MCV 92.6, MCH 31.1, MCHC 33.6, RDW Std Deviation 49.0 H, RDW Coeff of Mila 14.5, Plt Count 100 L, MPV 9.2, Immature Gran % (Auto) 0.300, Neut % (Auto) 73.7 H, Lymph % (Auto) 8.5 L, Eddy % (Auto) 16.2 H, Eos % (Auto) 0.5, Baso % (Auto) 0.8, Absolute Neuts (auto) 4.4, Absolute Lymphs (auto) 0.51 L, Nucleated RBC % 0, Differential Comment SCANNED 10/05/21 16:47: PT 69.6 H, INR 8.4 H* 10/05/21 16:47: Sodium 137, Potassium 4.1, Chloride 100, Carbon Dioxide 30.0, Anion Gap 7, BUN 61 H, Creatinine 1.75 H, Estim Creat Clear Calc 31.49, Est GFR (MDRD) Af Amer 48 L, Est GFR (MDRD) Non-Af 40 L, BUN/Creatinine Ratio 34.9 H, Glucose 322 H, Calcium 9.3, Total Bilirubin 1.20 H, AST 16, ALT 16, Alkaline Phosphatase 74, Total Protein 7.6, Albumin 3.2, Globulin 4.4 H, Albumin/Globulin Ratio 0.7 L 10/05/21 18:45: Urine Color Cindy, Urine Clarity Clear, Urine pH 5.0, Ur Specific [place] 1.025, Urine Protein 30 H, Urine Glucose (UA) 100 H, Urine Ketones 5 H, Urine Occult Blood 10 H, Urine Nitrite Negative, Urine Bilirubin 3 H, Urine Urobilinogen 1 H, Ur Leukocyte Esterase 25 H, Urine RBC 5-10 SEEN, Urine WBC 0-5 SEEN, Ur Squamous Epith Cells 25-50 SEEN, Urine Bacteria 1+, Hyaline Casts 5-10 SEEN, Fine Granular Casts 0-5 SEEN, Urine Mucus 1+ 10/05/21 20:19: Procalcitonin 0.87 H 10/05/21 22:35: COVID-19 (PEDRO) Not Detected 10/05/21 22:37: POC Glucose 315 H 10/06/21 06:35: POC Glucose 331 H 10/06/21 06:50: WBC 7.4, RBC 4.61, Hgb 14.2, Hct 44.6, MCV 96.7 H, MCH 30.8, MCHC 31.8 L D, RDW Std Deviation 52.0 H, RDW Coeff of Mila 14.6, Plt Count 107 L, MPV 9.1, Immature Gran % (Auto) 0.500, Neut % (Auto) 81.4 H, Lymph % (Auto) 9.9 L, Eddy % (Auto) 8.2, Eos % (Auto) 0.0, Baso % (Auto) 0.0, Absolute Neuts (auto) 6.1, Absolute Lymphs (auto) 0.74 L, Nucleated RBC % 0.3 10/06/21 06:50: PT 90.1 H, INR 11.6 H* 10/06/21 06:50: Sodium 133 L, Potassium 4.1, Chloride 100, Carbon Dioxide 25.0, Anion Gap 8, BUN 72 H, Creatinine 1.71 H, Estim Creat Clear Calc 32.22, Est GFR (MDRD) Af Amer 49 L, Est GFR (MDRD) Non-Af 41 L, BUN/Creatinine Ratio 42.1 H, Glucose 334 H, Calcium 8.6, Total Bilirubin 1.00, AST 27, ALT 18, Alkaline Phosphatase 62, Total Protein 6.5, Albumin 2.1 L, Globulin 4.4 H, Albumin/Globulin Ratio 0.5 L 10/06/21 12:33: POC Glucose 286 H Radiography Diagnostic Testing: Radiology Impression Chest X-Ray 10/05/21 17:00 IMPRESSION: There are no acute findings. Electronically Signed: Juni Hernandez MD at 17:28 EDT , Chest X-Ray 10/06/21 05:55 IMPRESSION: No acute findings in the chest. Electronically Signed: Gilbert Perry MD at 8:36 EDT , Chest X-Ray 10/06/21 09:47 IMPRESSION: No radiographic evidence of acute cardiopulmonary disease. Electronically Signed: Gilbert Perry MD at 10:36 EDT , Abdomen X-Ray 10/06/21 10:00 IMPRESSION: Dilated gas-filled loops of small bowel compatible with small bowel obstruction. Electronically Signed: Gilbert Perry MD at 10:37 EDT , Abdomen/Pelvis CT 10/06/21 11:10 IMPRESSION: 1. Distended fluid-filled stomach with dilated gas and fluid-filled loops of small bowel proximally and normal caliber bowel loops distally compatible with mechanical structure in. There is no obvious transition point identified. Free air identified. 2. Bibasilar nodular opacities which have the appearance of an atypical infectious etiology. No effusions are identified. Electronically Signed: Gilbert Perry MD at 11:52 EDT , Rhythm Strip Rhythm Strip: Paced rhythm Rate: 65 Ectopy: None Physical Exam Const alert and oriented x3 HEENT head/scalp atraumatic and moist oral mucous membranes Head and Scalp: normocephalic Eyes PERRL, EOMs intact bilaterally and conjunctivae normal Neck no lymphadenopathy, supple and no JVD Resp Effort and Inspection: tachypneic, respiratory distress and labored Auscultation: rhonchi and wheezes Cardio regular rate, regular rhythm and no JVD GI Inspection: abdominal distention Palpation: firm Percussion: dullness to percussion Extremity normal to inspection, full ROM and no clubbing, cyanosis or edema Skin no rashes or lesions noted, no wounds and skin turgor normal Neuro CN's II-XII intact bilaterally Psych affect normal Assessment & Plan Assessment/Plan (1) Acute respiratory failure with hypoxemia: (2) Gastroenteritis: (3) Bowel obstruction: PLAN: Day 1 Discharge planning: To be determined. 1) small bowel obstruction Patient with ongoing abdominal distention and multiple episodes of nausea and vomiting this morning. CT of the abdomen/pelvis demonstrates distended fluid- filled loops of the proximal small bowel. Case discussed with GI, who will assess patient for possible NG tube insertion as well as further management, will make n.p.o, KUB x-ray ordered per paint department supervisor. 2) acute hypoxic respiratory failure likely secondary to aspiration Patient with multiple episodes of nausea and vomiting as above. Patient having extreme difficulty maintaining oxygen saturations, currently requiring Airvo with an FiO2 of 100 to maintain oxygen saturations at or above 90%. We will initiate vancomycin and Zosyn, pulmonary consult ordered, transfer to ICU for imminent intubation, repeat chest x-ray ordered. 3) supratherapeutic INR INR currently 11.6, we will administer 5 mg of vitamin K and continue to trend PT/INR. 4) DM2 Accu-Cheks assigned scale insulin ordered. 5) CAD Status post CABG x4. Hold Coumadin secondary to #3. Continue aspirin, statin and metoprolol. 6) history of type II heart block Status post pacemaker. 7) history of atrial flutter Status post pacemaker. Continue metoprolol, hold Coumadin secondary #3. 8) HTN Continue metoprolol, as needed hydralazine ordered. 9) hyperlipidemia Continue statin. DVT prophylaxis - SCDs, chemoprophylaxis not indicated given #3. Patient seen by Luther Zarate PA-C, under the supervision of Dr. Bruner. Time spent on patient care: 10 minutes. Documented by User: Dr. Juan J Bruner MD 10/06/21 15:35 Subjective Subjective Follow-up for acute hypoxic respiratory failure secondary to vomiting/aspiration and abdominal distention, small bowel obstruction. Patient was seen and examined throughout in the morning in PCU and afternoon in ICU. Patient was admitted with nausea and intermittent vomiting, cramping intermittent diffuse abdominal pain, abdominal distention and diarrhea for about 1 week. In the morning patient had vomiting and probably aspirated. His lung exam sounded coarse crepitations. Abdominal x-ray and CT abdomen was done which shows small bowel obstruction with transition point in right lower quadrant. There was no abdominal imaging at the time of admission. Poultry Hatchery Laborer and general surgery consulted and patient transferred to ICU for intubation, protection of airway and severe acute hypoxic respiratory failure. Initially patient was put on nonrebreather mask platelet was found still hypoxic therefore put on high flow Airvo and then transferred to ICU where he was intubated. Objective Data Lab / Micro Data Result Diagrams: 10/06/21 14:25 10/06/21 06:50 Physical Exam Narrative General: Alert, Oriented x3, Cooperative before intubation and then sedated after intubation HEENT: Atraumatic, PERRLA, EOMI, Normocephalic Oral: Aspiration. ET and OG tube. Neck: Supple, No JVD, Negative Carotid Bruits Lungs: Air entry diminished in bilateral lung bases. Bilateral coarse crepitation. Severe hypoxia. Cardiovascular: Regular rate, Regular Rhythm, Normal S1, Normal S2, No murmurs Abdomen: Abdominal distention present predominantly over upper right and left qu adrant. Bowel sounds sluggish to absent. No appreciable tenderness. No palpable mass : No renal angle tenderness. No suprapubic tenderness. Extremities: No edema, Capillary Refill Less than 3 Seconds Skin: No rashes, No breakdown Musculoskeletal: No Tenderness to Palpation of Joints or Extremities Neurological: Cranial nerves II-XII grossly intact, DTR 2+/4 and Symmetrical, Neuro grossly intact Psych/Mental Status: Normal Affect, Appropriate Assessment & Plan Assessment/Plan (1) Acute respiratory failure with hypoxemia: PLAN: This patient was seen in conjunction with RADHA Hurst. I have independently interviewed and examined the patient and reviewed pertinent history, examination findings, laboratory and plan of management. I have reviewed the note and agree with the documented findings with the few additional points. In brief, patient is 80-year-old gentleman was admitted with 1 week history of nausea, intermittent vomiting and diarrhea which progressed to abdominal distent ion. Patient also intermittent abdominal cramping. 1. Acute hypoxic respiratory failure most likely due to aspiration: In the morning patient had vomiting and probably aspirated because chest auscultation appeared coarse crepitation. Poultry Hatchery Laborer consulted. Patient oxygenation and ventilation did not improve nonrebreather and Airvo therefore transferred to ICU where he was intubated and ventilated. Patient on IV propofol and fentanyl drip. During intubation, greenish-black fluid observed and after intubation and OG tube, Platelet count 117,000. ABG 7.3 8/48/174 on 90% FiO2/450/15 PEEP. Chest x-ray initially reviewed. Initial chest shows no acute cardiopulmonary abnormality. 2. Small bowel obstruction: OG tube inserted about 3 L of coffee-ground fluid aspirated. CT abdomen and pelvis without oral and IV contrast shows possible transition point in right lower quadrant with dilated upstream small bowel, jejunum. Surgery is consulted. 3. Coffee-ground aspiration: Gastric occult blood ordered. Repeat CBC does not show appreciable drop, it was 14.2 13.5. 4. Aspiration:After vomiting, chest x-ray although reported no acute findings but on my review seems mild RLL and LLL haziness/infiltrate. Patient empirically covered with IV antibiotic vancomycin and Zosyn. Sputum culture ordered. COVID-19 PCR not detected. 5. Hypotension mostly due to sedative medication/neurogenic with history of coronary artery status post four-vessel CABG, atrial flutter on warfarin, type II heart block status post pacemaker, hypertension and dyslipidemia: Patient INR is supratherapeutic. Vitamin K 5 mg IV given in the morning. Warfarin is on hold. Most recent blood pressure 116/55. Patient dropped blood pressure during intubation systolic 55. Right IJ CVC catheter inserted. 6. Chronic idiopathic thrombocytopenia: Platelet seems to be stable around 90- 100,000. 7. Diabetes mellitus type 2: Uncontrolled glucose in 300, most recent 286. Started on 10 units Lantus insulin. I have discussed my assessment with RADHA Hurst and orders have been reviewed. Total time of the visit including total time spent in counseling or coordination of care, (more than 50% of the total time, spent in obtaining medical information from nurses and other ancillary care providers,explaining to the patient about labs, imaging, diagnosis and management), discussion with consu ltants, review of labs and imaging is 45 minutes, I spent 30 minutes and RADHA Sloan is spent 15 minutes. Charges/Coding Visit Charges Inpatient E&M: 10360 Subs Hosp L3
--- NOTE | 2021-10-06 14:01 | CON.PCM.SX_ITS ---
Documented by User: Preeti GARCIA PA-C 10/06/21 15:53 Assessment & Plan Assessment/Plan (1) Bowel obstruction: QUALIFIERS: Intestinal obstruction extent: partial Intestinal obstruction type: unspecified Qualified Code(s): K56.600 - Partial intestinal obstruction, unspecified as to cause PLAN: I have been consulted in conjunction with Dr. Fortune. I have reviewed and discussed my findings with him. NG tube was successfully placed with approximately 2 liters of brown fluid within the canister. Continue NG tube to suction. Conservative measures with bowel rest. If obstruction does not resolve, surgical intervention may be needed. We will continue to closely monitor this patient. Thank you for allowing us to participate in this patient's care. HPI Consult Data Date of Consult: 10/06/21 HPI Narrative HPI Narrative: WILBUR GORMAN, is a 80 M who is currently mechanically ventilated. Patient presented with generalized weakness. Majority of patient's history was gathered from the chart and nursing staff. Patient arrived to the ED following multiple days of diarrhea, nausea, vomiting. Patient appears to have a history of atrial flutter, CABG, and pacemaker presence. He is currently maintained on Coumadin. Patient had a CT scan this morning demonstrating fluid-filled stomach, dilatation of the proximal small bowel. There appears to be a transition point in the left lower quadrant. An abdominal hernia is noted also. Per nursing, patient was noted to have nausea and vomiting overnight and throughout the day t bria. His oxygen saturation was noted to decline. Patient was transferred to ICU to be intubated. Patient's daughter had been with patient yesterday. There was no family present upon consultation. [facility] Medical History (Updated 10/06/21 @ 17:[address] Antwon Fortune MD) Atrial flutter Diabetes History of hyperlipidemia Hypertension Pacemaker Home Medications aspirin 81 mg PO DAILY@0800 05/05/18 [History Last Taken 10/05/21] cholecalciferol (vitamin D3) [Vitamin D] 2,000 unit PO DAILY 05/05/18 [History Last Taken 10/05/21] metoprolol tartrate 25 mg PO BID 05/05/18 [History Last Taken 10/05/21] warfarin [Coumadin ([facility])] 4 mg PO DAILY 05/05/18 [History Last Taken 10/04/21] dulaglutide [Trulicity] 0.75 mg SUBCUT SA 10/05/21 [History Last Taken 10/03/21] lovastatin 40 mg PO QHS 10/05/21 [History Last Taken 10/04/21] sitagliptin [Januvia] 50 mg PO DAILY 10/05/21 [History Last Taken 10/05/21] Allergy/AdvReac Type Severity Reaction Status Date / Time amlodipine Allergy Unknown Verified 10/05/21 16:18 glimepiride Allergy Unknown Verified 10/05/21 16:18 rosiglitazone [From Avandia] Allergy Unknown Verified 10/05/21 16:18 Family History (Updated 10/05/21 @ 20:[address] Denise Kolb MD) Mother Heart disease Father Heart disease Surgical History (Updated 10/05/21 @ 20:[address] Denise Kolb MD) History of appendectomy Hx of CABG Social History (Updated 10/05/21 @ 20:[address] Denise Kolb MD) household members: spouse and family Smoking Status: Former smoker how long ago did patient quit smoking: Quit remotely, prior smoked 1 ppd since early youth. alcohol intake: never substance use type: does not use ROS Review of Systems ROS Unobtainable: due to endotracheal tube Physical Exam Const Constitutional Narrative: Intubated. Distended abdomen. General Appearance: ill appearing HEENT normocephalic Eyes EOMs intact bilaterally Neck full ROM Lymph Lymphatic: no lymphadenopathy noted Resp Auscultation: diminished lung sounds bilateral throughout Cardio Rate: bradycardia GI Inspection: abdominal distention Auscultation: hypoactive bowel sounds Bladder / Kidney Exam: catheter in place Back/Spine no CVA tenderness Extremity General Extremity: edema Skin no rashes or lesions noted Psych Psych Narrative: Intubated Lab / Micro Data Result Diagrams: 10/06/21 14:25 10/06/21 06:50 Labs: Laboratory Results - last 24 hr 10/05/21 16:47: WBC 6.0, RBC 4.57 L, Hgb 14.2, Hct 42.3, MCV 92.6, MCH 31.1, MCHC 33.6, RDW Std Deviation 49.0 H, RDW Coeff of Mila 14.5, Plt Count 100 L, MPV 9.2, Immature Gran % (Auto) 0.300, Neut % (Auto) 73.7 H, Lymph % (Auto) 8.5 L, Cassia % (Auto) 16.2 H, Eos % (Auto) 0.5, Baso % (Auto) 0.8, Absolute Neuts (auto) 4.4, Absolute Lymphs (auto) 0.51 L, Nucleated RBC % 0, Differential Comment SCANNED 10/05/21 16:47: PT 69.6 H, INR 8.4 H* 10/05/21 16:47: Sodium 137, Potassium 4.1, Chloride 100, Carbon Dioxide 30.0, Anion Gap 7, BUN 61 H, Creatinine 1.75 H, Estim Creat Clear Calc 31.49, Est GFR (MDRD) Af Amer 48 L, Est GFR (MDRD) Non-Af 40 L, BUN/Creatinine Ratio 34.9 H, Glucose 322 H, Calcium 9.3, Total Bilirubin 1.20 H, AST 16, ALT 16, Alkaline Phosphatase 74, Total Protein 7.6, Albumin 3.2, Globulin 4.4 H, Albumin/Globulin Ratio 0.7 L 10/05/21 18:45: Urine Color Cindy, Urine Clarity Clear, Urine pH 5.0, Ur Specific [place] 1.025, Urine Protein 30 H, Urine Glucose (UA) 100 H, Urine Ketones 5 H, Urine Occult Blood 10 H, Urine Nitrite Negative, Urine Bilirubin 3 H, Urine Urobilinogen 1 H, Ur Leukocyte Esterase 25 H, Urine RBC 5-10 SEEN, Urine WBC 0-5 SEEN, Ur Squamous Epith Cells 25-50 SEEN, Urine Bacteria 1+, Hyaline Casts 5-10 SEEN, Fine Granular Casts 0-5 SEEN, Urine Mucus 1+ 10/05/21 20:19: Procalcitonin 0.87 H 10/05/21 22:35: COVID-19 (PEDRO) Not Detected 10/05/21 22:37: POC Glucose 315 H 10/06/21 06:35: POC Glucose 331 H 10/06/21 06:50: WBC 7.4, RBC 4.61, Hgb 14.2, Hct 44.6, MCV 96.7 H, MCH 30.8, MCHC 31.8 L D, RDW Std Deviation 52.0 H, RDW Coeff of Mila 14.6, Plt Count 107 L, MPV 9.1, Immature Gran % (Auto) 0.500, Neut % (Auto) 81.4 H, Lymph % (Auto) 9.9 L, Cassia % (Auto) 8.2, Eos % (Auto) 0.0, Baso % (Auto) 0.0, Absolute Neuts (auto) 6.1, Absolute Lymphs (auto) 0.74 L, Nucleated RBC % 0.3 10/06/21 06:50: PT 90.1 H, INR 11.6 H* 10/06/21 06:50: Sodium 133 L, Potassium 4.1, Chloride 100, Carbon Dioxide 25.0, Anion Gap 8, BUN 72 H, Creatinine 1.71 H, Estim Creat Clear Calc 32.22, Est GFR (MDRD) Af Amer 49 L, Est GFR (MDRD) Non-Af 41 L, BUN/Creatinine Ratio 42.1 H, Glucose 334 H, Calcium 8.6, Total Bilirubin 1.00, AST 27, ALT 18, Alkaline Phosphatase 62, Total Protein 6.5, Albumin 2.1 L, Globulin 4.4 H, Albumin/Globulin Ratio 0.5 L 10/06/21 12:33: POC Glucose 286 H Rhythm Strip Rhythm Strip: Paced rhythm Rate: 65 Ectopy: None Radiology Impression Chest X-Ray 10/05/21 17:00 IMPRESSION: There are no acute findings. Electronically Signed: Juni Hernandez MD at 17:28 EDT , Chest X-Ray 10/06/21 05:55 IMPRESSION: No acute findings in the chest. Electronically Signed: Gilbert Perry MD at 8:36 EDT , Chest X-Ray 10/06/21 09:47 IMPRESSION: No radiographic evidence of acute cardiopulmonary disease. Electronically Signed: Gilbert Perry MD at 10:36 EDT , Abdomen X-Ray 10/06/21 10:00 IMPRESSION: Dilated gas-filled loops of small bowel compatible with small bowel obstruction. Electronically Signed: Gilbert Perry MD at 10:37 EDT , Abdomen/Pelvis CT 10/06/21 11:10 IMPRESSION: 1. Distended fluid-filled stomach with dilated gas and fluid-filled loops of small bowel proximally and normal caliber bowel loops distally compatible with mechanical structure in. There is no obvious transition point identified. Free air identified. 2. Bibasilar nodular opacities which have the appearance of an atypical infectious etiology. No effusions are identified. Electronically Signed: Gilbert Perry MD at 11:52 EDT , Documented by User: Dr. Antwon Fortune MD 10/06/21 17:26 Assessment & Plan Assessment/Plan (1) Bowel obstruction: QUALIFIERS: Intestinal obstruction extent: partial Intestinal obstruction type: unspecified Qualified Code(s): K56.600 - Partial intestinal obstruction, unspecified as to cause Assessment & Plan (1) Bowel obstruction: Problem Details: Agree with Mrs. Bradshaw's documentation above. History is gleaned from hospitalist service, as well as nursing team. This is an 80-year-old man who presented yesterday with a 1 week antecedent history of progressive weakness, nausea, vomiting, and frequent loose stools. Given his history, he was presumed to have a diagnosis of gastroenteritis and was treated accordingly. He was also noted to have a supratherapeutic INR of over 8. He then went on to develop more severe nausea and vomiting with increasing abdominal distention in the last 12 hours and there was likely an aspiration event that led to an acute decompensation. Patient was thus emergently transferred to the ICU and intubated. A nasogastric tube was placed shortly thereafter with return of greater than 3 L aspirate. On exam, patient is sedated, but does not give any indication of abdominal discomfort. There is a transverse scar in the right lower quadrant consistent with his history of an open appendectomy, otherwise his exam is unremarkable. CT imaging was reviewed and, although radiology did not visualize a transition point, I believe a transition zone is visible in the left lower quadrant. Plan of care has been discussed with patient's primary te am to include ongoing conservative management and GI decompression. If his condition further stabilizes/improves, would be reasonable to undertake a small bowel series tomorrow. At this time, I do not find cause for emergent intervention. Please continue to trend INR while this question remains open. Qualifiers: Intestinal obstruction extent: partial Intestinal obstruction type: un specified Qualified Code(s): K56.600 - Partial intestinal obstruction, uns pecified as to cause HPI Consult Data Date of Consult: 10/06/21 HPI Narrative Reason for Consultation: Abdominal distention [facility] Medical History (Updated 10/06/21 @ 17:[address] Antwon Fortune MD) Atrial flutter Diabetes History of hyperlipidemia Hypertension Pacemaker Home Medications aspirin 81 mg PO DAILY@0800 05/05/18 [History Last Taken 10/05/21] cholecalciferol (vitamin D3) [Vitamin D] 2,000 unit PO DAILY 05/05/18 [History Last Taken 10/05/21] metoprolol tartrate 25 mg PO BID 05/05/18 [History Last Taken 10/05/21] warfarin [Coumadin ([facility])] 4 mg PO DAILY 05/05/18 [History Last Taken 10/04/21] dulaglutide [Trulicity] 0.75 mg SUBCUT SA 10/05/21 [History Last Taken 10/03/21] lovastatin 40 mg PO QHS 10/05/21 [History Last Taken 10/04/21] sitagliptin [Januvia] 50 mg PO DAILY 10/05/21 [History Last Taken 10/05/21] Allergy/AdvReac Type Severity Reaction Status Date / Time amlodipine Allergy Unknown Verified 10/05/21 16:18 glimepiride Allergy Unknown Verified 10/05/21 16:18 rosiglitazone [From Avandia] Allergy Unknown Verified 10/05/21 16:18 Family History (Updated 10/05/21 @ 20:[address] Denise Kolb MD) Mother Heart disease Father Heart disease Surgical History (Updated 10/05/21 @ 20:[address] Denise Kolb MD) History of appendectomy Hx of CABG Social History (Updated 10/05/21 @ 20:[address] Denise Kolb MD) household members: spouse and family Smoking Status: Former smoker how long ago did patient quit smoking: Quit remotely, prior smoked 1 ppd since early youth. alcohol intake: never substance use type: does not use Lab / Micro Data Result Diagrams: 10/06/21 14:25 10/06/21 06:50
[2021-10-06] MEDS: Phenylephrine 1 MG/10 ML SYRINGE 0.15 MG IV (14:18)
[2021-10-06 14:27] LABS: Differential Comment SCANNED
[2021-10-06 14:36] LABS: Base Excess 3 mmol/L (-2 to +2); Bicarbonate 28.2 mmol/L (22-26); Blood Gas Specimen Type ART; FI02 90; Mode AC; O2 Delivery Device Adult Vent; PEEP 15; PO2 174 mmHG (75-100); RR 14; SITE R Brach; SO2 100 % (95-99); Total Carbon Dioxide 30 mmol/L; Vt 450; pCO2 47.7 mmHg (35-45); pH 7.38 (7.35-7.45)
[2021-10-06 14:38] LABS: Absolute Lymphocyte Count 0.41 X10^3/uL (0.83-4.51); Absolute Neutrophil Count 4.8 X10^3/uL (2.0-7.7); Hematocrit 39.8 % (40-54); Hemoglobin 13.5 g/dL (13.0-16.5); Lymphocyte # 0.41 X10^3/ul (0.83-4.51); Lymphocyte % 7.6 % (19-41); Mean Corp Hgb Conc 33.9 g/dL (32-36); Mean Corpuscular Hgb 30.9 pg (27.0-32.0); Mean Corpuscular Volume 91.1 fL (80-94); Mean Platelet Vol. 9.3 fl (6.2-12.0); Monocyte# 0.22 X10^3/uL; Monocyte% 4.1 % (0-10); NRBC Flagged by Analyzer 0 % (0-5); Neutrophil # 4.76 X10^3/uL (2.7-7.7); Neutrophil % 87.6 % (47-70); POSITIVE DIFFERENTIAL YES; POSITIVE MORPHOLOGY YES; Platelet Count 117 K/mm3 (150-450); RBC Distribution Width CV 14.5 % (11.6-14.6); RBC Distribution Width SD 48.1 fl (35.1-43.9); Red Blood Count 4.37 M/mm3 (4.6-6.2); White Blood Count 5.4 K/mm3 (4.4-11.0)
--- NOTE | 2021-10-06 14:39 | EKG12_ITS ---
Test Reason : EKG CHANGES Blood Pressure : / mmHG Vent. Rate : 071 BPM Atrial Rate : 055 BPM P-R Int : 000 ms QRS Dur : 154 ms QT Int : 472 ms P-R-T Axes : 000 -73 092 degrees QTc Int : 512 ms Ventricular-paced rhythm Abnormal ECG Confirmed by TRESA CULLEN, SOLOMON ([id number]), newspaper editor managing DORYS GEORGE ([id number]) on 10/08/2021 12:50:56 PM Referred By: HENRIETTA Confirmed By:SOLOMON GTZ MD
[2021-10-06 14:43] LABS: International Normalized Ratio 3.5; Prothrombin Time (Protime)PT. 34.7 SECONDS (11.7-14.9)
[2021-10-06 14:44] LABS: Differential Indicated SCAN CRITERIA MET
[2021-10-06 14:50] LABS: CPK Total, Creatine Kinase 136 U/L (39-308); Triglycerides 145 mg/dL
[2021-10-06 15:02] LABS: Differential Comment SCANNED
--- NOTE | 2021-10-06 15:28 | PCM.OP.BLANK ---
Operative Report Date of Procedure: 10/06/21 Central line placement procedure note Indication: IV access/hemodynamic instability/vasoactive medications Procedure: A time-out was completed to verify correct patient, indication, medication allergies, procedure, coagulation studies, informed consent signed, and equipment needed. The patient was placed in the supine position for a central line placement to the rt IJ vein. The patients rt neck was prepped using chlorhexidine and a full body sterile drape was applied. 1% lidocaine was used to anesthetize the surrounding skin. A 7fr 16 cm blue guard triple lumen catheter introduced into the internal jugular vein using the modified Seldinger technique with the assistance of ultrasound. The catheter was threaded smoothly over the guidewire, the guidewire was removed easily, nonpulsatile blood returned. All ports were aspirated of air and flushed with sterile saline. The catheter was sutured in place and covered with an occlusive dressing impregnated with chlorhexidine. Post-procedure: The patient tolerated the procedure well. Vital signs remained stable. EBL 3 cc. No complications. Chest X Ray ordered to confirm tip placement and the absence of pneumothorax. Procedures Hospitalists Procedures: 40507 Insert Non-tunnel CV Cath
--- NOTE | 2021-10-06 15:32 | RAD_ITS ---
EXAM: XR CHEST, 1 VIEW CLINICAL INDICATION: Central line placement TECHNIQUE: Frontal view of the chest. This report was created using [employer] report generation technology. COMPARISON: 10/06/2021 at 1344 hours FINDINGS: LUNGS AND PLEURAL SPACES: There is minimal bibasilar airspace disease. No pneumothorax. No effusion. HEART: Unremarkable. Cardiac silhouette not enlarged. MEDIASTINUM: Central airways and mediastinal contour are unremarkable. BONES/JOINTS: Unremarkable. SOFT TISSUES: Unremarkable. TUBES, LINES AND DEVICES: Endotracheal tube nasogastric tube are in stable position. Right jugular catheter has been placed with the distal tip overlying the superior vena cava. Left-sided pacemaker in stable position. RAD/CXR for Line Placement IMPRESSION: No change in appearance of the chest from reference exam. Support structures in good position. Electronically Signed: Gilbert Perry MD at 15:57 EDT ,
--- NOTE | 2021-10-06 16:15 | CASEMGMT ---
SW was notified staff has not been able to reach patient's . SW called patient's doctor's office, Dr Merrill and they have 2 other numbers. [phone] and a daughter [phone]. SW called both numbers. The number ending in [phone] had a full voice mail box. The number ending in [phone] went to voice mail and SW left a message requesting a return call. KASIE was then informed patient's called in to [facility] and is being transferred to ICU. SW did call the number ending in [phone] and left a message to disregard previous message. Melvina Christine CORONER TECHNICIAN CHIEF II DISPATCHER
--- NOTE | 2021-10-06 16:41 | CON.PCM.UR_ITS ---
Assessment & Plan Assessment/Plan (1) Phimosis: PLAN: Hoang catheter was placed at the bedside very difficult Hoang cat heter due to foreskin phimosis but once the catheter is not needed okay to DC Hoang per the primary care service call me with questions. HPI Consult Data Date of Consult: 10/06/21 HPI Narrative HPI Narrative: WILBUR GORMAN, is a 80 M who presents with a small bowel obstruction he is in the intensive care unit the nursing staff was not able to place a Hoang catheter so I was consulted to see the patient on inspection he has a very tight phimotic foreskin I was able to navigate the catheter through the foreskin and then into the urethra and then put the catheter in the bladder without any difficulty. Once you are done with a catheter the catheter can be removed. [facility] Medical History (Updated 10/06/21 @ 16:[address] Sterling Hawkins MD) Atrial flutter Diabetes History of hyperlipidemia Hypertension Pacemaker Home Medications aspirin 81 mg PO DAILY@0800 05/05/18 [History Last Taken 10/05/21] cholecalciferol (vitamin D3) [Vitamin D] 2,000 unit PO DAILY 05/05/18 [History Last Taken 10/05/21] metoprolol tartrate 25 mg PO BID 05/05/18 [History Last Taken 10/05/21] warfarin [Coumadin ([facility])] 4 mg PO DAILY 05/05/18 [History Last Taken 10/04/21] dulaglutide [Trulicity] 0.75 mg SUBCUT SA 10/05/21 [History Last Taken 10/03/21] lovastatin 40 mg PO QHS 10/05/21 [History Last Taken 10/04/21] sitagliptin [Januvia] 50 mg PO DAILY 10/05/21 [History Last Taken 10/05/21] Allergy/AdvReac Type Severity Reaction Status Date / Time amlodipine Allergy Unknown Verified 10/05/21 16:18 glimepiride Allergy Unknown Verified 10/05/21 16:18 rosiglitazone [From Avandia] Allergy Unknown Verified 10/05/21 16:18 Family History (Updated 10/05/21 @ 20:[address] Denise Kolb MD) Mother Heart disease Father Heart disease Surgical History (Updated 10/05/21 @ 20:[address] Denise Kolb MD) History of appendectomy Hx of CABG Social History (Updated 10/05/21 @ 20:[address] Denise Kolb MD) household members: spouse and family Smoking Status: Former smoker how long ago did patient quit smoking: Quit remotely, prior smoked 1 ppd since early youth. alcohol intake: never substance use type: does not use Lab / Micro Data Result Diagrams: 10/06/21 14:25 10/06/21 06:50 Labs: Laboratory Results - last 24 hr 10/05/21 16:47: WBC 6.0, RBC 4.57 L, Hgb 14.2, Hct 42.3, MCV 92.6, MCH 31.1, MCHC 33.6, RDW Std Deviation 49.0 H, RDW Coeff of Mila 14.5, Plt Count 100 L, MPV 9.2, Immature Gran % (Auto) 0.300, Neut % (Auto) 73.7 H, Lymph % (Auto) 8.5 L, [place] % (Auto) 16.2 H, Eos % (Auto) 0.5, Baso % (Auto) 0.8, Absolute Neuts (auto) 4.4, Absolute Lymphs (auto) 0.51 L, Nucleated RBC % 0, Differential Comment SCANNED 10/05/21 16:47: PT 69.6 H, INR 8.4 H* 10/05/21 16:47: Sodium 137, Potassium 4.1, Chloride 100, Carbon Dioxide 30.0, Anion Gap 7, BUN 61 H, Creatinine 1.75 H, Estim Creat Clear Calc 31.49, Est GFR (MDRD) Af Amer 48 L, Est GFR (MDRD) Non-Af 40 L, BUN/Creatinine Ratio 34.9 H, Glucose 322 H, Calcium 9.3, Total Bilirubin 1.20 H, AST 16, ALT 16, Alkaline Phosphatase 74, Total Protein 7.6, Albumin 3.2, Globulin 4.4 H, Albumin/Globulin Ratio 0.7 L 10/05/21 18:45: Urine Color Cindy, Urine Clarity Clear, Urine pH 5.0, Ur Specific [place] 1.025, Urine Protein 30 H, Urine Glucose (UA) 100 H, Urine Ketones 5 H, Urine Occult Blood 10 H, Urine Nitrite Negative, Urine Bilirubin 3 H, Urine Urobilinogen 1 H, Ur Leukocyte Esterase 25 H, Urine RBC 5-10 SEEN, Urine WBC 0-5 SEEN, Ur Squamous Epith Cells 25-50 SEEN, Urine Bacteria 1+, Hyaline Casts 5-10 SEEN, Fine Granular Casts 0-5 SEEN, Urine Mucus 1+ 10/05/21 20:19: Procalcitonin 0.87 H 10/05/21 22:35: COVID-19 ([place]) Not Detected 10/05/21 22:37: POC Glucose 315 H 10/06/21 06:35: POC Glucose 331 H 10/06/21 06:50: WBC 7.4, RBC 4.61, Hgb 14.2, Hct 44.6, MCV 96.7 H, MCH 30.8, MCHC 31.8 L D, RDW Std Deviation 52.0 H, RDW Coeff of Mila 14.6, Plt Count 107 L, MPV 9.1, Immature Gran % (Auto) 0.500, Neut % (Auto) 81.4 H, Lymph % (Auto) 9.9 L, [place] % (Auto) 8.2, Eos % (Auto) 0.0, Baso % (Auto) 0.0, Absolute Neuts (auto) 6.1, Absolute Lymphs (auto) 0.74 L, Nucleated RBC % 0.3, Differential Comment SCANNED 10/06/21 06:50: PT 90.1 H, INR 11.6 H* 10/06/21 06:50: Sodium 133 L, Potassium 4.1, Chloride 100, Carbon Dioxide 25.0, Anion Gap 8, BUN 72 H, Creatinine 1.71 H, Estim Creat Clear Calc 32.22, Est GFR (MDRD) Af Amer 49 L, Est GFR (MDRD) Non-Af 41 L, BUN/Creatinine Ratio 42.1 H, Glucose 334 H, Calcium 8.6, Total Bilirubin 1.00, AST 27, ALT 18, Alkaline Phosphatase 62, Total Protein 6.5, Albumin 2.1 L, Globulin 4.4 H, Albumin/Globulin Ratio 0.5 L 10/06/21 06:50: Total Creatine Kinase 136, Triglycerides 145 10/06/21 12:33: POC Glucose 286 H 10/06/21 14:25: WBC 5.4, RBC 4.37 L, Hgb 13.5, Hct 39.8 L, MCV 91.1 D, MCH 30.9, MCHC 33.9 D, RDW Std Deviation 48.1 H, RDW Coeff of Mila 14.5, Plt Count 117 L, MPV 9.3, Immature Gran % (Auto) 0.700, Neut % (Auto) 87.6 H, Lymph % (Auto) 7.6 L, [place] % (Auto) 4.1, Eos % (Auto) 0.0, Baso % (Auto) 0.0, Absolute Neuts (auto) 4.8, Absolute Lymphs (auto) 0.41 L, Nucleated RBC % 0, Differential Comment SCANNED 10/06/21 14:25: PT 34.7 H, INR 3.5 Micro: Microbiology 10/06/21 13:45 Sputum, Induced/Lukens Gram Stain - Final ABG Data ABG results: ABG 10/06/21 14:32 Specimen Type ART Sample Site R Brach pH 7.38 Bicarbonate Actual 28.2 H Total CO2 30 Base Excess 3 H O2 Saturation 100 H O2 % 90 ABG pCO2 47.7 H ABG pO2 174 H Respiration Rate 14 O2 Delivery Device Adult Vent Vent Mode AC Tidal Volume 450 POC PEEP 15 Rhythm Strip Rhythm Strip: Paced rhythm Rate: 65 Ectopy: None Radiology Impression Chest X-Ray 10/05/21 17:00 IMPRESSION: There are no acute findings. Electronically Signed: Juni Hernandez MD at 17:28 EDT , Chest X-Ray 10/06/21 05:55 IMPRESSION: No acute findings in the chest. Electronically Signed: Gilbert Perry MD at 8:36 EDT , Chest X-Ray 10/06/21 09:47 IMPRESSION: No radiographic evidence of acute cardiopulmonary disease. Electronically Signed: Gilbert Perry MD at 10:36 EDT , Abdomen X-Ray 10/06/21 10:00 IMPRESSION: Dilated gas-filled loops of small bowel compatible with small bowel obstruction. Electronically Signed: Gilbert Perry MD at 10:37 EDT , Abdomen/Pelvis CT 10/06/21 11:10 IMPRESSION: 1. Distended fluid-filled stomach with dilated gas and fluid-filled loops of small bowel proximally and normal caliber bowel loops distally compatible with mechanical structure in. There is no obvious transition point identified. Free air identified. 2. Bibasilar nodular opacities which have the appearance of an atypical infectious etiology. No effusions are identified. Electronically Signed: Gilbert Perry MD at 11:52 EDT , KUB X-Ray 10/06/21 13:29 IMPRESSION: Nasogastric tube with the distal tip just below the diaphragm and in the proximal stomach. This should be advanced several centimeters. There are dilated loops of small bowel compatible with obstruction. There is no acute pulmonary abnormality. Electronically Signed: Gilbert Perry MD at 14:30 EDT , Chest X-Ray 10/06/21 13:40 IMPRESSION: 1. Minimal bibasilar airspace disease which may represent atelectasis. 2. Nasogastric tube distal tip just below the diaphragm and in the proximal stomach. This should be advanced several centimeters into the stomach. Endotracheal tube in good position. Electronically Signed: Gilbert Perry MD at 14:39 EDT , Chest X-Ray 10/06/21 15:32 IMPRESSION: No change in appearance of the chest from reference exam. Support structures in good position. Electronically Signed: Gilbert Perry MD at 15:57 EDT ,
[2021-10-06] MEDS: Insulin Glargine-YFGN 100 UNIT/ML Pen 10 UNIT SC (17:09)
--- NOTE | 2021-10-06 17:14 | PCM.RX.CS ---
Consult Pharmacy has been consulted to manage selected antiobiotic: Vancomycin Type of Consult: New start Labs: Sodium 133 mmol/L (136-145) L 10/06/21 06:50 Potassium 4.1 mmol/L (3.5-5.1) 10/06/21 06:50 Chloride 100 mmol/L (98-107) 10/06/21 06:50 Carbon Dioxide 25.0 mmol/L (21.0-32.0) 10/06/21 06:50 Anion Gap 8 (5-15) 10/06/21 06:50 BUN 72 mg/dL (7-18) H 10/06/21 06:50 Creatinine 1.71 mg/dL (0.70-1.30) H 10/06/21 06:50 Est GFR (MDRD) Af Amer 49 mL/min (>60) L 10/06/21 06:50 Est GFR (MDRD) Non-Af 41 mL/min (>60) L 10/06/21 06:50 BUN/Creatinine Ratio 42.1 RATIO (10-20) H 10/06/21 06:50 Glucose 334 mg/dL (74-106) H 10/06/21 06:50 Microbiology: Microbiology 10/06/21 13:45 Sputum, Induced/Lukens Gram Stain - Final Weight used for dosin.6 kg Estimated Creatinine Clearance: 32 ML/MIN Goal Trough: 15-20 mcg/mL Pharmacy Plan for Drug Dosing: Give initial dose (25 mg/kg) of 2000mg IV x1, then continue with 1250mg IV q24h per [facility] dosing protocol. Will order a trough to be drawn before the 3rd dose. Pharmacy Service will continue to monitor and adjust dosing as required. Follow-Up Labs: Trough Vancomycin Labs to be done on [date and time ordered]: 10/08/21 16:30
--- NOTE | 2021-10-06 17:23 | NURSING ---
10/06/[address] guillaume, unable to place guillaume, urology consulted 10/06/21 [address] carmona
[2021-10-06 17:55] LABS: Bedside Glucose 208 mg/dL (74-106)
[2021-10-06] MEDS: Acetaminophen 650 MG Suppository RC (18:16)
[2021-10-06] MEDS: TITRATION PARAMETER CHANGE 1 EACH IV (20:33)
[2021-10-06] MEDS: 0.9% Saline Lock 10 ML Syringe IV (20:33)
[2021-10-06] MEDS: Chlorhexidine 15 ML PO (20:45)
[2021-10-06 21:15] LABS: Bedside Glucose 184 mg/dL (74-106)
[2021-10-06] MEDS: Norepinephrine 8 mg/250 mL 0.9% NS 46.9 MG CONT INF (23:12)
[2021-10-07] VITALS (66 sets, daily range): BP systolic 100–142; BP diastolic 39–90; PULSE 63–88; RESP 14–24; TEMP 38–38.5; O2SAT 91–100
[2021-10-07] MEDS: Propofol 10MG/Ml 1,000 MG/100 ML Bottle 1.3 MG CONT INF ×2 (02:05→14:52)
[2021-10-07] MEDS: Acetaminophen 650 MG Suppository RC ×2 (02:27→11:21)
[2021-10-07] MEDS: Norepinephrine 8 mg/250 mL 0.9% NS 46.9 MG CONT INF (04:32)
[2021-10-07] MEDS: CHLORHEXIDINE GLUC 2% CLOTH 1 EACH TOWELETTE TOPICAL (04:34)
[2021-10-07] MEDS: Insulin Lispro 100 UNIT/ML INSULN.PEN SC ×3 (05:15→17:18)
[2021-10-07 05:21] LABS: Bedside Glucose 180 mg/dL (74-106)
--- NOTE | 2021-10-07 05:51 | PN.CC_ITS ---
Assessment & Plan Assessment/Plan (1) Acute respiratory failure with hypoxemia: PLAN: RECOMMENDATIONS: 1. Continue assist control mode of mechanical ventilation. Wean FiO2/PEEP for saturations greater than 90%. 2. Continue Levophed to maintain a mean arterial pressure at or above 65 mmHg. 3. Additional fluid supplementation today. 4. Will start continuous IV fluids, pending the outcome of the chemistry profile from this morning. 5. Continue broad-spectrum antimicrobials. 6. Continue PPI therapy twice daily. 7. Continue to monitor INR daily. IMPRESSIONS: 1. Acute hypoxemic respiratory failure The patient decompensated from a respiratory perspective following several episodes of profound emesis with elaine aspiration. He ultimately required ICU transfer and emergent intubation. The patient did have significant GI contents in his posterior oropharynx with witnessed aspiration at the time of intubation as well. He has been placed on empiric broad-spectrum antimicrobials. The patient will be continued on assist control mode of mechanical ventilation. FiO2 and PEEP will be weaned as tolerated. General surgery is following to assist with management of his bowel obstruction. 2. Septic shock The patient presented with sepsis due to suspected aspiration pneumonia with acute sepsis related organ dysfunction as evidenced by acute respiratory failure requiring invasive mechanical ventilatory support, along with acute on chronic kidney disease and hyperbilirubinemia. Cultures are currently pending. Will provide additional supplemental IV fluid hydration today. Levophed will be continued to maintain a mean arterial pressure at or above 65 mmHg. 3. Bowel obstruction CT abdomen/pelvis was concerning for an acute bowel obstruction. General surgery is following. OG tube was placed at the time of intubation and will be maintained on wall suction to facilitate gastric decompression. 4. Acute on chronic kidney disease Likely prerenal in etiology in the setting of #2. Plan to continue current supp ortive measures including vasopressor support to maintain a mean arterial pressure at or above 65 mmHg. Will provide additional supplemental IV fluid hydration today. Continue to monitor urine output. No current indication for renal replacement therapy. 5. Coagulopathy The patient is systemically anticoagulated on Coumadin as an outpatient. He presented with a supratherapeutic INR. In light of his clinical decompensation, vitamin K was provided. His coagulopathy has improved. Recommend following PT/INR daily. Continue to hold Coumadin for now. 6. History of coronary artery disease/atrial flutter/hypertension/hyperlipidemia/chronic ITP Complicates care, management, recovery and prognosis. Continue to hold home antihypertensives. TIME: 39 minutes of critical care time, independent of procedures, was spent addressing the patient's acute hypoxemic respiratory failure, septic shock, bowel obstruction, acute on chronic kidney disease, coagulopathy, review of all data and collaboration with care team. Subjective Subjective The patient was seen and examined at the bedside this morning. Events from the last 24 hours have been reviewed. The patient is currently febrile with a temperature of 101.3 ?F. The patient is currently maintaining appropriate oxygen saturations on assist control mode mechanical ventilation with an FiO2 requirement of 50% and PEEP of 7. He is currently requiring Levophed at 25 mcg/min to maintain hemodynamic stability. He is only sedated on fentanyl. Output from his OG tube has decreased. The patient remains on broad-spectrum antimicrobials. Hoang catheter was placed by urology last evening. Objective Data Objective Data The patient's most recent lab work, culture data and imaging studies have all been personally reviewed. Gastric occult blood was positive. Respiratory viral panel was negative. Sputum and blood cultures are pending. Vital Signs: Vital Signs Temp Pulse Resp BP Pulse Ox 101.3 F H 86 21 H 116/52 L 96 10/07/21 05:00 10/07/21 05:15 10/07/21 05:15 10/07/21 05:00 10/07/21 05:15 Oxygen Flow Rate (L/min) 60 Oxygen Delivery Method Mechanical Ventilator Weight: 83.6 kg Body Mass Index (BMI) 28.8 Intake & Output: Intake and Output for Last 24 Hours 10/05/21 10/06/21 10/07/21 23:59 23:59 23:59 Intake Total 982.35 / 982.35 3861.95 / 4003.27 444.39 / 444.39 Output Total 3150 / 3900 750 / 750 Balance 982.35 / 982.35 711.95 / 103.27 -305.61 / -305.61 Lab / Micro Data Result Diagrams: 10/07/21 06:25 10/07/21 06:25 Labs: Laboratory Results - last 24 hr 10/06/21 06:35: POC Glucose 331 H 10/06/21 06:50: WBC 7.4, RBC 4.61, Hgb 14.2, Hct 44.6, MCV 96.7 H, MCH 30.8, MCHC 31.8 L D, RDW Std Deviation 52.0 H, RDW Coeff of Mila 14.6, Plt Count 107 L, MPV 9.1, Immature Gran % (Auto) 0.500, Neut % (Auto) 81.4 H, Lymph % (Auto) 9.9 L, [place] % (Auto) 8.2, Eos % (Auto) 0.0, Baso % (Auto) 0.0, Absolute Neuts (auto) 6.1, Absolute Lymphs (auto) 0.74 L, Nucleated RBC % 0.3, Differential Comment SCANNED 10/06/21 06:50: PT 90.1 H, INR 11.6 H* 10/06/21 06:50: Sodium 133 L, Potassium 4.1, Chloride 100, Carbon Dioxide 25.0, Anion Gap 8, BUN 72 H, Creatinine 1.71 H, Estim Creat Clear Calc 32.22, Est GFR (MDRD) Af Amer 49 L, Est GFR (MDRD) Non-Af 41 L, BUN/Creatinine Ratio 42.1 H, Glucose 334 H, Calcium 8.6, Total Bilirubin 1.00, AST 27, ALT 18, Alkaline Phosphatase 62, Total Protein 6.5, Albumin 2.1 L, Globulin 4.4 H, Albumin/Globulin Ratio 0.5 L 10/06/21 06:50: Total Creatine Kinase 136, Triglycerides 145 10/06/21 12:33: POC Glucose 286 H 10/06/21 14:25: WBC 5.4, RBC 4.37 L, Hgb 13.5, Hct 39.8 L, MCV 91.1 D, MCH 30.9, MCHC 33.9 D, RDW Std Deviation 48.1 H, RDW Coeff of Mila 14.5, Plt Count 117 L, MPV 9.3, Immature Gran % (Auto) 0.700, Neut % (Auto) 87.6 H, Lymph % (Auto) 7.6 L, [place] % (Auto) 4.1, Eos % (Auto) 0.0, Baso % (Auto) 0.0, Absolute Neuts (auto) 4.8, Absolute Lymphs (auto) 0.41 L, Nucleated RBC % 0, Differential Comment SCANNED 10/06/21 14:25: PT 34.7 H, INR 3.5 10/06/21 17:08: POC Glucose 208 H 10/06/21 20:47: POC Glucose 184 H 10/07/21 05:13: POC Glucose 180 H Micro: Microbiology 10/06/21 17:45 Gastric Fluid/Contents Gastric Occult Blood - Final Occult Blood Positive 10/06/21 15:08 Mucosa - Nose Respiratory Panel (PCR) - Final 10/06/21 13:45 Sputum, Induced/Lukens Gram Stain - Final ABG Data ABG results: ABG 10/06/21 14:32 Specimen Type ART Sample Site R Brach pH 7.38 Bicarbonate Actual 28.2 H Total CO2 30 Base Excess 3 H O2 Saturation 100 H O2 % 90 ABG pCO2 47.7 H ABG pO2 174 H Respiration Rate 14 O2 Delivery Device Adult Vent Vent Mode AC Tidal Volume 450 POC PEEP 15 Radiography Diagnostic Testing: Radiology Impression Chest X-Ray 10/06/21 05:55 IMPRESSION: No acute findings in the chest. Electronically Signed: Gilbert Perry MD at 8:36 EDT , Chest X-Ray 10/06/21 09:47 IMPRESSION: No radiographic evidence of acute cardiopulmonary disease. Electronically Signed: Gilbert Perry MD at 10:36 EDT , Abdomen X-Ray 10/06/21 10:00 IMPRESSION: Dilated gas-filled loops of small bowel compatible with small bowel obstruction. Electronically Signed: Gilbert Perry MD at 10:37 EDT , Abdomen/Pelvis CT 10/06/21 11:10 IMPRESSION: 1. Distended fluid-filled stomach with dilated gas and fluid-filled loops of small bowel proximally and normal caliber bowel loops distally compatible with mechanical structure in. There is no obvious transition point identified. Free air identified. 2. Bibasilar nodular opacities which have the appearance of an atypical infectious etiology. No effusions are identified. Electronically Signed: Gilbetr Perry MD at 11:52 EDT , KUB X-Ray 10/06/21 13:29 IMPRESSION: Nasogastric tube with the distal tip just below the diaphragm and in the proximal stomach. This should be advanced several centimeters. There are dilated loops of small bowel compatible with obstruction. There is no acute pulmonary abnormality. Electronically Signed: Gilbert Perry MD at 14:30 EDT , Chest X-Ray 10/06/21 13:40 IMPRESSION: 1. Minimal bibasilar airspace disease which may represent atelectasis. 2. Nasogastric tube distal tip just below the diaphragm and in the proximal stomach. This should be advanced several centimeters into the stomach. Endotracheal tube in good position. Electronically Signed: Gilbert Perry MD at 14:39 EDT , Chest X-Ray 10/06/21 15:32 IMPRESSION: No change in appearance of the chest from reference exam. Support structures in good position. Electronically Signed: Gilbert Perry MD at 15:57 EDT , Rhythm Strip Rhythm Strip: Paced rhythm Rate: 65 Ectopy: None Physical Exam Const no apparent distress Constitutional Narrative: No ventilator dyssynchrony. General Appearance: intubated and patient mechanically ventilated HEENT normocephalic and head/scalp atraumatic Mouth: endotracheal tube in place and OG tube in place Eyes PERRL and conjunctivae normal Neck supple General: trachea midline and CVC in place Chest inspection of chest normal Resp Resp Narrative: Mechanical breath sounds. Auscultation: diminished lung sounds; Negative for rales, rhonchi or wheezes Cardio regular rate and regular rhythm Cardio Narrative: Paced rhythm on telemetry. GI GI Narrative: Abdomen is less distended than yesterday with hypoactive bowel sounds. Extremity General Extremity: edema; Negative for clubbing Skin no rashes or lesions noted Neuro Sensorium / Orientation: sedated on vent Charges/Coding Procedures Hospitalists Procedures: 37446 Critial Care 1st Hr
[2021-10-07 06:39] LABS: Absolute Lymphocyte Count 0.83 X10^3/uL (0.83-4.51); Absolute Neutrophil Count 9.1 X10^3/uL (2.0-7.7); Basophil# 0.01 X10^3/uL; Basophil% 0.1 % (0-1); Eosinophil# 0.09 X10^3/uL; Eosinophils% 0.9 % (0-5); Hematocrit 39.6 % (40-54); Hemoglobin 13.1 g/dL (13.0-16.5); Lymphocyte # 0.83 X10^3/ul (0.83-4.51); Mean Corp Hgb Conc 33.1 g/dL (32-36); Mean Corpuscular Hgb 30.5 pg (27.0-32.0); Mean Corpuscular Volume 92.3 fL (80-94); Mean Platelet Vol. 8.9 fl (6.2-12.0); Monocyte# 0.28 X10^3/uL; Monocyte% 2.7 % (0-10); NRBC Flagged by Analyzer 0 % (0-5); Neutrophil # 9.07 X10^3/uL (2.7-7.7); Neutrophil % 87.1 % (47-70); POSITIVE MORPHOLOGY YES; Platelet Count 101 K/mm3 (150-450); RBC Distribution Width CV 14.9 % (11.6-14.6); RBC Distribution Width SD 50.5 fl (35.1-43.9); Red Blood Count 4.29 M/mm3 (4.6-6.2); White Blood Count 10.4 K/mm3 (4.4-11.0)
[2021-10-07] MEDS: Lactated Ringers 1,000 ML 999 ML IV ×2 (06:41→07:49)
[2021-10-07] MEDS: 0.9% Saline Lock 10 ML Syringe IV ×2 (06:49→11:21)
[2021-10-07 06:50] LABS: Differential Indicated SCAN CRITERIA MET
[2021-10-07 06:56] LABS: ALB/GLOB Ratio 0.6 RATIO (0.9-2.4); AST(SGOT) 25 U/L (15-37); Alanine Aminotransfer ALT/SGPT 12 U/L (16-61); Alkaline Phosphatase 52 U/L (45-117); Anion Gap 11 (5-15); BUN 93 mg/dL (7-18); BUN/Creat Ratio 30.4 RATIO (10-20); Calcium,Total 7.9 mg/dL (8.5-10.1); Chloride 106 mmol/L (98-107); Creatinine, Serum 3.06 mg/dL (0.70-1.30); EST Glomerular Filtration Rate 21 mL/min (>60); Est Glom Filt Rate - Afr Amer 25 mL/min (>60); Estimated Creatinine Clearance 18.01 ml/min; Globulin 3.4 g/dL (2.2-4.2); Glucose 181 mg/dL (74-106); Magnesium 1.8 mg/dL (1.6-2.6); Phosphorus 4.3 mg/dL (2.5-4.9); Potassium 3.9 mmol/L (3.5-5.1); Protein, Total 5.4 g/dL (6.4-8.2); Sodium Level 143 mmol/L (136-145)
--- NOTE | 2021-10-07 07:15 | PN.HOSP_ITS ---
Subjective Subjective Follow-up for septic shock and acute hypoxic respiratory failure Yesterday nursing having difficulty in putting Hoang catheter therefore urology consulted. Was found patient has tight phimosis and Hoang catheter was inserted through foreskin, urethra. Patient on assist control mode ventilator, on Levophed. Discussed with surgeon on 10/06. Objective Data Objective Data Vital Signs: Vital Signs Temp Pulse Resp BP Pulse Ox 101.2 F H 83 14 100/45 L 96 10/07/21 07:00 10/07/21 07:00 10/07/21 07:00 10/07/21 07:00 10/07/21 07:00 Oxygen Flow Rate (L/min) 60 Oxygen Delivery Method Mechanical Ventilator Weight: 184 lb 4.903 oz Body Mass Index (BMI) 28.8 Intake & Output: Intake and Output for Last 24 Hours 10/05/21 10/06/21 10/07/21 23:59 23:59 23:59 Intake Total 982.35 / 982.35 3861.95 / 4003.27 744.51 / 744.51 Output Total 3150 / 3900 1290 / 1290 Balance 982.35 / 982.35 711.95 / 103.27 -545.49 / -545.49 Lab / Micro Data Result Diagrams: 10/07/21 06:25 10/07/21 06:25 Labs: Laboratory Results - last 24 hr 10/06/21 06:50: Differential Comment SCANNED 10/06/21 06:50: PT 90.1 H, INR 11.6 H* 10/06/21 06:50: Sodium 133 L, Potassium 4.1, Chloride 100, Carbon Dioxide 25.0, Anion Gap 8, BUN 72 H, Creatinine 1.71 H, Estim Creat Clear Calc 32.22, Est GFR (MDRD) Af Amer 49 L, Est GFR (MDRD) Non-Af 41 L, BUN/Creatinine Ratio 42.1 H, Glucose 334 H, Calcium 8.6, Total Bilirubin 1.00, AST 27, ALT 18, Alkaline Phosphatase 62, Total Protein 6.5, Albumin 2.1 L, Globulin 4.4 H, Albumin/Globulin Ratio 0.5 L 10/06/21 06:50: Total Creatine Kinase 136, Triglycerides 145 10/06/21 12:33: POC Glucose 286 H 10/06/21 14:25: WBC 5.4, RBC 4.37 L, Hgb 13.5, Hct 39.8 L, MCV 91.1 D, MCH 30.9, MCHC 33.9 D, RDW Std Deviation 48.1 H, RDW Coeff of Mila 14.5, Plt Count 117 L, MPV 9.3, Immature Gran % (Auto) 0.700, Neut % (Auto) 87.6 H, Lymph % (Auto) 7.6 L, Humphreys % (Auto) 4.1, Eos % (Auto) 0.0, Baso % (Auto) 0.0, Absolute Neuts (auto) 4.8, Absolute Lymphs (auto) 0.41 L, Nucleated RBC % 0, Differential Comment SCANNED 10/06/21 14:25: PT 34.7 H, INR 3.5 10/06/21 17:08: POC Glucose 208 H 10/06/21 20:47: POC Glucose 184 H 10/07/21 05:13: POC Glucose 180 H 10/07/21 06:25: WBC 10.4, RBC 4.29 L, Hgb 13.1, Hct 39.6 L, MCV 92.3, MCH 30.5, MCHC 33.1, RDW Std Deviation 50.5 H, RDW Coeff of Mila 14.9 H, Plt Count 101 L, MPV 8.9, Immature Gran % (Auto) 1.200 H, Neut % (Auto) 87.1 H, Lymph % (Auto) 8.0 L, Humphreys % (Auto) 2.7, Eos % (Auto) 0.9, Baso % (Auto) 0.1, Absolute Neuts (auto) 9.1 H, Absolute Lymphs (auto) 0.83, Nucleated RBC % 0 10/07/21 06:25: Sodium 143, Potassium 3.9, Chloride 106, Carbon Dioxide 26.0, Anion Gap 11, BUN 93 H, Creatinine 3.06 H, Estim Creat Clear Calc 18.01, Est GFR (MDRD) Af Amer 25 L, Est GFR (MDRD) Non-Af 21 L, BUN/Creatinine Ratio 30.4 H, Glucose 181 H, Calcium 7.9 L, Phosphorus 4.3, Magnesium 1.8, Total Bilirubin 1.60 H, AST 25, ALT 12 L, Alkaline Phosphatase 52, Total Protein 5.4 L, Albumin 2.0 L, Globulin 3.4, Albumin/Globulin Ratio 0.6 L 10/07/21 06:25: PT 22.0 H, INR 2.0 Micro: Microbiology 10/06/21 17:45 Gastric Fluid/Contents Gastric Occult Blood - Final Occult Blood Positive 10/06/21 15:08 Mucosa - Nose Respiratory Panel (PCR) - Final 10/06/21 13:45 Sputum, Induced/Lukens Gram Stain - Final ABG Data ABG results: ABG 10/06/21 14:32 Specimen Type ART Sample Site R Brach pH 7.38 Bicarbonate Actual 28.2 H Total CO2 30 Base Excess 3 H O2 Saturation 100 H O2 % 90 ABG pCO2 47.7 H ABG pO2 174 H Respiration Rate 14 O2 Delivery Device Adult Vent Vent Mode AC Tidal Volume 450 POC PEEP 15 Radiography Diagnostic Testing: Radiology Impression Chest X-Ray 10/06/21 05:55 IMPRESSION: No acute findings in the chest. Electronically Signed: Gilbert Perry MD at 8:36 EDT , Chest X-Ray 10/06/21 09:47 IMPRESSION: No radiographic evidence of acute cardiopulmonary disease. Electronically Signed: Gilbert Perry MD at 10:36 EDT , Abdomen X-Ray 10/06/21 10:00 IMPRESSION: Dilated gas-filled loops of small bowel compatible with small bowel obstruction. Electronically Signed: Gilbert Perry MD at 10:37 EDT , Abdomen/Pelvis CT 10/06/21 11:10 IMPRESSION: 1. Distended fluid-filled stomach with dilated gas and fluid-filled loops of small bowel proximally and normal caliber bowel loops distally compatible with mechanical structure in. There is no obvious transition point identified. Free air identified. 2. Bibasilar nodular opacities which have the appearance of an atypical infectious etiology. No effusions are identified. Electronically Signed: Gilbert Perry MD at 11:52 EDT , KUB X-Ray 10/06/21 13:29 IMPRESSION: Nasogastric tube with the distal tip just below the diaphragm and in the proximal stomach. This should be advanced several centimeters. There are dilated loops of small bowel compatible with obstruction. There is no acute pulmonary abnormality. Electronically Signed: Gilbert Perry MD at 14:30 EDT , Chest X-Ray 10/06/21 13:40 IMPRESSION: 1. Minimal bibasilar airspace disease which may represent atelectasis. 2. Nasogastric tube distal tip just below the diaphragm and in the proximal stomach. This should be advanced several centimeters into the stomach. Endotracheal tube in good position. Electronically Signed: Gilbert Perry MD at 14:39 EDT , Chest X-Ray 10/06/21 15:32 IMPRESSION: No change in appearance of the chest from reference exam. Support structures in good position. Electronically Signed: Gilbert Perry MD at 15:57 EDT , Rhythm Strip Rhythm Strip: Paced rhythm Rate: 65 Ectopy: None Physical Exam Narrative General: Awake in the morning, intubated HEENT: PERRLA, EOMI Oral: ET and OG tube. Neck: Supple, No JVD, Negative Carotid Bruits Lungs: Air entry diminished in bilateral lung bases. Bilateral coarse crepitation. Severe hypoxia. Cardiovascular: Regular rate, Regular Rhythm, Normal S1, Normal S2, No murmurs Abdomen: Abdominal distention, predominantly over upper quadrants. Bowel sounds absent. No appreciable tenderness. No palpable mass : No renal angle tenderness. No suprapubic tenderness. Extremities: No edema, Capillary Refill Less than 3 Seconds Skin: No rashes, No breakdown Musculoskeletal: No Tenderness to Palpation of Joints or Extremities Neurological: Cranial nerves II-XII grossly intact, DTR 2+/4 and Symmetrical, Neuro grossly intact Psych/Mental Status: Intubated Resp Effort and Inspection: tachypneic, respiratory distress and labored GI Inspection: abdominal distention Palpation: firm Percussion: dullness to percussion Assessment & Plan Assessment/Plan (1) Acute respiratory failure with hypoxemia: PLAN: This patient was seen in conjunction with RADHA Hurst. I have independently interviewed and examined the patient and reviewed pertinent history, examination findings, laboratory and plan of management. I have reviewed the note and agree with the documented findings with the few additional points. In brief, patient is 80-year-old gentleman was admitted with 1 week history of nausea, intermittent vomiting and diarrhea which progressed to abdominal distention. Patient also intermittent abdominal cramping. 1. Acute hypoxic respiratory failure due to multiple episodes of vomiting and aspiration: In the morning patient had vomiting and probably aspirated because chest auscultation appeared coarse crepitation. Oil Prospecting Observer consulted. Patient oxygenation and ventilation did not improve nonrebreather and Airvo therefore transferred to ICU where he was intubated and ventilated. Patient on IV propofol and fentanyl drip. During intubation, greenish-black fluid observed and after intubation and OG tube, Platelet count 117,000. ABG 7.3 8/48/174 on 90% FiO2/450/15 PEEP. Chest x-ray initially reviewed. Initial chest shows no acute cardiopulmonary abnormality. 2. Small bowel obstruction: OG tube inserted about 3 L of coffee-ground fluid aspirated. CT abdomen and pelvis without oral and IV contrast shows possible transition point in right lower quadrant with dilated upstream small bowel, jejunum. Surgery is consulted. 3. Coffee-ground aspiration: Gastric occult blood positive for occult blood. Serial CBC monitoring shows drop in hemoglobin from 14.2-13.1 but his baseline runs around 13.5 gram percent. IV PPI every 12 hourly 4. Septic shock suspected due to aspiration pneumonia with evidence of sepsis related organ dysfunction: Patient has acute hypoxic respiratory failure requiring mechanical ventilation, acute on chronic kidney disease and hyperbilirubinemia after vomiting and aspiration in PCU. Forced vomiting, chest x-ray although reported no acute findings but on my review seems mild RLL and LLL haziness/infiltrate. Patient empirically covered with IV antibiotic vancomycin and Zosyn. Sputum culture ordered. COVID-19 PCR not detected. Patient had right IJ ultrasound-guided CVC catheter inserted on 10/06. 5. 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 Vitamin K 5 mg IV given in the morning. Warfarin is on hold. Patient dropped blood pressure during intubation systolic 55. Right IJ CVC catheter inserted. 10/07: Repeat INR after vitamin K is 2.0. 6. Chronic idiopathic thrombocytopenia: Platelet seems to be stable around 90K- 100,000. 7. Diabetes mellitus type 2: Uncontrolled glucose in 300, most recent 286. Started on 10 units Lantus insulin. Serial Accu-Chek profile is better I have discussed my assessment with RADHA Hurst and orders have been reviewed. Total time of the visit including total time spent in counseling or coordination of care, (more than 50% of the total time, spent in obtaining medical information from nurses and other ancillary care providers,explaining to the pa tient about labs, imaging, diagnosis and management), discussion with consultants, review of labs and imaging is 40 minutes. Charges/Coding Visit Charges Inpatient E&M: 19423 Subs Hosp L3
[2021-10-07] MEDS: TITRATION PARAMETER CHANGE 1 EACH IV (07:20)
[2021-10-07] MEDS: Lactated Ringers 1,000 ML 150 ML IV ×3 (07:49→22:27)
[2021-10-07] MEDS: Norepinephrine 8 mg/250 mL 0.9% NS 56.3 MG CONT INF (09:38)
[2021-10-07] MEDS: Chlorhexidine 15 ML PO ×2 (10:30→23:04)
--- NOTE | 2021-10-07 11:02 | PCM.PN.SRG ---
Subjective Subjective Patient was seen and examined during AM rounds. He is found in an arousable state and answers yes/no questions appropriately. He confirms some abdominal pain is present today. Nursing reports an additional 1 L fluid aspirated via patient's nasogastric tube overnight. Unfortunately they also report that he has required escalation of his vasopressor requirements that he is now on max dose Levophed. Objective Data Objective Data Vital Signs: Vital Signs Temp Pulse Resp BP Pulse Ox 100.7 F H 77 14 117/43 L 96 10/07/21 08:00 10/07/21 08:56 10/07/21 08:56 10/07/21 08:00 10/07/21 08:56 Oxygen Flow Rate (L/min) 60 Oxygen Delivery Method Mechanical Ventilator Weight: 184 lb 4.903 oz Body Mass Index (BMI) 28.8 Intake & Output: Intake and Output for Last 24 Hours 10/05/21 10/06/21 10/07/21 23:59 23:59 23:59 Intake Total 982.35 / 982.35 3861.95 / 4003.27 3153.92 / 3153.92 Output Total 3150 / 3900 1390 / 1390 Balance 982.35 / 982.35 711.95 / 103.27 1763.92 / 1763.92 Lab / Micro Data Result Diagrams: 10/07/21 06:25 10/07/21 06:25 Labs: Laboratory Results - last 24 hr 10/06/21 06:50: Differential Comment SCANNED 10/06/21 06:50: Total Creatine Kinase 136, Triglycerides 145 10/06/21 12:33: POC Glucose 286 H 10/06/21 14:25: WBC 5.4, RBC 4.37 L, Hgb 13.5, Hct 39.8 L, MCV 91.1 D, MCH 30.9, MCHC 33.9 D, RDW Std Deviation 48.1 H, RDW Coeff of Mila 14.5, Plt Count 117 L, MPV 9.3, Immature Gran % (Auto) 0.700, Neut % (Auto) 87.6 H, Lymph % (Auto) 7.6 L, Camp % (Auto) 4.1, Eos % (Auto) 0.0, Baso % (Auto) 0.0, Absolute Neuts (auto) 4.8, Absolute Lymphs (auto) 0.41 L, Nucleated RBC % 0, Differential Comment SCANNED 10/06/21 14:25: PT 34.7 H, INR 3.5 10/06/21 17:08: POC Glucose 208 H 10/06/21 20:47: POC Glucose 184 H 10/07/21 05:13: POC Glucose 180 H 10/07/21 06:25: WBC 10.4, RBC 4.29 L, Hgb 13.1, Hct 39.6 L, MCV 92.3, MCH 30.5, MCHC 33.1, RDW Std Deviation 50.5 H, RDW Coeff of Mila 14.9 H, Plt Count 101 L, MPV 8.9, Immature Gran % (Auto) 1.200 H, Neut % (Auto) 87.1 H, Lymph % (Auto) 8.0 L, Camp % (Auto) 2.7, Eos % (Auto) 0.9, Baso % (Auto) 0.1, Absolute Neuts (auto) 9.1 H, Absolute Lymphs (auto) 0.83, Nucleated RBC % 0 10/07/21 06:25: Sodium 143, Potassium 3.9, Chloride 106, Carbon Dioxide 26.0, Anion Gap 11, BUN 93 H, Creatinine 3.06 H, Estim Creat Clear Calc 18.01, Est GFR (MDRD) Af Amer 25 L, Est GFR (MDRD) Non-Af 21 L, BUN/Creatinine Ratio 30.4 H, Glucose 181 H, Calcium 7.9 L, Phosphorus 4.3, Magnesium 1.8, Total Bilirubin 1.60 H, AST 25, ALT 12 L, Alkaline Phosphatase 52, Total Protein 5.4 L, Albumin 2.0 L, Globulin 3.4, Albumin/Globulin Ratio 0.6 L 10/07/21 06:25: PT 22.0 H, INR 2.0 Micro: Microbiology 10/06/21 13:45 Sputum, Induced/Lukens Gram Stain - Final 10/06/21 13:45 Sputum, Induced/Lukens Respiratory Culture - Preliminary GNR lactose forestry and wildlife manager 10/06/21 17:45 Gastric Fluid/Contents Gastric Occult Blood - Final Occult Blood Positive 10/06/21 15:08 Mucosa - Nose Respiratory Panel (PCR) - Final ABG Data ABG results: ABG 10/06/21 14:32 Specimen Type ART Sample Site R Brach pH 7.38 Bicarbonate Actual 28.2 H Total CO2 30 Base Excess 3 H O2 Saturation 100 H O2 % 90 ABG pCO2 47.7 H ABG pO2 174 H Respiration Rate 14 O2 Delivery Device Adult Vent Vent Mode AC Tidal Volume 450 POC PEEP 15 Radiography Diagnostic Testing: Radiology Impression Abdomen/Pelvis CT 10/06/21 11:10 IMPRESSION: 1. Distended fluid-filled stomach with dilated gas and fluid-filled loops of small bowel proximally and normal caliber bowel loops distally compatible with mechanical structure in. There is no obvious transition point identified. Free air identified. 2. Bibasilar nodular opacities which have the appearance of an atypical infectious etiology. No effusions are identified. Electronically Signed: Gilbert Perry MD at 11:52 EDT , KUB X-Ray 10/06/21 13:29 IMPRESSION: Nasogastric tube with the distal tip just below the diaphragm and in the proximal stomach. This should be advanced several centimeters. There are dilated loops of small bowel compatible with obstruction. There is no acute pulmonary abnormality. Electronically Signed: Gilbert Perry MD at 14:30 EDT , Chest X-Ray 10/06/21 13:40 IMPRESSION: 1. Minimal bibasilar airspace disease which may represent atelectasis. 2. Nasogastric tube distal tip just below the diaphragm and in the proximal stomach. This should be advanced several centimeters into the stomach. Endotracheal tube in good position. Electronically Signed: Gilbert Perry MD at 14:39 EDT , Chest X-Ray 10/06/21 15:32 IMPRESSION: No change in appearance of the chest from reference exam. Support structures in good position. Electronically Signed: Gilbert Perry MD at 15:57 EDT , Rhythm Strip Rhythm Strip: Paced rhythm Rate: 65 Ectopy: None Physical Exam Const Constitutional Narrative: Resting comfortably when we arrived to the room Resp Resp Narrative: Mechanically ventilated GI GI Narrative: Much less distention, right lower quadrant transverse incision scar, soft, expresses tenderness with palpation of the left lower and right upper quadrants. There is no guarding or peritoneal signs. Assessment & Plan Assessment/Plan (1) Bowel obstruction: QUALIFIERS: Intestinal obstruction type: unspecified Intestinal obstruction extent: partial Qualified Code(s): K56.600 - Partial intestinal obstruction, unspecified as to cause PLAN: Patient with persistent larger volumes aspirated from nasogastric tube. He exhibits much less abdominal distention from yesterday. Patient on minimal sedation endorses some left lower quadrant and right upper quadrant tenderness with exam but is otherwise benign with palpation. He has not had any further signs of bowel function. As stated previously, I am suspicious for a transition zone in the right lower quadrant of the patient's abdomen and had hoped to perform a small bowel series today. However, patient's escalating pressor requirement, I would advise delaying this study until his hemodynamic status is improved. We will continue GI decompression, serial abdominal exams, and monitoring patient's GI status. Charges/Coding Visit Charges Inpatient E&M: 80058 Subs Hosp L2
[2021-10-07 11:36] LABS: Bedside Glucose 151 mg/dL (74-106)
--- NOTE | 2021-10-07 13:26 | CASEMGMT ---
Patient is currently intubated and unable to participate in RN CM assessment at this time. RN CM called and left message requesting return call and contact information left. CM will continue to monitor this patient and plan for a safe discharge.
[2021-10-07] MEDS: Norepinephrine 8 mg/250 mL 0.9% NS 28.1 MG CONT INF (15:45)
[2021-10-07 17:21] LABS: Bedside Glucose 175 mg/dL (74-106)
[2021-10-07 17:53] LABS: Vancomycin, Trough Level 16.2 ug/mL (5.0-15.0)
--- NOTE | 2021-10-07 18:58 | PCM.RX.CS ---
Consult Pharmacy has been consulted to manage selected antiobiotic: Vancomycin Type of Consult: Follow-up Labs: Sodium 143 mmol/L (136-145) 10/07/21 06:25 Potassium 3.9 mmol/L (3.5-5.1) 10/07/21 06:25 Chloride 106 mmol/L (98-107) 10/07/21 06:25 Carbon Dioxide 26.0 mmol/L (21.0-32.0) 10/07/21 06:25 Anion Gap 11 (5-15) 10/07/21 06:25 BUN 93 mg/dL (7-18) H 10/07/21 06:25 Creatinine 3.06 mg/dL (0.70-1.30) H 10/07/21 06:25 Est GFR (MDRD) Af Amer 25 mL/min (>60) L 10/07/21 06:25 Est GFR (MDRD) Non-Af 21 mL/min (>60) L 10/07/21 06:25 BUN/Creatinine Ratio 30.4 RATIO (10-20) H 10/07/21 06:25 Glucose 181 mg/dL (74-106) H 10/07/21 06:25 Vancomycin Trough 16.2 ug/mL (5.0-15.0) H 10/07/21 17:15 Microbiology: Microbiology 10/06/21 13:45 Sputum, Induced/Lukens Gram Stain - Final 10/06/21 13:45 Sputum, Induced/Lukens Respiratory Culture - Preliminary GNR lactose launch check out 10/06/21 17:45 Gastric Fluid/Contents Gastric Occult Blood - Final Occult Blood Positive 10/06/21 15:08 Mucosa - Nose Respiratory Panel (PCR) - Final Goal Trough: 15-20 mcg/mL Pharmacy Plan for Drug Dosing: VANCOMYCIN LEVEL RECEIVED Current Vancomycin Dose: On hold d/t poor renal function Number of Doses Received: 1 (INITIAL 2G DOSE 10/06 @1647) Vancomycin Level: 16.2 Hours Since Last Dose: ~24 Renal Function: 3.06 Renal Function Trend: Significantly worse since yesterday (SCr 1.71) Lab/Micro: Pending Vancomycin Plan/Comments: Patient's level resulted in a value of 16.2 after a x1 dose of 2g administered yesterday. Patient was initially on scheduled vancomycin but d/t significant decline in renal function scheduled dosing was held at this time. For now, will dose based on levels until renal function improves. Will order vancomycin 1250mg IV x1 this evening and will re-dose based on levels. Pending Level: *Random* level 10/09/21 with AM labs Pharmacy Service will continue to monitor and adjust dosing as required.
[2021-10-07] MEDS: Norepinephrine 8 mg/250 mL 0.9% NS 37.5 MG CONT INF (23:01)
[2021-10-08] VITALS (62 sets, daily range): BP systolic 99–140; BP diastolic 39–70; PULSE 60–77; RESP 13–29; TEMP 37.7–38.4; O2SAT 92–100
[2021-10-08] MEDS: CHLORHEXIDINE GLUC 2% CLOTH 1 EACH TOWELETTE TOPICAL ×2 (00:15→09:33)
[2021-10-08] MEDS: Insulin Lispro 100 UNIT/ML INSULN.PEN SC ×5 (00:16→23:24)
[2021-10-08 00:21] LABS: Bedside Glucose 183 mg/dL (74-106)
[2021-10-08 04:09] LABS: Absolute Lymphocyte Count 0.78 X10^3/uL (0.83-4.51); Absolute Neutrophil Count 8.1 X10^3/uL (2.0-7.7); Basophil# 0.01 X10^3/uL; Basophil% 0.1 % (0-1); Eosinophils% 2.1 % (0-5); Hematocrit 33.7 % (40-54); Lymphocyte # 0.78 X10^3/ul (0.83-4.51); Lymphocyte % 8.1 % (19-41); Mean Corp Hgb Conc 32.6 g/dL (32-36); Mean Corpuscular Hgb 30.8 pg (27.0-32.0); Mean Corpuscular Volume 94.4 fL (80-94); Mean Platelet Vol. 9.3 fl (6.2-12.0); Monocyte# 0.44 X10^3/uL; Monocyte% 4.6 % (0-10); NRBC Flagged by Analyzer 0 % (0-5); Neutrophil # 8.08 X10^3/uL (2.7-7.7); Neutrophil % 84.4 % (47-70); POSITIVE COUNT YES; POSITIVE MORPHOLOGY YES; Platelet Count 84 K/mm3 (150-450); RBC Distribution Width CV 15.3 % (11.6-14.6); RBC Distribution Width SD 52.9 fl (35.1-43.9); Red Blood Count 3.57 M/mm3 (4.6-6.2); White Blood Count 9.6 K/mm3 (4.4-11.0)
[2021-10-08 04:18] LABS: Differential Indicated SCAN CRITERIA MET
[2021-10-08 04:27] LABS: International Normalized Ratio 2.3
[2021-10-08 04:30] LABS: ALB/GLOB Ratio 0.5 RATIO (0.9-2.4); AST(SGOT) 35 U/L (15-37); Alanine Aminotransfer ALT/SGPT 14 U/L (16-61); Albumin, Serum 1.6 g/dL (3.2-5.0); Alkaline Phosphatase 50 U/L (45-117); Anion Gap 13 (5-15); BUN 79 mg/dL (7-18); Calcium,Total 7.8 mg/dL (8.5-10.1); Chloride 108 mmol/L (98-107); Creatinine, Serum 2.08 mg/dL (0.70-1.30); EST Glomerular Filtration Rate 33 mL/min (>60); Est Glom Filt Rate - Afr Amer 39 mL/min (>60); Estimated Creatinine Clearance 26.49 ml/min; Globulin 3.2 g/dL (2.2-4.2); Glucose 212 mg/dL (74-106); Potassium 4.2 mmol/L (3.5-5.1); Protein, Total 4.8 g/dL (6.4-8.2); Sodium Level 142 mmol/L (136-145)
[2021-10-08 04:34] LABS: Anisocytosis 1+; Macrocytosis 1+
[2021-10-08 04:36] LABS: Platelet Estimate MOD DEC (ADEQ)
[2021-10-08] MEDS: Lactated Ringers 1,000 ML 150 ML IV ×3 (05:07→17:56)
--- NOTE | 2021-10-08 05:46 | PCM.PN.INT ---
Assessment & Plan Assessment/Plan (1) Acute respiratory failure with hypoxemia: PLAN: RECOMMENDATIONS: 1. Continue assist control mode of mechanical ventilation. Wean FiO2/PEEP for saturations greater than 90%. 2. Continue Levophed to maintain a mean arterial pressure at or above 65 mmHg. 3. Continue supplemental IV fluids given inability to initiate tube feeds for nutritional support. 4. Continue broad-spectrum antimicrobials. Okay to discontinue vancomycin. 5. Continue PPI therapy twice daily. 6. Continue to monitor INR daily. IMPRESSIONS: 1. Acute hypoxemic respiratory failure The patient decompensated from a respiratory perspective following several episodes of profound emesis with elaine aspiration. He ultimately required ICU transfer and emergent intubation. The patient did have significant GI contents in his posterior oropharynx with witnessed aspiration at the time of intubation as well. The patient appears to have developed a gram-negative pneumonia in the setting of aspiration. Plan to continue current antimicrobials. However, vancomycin can be discontinued. The patient will be continued on assist control mode of mechanical ventilation. FiO2 and PEEP will be weaned as tolerated. General surgery is following to assist with management of his bowel obstruction. 2. Septic shock The patient presented with sepsis due to suspected aspiration pneumonia with acute sepsis related organ dysfunction as evidenced by acute respiratory failure requiring invasive mechanical ventilatory support, along with acute on chronic kidney disease and hyperbilirubinemia. Levophed will be continued to maintain a mean arterial pressure at or above 65 mmHg. 3. Bowel obstruction CT abdomen/pelvis was concerning for an acute bowel obstruction. General surgery is following. OG tube was placed at the time of intubation and will be maintained to facilitate gastric decompression. 4. Acute on chronic kidney disease Improving. Likely prerenal in etiology in the setting of #2. Plan to continue current supportive measures including vasopressor support to maintain a mean arterial pressure at or above 65 mmHg. Will continue supplemental IV fluid hydration. Continue to monitor urine output. No current indication for renal replacement therapy. 5. Coagulopathy The patient is systemically anticoagulated on Coumadin as an outpatient. He presented with a supratherapeutic INR. In light of his clinical decompensation, vitamin K was provided. His coagulopathy has improved. Recommend following PT/INR daily. Continue to hold Coumadin for now. 6. History of coronary artery disease/atrial flutter/hypertension/hyperlipidemia/chronic ITP Complicates care, management, recovery and prognosis. Continue to hold home antihypertensives. TIME: 37 minutes of critical care time, independent of procedures, was spent addressing the patient's acute hypoxemic respiratory failure, septic shock, bowel obstruction, acute on chronic kidney disease, coagulopathy, review of all data and collaboration with care team. Subjective Subjective The patient was seen and examined at the bedside this morning. Events from the last 24 hours have been reviewed. The patient remains febrile with a temperature this morning 101 ?F. The patient is currently on a combination of vasopressin and Levophed, which is infusing at 20 mcg/min. He is overall documented to be net +7 L for the hospitalization. FiO2 requirement is minimal at 30%. Platelet count remains low at 84,000. Creatinine has improved to 2.08 this morning. Total bili has increased to 2.3. The patient did well this morning on a breathing trial. He is able to follow simple commands. Objective Data Objective Data The patient's most recent lab work, culture data and imaging studies have all been personally reviewed. Gastric occult blood was positive. Respiratory viral panel was negative. Preliminary sputum gram stain is positive for gram-negative moncho. Gastric occult blood was positive. Blood cultures are pending. Vital Signs: Vital Signs Temp Pulse Resp BP Pulse Ox 101 F H 62 25 H 128/41 H 94 10/08/21 04:00 10/08/21 05:00 10/08/21 05:21 10/08/21 05:00 10/08/21 05:00 Oxygen Flow Rate (L/min) 60 Oxygen Delivery Method Mechanical Ventilator Weight: 88.2 kg Body Mass Index (BMI) 28.8 Intake & Output: Intake and Output for Last 24 Hours 10/06/21 10/07/21 10/08/21 23:59 23:59 23:59 Intake Total 3861.95 / 4003.27 6623.50 / 6767.87 1511.87 / 1511.87 Output Total 3150 / 3900 2425 / 2425 250 / 250 Balance 711.95 / 103.27 4198.50 / 4342.87 1261.87 / 1261.87 Lab / Micro Data Attestation: I reviewed the patient's lab results. Result Diagrams: 10/08/21 03:55 10/08/21 03:55 Labs: Laboratory Results - last 24 hr 10/07/21 06:25: WBC 10.4, RBC 4.29 L, Hgb 13.1, Hct 39.6 L, MCV 92.3, MCH 30.5, MCHC 33.1, RDW Std Deviation 50.5 H, RDW Coeff of Mila 14.9 H, Plt Count 101 L, MPV 8.9, Immature Gran % (Auto) 1.200 H, Neut % (Auto) 87.1 H, Lymph % (Auto) 8.0 L, [place] % (Auto) 2.7, Eos % (Auto) 0.9, Baso % (Auto) 0.1, Absolute Neuts (auto) 9.1 H, Absolute Lymphs (auto) 0.83, Nucleated RBC % 0 10/07/21 06:25: Sodium 143, Potassium 3.9, Chloride 106, Carbon Dioxide 26.0, Anion Gap 11, BUN 93 H, Creatinine 3.06 H, Estim Creat Clear Calc 18.01, Est GFR (MDRD) Af Amer 25 L, Est GFR (MDRD) Non-Af 21 L, BUN/Creatinine Ratio 30.4 H, Glucose 181 H, Calcium 7.9 L, Phosphorus 4.3, Magnesium 1.8, Total Bilirubin 1.60 H, AST 25, ALT 12 L, Alkaline Phosphatase 52, Total Protein 5.4 L, Albumin 2.0 L, Globulin 3.4, Albumin/Globulin Ratio 0.6 L 10/07/21 06:25: PT 22.0 H, INR 2.0 10/07/21 11:20: POC Glucose 151 H 10/07/21 17:15: Vancomycin Trough 16.2 H 10/07/21 17:15: POC Glucose 175 H 10/08/21 00:07: POC Glucose 183 H 10/08/21 03:55: WBC 9.6, RBC 3.57 L, Hgb 11.0 L, Hct 33.7 L, MCV 94.4 H, MCH 30.8, MCHC 32.6, RDW Std Deviation 52.9 H, RDW Coeff of Mila 15.3 H, Plt Count 84 L, MPV 9.3, Immature Gran % (Auto) 0.700, Neut % (Auto) 84.4 H, Lymph % (Auto) 8.1 L, [place] % (Auto) 4.6, Eos % (Auto) 2.1, Baso % (Auto) 0.1, Absolute Neuts (auto) 8.1 H, Absolute Lymphs (auto) 0.78 L, Nucleated RBC % 0, Platelet Estimate MOD DEC, Anisocytosis 1+, Macrocytosis 1+ 10/08/21 03:55: Sodium 142, Potassium 4.2, Chloride 108 H, Carbon Dioxide 21.0, Anion Gap 13, BUN 79 H, Creatinine 2.08 H, Estim Creat Clear Calc 26.49, Est GFR (MDRD) Af Amer 39 L, Est GFR (MDRD) Non-Af 33 L, BUN/Creatinine Ratio 38.0 H, Glucose 212 H, Calcium 7.8 L, Total Bilirubin 2.30 H, AST 35, ALT 14 L, Alkaline Phosphatase 50, Total Protein 4.8 L, Albumin 1.6 L, Globulin 3.2, Albumin/Globulin Ratio 0.5 L 10/08/21 03:55: PT 25.0 H, INR 2.3 Micro: Microbiology 10/06/21 13:45 Sputum, Induced/Lukens Gram Stain - Final 10/06/21 13:45 Sputum, Induced/Lukens Respiratory Culture - Preliminary GNR lactose rouge sifter and miller 10/06/21 17:45 Gastric Fluid/Contents Gastric Occult Blood - Final Occult Blood Positive 10/06/21 15:08 Mucosa - Nose Respiratory Panel (PCR) - Final Rhythm Strip Rhythm Strip: Paced rhythm Rate: 65 Ectopy: None Physical Exam Const alert and no apparent distress Constitutional Narrative: No ventilator dyssynchrony. General Appearance: intubated and patient mechanically ventilated HEENT normocephalic and head/scalp atraumatic Mouth: endotracheal tube in place and OG tube in place Eyes PERRL and conjunctivae normal Neck supple General: trachea midline and CVC in place Chest inspection of chest normal Resp Auscultation: rales, rhonchi and diminished lung sounds; Negative for wheezes Cardio regular rate and regular rhythm Cardio Narrative: Paced rhythm on telemetry. GI soft to palpation Extremity General Extremity: edema; Negative for clubbing Skin no rashes or lesions noted Neuro Sensorium / Orientation: sedated on vent Charges/Coding Procedures Hospitalists Procedures: [id number] Critial Care 1st Hr
[2021-10-08] MEDS: Norepinephrine 8 mg/250 mL 0.9% NS 37.5 MG CONT INF (05:51)
[2021-10-08 06:01] LABS: Bedside Glucose 176 mg/dL (74-106)
[2021-10-08] MEDS: TITRATION PARAMETER CHANGE 1 EACH IV (06:25)
--- NOTE | 2021-10-08 07:33 | PCM.PN.HOSP ---
Subjective Subjective Follow-up for septic shock with acute hypoxic respiratory failure and small bowel obstruction Objective Data Objective Data Vital Signs: Vital Signs Temp Pulse Resp BP Pulse Ox 101 F H 73 14 127/42 H 92 10/08/21 04:00 10/08/21 06:00 10/08/21 06:00 10/08/21 06:00 10/08/21 06:00 Oxygen Flow Rate (L/min) 60 Oxygen Delivery Method Mechanical Ventilator Weight: 194 lb 7.163 oz Body Mass Index (BMI) 28.8 Intake & Output: Intake and Output for Last 24 Hours 10/06/21 10/07/21 10/08/21 23:59 23:59 23:59 Intake Total 3861.95 / 4003.27 6623.50 / 6767.87 1543.13 / 1543.13 Output Total 3150 / 3900 2425 / 2425 400 / 400 Balance 711.95 / 103.27 4198.50 / 4342.87 1143.13 / 1143.13 Lab / Micro Data Result Diagrams: 10/08/21 03:55 10/08/21 03:55 Labs: Laboratory Results - last 24 hr 10/07/21 11:20: POC Glucose 151 H 10/07/21 17:15: Vancomycin Trough 16.2 H 10/07/21 17:15: POC Glucose 175 H 10/08/21 00:07: POC Glucose 183 H 10/08/21 03:55: WBC 9.6, RBC 3.57 L, Hgb 11.0 L, Hct 33.7 L, MCV 94.4 H, MCH 30.8, MCHC 32.6, RDW Std Deviation 52.9 H, RDW Coeff of Mila 15.3 H, Plt Count 84 L, MPV 9.3, Immature Gran % (Auto) 0.700, Neut % (Auto) 84.4 H, Lymph % (Auto) 8.1 L, [place] % (Auto) 4.6, Eos % (Auto) 2.1, Baso % (Auto) 0.1, Absolute Neuts (auto) 8.1 H, Absolute Lymphs (auto) 0.78 L, Nucleated RBC % 0, Platelet Estimate MOD DEC, Anisocytosis 1+, Macrocytosis 1+ 10/08/21 03:55: Sodium 142, Potassium 4.2, Chloride 108 H, Carbon Dioxide 21.0, Anion Gap 13, BUN 79 H, Creatinine 2.08 H, Estim Creat Clear Calc 26.49, Est GFR (MDRD) Af Amer 39 L, Est GFR (MDRD) Non-Af 33 L, BUN/Creatinine Ratio 38.0 H, Glucose 212 H, Calcium 7.8 L, Total Bilirubin 2.30 H, AST 35, ALT 14 L, Alkaline Phosphatase 50, Total Protein 4.8 L, Albumin 1.6 L, Globulin 3.2, Albumin/Globulin Ratio 0.5 L 10/08/21 03:55: PT 25.0 H, INR 2.3 10/08/21 05:56: POC Glucose 176 H Micro: Microbiology 10/06/21 13:45 Sputum, Induced/Lukens Gram Stain - Final 10/06/21 13:45 Sputum, Induced/Lukens Respiratory Culture - Preliminary GNR lactose ophthalmic technician 10/06/21 17:45 Gastric Fluid/Contents Gastric Occult Blood - Final Occult Blood Positive 10/06/21 15:08 Mucosa - Nose Respiratory Panel (PCR) - Final Rhythm Strip Rhythm Strip: Paced rhythm Rate: 65 Ectopy: None Physical Exam Narrative Overnight events followed. Patient has fever T-max 101.2 Fahrenheit remains on the mechanical ventilator. Overnight NG tube bilious fluid about 150 mill, 550 mill in the last 24 hours. Urine output 1135 mill. On 2 vasopressor General: Intubated, lightly sedated. HEENT: PERRLA, EOMI Oral: ET and OG tube. Neck: Supple, No JVD, Negative Carotid Bruits Lungs: Air entry diminished in bilateral lung bases. Bilateral coarse crepitation. Severe hypoxia. Cardiovascular: Regular rate, Regular Rhythm, Normal S1, Normal S2, No murmurs Abdomen: Abdominal distention. Bowel sounds absent. No appreciable tenderness. No palpable mass : No renal angle tenderness. No suprapubic tenderness. Extremities: No edema, Capillary Refill Less than 3 Seconds Skin: No rashes, No breakdown Musculoskeletal: No Tenderness to Palpation of Joints or Extremities Neurological: Cranial nerves II-XII grossly intact, DTR 2+/4 and Symmetrical, limited exam due to intubation Psych/Mental Status: Intubated Assessment & Plan Assessment/Plan (1) Acute respiratory failure with hypoxemia: PLAN: This patient was seen in conjunction with RADHA Hurst. I have independently interviewed and examined the patient and reviewed pertinent history, examination findings, laboratory and plan of management. I have reviewed the note and agree with the documented findings with the few additional points. In brief, patient is 80-year-old gentleman was admitted with 1 week history of nausea, intermittent vomiting and diarrhea which progressed to abdominal distention. Patient also intermittent abdominal cramping. 1. Acute hypoxic respiratory failure due to multiple episodes of vomiting and aspiration: In the morning patient had vomiting and probably aspirated because chest auscultation appeared coarse crepitation. Medical Device consulted. Patient oxygenation and ventilation did not improve nonrebreather and Airvo therefore transferred to ICU where he was intubated and ventilated. Patient on IV propofol and fentanyl drip. During intubation, greenish-black fluid observed and after intubation and OG tube, Platelet count 117,000. ABG 7.3 /174 on 90% FiO2/450/15 PEEP. Chest x-ray initially reviewed. Initial chest shows no acute cardiopulmonary abnormality. 10/08: FiO2 30%. On light sedation. 2. Small bowel obstruction: OG tube inserted about 3 L of coffee-ground fluid aspirated. CT abdomen and pelvis without oral and IV contrast shows possible transition point in right lower quadrant with dilated upstream small bowel, jejunum. Surgery is consulted. 10/08: NG tube as patient has decreased, since stomach and upper small bowel is decompressed. 3. Coffee-ground aspiration: Gastric occult blood positive for occult blood. Serial CBC monitoring shows drop in hemoglobin from 14.2-13.1 but his baseline runs around 13.5 gram percent. IV PPI every 12 hourly. 10/08 NG tube aspiration is bilious 4. Septic shock suspected due to aspiration pneumonia with evidence of sepsis related organ dysfunction: Patient has acute hypoxic respiratory failure requiring mechanical ventilation, acute on chronic kidney disease and hyperbilirubinemia after vomiting and aspiration in PCU. After vomiting, chest x-ray although reported no acute findings but on my review seems mild RLL and LLL haziness/infiltrate. COVID-19 PCR not detected. Patient had right IJ ultrasound-guided CVC catheter inserted on 10/06. 10/08: Patient febrile.Gram stain of the sputum culture shows gram-negative rods lactose ophthalmic technician 3+ suggestive of possible pneumonia due to gram-negative moncho bacteria. Continue IV antibiotic Zosyn and discontinue vancomycin. CESAR on CKD stage IIIb. Gradual improvement in creatinine. Patient baseline creatinine stays around 1.6. 5. 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 Vitamin K 5 mg IV given in the morning. Warfarin is on hold. Patient dropped blood pressure during intubation systolic 55. Right IJ CVC catheter inserted. 10/07: Repeat INR after vitamin K is 2.0. 6. Chronic idiopathic thrombocytopenia: Platelet seems to be stable around 90K-100,000. 7. Diabetes mellitus type 2: Uncontrolled glucose in 300, most recent 286. Started on 10 units Lantus insulin. Serial Accu-Chek profile is better I have discussed my assessment with RADHA Hurst and orders have been reviewed. Total time of the visit including total time spent in counseling or coordination of care, (more than 50% of the total time, spent in obtaining medical information from nurses and other ancillary care providers,explaining to the patient about labs, imaging, diagnosis and management), discussion with consultants, review of labs and imaging is 40 minutes. Charges/Coding Visit Charges Inpatient E&M: 69866 Subs Hosp L3
--- NOTE | 2021-10-08 08:03 | PN.SURG_ITS ---
Subjective Subjective Patient seen and examined during AM rounds. According to nursing, patient required addition of vasopressin to his vasopressor therapy, but the support has been able to be weaned slightly this morning. They deny any awareness of passage of flatus or bowel movement. Objective Data Objective Data Vital Signs: Vital Signs Temp Pulse Resp BP Pulse Ox 101 F H 77 14 127/42 H 92 10/08/21 04:00 10/08/21 07:57 10/08/21 06:00 10/08/21 06:00 10/08/21 06:00 Oxygen Flow Rate (L/min) 60 Oxygen Delivery Method Mechanical Ventilator Weight: 194 lb 7.163 oz Body Mass Index (BMI) 28.8 Intake & Output: Intake and Output for Last 24 Hours 10/06/21 10/07/21 10/08/21 23:59 23:59 23:59 Intake Total 3861.95 / 4003.27 6623.50 / 6767.87 1643.13 / 1643.13 Output Total 3150 / 3900 2425 / 2425 400 / 400 Balance 711.95 / 103.27 4198.50 / 4342.87 1243.13 / 1243.13 Lab / Micro Data Result Diagrams: 10/08/21 03:55 10/08/21 03:55 Labs: Laboratory Results - last 24 hr 10/07/21 11:20: POC Glucose 151 H 10/07/21 17:15: Vancomycin Trough 16.2 H 10/07/21 17:15: POC Glucose 175 H 10/08/21 00:07: POC Glucose 183 H 10/08/21 03:55: WBC 9.6, RBC 3.57 L, Hgb 11.0 L, Hct 33.7 L, MCV 94.4 H, MCH 30.8, MCHC 32.6, RDW Std Deviation 52.9 H, RDW Coeff of Mila 15.3 H, Plt Count 84 L, MPV 9.3, Immature Gran % (Auto) 0.700, Neut % (Auto) 84.4 H, Lymph % (Auto) 8.1 L, [place] % (Auto) 4.6, Eos % (Auto) 2.1, Baso % (Auto) 0.1, Absolute Neuts (auto) 8.1 H, Absolute Lymphs (auto) 0.78 L, Nucleated RBC % 0, Platelet Estimate MOD DEC, Anisocytosis 1+, Macrocytosis 1+ 10/08/21 03:55: Sodium 142, Potassium 4.2, Chloride 108 H, Carbon Dioxide 21.0, Anion Gap 13, BUN 79 H, Creatinine 2.08 H, Estim Creat Clear Calc 26.49, Est GFR (MDRD) Af Amer 39 L, Est GFR (MDRD) Non-Af 33 L, BUN/Creatinine Ratio 38.0 H, Glucose 212 H, Calcium 7.8 L, Total Bilirubin 2.30 H, AST 35, ALT 14 L, Alkaline Phosphatase 50, Total Protein 4.8 L, Albumin 1.6 L, Globulin 3.2, Albumin/Globulin Ratio 0.5 L 10/08/21 03:55: PT 25.0 H, INR 2.3 10/08/21 05:56: POC Glucose 176 H Micro: Microbiology 10/06/21 13:45 Sputum, Induced/Lukens Gram Stain - Final 10/06/21 13:45 Sputum, Induced/Lukens Respiratory Culture - Final Klebsiella oxytoca 10/06/21 17:45 Gastric Fluid/Contents Gastric Occult Blood - Final Occult Blood Positive 10/06/21 15:08 Mucosa - Nose Respiratory Panel (PCR) - Final Rhythm Strip Rhythm Strip: Paced rhythm Rate: 65 Ectopy: None Physical Exam Const no apparent distress Constitutional Narrative: Patient remains intubated and lightly sedated but easily arousable and able to answer yes no questions with head shaking GI GI Narrative: Nondistended, soft, patient states that there is some mild tenderness across the bilateral upper quadrants, no guarding. Nasogastric tube output is light brown in character Assessment & Plan Assessment/Plan (1) Bowel obstruction: QUALIFIERS: Intestinal obstruction type: unspecified Intestinal obstruction extent: partial Qualified Code(s): K56.600 - Partial intestinal obstruction, unspecified as to cause PLAN: Patient with decreased volumes aspirated from nasogastric tube. He continues to exhibit a much less distended abdomen. Patient remains on minimal sedation endorses some left upper quadrant and right upper quadrant tenderness with exam but is otherwise benign with palpation. He has not had any further signs of bowel function. As stated previously, I am suspicious for a transition zone in the right lower quadrant of the patient's abdomen and had hoped to perform a small bowel series yesterday, but held off due to patient's tenuous hemodynamic status. In view of decreasing pressor requirement, I have asked nursing to inform me if they are able to wean to a minimal vasopressor requirement today and we can reassess his very small bowel series. We will continue GI decompression, serial abdominal exams, and monitoring patient's GI status. Charges/Coding Visit Charges Inpatient E&M: 46631 Subs Hosp L2
--- NOTE | 2021-10-08 09:30 | CASEMGMT ---
RN CM called Patricia for initial transition planning/care coordination assessment as patient is currently intubated. RN CM introduced self and role at [facility]. willing to participate in assessment and is able to answer all questions appropriately. Care providers, pharmacy, and demographics verified. Patient wishes to discharge home, discussed possible HHC vs SNF at discharge pending course of treatment and progress with therapy. Patricia states she has no further needs or concerns at this time. CM to follow for discharge planning needs that may arise. PCP: Desirae Specialists: Ilene tableau architect; Akira java security architect Preferred Pharmacy: [facility] Insurance: [facility] Prescription Benefit: yes Living Will/HPOA: Patricia not sure LNOK: , son, daughter Living Arrangements: Patient lives with , son, and daughter in a 2 story home with bed and bath on first floor. 3 steps and railing to enter the home. Per , patient was independent at home prior to hospitalization. Transportation: self, daughter DME/HHC: Patient has cane, walker, and pulse ox at home. No preferences for DME. No previous HHC or SNF Disposition Plan: TBD by course of treatment and progress with therapy. Geraldine PICKETT, RN, CM
[2021-10-08] MEDS: Chlorhexidine 15 ML PO ×2 (09:33→21:01)
[2021-10-08] MEDS: 0.9% Saline Lock 10 ML Syringe IV (11:35)
[2021-10-08 11:45] LABS: Bedside Glucose 174 mg/dL (74-106)
--- NOTE | 2021-10-08 15:30 | RAD_ITS ---
STUDY: X-RAY - ABDOMEN/PELVIS REASON FOR EXAM: Male, 80 years old patient presents for follow-up of small bowel obstruction. TECHNIQUE: Two AP supine views of the abdomen and pelvis. COMPARISON: CT the abdomen and pelvis dated 10/06/2021. FINDINGS: There appears to be heterogeneous bilateral basilar airspace disease suggesting possible pneumonia. There is an unremarkable bowel gas pattern. There appears to be a rectal tube. There is no obvious organomegaly, mass, or dilated bowel. There is prominent vascular calcification of splenic artery. Normal soft tissue structures. There are diffuse degenerative changes of the visualized spine. RAD/Abdomen Single View (Portable) IMPRESSION: Nonspecific bowel gas pattern. Electronically Signed: Prudence Alcantar MD at 3:05 EDT ,
[2021-10-08 17:51] LABS: Bedside Glucose 176 mg/dL (74-106)
[2021-10-08] MEDS: Norepinephrine 8 mg/250 mL 0.9% NS 9.4 MG CONT INF (17:56)
[2021-10-08 23:40] LABS: Bedside Glucose 159 mg/dL (74-106)
[2021-10-09] VITALS (42 sets, daily range): BP systolic 107–142; BP diastolic 44–92; PULSE 60–85; RESP 14–27; TEMP 37.2–37.9; O2SAT 86–98
[2021-10-09] MEDS: Lactated Ringers 1,000 ML 150 ML IV (00:58)
[2021-10-09 03:49] LABS: Absolute Lymphocyte Count 0.48 X10^3/uL (0.83-4.51); Absolute Neutrophil Count 6.1 X10^3/uL (2.0-7.7); Basophil# 0.03 X10^3/uL; Basophil% 0.4 % (0-1); Eosinophil# 0.16 X10^3/uL; Eosinophils% 2.2 % (0-5); Hematocrit 30.3 % (40-54); Lymphocyte # 0.48 X10^3/ul (0.83-4.51); Lymphocyte % 6.7 % (19-41); Mean Corpuscular Hgb 30.5 pg (27.0-32.0); Mean Corpuscular Volume 92.4 fL (80-94); Mean Platelet Vol. 9.6 fl (6.2-12.0); Monocyte# 0.28 X10^3/uL; Monocyte% 3.9 % (0-10); NRBC Flagged by Analyzer 0 % (0-5); Neutrophil # 6.13 X10^3/uL (2.7-7.7); POSITIVE COUNT YES; POSITIVE DIFFERENTIAL YES; POSITIVE MORPHOLOGY YES; Platelet Count 62 K/mm3 (150-450); RBC Distribution Width CV 15.2 % (11.6-14.6); Red Blood Count 3.28 M/mm3 (4.6-6.2); White Blood Count 7.1 K/mm3 (4.4-11.0)
[2021-10-09 03:51] LABS: Differential Indicated SCAN CRITERIA MET
[2021-10-09 03:54] LABS: International Normalized Ratio 2.5; Prothrombin Time (Protime)PT. 26.9 SECONDS (11.7-14.9)
[2021-10-09 04:01] LABS: ALB/GLOB Ratio 0.4 RATIO (0.9-2.4); AST(SGOT) 40 U/L (15-37); Alanine Aminotransfer ALT/SGPT 14 U/L (16-61); Albumin, Serum 1.4 g/dL (3.2-5.0); Alkaline Phosphatase 51 U/L (45-117); Anion Gap 9 (5-15); BUN 65 mg/dL (7-18); BUN/Creat Ratio 38.9 RATIO (10-20); Calcium,Total 8.2 mg/dL (8.5-10.1); Chloride 112 mmol/L (98-107); Creatinine, Serum 1.67 mg/dL (0.70-1.30); EST Glomerular Filtration Rate 42 mL/min (>60); Est Glom Filt Rate - Afr Amer 51 mL/min (>60); Estimated Creatinine Clearance 32.99 ml/min; Globulin 3.5 g/dL (2.2-4.2); Glucose 200 mg/dL (74-106); Potassium 3.9 mmol/L (3.5-5.1); Protein, Total 4.9 g/dL (6.4-8.2); Sodium Level 147 mmol/L (136-145)
[2021-10-09 04:03] LABS: Anisocytosis 1+
[2021-10-09 04:04] LABS: Platelet Estimate MOD DEC (ADEQ)
--- NOTE | 2021-10-09 05:48 | PCM.PN.INT ---
Assessment & Plan Assessment/Plan (1) Acute respiratory failure with hypoxemia: PLAN: RECOMMENDATIONS: 1. Proceed with a trial of extubation this morning. 2. Once extubated, wean supplemental oxygen to maintain saturations at or above 90%. 3. The patient is to remain n.p.o. for now. 4. Continue Levophed to maintain a mean arterial pressure at or above 65 mmHg. 5. Stop LR infusion and transition to D5W. 6. De-escalate antibiotics to Unasyn based upon cultures and sensitivities. 7. Continue PPI therapy twice daily. 8. Continue to monitor INR daily. IMPRESSIONS: 1. Acute hypoxemic respiratory failure Improved. The patient decompensated from a respiratory perspective following several episodes of profound emesis with elaine aspiration. He ultimately required ICU transfer and emergent intubation. The patient did have significant GI contents in his posterior oropharynx with witnessed aspiration at the time of intubation as well. The patient appears to have developed a gram-negative pneumonia in the setting of aspiration. Plan to continue current antimicrobials. The patient has done well this morning on a spontaneous breathing trial and will be extubated. Once extubated, supplemental oxygen can be utilized to maintain saturations at or above 90%. 2. Septic shock The patient presented with sepsis due to suspected aspiration pneumonia with acute sepsis related organ dysfunction as evidenced by acute respiratory failure requiring invasive mechanical ventilatory support, along with acute on chronic kidney disease and hyperbilirubinemia. Levophed will be continued to maintain a mean arterial pressure at or above 65 mmHg. 3. Bowel [address] CT abdomen/pelvis was concerning for an acute bowel obstruction. General surgery is following. OG tube was placed at the time of intubation and will be maintained to facilitate gastric decompression. 4. Acute on chronic kidney disease Improving. Likely prerenal in etiology in the setting of #2. Plan to continue current supportive measures including vasopressor support to maintain a mean arterial pressure at or above 65 mmHg. Will continue supplemental IV fluid hydration. Continue to monitor urine output. No current indication for renal replacement therapy. 5. Coagulopathy The patient is systemically anticoagulated on Coumadin as an outpatient. He presented with a supratherapeutic INR. In light of his clinical decompensation, vitamin K was provided. His coagulopathy has improved. Recommend following PT/INR daily. Continue to hold Coumadin for now. 6. History of coronary artery disease/atrial flutter/hypertension/hyperlipidemia/chronic ITP Complicates care, management, recovery and prognosis. Continue to hold home antihypertensives. TIME: 35 minutes of critical care time, independent of procedures, was spent addressing the patient's acute hypoxemic respiratory failure, septic shock, bowel obstruction, acute on chronic kidney disease, coagulopathy, review of all data and collaboration with care team. Subjective Subjective The patient was seen and examined at the bedside this morning. Events from the last 24 hours have been reviewed. The patient continues to have low-grade fevers. The patient was weaned from vasopressin yesterday and is currently on Levophed at 5 mcg/min to maintain hemodynamic stability. He is currently documented to be overall net +9.7 L for the hospitalization. Platelet count has dropped to 62,000. INR this morning was noted to be 2.5. Creatinine has improved to 1.67. However, sodium and chloride have increased to 147 and 112, respectively. Total bili is significantly increased at 4.2. The patient is currently on a CPAP trial and is doing quite well. He is alert and able to follow commands. Objective Data Objective Data The patient's most recent lab work, culture data and imaging studies have all been personally reviewed. Gastric occult blood was positive. Respiratory viral panel was negative. Sputum culture was positive for Klebsiella.. Gastric occult blood was positive. Blood cultures are pending. Vital Signs: Vital Signs Temp Pulse Resp BP Pulse Ox 100.1 F H 71 19 H 116/48 L 93 10/09/21 04:00 10/09/21 05:19 10/09/21 05:22 10/09/21 05:00 10/09/21 05:19 Oxygen Flow Rate (L/min) 60 Oxygen Delivery Method Mechanical Ventilator Weight: 88.2 kg Body Mass Index (BMI) 28.8 Intake & Output: Intake and Output for Last 24 Hours 10/07/21 10/08/21 10/09/21 23:59 23:59 23:59 Intake Total 6623.50 / 6767.87 4695.58 / 4804.98 1306.4 / 1306.4 Output Total 2425 / 2425 2115 / 2115 Balance 4198.50 / 4342.87 2580.58 / 2689.98 1306.4 / 1306.4 Medical Nutrition Assessment Dietitian: Malnutrition Criteria Met Start: 10/07/21 10:07 Freq: Status: Active Protocol: Document 10/08/21 09:30 (Rec: 10/08/21 09:30 [id number]) Nutrition Malnutrition Evidence of Malnutrition Exists Yes Malnutrition (severe): Acute Illness/Injury Evidenced By Suboptimal Energy Intake ( Severe),Weight Loss (Severe) Clinical Problem Acute Disease or Injury Related Malnutrition Etiology severe, acute malnutrition r/t GI dysfunction Signs/Symptoms as evidenced by unintentional wt loss of 15.7#/8% x 1 week; estimated PO intake meeting < 50% of estimated energy needs >5 days Status Active Problem Recommendation Dietitian Recommendations/Changes If NPO status anticipated to continue over next 72 hours, recommend nutrition support- consult RDN for further recommendations/management as indicated Lab / Micro Data Attestation: I reviewed the patient's lab results. Result Diagrams: 10/09/21 03:35 10/09/21 03:35 Labs: Laboratory Results - last 24 hr 10/08/21 05:56: POC Glucose 176 H 10/08/21 11:34: POC Glucose 174 H 10/08/21 17:46: POC Glucose 176 H 10/08/21 23:22: POC Glucose 159 H 10/09/21 03:35: WBC 7.1, RBC 3.28 L, Hgb 10.0 L, Hct 30.3 L, MCV 92.4, MCH 30.5, MCHC 33.0, RDW Std Deviation 51.0 H, RDW Coeff of Mila 15.2 H, Plt Count 62 L, MPV 9.6, Immature Gran % (Auto) 0.800, Neut % (Auto) 86.0 H, Lymph % (Auto) 6.7 L, [place] % (Auto) 3.9, Eos % (Auto) 2.2, Baso % (Auto) 0.4, Absolute Neuts (auto) 6.1, Absolute Lymphs (auto) 0.48 L, Nucleated RBC % 0, Platelet Estimate MOD DEC, Anisocytosis 1+ 10/09/21 03:35: PT 26.9 H, INR 2.5 10/09/21 03:35: Sodium 147 H, Potassium 3.9, Chloride 112 H, Carbon Dioxide 26.0, Anion Gap 9, BUN 65 H, Creatinine 1.67 H, Estim Creat Clear Calc 32.99, Est GFR (MDRD) Af Amer 51 L, Est GFR (MDRD) Non-Af 42 L, BUN/Creatinine Ratio 38.9 H, Glucose 200 H, Calcium 8.2 L, Total Bilirubin 4.20 H, AST 40 H, ALT 14 L, Alkaline Phosphatase 51, Total Protein 4.9 L, Albumin 1.4 L, Globulin 3.5, Albumin/Globulin Ratio 0.4 L Micro: Microbiology 10/06/21 13:45 Sputum, Induced/Lukens Gram Stain - Final 10/06/21 13:45 Sputum, Induced/Lukens Respiratory Culture - Final Klebsiella oxytoca 10/06/21 17:45 Gastric Fluid/Contents Gastric Occult Blood - Final Occult Blood Positive 10/06/21 15:08 Mucosa - Nose Respiratory Panel (PCR) - Final Radiography Diagnostic Testing: Radiology Impression KUB X-Ray 10/08/21 15:30 IMPRESSION: Nonspecific bowel gas pattern. Electronically Signed: Prudence Alcantar MD at 3:05 EDT Reading Location ID and State: [address] [place] [address] , Service support , Rhythm Strip Rhythm Strip: Paced rhythm Rate: 65 Ectopy: None Physical Exam Const alert and no apparent distress Constitutional Narrative: No ventilator dyssynchrony. General Appearance: intubated and patient mechanically ventilated HEENT normocephalic and head/scalp atraumatic Mouth: endotracheal tube in place and OG tube in place Eyes PERRL and conjunctivae normal Neck supple General: trachea midline and CVC in place Chest inspection of chest normal Resp Auscultation: rhonchi and diminished lung sounds; Negative for wheezes Cardio regular rate and regular rhythm Cardio Narrative: Paced rhythm on telemetry. GI soft to palpation Extremity General Extremity: edema; Negative for clubbing Skin no rashes or lesions noted Neuro Neuro Narrative: Alert and able to follow simple commands. Sensorium / Orientation: sedated on vent Charges/Coding Procedures Hospitalists Procedures: 20883 Critial Care 1st Hr
[2021-10-09 06:12] LABS: Bilirubin, Direct 3.19 mg/dL (0.00-0.30); GGTP 23 U/L (15-85); Lipase 262 U/L (73-393)
[2021-10-09] MEDS: Insulin Lispro 100 UNIT/ML INSULN.PEN SC ×4 (06:32→23:40)
[2021-10-09 06:50] LABS: Bedside Glucose 167 mg/dL (74-106)
--- NOTE | 2021-10-09 07:27 | PCM.PN.HOSP ---
Subjective Subjective Follow-up for septic shock and acute hypoxic respiratory failure and bowel obstruction. Patient extubated in the morning. Objective Data Objective Data Vital Signs: Vital Signs Temp Pulse Resp BP Pulse Ox 100.1 F H 71 19 H 116/48 L 93 10/09/21 04:00 10/09/21 05:19 10/09/21 05:22 10/09/21 05:00 10/09/21 05:19 Oxygen Flow Rate (L/min) 60 Oxygen Delivery Method Mechanical Ventilator Weight: 203 lb 11.314 oz Body Mass Index (BMI) 28.8 Intake & Output: Intake and Output for Last 24 Hours 10/07/21 10/08/21 10/09/21 23:59 23:59 23:59 Intake Total 6623.50 / 6767.87 4695.58 / 4804.98 1306.4 / 1306.4 Output Total 2425 / 2425 2115 / 2115 900 / 900 Balance 4198.50 / 4342.87 2580.58 / 2689.98 406.4 / 406.4 Medical Nutrition Assessment Dietitian: Malnutrition Criteria Met Start: 10/07/21 10:07 Freq: Status: Active Protocol: Document 10/08/21 09:30 AG (Rec: 10/08/21 09:30 [id number]) Nutrition Malnutrition Evidence of Malnutrition Exists Yes Malnutrition (severe): Acute Illness/Injury Evidenced By Suboptimal Energy Intake ( Severe),Weight Loss (Severe) Clinical Problem Acute Disease or Injury Related Malnutrition Etiology severe, acute malnutrition r/t GI dysfunction Signs/Symptoms as evidenced by unintentional wt loss of 15.7#/8% x 1 week; estimated PO intake meeting < 50% of estimated energy needs >5 days Status Active Problem Recommendation Dietitian Recommendations/Changes If NPO status anticipated to continue over next 72 hours, recommend nutrition support- consult RDN for further recommendations/management as indicated Lab / Micro Data Result Diagrams: 10/09/21 03:35 10/09/21 03:35 Labs: Laboratory Results - last 24 hr 10/08/21 11:34: POC Glucose 174 H 10/08/21 17:46: POC Glucose 176 H 10/08/21 23:22: POC Glucose 159 H 10/09/21 03:35: WBC 7.1, RBC 3.28 L, Hgb 10.0 L, Hct 30.3 L, MCV 92.4, MCH 30.5, MCHC 33.0, RDW Std Deviation 51.0 H, RDW Coeff of Mila 15.2 H, Plt Count 62 L, MPV 9.6, Immature Gran % (Auto) 0.800, Neut % (Auto) 86.0 H, Lymph % (Auto) 6.7 L, [place] % (Auto) 3.9, Eos % (Auto) 2.2, Baso % (Auto) 0.4, Absolute Neuts (auto) 6.1, Absolute Lymphs (auto) 0.48 L, Nucleated RBC % 0, Platelet Estimate MOD DEC, Anisocytosis 1+ 10/09/21 03:35: PT 26.9 H, INR 2.5 10/09/21 03:35: Sodium 147 H, Potassium 3.9, Chloride 112 H, Carbon Dioxide 26.0, Anion Gap 9, BUN 65 H, Creatinine 1.67 H, Estim Creat Clear Calc 32.99, Est GFR (MDRD) Af Amer 51 L, Est GFR (MDRD) Non-Af 42 L, BUN/Creatinine Ratio 38.9 H, Glucose 200 H, Calcium 8.2 L, Total Bilirubin 4.20 H, AST 40 H, ALT 14 L, Alkaline Phosphatase 51, Total Protein 4.9 L, Albumin 1.4 L, Globulin 3.5, Albumin/Globulin Ratio 0.4 L 10/09/21 03:35: Direct Bilirubin 3.19 H, GGT 23, Lipase 262 10/09/21 06:32: POC Glucose 167 H Micro: Microbiology 10/06/21 13:45 Sputum, Induced/Lukens Gram Stain - Final 10/06/21 13:45 Sputum, Induced/Lukens Respiratory Culture - Final Klebsiella oxytoca 10/06/21 17:45 Gastric Fluid/Contents Gastric Occult Blood - Final Occult Blood Positive 10/06/21 15:08 Mucosa - Nose Respiratory Panel (PCR) - Final Radiography Diagnostic Testing: Radiology Impression KUB X-Ray 10/08/21 15:30 IMPRESSION: Nonspecific bowel gas pattern. Electronically Signed: Prudence Alcantar MD at 3:05 EDT , Rhythm Strip Rhythm Strip: Paced rhythm Rate: 65 Ectopy: None Physical Exam Narrative Overnight events followed. T-max 100.6 Fahrenheit yesterday afternoon. Patient extubated in the morning. Vasopressin was discontinued yesterday afternoon. Levophed drip discontinued at 7:15 AM. On IV fluid Ringer lactate. Total urine output about 1500 mm. Last 24 hours, NG tube aspirate about 650 mL. General: Awake, looks weak and lethargic and sick. HEENT: PERRLA, EOMI Oral: ET and OG tube. Neck: Supple, No JVD, Negative Carotid Bruits Lungs: Air entry diminished in bilateral lung bases. Bilateral coarse crepitation. On oxygen nasal cannula Cardiovascular: Regular rate, Regular Rhythm, Normal S1, Normal S2, No murmurs Abdomen: Mild abdominal distention. Bowel sounds absent. No appreciable tenderness. No palpable mass : No renal angle tenderness. No suprapubic tenderness. Extremities: No edema, Capillary Refill Less than 3 Seconds Skin: No rashes, No breakdown Musculoskeletal: No Tenderness to Palpation of Joints or Extremities Neurological: Cranial nerves II-XII grossly intact, DTR 2+/4 and Symmetrical. Psych/Mental Status: Flat affect. Assessment & Plan Assessment/Plan (1) Acute respiratory failure with hypoxemia: PLAN: This patient was seen in conjunction with RADHA Hurst. I have independently interviewed and examined the patient and reviewed pertinent history, examination findings, laboratory and plan of management. I have reviewed the note and agree with the documented findings with the few additional points. In brief, patient is 80-year-old gentleman was admitted with 1 week history of nausea, intermittent vomiting and diarrhea which progressed to abdominal distention. Patient also intermittent abdominal cramping. 1. Acute hypoxic respiratory failure due to multiple episodes of vomiting and aspiration: In the morning patient had vomiting and probably aspirated because chest auscultation appeared coarse crepitation. Logging Supervisor consulted. Patient oxygenation and ventilation did not improve nonrebreather and Airvo therefore transferred to ICU where he was intubated and ventilated. Patient on IV propofol and fentanyl drip. During intubation, greenish-black fluid observed and after intubation and OG tube, Platelet count 117,000. ABG 7.3 8/48/174 on 90% FiO2/450/15 PEEP. Chest x-ray initially reviewed. Initial chest shows no acute cardiopulmonary abnormality. 10/08: FiO2 30%. On light sedation. 10/09: Patient is extubated. On oxygen through nasal cannula 3 to 4 L of oxygen. Aggressive incentive spirometry and Pep ordered 2. Small bowel obstruction: OG tube inserted about 3 L of coffee-ground fluid aspirated. CT abdomen and pelvis without oral and IV contrast shows possible transition point in right lower quadrant with dilated upstream small bowel, jejunum. Surgery is consulted. 10/08: NG tube as patient has decreased, since stomach and upper small bowel is decompressed. 10/09: NG tube removed. Discussed with surgeon on 10/08. 3. Coffee-ground aspiration: Gastric occult blood positive for occult blood. Serial CBC monitoring shows drop in hemoglobin from 14.2-13.1 but his baseline runs around 13.5 gram percent. IV PPI every 12 hourly. 4. Septic shock suspected due to aspiration pneumonia/intra-abdominal bowel infection; SBO with evidence of sepsis related organ dysfunction: Patient has acute hypoxic respiratory failure requiring mechanical ventilation, acute on chronic kidney disease and hyperbilirubinemia after vomiting and aspiration in PCU. After vomiting, chest x-ray although reported no acute findings but on my review seems mild RLL and LLL haziness/infiltrate. COVID-19 PCR not detected. Patient had right IJ ultrasound-guided CVC catheter inserted on 10/06. 10/08: Patient febrile.Gram stain of the sputum culture shows gram-negative rods lactose zone maintenance technician 3+ suggestive of possible pneumonia due to gram-negative moncho bacteria. Continue IV antibiotic Zosyn and discontinue vancomycin. CESAR on CKD stage IIIb. Gradual improvement in creatinine. Patient baseline creatinine stays around 1.6. 10/09: Sputum culture shows 3+ Klebsiella oxytoca. Patient still having low-grade fever 100.6 Fahrenheit. ID is consulted for further opinion and recommendation. 5. 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 Vitamin K 5 mg IV given in the morning. Warfarin is on hold. Patient dropped blood pressure during intubation systolic 55. Right IJ CVC catheter inserted. 10/07: Repeat INR after vitamin K is 2.0. 10/10 INR 2.5. Therapeutic 6. Chronic idiopathic thrombocytopenia: Platelet seems to be stable around 90K-100,000. 7. Diabetes mellitus type 2: Uncontrolled glucose in 300, most recent 286. Started on 10 units Lantus insulin. Serial Accu-Chek profile is better I have discussed my assessment with RADHA Hurst and orders have been reviewed. Total time of the visit including total time spent in counseling or coordination of care, (more than 50% of the total time, spent in obtaining medical information from nurses and other ancillary care providers,explaining to the patient about labs, imaging, diagnosis and management), discussion with consultants, review of labs and imaging is 40 minutes. Charges/Coding Visit Charges Inpatient E&M: 19635 Subs Hosp L3
--- NOTE | 2021-10-09 07:51 | US_ITS ---
STUDY: ABDOMINAL ULTRASOUND - RIGHT UPPER QUADRANT REASON FOR VISIT: Male, 80 years old Hyperbilirubinemia TECHNIQUE: Ultrasound evaluation of the right upper quadrant was performed with real-time and static hsu-scale imaging. TECHNICAL QUALITY: Limited. Examination limited by bowel gas. COMPARISON: None. FINDINGS: Liver: The liver measures 16.5 cm. There is normal echogenicity of the liver. The bile ducts are within normal limits. There is hepatic color flow. The direction of portal flow is hepatopetal. There is no demonstrated mass lesion. Gallbladder: Normal distended gallbladder. The gallbladder wall is slightly thickened and measures 4.2 mm. There is a negative sonographic Ponce''s sign. There is no pericholecystic fluid. There are multiple echogenic structures within the gallbladder, consistent with multiple gallstones. Sludge is seen within the gallbladder lumen. Common Bile Duct (C.B.D.): The common bile duct measures 3. mm. Pancreas: There is nonvisualization of the pancreas due to overlying bowel gas. There is normal echogenicity of the pancreas. There is no demonstrated pancreatic mass or cyst. Right Kidney: Normal size of the right kidney. The right kidney measures 10.2 cm x 5.7 cm x 5.6 cm. Normal renal cortex. The right cortex measures 1.2 cm. There is no demonstrated renal mass or cyst. There is no right hydronephrosis. US/Liver IMPRESSION: Multiple gallstones and sludge. Electronically Signed: Jose Monk MD at 12:10 EDT ,
--- NOTE | 2021-10-09 08:47 | PN.SURG_ITS ---
Subjective Subjective Patient seen and examined during AM rounds. Interval events include extubation earlier this morning. Patient's orogastric tube was removed along with the endotracheal tube. He states that his abdominal discomfort is improved. He denies return of bowel function, presently but believes that there may be some imminent. He states he feels weak from his recent intubation. Objective Data Objective Data Vital Signs: Vital Signs Temp Pulse Resp BP Pulse Ox 100.2 F H 79 24 H 132/69 H 92 10/09/21 06:00 10/09/21 07:26 10/09/21 07:00 10/09/21 07:15 10/09/21 07:00 Oxygen Flow Rate (L/min) 60 Oxygen Delivery Method Mechanical Ventilator Weight: 203 lb 11.314 oz Body Mass Index (BMI) 28.8 Intake & Output: Intake and Output for Last 24 Hours 10/07/21 10/08/21 10/09/21 23:59 23:59 23:59 Intake Total 6623.50 / 6767.87 4695.58 / 4804.98 2262.99 / 2262.99 Output Total 2425 / 2425 2115 / 2115 900 / 900 Balance 4198.50 / 4342.87 2580.58 / 2689.98 1362.99 / 1362.99 Medical Nutrition Assessment Dietitian: Malnutrition Criteria Met Start: 10/07/21 10:07 Freq: Status: Active Protocol: Document 10/08/21 09:30 (Rec: 10/08/21 09:30 [id number]) Nutrition Malnutrition Evidence of Malnutrition Exists Yes Malnutrition (severe): Acute Illness/Injury Evidenced By Suboptimal Energy Intake ( Severe),Weight Loss (Severe) Clinical Problem Acute Disease or Injury Related Malnutrition Etiology severe, acute malnutrition r/t GI dysfunction Signs/Symptoms as evidenced by unintentional wt loss of 15.7#/8% x 1 week; estimated PO intake meeting < 50% of estimated energy needs >5 days Status Active Problem Recommendation Dietitian Recommendations/Changes If NPO status anticipated to continue over next 72 hours, recommend nutrition support- consult RDN for further recommendations/management as indicated Lab / Micro Data Result Diagrams: 10/09/21 03:35 10/09/21 03:35 Labs: Laboratory Results - last 24 hr 10/08/21 11:34: POC Glucose 174 H 10/08/21 17:46: POC Glucose 176 H 10/08/21 23:22: POC Glucose 159 H 10/09/21 03:35: WBC 7.1, RBC 3.28 L, Hgb 10.0 L, Hct 30.3 L, MCV 92.4, MCH 30.5, MCHC 33.0, RDW Std Deviation 51.0 H, RDW Coeff of Mila 15.2 H, Plt Count 62 L, MPV 9.6, Immature Gran % (Auto) 0.800, Neut % (Auto) 86.0 H, Lymph % (Auto) 6.7 L, [place] % (Auto) 3.9, Eos % (Auto) 2.2, Baso % (Auto) 0.4, Absolute Neuts (auto) 6.1, Absolute Lymphs (auto) 0.48 L, Nucleated RBC % 0, Platelet Estimate MOD D EC, Anisocytosis 1+ 10/09/21 03:35: PT 26.9 H, INR 2.5 10/09/21 03:35: Sodium 147 H, Potassium 3.9, Chloride 112 H, Carbon Dioxide 26.0, Anion Gap 9, BUN 65 H, Creatinine 1.67 H, Estim Creat Clear Calc 32.99, Est GFR (MDRD) Af Amer 51 L, Est GFR (MDRD) Non-Af 42 L, BUN/Creatinine Ratio 38.9 H, Glucose 200 H, Calcium 8.2 L, Total Bilirubin 4.20 H, AST 40 H, ALT 14 L , Alkaline Phosphatase 51, Total Protein 4.9 L, Albumin 1.4 L, Globulin 3.5, Albumin/Globulin Ratio 0.4 L 10/09/21 03:35: Direct Bilirubin 3.19 H, GGT 23, Lipase 262 10/09/21 06:32: POC Glucose 167 H Micro: Microbiology 10/06/21 13:45 Sputum, Induced/Lukens Gram Stain - Final 10/06/21 13:45 Sputum, Induced/Lukens Respiratory Culture - Final Klebsiella oxytoca 10/06/21 17:45 Gastric Fluid/Contents Gastric Occult Blood - Final Occult Blood Positive 10/06/21 15:08 Mucosa - Nose Respiratory Panel (PCR) - Final Radiography Diagnostic Testing: Radiology Impression KUB X-Ray 10/08/21 15:30 IMPRESSION: Nonspecific bowel gas pattern. Electronically Signed: Prudence Alcantar MD at 3:05 EDT Reading Location ID and State: [facility] / [place] , Service support , Rhythm Strip Rhythm Strip: Paced rhythm Rate: 65 Ectopy: None Physical Exam Const General Appearance: ill appearing Resp Resp Narrative: Somewhat increased work of breathing, with adventitial sounds. Weak cough. GI GI Narrative: Nondistended, soft, nontender aside from some mild discomfort in the left lower quadrant with deeper palpation Assessment & Plan Assessment/Plan (1) Bowel obstruction: QUALIFIERS: Intestinal obstruction type: unspecified Intestinal obstruction extent: partial Qualified Code(s): K56.600 - Partial intestinal obstruction, unspecified as to cause PLAN: Patient successfully extubated earlier today. He initially described feelings of gas moving in his abdomen and nursing reported after my visit that patient did indeed have a small bowel movement. Given his post intubation status, I recommended a swallow eval. Nursing plans to engage speech therapy for this purpose. Patient could then be initiated on a liquid diet if approved and follow for tolerance. Continue to maintain elevation of head of bed during this advancement. Charges/Coding Visit Charges Inpatient E&M: 51200 Subs Hosp L2
[2021-10-09] MEDS: CHLORHEXIDINE GLUC 2% CLOTH 1 EACH TOWELETTE TOPICAL (10:48)
[2021-10-09 11:56] LABS: Bedside Glucose 240 mg/dL (74-106)
--- NOTE | 2021-10-09 14:33 | PCM.CONS.GEN ---
Assessment & Plan Assessment/Plan (1) Acute respiratory failure with hypoxemia: PLAN: Treating for aspiration pneumonia. Overall much improved. CESAR resolving, off vent. Sputum with klebs. Cont zosyn. Bili is rising still, would consider MRCP if does not start to improve. Will follow, thank you (2) Acute kidney injury: HPI Consult Data Date of Consult: 10/09/21 HPI Narrative HPI Narrative: WILBUR GORMAN, is a 80 M who presented 10/05 with one week nausea/vomiting, decreased PO intake, fatigue, weakness, falls. Sx were progressive, he does not remember much of what happened. Worsened with several episodes of aspiration, transferred to icu and intubated. Now off vent, feeling a little better, still some cough and SOB. Fever improving. Full ROS performed and neg except as noted above. [facility] Medical History Atrial flutter Diabetes History of hyperlipidemia Hypertension Pacemaker Home Medications aspirin 81 mg PO DAILY@0800 05/05/18 [History Last Taken 10/05/21] cholecalciferol (vitamin D3) [Vitamin D] 2,000 unit PO DAILY 05/05/18 [History Last Taken 10/05/21] metoprolol tartrate 25 mg PO BID 05/05/18 [History Last Taken 10/05/21] warfarin [Coumadin ([facility])] 4 mg PO DAILY 05/05/18 [History Last Taken 10/04/21] dulaglutide [Trulicity] 0.75 mg SUBCUT SA 10/05/21 [History Last Taken 10/03/21] lovastatin 40 mg PO QHS 10/05/21 [History Last Taken 10/04/21] sitagliptin [Januvia] 50 mg PO DAILY 10/05/21 [History Last Taken 10/05/21] Allergy/AdvReac Type Severity Reaction Status Date / Time amlodipine Allergy Unknown Verified 10/05/21 16:18 glimepiride Allergy Unknown Verified 10/05/21 16:18 rosiglitazone [From Avandia] Allergy Unknown Verified 10/05/21 16:18 Family History (Updated 10/05/21 @ 20:[address] Denise Kolb MD) Mother Heart disease Father Heart disease Surgical History (Updated 10/05/21 @ 20:[address] Denise Kolb MD) History of appendectomy Hx of CABG Social History (Updated 10/05/21 @ 20:[address] Denise Kolb MD) household members: spouse and family Smoking Status: Former smoker how long ago did patient quit smoking: Quit remotely, prior smoked 1 ppd since early youth. alcohol intake: never substance use type: does not use Physical Exam Const alert and oriented x3 General Appearance: cooperative Exam Limitations: no limitations HEENT normocephalic and head/scalp atraumatic Eyes PERRL and EOMs intact bilaterally Neck supple and No nodes Resp Auscultation: rhonchi and diminished lung sounds Cardio regular rate and regular rhythm GI soft to palpation, non-tender and non-distended Extremity no clubbing, cyanosis or edema Skin no rashes or lesions noted Neuro CN's II-XII intact bilaterally Medical Records Data Medical Nutrition Assessment Dietitian: Malnutrition Criteria Met Start: 10/07/21 10:07 Freq: Status: Active Protocol: Document 10/08/21 09:30 (Rec: 10/08/21 09:30 [id number]) Nutrition Malnutrition Evidence of Malnutrition Exists Yes Malnutrition (severe): Acute Illness/Injury Evidenced By Suboptimal Energy Intake ( Severe),Weight Loss (Severe) Clinical Problem Acute Disease or Injury Related Malnutrition Etiology severe, acute malnutrition r/t GI dysfunction Signs/Symptoms as evidenced by unintentional wt loss of 15.7#/8% x 1 week; estimated PO intake meeting < 50% of estimated energy needs >5 days Status Active Problem Recommendation Dietitian Recommendations/Changes If NPO status anticipated to continue over next 72 hours, recommend nutrition support- consult RDN for further recommendations/management as indicated Lab / Micro Data Result Diagrams: 10/09/21 03:35 10/09/21 03:35 Labs: Laboratory Results - last 24 hr 10/08/21 17:46: POC Glucose 176 H 10/08/21 23:22: POC Glucose 159 H 10/09/21 03:35: WBC 7.1, RBC 3.28 L, Hgb 10.0 L, Hct 30.3 L, MCV 92.4, MCH 30.5, MCHC 33.0, RDW Std Deviation 51.0 H, RDW Coeff of Mila 15.2 H, Plt Count 62 L, MPV 9.6, Immature Gran % (Auto) 0.800, Neut % (Auto) 86.0 H, Lymph % (Auto) 6.7 L, [place] % (Auto) 3.9, Eos % (Auto) 2.2, Baso % (Auto) 0.4, Absolute Neuts (auto) 6.1, Absolute Lymphs (auto) 0.48 L, Nucleated RBC % 0, Platelet Estimate MOD DEC, Anisocytosis 1+ 10/09/21 03:35: PT 26.9 H, INR 2.5 10/09/21 03:35: Sodium 147 H, Potassium 3.9, Chloride 112 H, Carbon Dioxide 26.0, Anion Gap 9, BUN 65 H, Creatinine 1.67 H, Estim Creat Clear Calc 32.99, Est GFR (MDRD) Af Amer 51 L, Est GFR (MDRD) Non-Af 42 L, BUN/Creatinine Ratio 38.9 H, Glucose 200 H, Calcium 8.2 L, Total Bilirubin 4.20 H, AST 40 H, ALT 14 L, Alkaline Phosphatase 51, Total Protein 4.9 L, Albumin 1.4 L, Globulin 3.5, Albumin/Globulin Ratio 0.4 L 10/09/21 03:35: Direct Bilirubin 3.19 H, GGT 23, Lipase 262 10/09/21 06:32: POC Glucose 167 H 10/09/21 11:47: POC Glucose 240 H Micro: Microbiology 10/07/21 06:40 Blood Culture (Wb) - Left Forearm Blood Culture - Preliminary No growth in 48 hours. 10/07/21 06:25 Blood Culture (Wb) - Line Draw Blood Culture - Preliminary No growth in 48 hours. Rhythm Strip Rhythm Strip: Paced rhythm Rate: 65 Ectopy: None Radiology Impression KUB X-Ray 10/08/21 15:30 IMPRESSION: Nonspecific bowel gas pattern. Electronically Signed: Prudence Alcantar MD at 3:05 EDT , Liver Ultrasound 10/09/21 07:51 IMPRESSION: Multiple gallstones and sludge. Electronically Signed: Jose Monk MD at 12:10 EDT ,
[2021-10-09 17:25] LABS: Bedside Glucose 244 mg/dL (74-106)
[2021-10-09 23:41] LABS: Bedside Glucose 275 mg/dL (74-106)
[2021-10-10] VITALS (24 sets, daily range): BP systolic 114–149; BP diastolic 48–76; PULSE 60–80; RESP 16–28; TEMP 36.3–37.5; O2SAT 91–99
[2021-10-10 04:25] LABS: Absolute Lymphocyte Count 0.49 X10^3/uL (0.83-4.51); Absolute Neutrophil Count 2.6 X10^3/uL (2.0-7.7); Basophil# 0.01 X10^3/uL; Basophil% 0.3 % (0-1); Eosinophil# 0.18 X10^3/uL; Eosinophils% 5.1 % (0-5); Hematocrit 30.2 % (40-54); Lymphocyte # 0.49 X10^3/ul (0.83-4.51); Lymphocyte % 13.9 % (19-41); Mean Corp Hgb Conc 33.1 g/dL (32-36); Mean Corpuscular Hgb 30.2 pg (27.0-32.0); Mean Corpuscular Volume 91.2 fL (80-94); Mean Platelet Vol. 9.9 fl (6.2-12.0); Monocyte# 0.17 X10^3/uL; Monocyte% 4.8 % (0-10); NRBC Flagged by Analyzer 0 % (0-5); Neutrophil # 2.63 X10^3/uL (2.7-7.7); Neutrophil % 74.8 % (47-70); POSITIVE COUNT YES; POSITIVE DIFFERENTIAL YES; POSITIVE MORPHOLOGY YES; Platelet Count 42 K/mm3 (150-450); RBC Distribution Width CV 15.2 % (11.6-14.6); Red Blood Count 3.31 M/mm3 (4.6-6.2); White Blood Count 3.5 K/mm3 (4.4-11.0)
[2021-10-10 04:33] LABS: International Normalized Ratio 2.7; Prothrombin Time (Protime)PT. 27.9 SECONDS (11.7-14.9)
[2021-10-10] MEDS: CHLORHEXIDINE GLUC 2% CLOTH 1 EACH TOWELETTE TOPICAL (04:42)
[2021-10-10 04:43] LABS: ALB/GLOB Ratio 0.4 RATIO (0.9-2.4); AST(SGOT) 54 U/L (15-37); Alanine Aminotransfer ALT/SGPT 19 U/L (16-61); Albumin, Serum 1.5 g/dL (3.2-5.0); Alkaline Phosphatase 52 U/L (45-117); Anion Gap 3 (5-15); BUN 49 mg/dL (7-18); BUN/Creat Ratio 35.3 RATIO (10-20); Calcium,Total 8.1 mg/dL (8.5-10.1); Chloride 110 mmol/L (98-107); Creatinine, Serum 1.39 mg/dL (0.70-1.30); EST Glomerular Filtration Rate 52 mL/min (>60); Est Glom Filt Rate - Afr Amer 63 mL/min (>60); Estimated Creatinine Clearance 39.64 ml/min; Globulin 3.6 g/dL (2.2-4.2); Glucose 289 mg/dL (74-106); Potassium 3.6 mmol/L (3.5-5.1); Protein, Total 5.1 g/dL (6.4-8.2); Sodium Level 143 mmol/L (136-145)
[2021-10-10 04:59] LABS: Differential Indicated SCAN CRITERIA MET
[2021-10-10 05:02] LABS: Differential Comment SCANNED; Toxic Granulation 1+
[2021-10-10] MEDS: Insulin Lispro 100 UNIT/ML INSULN.PEN SC ×4 (06:17→22:09)
--- NOTE | 2021-10-10 06:19 | PN.CC_ITS ---
Assessment & Plan Assessment/Plan (1) Acute respiratory failure with hypoxemia: PLAN: RECOMMENDATIONS: 1. Continue aggressive bronchopulmonary hygiene. 2. Dietary advancement per speech therapy. 3. Continue antimicrobials as ordered. 4. Stop dextrose containing fluids once diet is able to be advanced. 5. Gastroenterology consultation 6. Continue PPI therapy twice daily. 7. Continue to monitor INR daily. 8. Physical therapy to work with the patient. IMPRESSIONS: 1. Acute hypoxemic respiratory failure Improved. The patient decompensated from a respiratory perspective following several episodes of profound emesis with elaine aspiration. He ultimately required ICU transfer and emergent intubation. The patient did have significant GI contents in his posterior oropharynx with witnessed aspiration at the time of intubation as well. The patient appears to have developed a gram-negative pneumonia in the setting of aspiration. Plan to continue current antimicrobials. The patient improved from a respiratory perspective and was able to be extubated on October 09. He is currently maintaining appropriate oxygen saturations on room air. Continue aggressive bronchopulmonary hygiene. 2. Septic shock Resolved. The patient presented with sepsis due to suspected aspiration pneumonia with acute sepsis related organ dysfunction as evidenced by acute respiratory failure requiring invasive mechanical ventilatory support, along with acute on chronic kidney disease and hyperbilirubinemia. The patient remains hemodynamically stable without any further need for vasopressor support. 3. Bowel obstruction CT abdomen/pelvis was concerning for an acute bowel obstruction. General surgery is following. The patient's bowel obstruction appears to have improved with conservative measures including gastric decompression via OG tube, which has since been removed following extubation. 4. Acute on chronic kidney disease Improving. Likely prerenal in etiology in the setting of #2. Will continue supplemental IV fluid hydration. Continue to monitor urine output. No current indication for renal replacement therapy. 5. Coagulopathy The patient is systemically anticoagulated on Coumadin as an outpatient. He presented with a supratherapeutic INR. In light of his clinical decompensation, vitamin K was provided. His coagulopathy has improved. Recommend following PT/INR daily. Continue to hold Coumadin for now. 6. Hyperbilirubinemia Unclear etiology. Alk phosphatase has been normal. There has not been any significant increases in his transaminase levels. Liver ultrasound was unremarkable. Will place consultation to gastroenterology. 7. History of coronary artery disease/atrial flutter/hypertension/hyperlipidemia/chronic ITP Complicates care, management, recovery and prognosis. Continue to hold home antihypertensives. This note was generated with Dragon dictation software. It may contain incorrect words, spelling, and punctuation that were not noted in checking the note before signing. Subjective Subjective The patient was seen and examined at the bedside this morning. Events from the last 24 hours have been reviewed. The patient is currently afebrile, hemodynamically stable and maintaining appropriate oxygen saturations on room air at the current time. The patient is documented to be overall net +11 L for the hospitalization. The patient was evaluated by speech therapy yesterday over concerns for possible aspiration. They recommended continued n.p.o. status with further evaluation. The patient reported feeling quite tired this morning. He has a weak cough but does have access to a PEP device and incentive spirometer. Platelet count was noted to be 42,000 this morning. Creatinine has improved to 1.39. Total bilirubin remains elevated at 4.5. However, liver ultrasound was largely unremarkable yesterday. INR is 2.7. Objective Data Objective Data The patient's most recent lab work, culture data and imaging studies have all been personally reviewed. Gastric occult blood was positive. Respiratory viral panel was negative. Sputum culture was positive for Klebsiella. Gastric occult blood was positive. Blood cultures are pending. Vital Signs: Vital Signs Temp Pulse Resp BP Pulse Ox 99.5 F H 61 20 H 114/48 L 95 10/10/21 05:00 10/10/21 05:00 10/10/21 05:00 10/10/21 05:00 10/10/21 05:00 Oxygen Flow Rate (L/min) 1 Oxygen Delivery Method Nasal Cannula Weight: 92.3 kg Body Mass Index (BMI) 28.8 Intake & Output: Intake and Output for Last 24 Hours 10/08/21 10/09/21 10/10/21 23:59 23:59 23:59 Intake Total 4695.58 / 4804.98 4543.41 / 4543.41 50 / 50 Output Total 2115 / 2115 1650 / 1650 300 / 300 Balance 2580.58 / 2689.98 2893.41 / 2893.41 -250 / -250 Medical Nutrition Assessment Dietitian: Malnutrition Criteria Met Start: 10/07/21 10: 07 Freq: Status: Active Protocol: Document 10/08/21 09:30 (Rec: 10/08/21 09:30 AG [id number]) Nutrition Malnutrition Evidence of Malnutrition Exists Yes Malnutrition (severe): Acute Illness/Injury Evidenced By Suboptimal Energy Intake ( Severe),Weight Loss (Severe) Clinical Problem Acute Disease or Injury Related Malnutrition Etiology severe, acute malnutrition r/t GI dysfunction Signs/Symptoms as evidenced by unintentional wt loss of 15.7#/8% x 1 week; estimated PO intake meeting < 50% of estimated energy needs >5 days Status Active Problem Recommendation Dietitian Recommendations/Changes If NPO status anticipated to continue over next 72 hours, recommend nutrition support- consult RDN for further recommendations/management as indicated Lab / Micro Data Result Diagrams: 10/10/21 04:03 10/10/21 04:03 Labs: Laboratory Results - last 24 hr 10/09/21 06:32: POC Glucose 167 H 10/09/21 11:47: POC Glucose 240 H 10/09/21 17:10: POC Glucose 244 H 10/09/21 23:36: POC Glucose 275 H 10/10/21 04:03: WBC 3.5 L, RBC 3.31 L, Hgb 10.0 L, Hct 30.2 L, MCV 91.2, MCH 30.2, MCHC 33.1, RDW Std Deviation 51.0 H, RDW Coeff of Mila 15.2 H, Plt Count 42 L*, MPV 9.9, Immature Gran % (Auto) 1.100 H, Neut % (Auto) 74.8 H, Lymph % (Au to) 13.9 L, [place] % (Auto) 4.8, Eos % (Auto) 5.1 H, Baso % (Auto) 0.3, Absolute Neuts (auto) 2.6, Absolute Lymphs (auto) 0.49 L, Nucleated RBC % 0, Differential Comment SCANNED, Diff Path Review September foll, Toxic Granulation 1+ 10/10/21 04:03: PT 27.9 H, INR 2.7 10/10/21 04:03: Sodium 143, Potassium 3.6, Chloride 110 H, Carbon Dioxide 30.0, Anion Gap 3 L, BUN 49 H, Creatinine 1.39 H, Estim Creat Clear Calc 39.64, Est GFR (MDRD) Af Amer 63, Est GFR (MDRD) Non-Af 52 L, BUN/Creatinine Ratio 35.3 H, Glucose 289 H, Calcium 8.1 L, Total Bilirubin 4.50 H, AST 54 H, ALT 19, Alkaline Phosphatase 52, Total Protein 5.1 L, Albumin 1.5 L, Globulin 3.6, Albumin/Globulin Ratio 0.4 L Micro: Microbiology 10/07/21 06:40 Blood Culture (Wb) - Left Forearm Blood Culture - Preliminary No growth in 48 hours. 10/07/21 06:25 Blood Culture (Wb) - Line Draw Blood Culture - Preliminary No growth in 48 hours. 10/06/21 13:45 Sputum, Induced/Lukens Gram Stain - Final 10/06/21 13:45 Sputum, Induced/Lukens Respiratory Culture - Final Klebsiella oxytoca 10/06/21 17:45 Gastric Fluid/Contents Gastric Occult Blood - Final Occult Blood Positive 10/06/21 15:08 Mucosa - Nose Respiratory Panel (PCR) - Final Radiography Diagnostic Testing: Radiology Impression Liver Ultrasound 10/09/21 07:51 IMPRESSION: Multiple gallstones and sludge. Electronically Signed: Jose Monk MD at 12:10 EDT , Rhythm Strip Rhythm Strip: Paced rhythm Rate: 65 Ectopy: None Physical Exam Const alert and no apparent distress Constitutional Narrative: Quite fatigued in appearance. General Appearance: cooperative Nutritional Appearance: obese HEENT normocephalic and head/scalp atraumatic Eyes PERRL and conjunctivae normal Neck supple General: trachea midline and CVC in place Chest inspection of chest normal Resp Auscultation: rhonchi and diminished lung sounds; Negative for wheezes Cardio regular rate and regular rhythm Cardio Narrative: Paced rhythm on telemetry. GI soft to palpation and non-tender Extremity General Extremity: edema; Negative for clubbing Skin no rashes or lesions noted Neuro CN's II-XII intact bilaterally, moves all extremities and no focal motor deficits Psych Mood & Affect: flat affect Charges/Coding Visit Charges Inpatient E&M: 86298 Subs Hosp L3
[2021-10-10 06:21] LABS: Bedside Glucose 289 mg/dL (74-106)
--- NOTE | 2021-10-10 08:04 | PN.HOSP_ITS ---
Subjective Subjective Follow-up for bowel obstruction septic shock secondary to aspiration pneumonia Objective Data Objective Data Vital Signs: Vital Signs Temp Pulse Resp BP Pulse Ox 99.0 F 60 25 H 117/49 L 91 10/10/21 06:00 10/10/21 08:00 10/10/21 06:00 10/10/21 06:00 10/10/21 06:00 Oxygen Flow Rate (L/min) 1 Oxygen Delivery Method Room Air Weight: 203 lb 7.787 oz Body Mass Index (BMI) 28.8 Intake & Output: Intake and Output for Last 24 Hours 10/08/21 10/09/21 10/10/21 23:59 23:59 23:59 Intake Total 4695.58 / 4804.98 4543.41 / 4543.41 50 / 50 Output Total 2115 / 2115 1650 / 1650 300 / 300 Balance 2580.58 / 2689.98 2893.41 / 2893.41 -250 / -250 Medical Nutrition Assessment Dietitian: Malnutrition Criteria Met Start: 10/07/21 10:07 Freq: Status: Active Protocol: Document 10/08/21 09:30 AG (Rec: 10/08/21 09:30 [id number]) Nutrition Malnutrition Evidence of Malnutrition Exists Yes Malnutrition (severe): Acute Illness/Injury Evidenced By Suboptimal Energy Intake ( Severe),Weight Loss (Severe) Clinical Problem Acute Disease or Injury Related Malnutrition Etiology severe, acute malnutrition r/t GI dysfunction Signs/Symptoms as evidenced by unintentional wt loss of 15.7#/8% x 1 week; estimated PO intake meeting < 50% of estimated energy needs >5 days Status Active Problem Recommendation Dietitian Recommendations/Changes If NPO status anticipated to continue over next 72 hours, recommend nutrition support- consult RDN for further recommendations/management as indicated Lab / Micro Data Result Diagrams: 10/10/21 04:03 10/10/21 04:03 Labs: Laboratory Results - last 24 hr 10/09/21 11:47: POC Glucose 240 H 10/09/21 17:10: POC Glucose 244 H 10/09/21 23:36: POC Glucose 275 H 10/10/21 04:03: WBC 3.5 L, RBC 3.31 L, Hgb 10.0 L, Hct 30.2 L, MCV 91.2, MCH 30.2, MCHC 33.1, RDW Std Deviation 51.0 H, RDW Coeff of Mila 15.2 H, Plt Count 42 L*, MPV 9.9, Immature Gran % (Auto) 1.100 H, Neut % (Auto) 74.8 H, Lymph % (Auto) 13.9 L, [place] % (Auto) 4.8, Eos % (Auto) 5.1 H, Baso % (Auto) 0.3, Absolute Neuts (auto) 2.6, Absolute Lymphs (auto) 0.49 L, Nucleated RBC % 0, Differential Comment SCANNED, Diff Path Review September foll, Toxic Granulation 1+ 10/10/21 04:03: PT 27.9 H, INR 2.7 10/10/21 04:03: Sodium 143, Potassium 3.6, Chloride 110 H, Carbon Dioxide 30.0, Anion Gap 3 L, BUN 49 H, Creatinine 1.39 H, Estim Creat Clear Calc 39.64, Est GFR (MDRD) Af Amer 63, Est GFR (MDRD) Non-Af 52 L, BUN/Creatinine Ratio 35.3 H, Glucose 289 H, Calcium 8.1 L, Total Bilirubin 4.50 H, AST 54 H, ALT 19, Alkaline Phosphatase 52, Total Protein 5.1 L, Albumin 1.5 L, Globulin 3.6, Albumin/Globulin Ratio 0.4 L 10/10/21 06:14: POC Glucose 289 H Micro: Microbiology 10/07/21 06:40 Blood Culture (Wb) - Left Forearm Blood Culture - Preliminary No growth in 48 hours. 10/07/21 06:25 Blood Culture (Wb) - Line Draw Blood Culture - Preliminary No growth in 48 hours. 10/06/21 13:45 Sputum, Induced/Lukens Gram Stain - Final 10/06/21 13:45 Sputum, Induced/Lukens Respiratory Culture - Final Klebsiella oxytoca 10/06/21 17:45 Gastric Fluid/Contents Gastric Occult Blood - Final Occult Blood Positive 10/06/21 15:08 Mucosa - Nose Respiratory Panel (PCR) - Final Radiography Diagnostic Testing: Radiology Impression Liver Ultrasound 10/09/21 07:51 IMPRESSION: Multiple gallstones and sludge. Electronically Signed: Jose Monk MD at 12:10 EDT , Rhythm Strip Rhythm Strip: Paced rhythm Rate: 65 Ectopy: None Physical Exam Narrative Overnight events followed. Patient maintained his blood pressure on vasopress or. T-max 99.2 Fahrenheit. Respiratory rate around 23 to 27/min. 91% on room air. Patient had a bowel movement yesterday. General: Awake, looks weak and lethargic HEENT: PERRLA, EOMI Oral: Oral mucosa dry. Neck: Supple, No JVD, Negative Carotid Bruits Lungs: Air entry diminished in bilateral lung bases. Bilateral coarse crepitation. Cardiovascular: Regular rate, Regular Rhythm, Normal S1, Normal S2, No murmurs Abdomen: Mild abdominal distention. Bowel sounds absent. No appreciable ten derness. No palpable mass : No renal angle tenderness. No suprapubic tenderness. Extremities: No edema, Capillary Refill Less than 3 Seconds Skin: No rashes, No breakdown Musculoskeletal: No Tenderness to Palpation of Joints or Extremities Neurological: Cranial nerves II-XII grossly intact, DTR 2+/4 and Symmetrical. Psych/Mental Status: Flat affect. Assessment & Plan Assessment/Plan (1) Acute respiratory failure with hypoxemia: PLAN: This patient was seen in conjunction with RADHA Hurst. I have independently interviewed and examined the patient and reviewed pertinent history, examination findings, laboratory and plan of management. I have reviewed the note and agree with the documented findings with the few additional points. In brief, patient is 80-year-old gentleman was admitted with 1 week history of nausea, intermittent vomiting and diarrhea which progressed to abdominal dist ention. Patient also intermittent abdominal cramping. 1. Acute hypoxic respiratory failure due to multiple episodes of vomiting and aspiration: In the morning patient had vomiting and probably aspirated because chest auscultation appeared coarse crepitation. Avionics Repair Technician consulted. Patient oxygenation and ventilation did not improve nonrebreather and Airvo therefore transferred to ICU where he was intubated and ventilated. Patient on IV propofol and fentanyl drip. During intubation, greenish-black fluid observed and after intubation and OG tube, Platelet count 117,000. ABG 7.3 8/48/174 on 90% FiO2/450/15 PEEP. Chest x-ray initially reviewed. Initial chest shows no acute cardiopulmonary abnormality. 10/08: FiO2 30%. On light sedation. 10/09: Patient is extubated. On oxygen through nasal cannula 3 to 4 L of oxygen. Aggressive incentive spirometry and Pep ordered 10/10 pulse ox 91% on room air. Acute hypoxic respiratory failure resolved. 2. Small bowel obstruction: OG tube inserted about 3 L of coffee-ground fluid aspirated. CT abdomen and pelvis without oral and IV contrast shows possible transition point in right lower quadrant with dilated upstream small bowel, jeju num. Surgery is consulted. 10/08: NG tube as patient has decreased, since stomach and upper small bowel is decompressed. 10/09: NG tube removed. Discussed with surgeon on 10/08. 10/10: Patient had bowel movement on 10/09. Patient denied flatus. Speech therapist ordered. On IV fluid D5 for nutritional support. The patient has net 12.5 L of fluid positive 3. Coffee-ground aspiration: Gastric occult blood positive for occult blood. Serial CBC monitoring shows drop in hemoglobin from 14.2-13.1 but his baseline runs around 13.5 gram percent. IV PPI every 12 hourly. 4. Septic shock suspected due to aspiration pneumonia/intra-abdominal bowel infection; SBO with evidence of sepsis related organ dysfunction: Patient has acute hypoxic respiratory failure requiring mechanical ventilation, acute on chronic kidney disease and hyperbilirubinemia after vomiting and aspiration in PCU. After vomiting, chest x-ray although reported no acute findings but on my review seems mild RLL and LLL haziness/infiltrate. COVID-19 PCR not detected. Patient had right IJ ultrasound-guided CVC catheter inserted on 10/06. 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 Continue IV antibiotic Zosyn and discontinue vancomycin. CESAR on CKD stage IIIb. Gradual improvement in creatinine. Patient baseline creatinine stays around 1.6. 10/09: Sputum culture shows 3+ Klebsiella oxytoca. Patient still having low- grade fever 100.6 Fahrenheit. ID is consulted for further opinion and recommendation. 10/10: Patient maintaining blood pressure without vasopressors. Septic shock imp roving. 5. 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 Vitamin K 5 mg IV given in the morning. Warfarin is on hold. Patient dropped blood pressure during intubation systolic 55. Right IJ CVC catheter inserted. 10/07: Repeat INR after vitamin K is 2.0. 10/10 INR 2.7. Therapeutic 6. Chronic idiopathic thrombocytopenia: Baseline platelet count about 100,000. 10/10 platelet count 42,000, with rate decreased from 84,000-42,000. Probably from antibiotic. 7. Diabetes mellitus type 2: Uncontrolled glucose in 300, most recent 286. Started on 10 units Lantus insulin. Serial Accu-Chek profile is better Total time of the visit including total time spent in counseling or coordination of care, (more than 50% of the total time, spent in obtaining medical information from nurses and other ancillary care providers,explaining to the patient about labs, imaging, diagnosis and management), discussion with bhavik tanamada, review of labs and imaging is 40 minutes. Charges/Coding Visit Charges Inpatient E&M: 83071 Subs Hosp L3
--- NOTE | 2021-10-10 08:38 | PN.SURG_ITS ---
Subjective Subjective Awaiting swallow study, patient denies any abdominal pain did have some bowel movements yesterday. Currently denies flatus Objective Data Objective Data Vital Signs: Vital Signs Temp Pulse Resp BP Pulse Ox 99.0 F 60 25 H 117/49 L 94 10/10/21 06:00 10/10/21 08:00 10/10/21 06:00 10/10/21 06:00 10/10/21 08:10 Oxygen Flow Rate (L/min) 1 Oxygen Delivery Method Room Air Weight: 203 lb 7.787 oz Body Mass Index (BMI) 28.8 Intake & Output: Intake and Output for Last 24 Hours 10/08/21 10/09/21 10/10/21 23:59 23:59 23:59 Intake Total 4695.58 / 4804.98 4543.41 / 4543.41 50 / 50 Output Total 2115 / 2115 1650 / 1650 300 / 300 Balance 2580.58 / 2689.98 2893.41 / 2893.41 -250 / -250 Medical Nutrition Assessment Dietitian: Malnutrition Criteria Met Start: 10/07/21 10:07 Freq: Status: Active Protocol: Document 10/08/21 09:30 (Rec: 10/08/21 09:30 [id number]) Nutrition Malnutrition Evidence of Malnutrition Exists Yes Malnutrition (severe): Acute Illness/Injury Evidenced By Suboptimal Energy Intake ( Severe),Weight Loss (Severe) Clinical Problem Acute Disease or Injury Related Malnutrition Etiology severe, acute malnutrition r/t GI dysfunction Signs/Symptoms as evidenced by unintentional wt loss of 15.7#/8% x 1 week; estimated PO intake meeting < 50% of estimated energy needs >5 days Status Active Problem Recommendation Dietitian Recommendations/Changes If NPO status anticipated to continue over next 72 hours, recommend nutrition support- consult RDN for further recommendations/management as indicated Lab / Micro Data Result Diagrams: 10/10/21 04:03 10/10/21 04:03 Labs: Laboratory Results - last 24 hr 10/09/21 11:47: POC Glucose 240 H 10/09/21 17:10: POC Glucose 244 H 10/09/21 23:36: POC Glucose 275 H 10/10/21 04:03: WBC 3.5 L, RBC 3.31 L, Hgb 10.0 L, Hct 30.2 L, MCV 91.2, MCH 30.2, MCHC 33.1, RDW Std Deviation 51.0 H, RDW Coeff of Mila 15.2 H, Plt Count 42 L*, MPV 9.9, Immature Gran % (Auto) 1.100 H, Neut % (Auto) 74.8 H, Lymph % (Auto) 13.9 L, Crosby % (Auto) 4.8, Eos % (Auto) 5.1 H, Baso % (Auto) 0.3, Absolute Neuts (auto) 2.6, Absolute Lymphs (auto) 0.49 L, Nucleated RBC % 0, Differential Comment SCANNED, Diff Path Review September, Toxic Granulation 1+ 10/10/21 04:03: PT 27.9 H, INR 2.7 10/10/21 04:03: Sodium 143, Potassium 3.6, Chloride 110 H, Carbon Dioxide 30.0, Anion Gap 3 L, BUN 49 H, Creatinine 1.39 H, Estim Creat Clear Calc 39.64, Est GFR (MDRD) Af Amer 63, Est GFR (MDRD) Non-Af 52 L, BUN/Creatinine Ratio 35.3 H, Glucose 289 H, Calcium 8.1 L, Total Bilirubin 4.50 H, AST 54 H, ALT 19, Alkaline Phosphatase 52, Total Protein 5.1 L, Albumin 1.5 L, Globulin 3.6, Albumin/Globulin Ratio 0.4 L 10/10/21 06:14: POC Glucose 289 H Micro: Microbiology 10/07/21 06:40 Blood Culture (Wb) - Left Forearm Blood Culture - Preliminary No growth in 48 hours. 10/07/21 06:25 Blood Culture (Wb) - Line Draw Blood Culture - Preliminary No growth in 48 hours. 10/06/21 13:45 Sputum, Induced/Lukens Gram Stain - Final 10/06/21 13:45 Sputum, Induced/Lukens Respiratory Culture - Final Klebsiella oxytoca 10/06/21 17:45 Gastric Fluid/Contents Gastric Occult Blood - Final Occult Blood Positive 10/06/21 15:08 Mucosa - Nose Respiratory Panel (PCR) - Final Radiography Diagnostic Testing: Radiology Impression Liver Ultrasound 10/09/21 07:51 IMPRESSION: Multiple gallstones and sludge. Electronically Signed: Jose Monk MD at 12:10 EDT , Rhythm Strip Rhythm Strip: Paced rhythm Rate: 65 Ectopy: None Physical Exam Const no apparent distress Resp normal respiratory effort Cardio regular rate GI soft to palpation and non-tender Inspection: Negative for abdominal distention Assessment & Plan Assessment/Plan (1) Bowel obstruction: QUALIFIERS: Intestinal obstruction type: unspecified Intestinal obstruction extent: partial Qualified Code(s): K56.600 - Partial intestinal obstruction, unspecified as to cause PLAN: Awaiting swallow study. We will plan to advance diet to liquids depending on the swallow study. Continue to monitor. Chelo Rodriguez M.D. Pager: [phone] [facility] [address] [place] [address], [address] [place] [address] Office: [phone] Charges/Coding Visit Charges Inpatient E&M: 66079 Subs Hosp L2
[2021-10-10 11:21] LABS: Bedside Glucose 239 mg/dL (74-106)
--- NOTE | 2021-10-10 12:21 | CON.PCM_ITS ---
Assessment & Plan Assessment/Plan (1) Diarrhea: (2) Hyperbilirubinemia: PLAN: He has multiple risk factors for micro cirrhosis including diabetes, congestive heart failure with passive congestion backwards to the liver in the setting of elevated INR and thrombocytopenia. There are things that go against him having cirrhosis resulting in elevated conjugated bilirubinemia would be the ultrasound showing no heterogenicity. The CT scan is not a good study because is not a contrast study. I do not suspect that he has Demian-Wayne or rotor syndrome which are other diseases that precipitate conjugated hyperbilirubinemia in the setting of normal liver enzymes. Demian-Wayne is usually in a female with intraparotid cholestasis secondary to or control and rotor syndrome is usually associated with a mild hemolytic anemia and a very dark pigmented liver. The etiology of his conjugated hyperbilirubinemia would be intrahepatic cholestasis from primary sclerosing cholangitis or primary biliary cirrhosis. As you may not see ductal dilation on the CT scan without contrast inside of the liver. And you definitely would not see stricturing disease on side of the liver. In cases of prolonged conjugated bilirubinemia such as a bowel obstruction or biliary obstruction, albumin-conjugated bilirubin binding results in the formation of delta-bilirubin. Delta-bilirubin persists in blood for a prolonged period due to the long half-life of albumin of around 21 days. In acute liver injury, bilirubin and INR elevation correlates with the severity of the illness. At this time due to the need to really determine if he has poor synthetic function secondary to intrahepatic cholestasis I would recommend a liver biopsy and MRCP. I would also recommend he start on ursodiol 500 mg twice a day. If this is normal then it is likely that this is secondary to a pseudo bowel obstruction and can take up to 6 to 8 weeks for it to resolve. As his bowel function improves his conjugated hyperbilirubinemia should improve as we eliminate conjugated hyperbilirubinemia through the GI tract. However it is 95% reabsorbed in the distal small bowel where I would expect his bowel obstruction or pseudo bowel obstruction would have been secondary to his recent probable viral illness. He does not seem to be exhibiting any signs of cholangitis at this time. But I would continue him on antibiotic therapy until he gets imaging that does not show any signs of intrahepatic cholestasis. 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 He denies any specific ill contacts. Work-up in the ED included T97.1, heart rate 80, BP 137/56, respiratory rate 16, 97% on room air, CBC with WC 6, hemoglobin 14.2, platelet 100 without marked left shift with mild lymphopenia, coags with PT 69.6, INR 8.4, CMP with BUN/creatinine 61/1.75, glucose 322, T bili 1.20 otherwise not marked appearing hepatic profile, urinalysis with significant evidence of dehydration however it is a poor sample with notable squamous epithelial cells, chest x-ray with no acute cardiopulmonary findings. In the ED patient ministered normal saline and Zofran therapy. Sometime the next morning patient had vomiting and probably aspirated. Abdominal x-ray and CT abdomen was done which shows small bowel obstruction with transition point in right lower quadrant. Day Care Worker and general surgery consulted and patient transferred to ICU for intubation, protection of airway and severe acute hypoxic respiratory failure. Initially patient was put on nonrebreather mask platelet was found still hypoxic therefore put on high flow Airvo and then transferred to ICU where he was intubated. Patient was able to do well with conservative therapy and did not require surgery for a possible small bowel obstruction. He also did well regarding his severe acute hypoxic respiratory failure with intubation, pulmonary toilet and antibiotic therapy. Currently he is extubated. I have been asked to see him because he developed worsening hyperbilirubinemia. He has no history of liver disease. He does have a history of ITP and requires chronic anticoagulation secondary to atrial fibrillation and history of coronary artery disease. He was not a drinker of frequent alcohol. He has no family history of liver disease. He has no personal history of chronic viral hepatitis. He has never received a blood transfusion. I do not have a recent echocardiograph for him. The last one I saw was back in 2012 where he had an ICD placed and there was bilateral atrial and ventricular dilation. However his ejection fraction was noted to be 50%. He has not had any problems with his pacemaker and he is taking only beta- cecil therapy and aspirin. As far as the patient knows he has not been treated with steroids for ITP and his not had to had a spleen evaluated for possible splenectomy. [facility] Medical History Atrial flutter Diabetes History of hyperlipidemia Hypertension Pacemaker Home Medications aspirin 81 mg PO DAILY@0800 05/05/18 [History Last Taken 10/05/21] cholecalciferol (vitamin D3) [Vitamin D] 2,000 unit PO DAILY 05/05/18 [History Last Taken 10/05/21] metoprolol tartrate 25 mg PO BID 05/05/18 [History Last Taken 10/05/21] warfarin [Coumadin ([facility])] 4 mg PO DAILY 05/05/18 [History Last Taken 10/04/21] dulaglutide [Trulicity] 0.75 mg SUBCUT SA 10/05/21 [History Last Taken 10/03/21] lovastatin 40 mg PO QHS 10/05/21 [History Last Taken 10/04/21] sitagliptin [Januvia] 50 mg PO DAILY 10/05/21 [History Last Taken 10/05/21] Allergy/AdvReac Type Severity Reaction Status Date / Time amlodipine Allergy Unknown Verified 10/05/21 16:18 glimepiride Allergy Unknown Verified 10/05/21 16:18 rosiglitazone [From Avandia] Allergy Unknown Verified 10/05/21 16:18 Family History (Updated 10/05/21 @ 20:[address] Denise Kolb MD) Mother Heart disease Father Heart disease Surgical History (Updated 10/05/21 @ 20:[address] Denise Kolb MD) History of appendectomy Hx of CABG Social History (Updated 10/05/21 @ 20:[address] Denise Kolb MD) household members: spouse and family Smoking Status: Former smoker how long ago did patient quit smoking: Quit remotely, prior smoked 1 ppd since early youth. alcohol intake: never substance use type: does not use ROS Review of Systems ROS Unobtainable: other Constitutional Constitutional: Denies fatigue, fever(s), poor appetite, weight gain or weight loss ENT HEENT: Denies mouth lesions Cardiovascular Cardiovascular: Denies abdominal bloating, abdominal edema or abdominal pain Respiratory/Chest Respiratory/Chest: Denies change in mental status, change in phlegm color, chest congestion or chest tightness Gastrointestinal Gastrointestinal: Denies belching, bloating, change in bowel habits, change in stool character, chewing difficulty, coffee ground emesis, constipation, cramping, diarrhea, dyspepsia, dysphagia, early satiety, excessive flatus, fecal incontinence, heartburn, hematemesis, hematochezia, hemorrhoids, loose stools, melena, nausea, odynophagia, rectal bleeding, tenesmus, vomiting or weight changes Genitourinary Genitourinary: Denies abdominal discomfort, burning urination or itching Musculoskeletal Musculoskeletal: Reports as per HPI; Denies muscle weakness or myalgias Integumentary Integumentary: Denies jaundice Neurologic Neurologic: Denies lack of coordination or weakness Psychiatric Psychiatric: Denies confusion, depression, memory loss, mood swings, paranoia or suicidal ideation Endocrine Endocrinology: Denies systems reviewed and no addt'l complaints, except as documented Hematologic/Lymphatic Hematologic/Lymphatic: Denies anemia, easy bleeding, easy bruising or ly mphadenopathy Allergic/Immunologic Allergic/Immunologic: Denies systems reviewed and no addt'l complaints, except as documented Physical Exam Const alert General Appearance: cooperative Orientation / Consciousness: oriented to person HEENT hearing grossly normal bilaterally Head and Scalp: normal to inspection Face and Sinus: face symmetric Nose: external nose normal Mouth: oral and palatal mucosa normal Eyes conjunctivae normal General Eye: normal appearance of both eyes Neck full ROM General: normal visual inspection Lymph Lymphatic: no lymphadenopathy noted Chest inspection of chest normal and palpation of chest normal Chest: symmetrical chest wall rise Resp normal respiratory effort Effort and Inspection: able to speak in complete sentences Cardio regular rate GI non-distended Percussion: normal to percussion Rectal Exam: deferred Medical Records Data Medical Nutrition Assessment Dietitian: Malnutrition Criteria Met Start: 10/07/21 10:07 Freq: Status: Active Protocol: Document 10/08/21 09:30 (Rec: 10/08/21 09:30 [id number]) Nutrition Malnutrition Evidence of Malnutrition Exists Yes Malnutrition (severe): Acute Illness/Injury Evidenced By Suboptimal Energy Intake ( Severe),Weight Loss (Severe) Clinical Problem Acute Disease or Injury Related Malnutrition Etiology severe, acute malnutrition r/t GI dysfunction Signs/Symptoms as evidenced by unintentional wt loss of 15.7#/8% x 1 week; estimated PO intake meeting < 50% of estimated energy needs >5 days Status Active Problem Recommendation Dietitian Recommendations/Changes If NPO status anticipated to continue over next 72 hours, recommend nutrition support- consult RDN for further recommendations/management as indicated Lab / Micro Data Result Diagrams: 10/10/21 04:03 10/10/21 04:03 Labs: Laboratory Results - last 24 hr 10/09/21 17:10: POC Glucose 244 H 10/09/21 23:36: POC Glucose 275 H 10/10/21 04:03: WBC 3.5 L, RBC 3.31 L, Hgb 10.0 L, Hct 30.2 L, MCV 91.2, MCH 30.2, MCHC 33.1, RDW Std Deviation 51.0 H, RDW Coeff of Mila 15.2 H, Plt Count 42 L*, MPV 9.9, Immature Gran % (Auto) 1.100 H, Neut % (Auto) 74.8 H, Lymph % (Auto) 13.9 L, Dubois % (Auto) 4.8, Eos % (Auto) 5.1 H, Baso % (Auto) 0.3, Absolute Neuts (auto) 2.6, Absolute Lymphs (auto) 0.49 L, Nucleated RBC % 0, Differential Comment SCANNED, Diff Path Review May foll, Toxic Granulation 1+ 10/10/21 04:03: PT 27.9 H, INR 2.7 10/10/21 04:03: Sodium 143, Potassium 3.6, Chloride 110 H, Carbon Dioxide 30.0, Anion Gap 3 L, BUN 49 H, Creatinine 1.39 H, Estim Creat Clear Calc 39.64, Est GFR (MDRD) Af Amer 63, Est GFR (MDRD) Non-Af 52 L, BUN/Creatinine Ratio 35.3 H, Glucose 289 H, Calcium 8.1 L, Total Bilirubin 4.50 H, AST 54 H, ALT 19, Alkaline Phosphatase 52, Total Protein 5.1 L, Albumin 1.5 L, Globulin 3.6, Albumin/Globulin Ratio 0.4 L 10/10/21 06:14: POC Glucose 289 H 10/10/21 11:14: POC Glucose 239 H Micro: Microbiology 10/07/21 06:40 Blood Culture (Wb) - Left Forearm Blood Culture - Preliminary No growth in 48 hours. 10/07/21 06:25 Blood Culture (Wb) - Line Draw Blood Culture - Preliminary No growth in 48 hours. Rhythm Strip Rhythm Strip: Paced rhythm Rate: 65 Ectopy: None Charges/Coding Visit Charges Inpatient E&M: 74494 Subs Hosp L3
--- NOTE | 2021-10-10 14:36 | NURSING ---
informed pt would be transferring to room 109, also informed her Dr Friend would like to do liver biospy on Tuesday, transferred per bed with belongings to room 109
[2021-10-10 17:55] LABS: Bedside Glucose 280 mg/dL (74-106)
--- NOTE | 2021-10-10 19:03 | NURSING ---
Reviewed charting for Chano Cabello RN
[2021-10-10] MEDS: 0.9% Saline Lock 10 ML Syringe IV (21:14)
[2021-10-10 22:20] LABS: Bedside Glucose 231 mg/dL (74-106)
[2021-10-11] VITALS (10 sets, daily range): BP systolic 110–158; BP diastolic 39–59; PULSE 60–68; RESP 16–20; TEMP 36.2–36.8; O2SAT 90–100
[2021-10-11] MEDS: Albuterol 2.5 MG/3 ML VIAL.NEB. INHALATION (00:24)
[2021-10-11] MEDS: 0.9% Saline Lock 10 ML Syringe IV ×3 (05:26→21:28)
[2021-10-11] MEDS: Insulin Lispro 100 UNIT/ML INSULN.PEN SC ×4 (05:29→22:59)
[2021-10-11 05:46] LABS: Bedside Glucose 243 mg/dL (74-106)
--- NOTE | 2021-10-11 05:57 | PCM.PN.INT ---
Assessment & Plan Assessment/Plan (1) Acute respiratory failure with hypoxemia: PLAN: RECOMMENDATIONS: 1. Continue aggressive bronchopulmonary hygiene. 2. Dietary advancement per speech therapy. Plan for modified barium swallow tomorrow. 3. Continue antimicrobials as ordered. 4. Gastroenterology following. Consider MRCP per recommendations. 5. Continue PPI therapy twice daily. 6. Continue to monitor INR daily. 7. Physical therapy to work with the patient. IMPRESSIONS: 1. Acute hypoxemic respiratory failure Improved. The patient decompensated from a respiratory perspective following several episodes of profound emesis with elaine aspiration. He ultimately required ICU transfer and emergent intubation. The patient did have significant GI contents in his posterior oropharynx with witnessed aspiration at the time of intubation as well. The patient appears to have developed a gram-negative pneumonia in the setting of aspiration. Plan to continue current antimicrobials. The patient improved from a respiratory perspective and was able to be extubated on October 09. Continue aggressive bronchopulmonary hygiene. 2. Septic shock Resolved. The patient presented with sepsis due to suspected aspiration pneumonia with acute sepsis related organ dysfunction as evidenced by acute respiratory failure requiring invasive mechanical ventilatory support, along with acute on chronic kidney disease and hyperbilirubinemia. The patient remains hemodynamically stable without any further need for vasopressor support. 3. Bowel obstruction CT abdomen/pelvis was concerning for an acute bowel obstruction. General surgery is following. The patient's bowel obstruction appears to have improved with conservative measures including gastric decompression via OG tube, which has since been removed following extubation. 4. Acute on chronic kidney disease Improving. Likely prerenal in etiology in the setting of #2. Will continue supplemental IV fluid hydration. Continue to monitor urine output. No current indication for renal replacement therapy. 5. Coagulopathy The patient is systemically anticoagulated on Coumadin as an outpatient. He presented with a supratherapeutic INR. In light of his clinical decompensation, vitamin K was provided. His coagulopathy has improved. Recommend following PT/INR daily. Continue to hold Coumadin for now. 6. Hyperbilirubinemia Unclear etiology. Alk phosphatase has been normal. There has not been any significant increases in his transaminase levels. Liver ultrasound was unremarkable. Gastroenterology is currently following with recommendations for MRCP. 7. History of coronary artery disease/atrial flutter/hypertension/hyperlipidemia/chronic ITP Complicates care, management, recovery and prognosis. Continue to hold home antihypertensives. This note was generated with Dragon dictation software. It may contain incorrect words, spelling, and punctuation that were not noted in checking the note before signing. Subjective Subjective The patient was seen and examined at the bedside this morning. Events from the last 24 hours have been reviewed. The patient is currently afebrile, hemodynamically stable and maintaining appropriate oxygen saturations on 2 L/min via nasal cannula. The patient was reevaluated by speech therapy yesterday, who recommended modified barium swallow tomorrow over concerns for possible aspiration. Therefore, the patient remains n.p.o. Morning labs are still pending. Objective Data Objective Data The patient's most recent lab work, culture data and imaging studies have all been personally reviewed. Gastric occult blood was positive. Respiratory viral panel was negative. Sputum culture was positive for Klebsiella. Gastric occult blood was positive. Blood cultures have shown no growth to date. Vital Signs: Vital Signs Temp Pulse Resp BP Pulse Ox 98.2 F 63 18 147/53 H 90 10/11/21 03:15 10/11/21 03:15 10/11/21 03:15 10/11/21 03:15 10/11/21 03:15 Oxygen Flow Rate (L/min) 2 Oxygen Delivery Method Room Air Weight: 92.3 kg Body Mass Index (BMI) 28.8 Intake & Output: Intake and Output for Last 24 Hours 10/09/21 10/10/21 10/11/21 23:59 23:59 23:59 Intake Total 4543.41 / 4543.41 1715.83 / 1715.83 770.83 / 770.83 Output Total 1650 / 1650 1600 / 1600 Balance 2893.41 / 2893.41 115.83 / 115.83 770.83 / 770.83 Medical Nutrition Assessment Dietitian: Malnutrition Criteria Met Start: 10/07/21 10:07 Freq: Status: Active Protocol: Document 10/08/21 09:30 (Rec: 10/08/21 09:30 [id number]) Nutrition Malnutrition Evidence of Malnutrition Exists Yes Malnutrition (severe): Acute Illness/Injury Evidenced By Suboptimal Energy Intake ( Severe),Weight Loss (Severe) Clinical Problem Acute Disease or Injury Related Malnutrition Etiology severe, acute malnutrition r/t GI dysfunction Signs/Symptoms as evidenced by unintentional wt loss of 15.7#/8% x 1 week; estimated PO intake meeting < 50% of estimated energy needs >5 days Status Active Problem Recommendation Dietitian Recommendations/Changes If NPO status anticipated to continue over next 72 hours, recommend nutrition support- consult RDN for further recommendations/management as indicated Lab / Micro Data Attestation: I reviewed the patient's lab results. Result Diagrams: 10/10/21 04:03 10/10/21 04:03 Labs: Laboratory Results - last 24 hr 10/10/21 06:14: POC Glucose 289 H 10/10/21 11:14: POC Glucose 239 H 10/10/21 17:52: POC Glucose 280 H 10/10/21 22:08: POC Glucose 231 H 10/11/21 05:29: POC Glucose 243 H Micro: Microbiology 10/07/21 06:40 Blood Culture (Wb) - Left Forearm Blood Culture - Preliminary No growth in 48 hours. 10/07/21 06:25 Blood Culture (Wb) - Line Draw Blood Culture - Preliminary No growth in 48 hours. 10/06/21 13:45 Sputum, Induced/Lukens Gram Stain - Final 10/06/21 13:45 Sputum, Induced/Lukens Respiratory Culture - Final Klebsiella oxytoca 10/06/21 17:45 Gastric Fluid/Contents Gastric Occult Blood - Final Occult Blood Positive 10/06/21 15:08 Mucosa - Nose Respiratory Panel (PCR) - Final Rhythm Strip Rhythm Strip: Paced rhythm Rate: 65 Ectopy: None Physical Exam Const alert and no apparent distress Constitutional Narrative: Quite fatigued in appearance. General Appearance: cooperative Nutritional Appearance: obese HEENT normocephalic and head/scalp atraumatic Eyes PERRL and conjunctivae normal Neck supple General: trachea midline and CVC in place Chest inspection of chest normal Resp Resp Narrative: Weak cough Auscultation: rhonchi and diminished lung sounds; Negative for wheezes Cardio regular rate and regular rhythm Cardio Narrative: Paced rhythm on telemetry. GI soft to palpation and non-tender Extremity General Extremity: edema; Negative for clubbing Skin no rashes or lesions noted Neuro CN's II-XII intact bilaterally, moves all extremities and no focal motor deficits Psych Mood & Affect: flat affect Charges/Coding Visit Charges Inpatient E&M: 95671 Subs Hosp L2
--- NOTE | 2021-10-11 06:41 | PN.SURG_ITS ---
Subjective Subjective Patient is currently n.p.o. per speech. Sounds like they are coming back today to work with them again. Patient denies any nausea. Denies any flatus no further bowel movements yesterday. Objective Data Objective Data Vital Signs: Vital Signs Temp Pulse Resp BP Pulse Ox 98.2 F 63 18 147/53 H 90 10/11/21 03:15 10/11/21 03:15 10/11/21 03:15 10/11/21 03:15 10/11/21 03:15 Oxygen Flow Rate (L/min) 2 Oxygen Delivery Method Room Air Weight: 203 lb 7.787 oz Body Mass Index (BMI) 28.8 Intake & Output: Intake and Output for Last 24 Hours 10/09/21 10/10/21 10/11/21 23:59 23:59 23:59 Intake Total 4543.41 / 4543.41 1715.83 / 1715.83 770.83 / 770.83 Output Total 1650 / 1650 1600 / 1600 250 / 250 Balance 2893.41 / 2893.41 115.83 / 115.83 520.83 / 520.83 Medical Nutrition Assessment Dietitian: Malnutrition Criteria Met Start: 10/07/21 10:07 Freq: Status: Active Protocol: Document 10/08/21 09:30 (Rec: 10/08/21 09:30 [id number]) Nutrition Malnutrition Evidence of Malnutrition Exists Yes Malnutrition (severe): Acute Illness/Injury Evidenced By Suboptimal Energy Intake ( Severe),Weight Loss (Severe) Clinical Problem Acute Disease or Injury Related Malnutrition Etiology severe, acute malnutrition r/t GI dysfunction Signs/Symptoms as evidenced by unintentional wt loss of 15.7#/8% x 1 week; estimated PO intake meeting < 50% of estimated energy needs >5 days Status Active Problem Recommendation Dietitian Recommendations/Changes If NPO status anticipated to continue over next 72 hours, recommend nutrition support- consult RDN for further recommendations/management as indicated Lab / Micro Data Result Diagrams: 10/10/21 04:03 10/10/21 04:03 Labs: Laboratory Results - last 24 hr 10/10/21 11:14: POC Glucose 239 H 10/10/21 17:52: POC Glucose 280 H 10/10/21 22:08: POC Glucose 231 H 10/11/21 05:29: POC Glucose 243 H Micro: Microbiology 10/07/21 06:40 Blood Culture (Wb) - Left Forearm Blood Culture - Preliminary No growth in 48 hours. 10/07/21 06:25 Blood Culture (Wb) - Line Draw Blood Culture - Preliminary No growth in 48 hours. 10/06/21 13:45 Sputum, Induced/Lukens Gram Stain - Final 10/06/21 13:45 Sputum, Induced/Lukens Respiratory Culture - Final Klebsiella oxytoca 10/06/21 17:45 Gastric Fluid/Contents Gastric Occult Blood - Final Occult Blood Positive 10/06/21 15:08 Mucosa - Nose Respiratory Panel (PCR) - Final Rhythm Strip Rhythm Strip: Paced rhythm Rate: 65 Ectopy: None Physical Exam Const no apparent distress Resp normal respiratory effort Cardio regular rate GI soft to palpation and non-tender Inspection: Negative for abdominal distention Assessment & Plan Assessment/Plan (1) Bowel obstruction: QUALIFIERS: Intestinal obstruction type: unspecified Intestinal obstruction extent: partial Qualified Code(s): K56.600 - Partial intestinal obstruction, unspecified as to cause PLAN: Patient failed initial speech eval awaiting further eval's-patient is n.p.o. Chelo Rodriguez M.D. Pager: [phone] [facility] [address] [place] [address], [facility], [address] [place] [address] Office: [phone] Charges/Coding Visit Charges Inpatient E&M: 79025 Subs Hosp L2
[2021-10-11 08:06] LABS: Absolute Lymphocyte Count 0.52 X10^3/uL (0.83-4.51); Basophil# 0.02 X10^3/uL; Basophil% 0.4 % (0-1); Eosinophil# 0.07 X10^3/uL; Eosinophils% 1.5 % (0-5); Hematocrit 30.6 % (40-54); Hemoglobin 9.9 g/dL (13.0-16.5); Lymphocyte # 0.52 X10^3/ul (0.83-4.51); Lymphocyte % 10.8 % (19-41); Mean Corp Hgb Conc 32.4 g/dL (32-36); Mean Corpuscular Volume 92.7 fL (80-94); Mean Platelet Vol. 10.8 fl (6.2-12.0); Monocyte% 4.1 % (0-10); NRBC Flagged by Analyzer 0.4 % (0-5); Neutrophil # 3.96 X10^3/uL (2.7-7.7); Neutrophil % 82.2 % (47-70); POSITIVE COUNT YES; POSITIVE DIFFERENTIAL YES; RBC Distribution Width CV 15.4 % (11.6-14.6); RBC Distribution Width SD 52.6 fl (35.1-43.9); White Blood Count 4.8 K/mm3 (4.4-11.0)
--- NOTE | 2021-10-11 08:13 | PCM.PN.HOSP ---
Subjective Subjective Follow-up for bowel obstruction and septic shock Objective Data Objective Data Vital Signs: Vital Signs Temp Pulse Resp BP Pulse Ox 98.2 F 67 18 147/53 H 97 10/11/21 03:15 10/11/21 07:01 10/11/21 03:15 10/11/21 03:15 10/11/21 07:13 Oxygen Flow Rate (L/min) 2 Oxygen Delivery Method Room Air Weight: 203 lb 7.787 oz Body Mass Index (BMI) 28.8 Intake & Output: Intake and Output for Last 24 Hours 10/09/21 10/10/21 10/11/21 23:59 23:59 23:59 Intake Total 4543.41 / 4543.41 1715.83 / 1715.83 770.83 / 770.83 Output Total 1650 / 1650 1600 / 1600 250 / 250 Balance 2893.41 / 2893.41 115.83 / 115.83 520.83 / 520.83 Medical Nutrition Assessment Dietitian: Malnutrition Criteria Met Start: 10/07/21 10:07 Freq: Status: Active Protocol: Document 10/08/21 09:30 AG (Rec: 10/08/21 09:30 [id number]) Nutrition Malnutrition Evidence of Malnutrition Exists Yes Malnutrition (severe): Acute Illness/Injury Evidenced By Suboptimal Energy Intake ( Severe),Weight Loss (Severe) Clinical Problem Acute Disease or Injury Related Malnutrition Etiology severe, acute malnutrition r/t GI dysfunction Signs/Symptoms as evidenced by unintentional wt loss of 15.7#/8% x 1 week; estimated PO intake meeting < 50% of estimated energy needs >5 days Status Active Problem Recommendation Dietitian Recommendations/Changes If NPO status anticipated to continue over next 72 hours, recommend nutrition support- consult RDN for further recommendations/management as indicated Lab / Micro Data Result Diagrams: 10/11/21 07:40 10/11/21 07:40 Labs: Laboratory Results - last 24 hr 10/10/21 11:14: POC Glucose 239 H 10/10/21 17:52: POC Glucose 280 H 10/10/21 22:08: POC Glucose 231 H 10/11/21 05:29: POC Glucose 243 H Micro: Microbiology 10/07/21 06:40 Blood Culture (Wb) - Left Forearm Blood Culture - Preliminary No growth in 48 hours. 10/07/21 06:25 Blood Culture (Wb) - Line Draw Blood Culture - Preliminary No growth in 48 hours. 10/06/21 13:45 Sputum, Induced/Lukens Gram Stain - Final 10/06/21 13:45 Sputum, Induced/Lukens Respiratory Culture - Final Klebsiella oxytoca 10/06/21 17:45 Gastric Fluid/Contents Gastric Occult Blood - Final Occult Blood Positive 10/06/21 15:08 Mucosa - Nose Respiratory Panel (PCR) - Final Rhythm Strip Rhythm Strip: Paced rhythm Rate: 65 Ectopy: None Physical Exam Narrative Overnight events followed. Afebrile. Patient maintaining blood pressure 129/50-147/53. Pulse ox 9097% on room air. Respiratory rate around 23 to 27/min. 91% on room air. Patient had a bowel movement yesterday. Patient had 1 bowel movement on 10/09. Patient 12 L fluid positive. General: Awake, looks weak and lethargic HEENT: PERRLA, EOMI Oral: Oral mucosa dry. Neck: Supple, No JVD, Negative Carotid Bruits Lungs: Air entry diminished in bilateral lung bases. Bilateral coarse crepitation. Cardiovascular: Regular rate, Regular Rhythm, Normal S1, Normal S2, No murmurs Abdomen: Mild abdominal distention. Bowel sounds absent. No appreciable tenderness. No palpable mass : No renal angle tenderness. No suprapubic tenderness. Extremities: No edema, Capillary Refill Less than 3 Seconds Skin: No rashes, No breakdown Musculoskeletal: No Tenderness to Palpation of Joints or Extremities Neurological: Cranial nerves II-XII grossly intact, DTR 2+/4 and Symmetrical. Psych/Mental Status: Flat affect. Assessment & Plan Assessment/Plan (1) Acute respiratory failure with hypoxemia: PLAN: This patient was seen in conjunction with RADHA Hurst. I have independently interviewed and examined the patient and reviewed pertinent history, examination findings, laboratory and plan of management. I have reviewed the note and agree with the documented findings with the few additional points. In brief, patient is 80-year-old gentleman was admitted with 1 week history of nausea, intermittent vomiting and diarrhea which progressed to abdominal distention. Patient also intermittent abdominal cramping. 1. Acute hypoxic respiratory failure due to multiple episodes of vomiting and aspiration: In the morning patient had vomiting and probably aspirated because chest auscultation appeared coarse crepitation. Division Sales Manager consulted. Patient oxygenation and ventilation did not improve nonrebreather and Airvo therefore transferred to ICU where he was intubated and ventilated. Patient on IV propofol and fentanyl drip. During intubation, greenish-black fluid observed and after intubation and OG tube, Platelet count 117,000. ABG 7.3 8/48/174 on 90% FiO2/450/15 PEEP. Chest x-ray initially reviewed. Initial chest shows no acute cardiopulmonary abnormality. 10/08: FiO2 30%. On light sedation. 10/09: Patient is extubated. On oxygen through nasal cannula 3 to 4 L of oxygen. Aggressive incentive spirometry and Pep ordered 10/10 pulse ox 91% on room air. Acute hypoxic respiratory failure resolved. 10/11: Aggressive incentive spirometry and Pep, bronchopulmonary hygiene. 2. Small bowel obstruction: OG tube inserted about 3 L of coffee-ground fluid aspirated. CT abdomen and pelvis without oral and IV contrast shows possible transition point in right lower quadrant with dilated upstream small bowel, jejunum. Surgery is consulted. 10/08: NG tube as patient has decreased, since stomach and upper small bowel is decompressed. 10/09: NG tube removed. Discussed with surgeon on 10/08. 10/10: Patient had bowel movement on 10/09. Patient denied flatus. Speech therapist ordered. On IV fluid D5 for nutritional support. The patient has net 12.5 L of fluid positive. 10/11 currently n.p.o. per speech. 3. Coffee-ground aspiration: Gastric occult blood positive for occult blood. Serial CBC monitoring shows drop in hemoglobin from 14.2-13.1 but his baseline runs around 13.5 gram percent. IV PPI every 12 hourly. 10/11: Plan for modified barium swallow tomorrow. GI consult to evaluate for direct hyperbilirubinemia. Total bilirubin 3.8, trending down from 4.5. Direct bilirubin 2.92. Acute liver injury with detectable. Probably due to septic shock. 4. Septic shock suspected due to aspiration pneumonia/intra-abdominal bowel infection; SBO with evidence of sepsis related organ dysfunction: Patient has acute hypoxic respiratory failure requiring mechanical ventilation, acute on chronic kidney disease and hyperbilirubinemia after vomiting and aspiration in PCU. After vomiting, chest x-ray although reported no acute findings but on my review seems mild RLL and LLL haziness/infiltrate. COVID-19 PCR not detected. Patient had right IJ ultrasound-guided CVC catheter inserted on 10/06. 10/08: Patient febrile.Gram stain of the sputum culture shows gram-negative rods lactose hotel operations manager 3+ suggestive of possible pneumonia due to gram-negative moncho bacteria. Continue IV antibiotic Zosyn and discontinue vancomycin. CESAR on CKD stage IIIb. Gradual improvement in creatinine. Patient baseline creatinine stays around 1.6. 10/09: Sputum culture shows 3+ Klebsiella oxytoca. Patient still having low-grade fever 100.6 Fahrenheit. ID is consulted for further opinion and recommendation. 10/10: Patient maintaining blood pressure without vasopressors. Septic shock improving. 10/11: Septic shock resolved. ID recommendation for de-escalation of antibiotic but cephalosporin, penicillin all causes thrombocytopenia, drug-induced thrombocytopenia 5. 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 Vitamin K 5 mg IV given in the morning. Warfarin is on hold. Patient dropped blood pressure during intubation systolic 55. Right IJ CVC catheter inserted. 10/07: Repeat INR after vitamin K is 2.0. 10/10 INR 2.7. Therapeutic 10/11: Increase total bilirubin mainly direct hyperbilirubinemia. Mild increase in AST. GI, Dr. Landaverde will see on Tuesday as he is off on the weekend. GI consulted to evaluate for direct hyperbilirubinemia. Liver ultrasound shows thickened GB wall 4.2 mm, CBD was 3 mm but patient has direct hyperbilirubinemia. Negative Ponce sign clinically and sonographically. MRCP ordered for tomorrow am. 6. Chronic idiopathic thrombocytopenia: Baseline platelet count about 100,000. 10/10 platelet count 42,000, with rate decreased from 84,000-42,000. Probably from antibiotic. 10/11: Patient platelet count is 42,000. 7. Diabetes mellitus type 2: Uncontrolled glucose in 300, most recent 286. Started on 10 units Lantus insulin. Serial Accu-Chek profile is better Total time of the visit including total time spent in counseling or coordination of care, (more than 50% of the total time, spent in obtaining medical information from nurses and other ancillary care providers,explaining to the patient about labs, imaging, diagnosis and management), discussion with consultants, review of labs and imaging is 40 minutes. Charges/Coding Visit Charges Inpatient E&M: 25331 Subs Hosp L2
[2021-10-11 08:14] LABS: International Normalized Ratio 2.1; Prothrombin Time (Protime)PT. 23.5 SECONDS (11.7-14.9)
[2021-10-11 08:16] LABS: Differential Indicated SCAN CRITERIA MET; Platelet Count 42 K/mm3 (150-450)
[2021-10-11 08:22] LABS: ALB/GLOB Ratio 0.4 RATIO (0.9-2.4); AST(SGOT) 50 U/L (15-37); Alanine Aminotransfer ALT/SGPT 22 U/L (16-61); Albumin, Serum 1.5 g/dL (3.2-5.0); Alkaline Phosphatase 54 U/L (45-117); Anion Gap 4 (5-15); BUN 43 mg/dL (7-18); BUN/Creat Ratio 33.6 RATIO (10-20); Calcium,Total 7.9 mg/dL (8.5-10.1); Chloride 108 mmol/L (98-107); Creatinine, Serum 1.28 mg/dL (0.70-1.30); EST Glomerular Filtration Rate 57 mL/min (>60); Est Glom Filt Rate - Afr Amer 69 mL/min (>60); Estimated Creatinine Clearance 43.05 ml/min; Globulin 3.7 g/dL (2.2-4.2); Glucose 258 mg/dL (74-106); Potassium 3.6 mmol/L (3.5-5.1); Protein, Total 5.2 g/dL (6.4-8.2); Sodium Level 140 mmol/L (136-145)
[2021-10-11 08:30] LABS: Differential Comment SCANNED; Platelet Estimate MKD DEC (ADEQ)
[2021-10-11 08:56] LABS: Bilirubin, Direct 2.92 mg/dL (0.00-0.30)
[2021-10-11] MEDS: Insulin Glargine-YFGN 100 UNIT/ML Pen SC (09:14)
[2021-10-11 11:56] LABS: Bedside Glucose 241 mg/dL (74-106)
[2021-10-11 17:05] LABS: Bedside Glucose 280 mg/dL (74-106)
[2021-10-11] MEDS: Atorvastatin Calcium 10 MG Tablet PO (21:24)
[2021-10-11 23:16] LABS: Bedside Glucose 252 mg/dL (74-106)
[2021-10-12] VITALS (13 sets, daily range): BP systolic 111–142; BP diastolic 26–95; PULSE 60–103; RESP 18–22; TEMP 36.6–36.9; O2SAT 92–95; BMI 28.8
[2021-10-12 05:25] LABS: Absolute Lymphocyte Count 0.64 X10^3/uL (0.83-4.51); Absolute Neutrophil Count 4.4 X10^3/uL (2.0-7.7); Basophil# 0.01 X10^3/uL; Basophil% 0.2 % (0-1); Eosinophil# 0.06 X10^3/uL; Eosinophils% 1.1 % (0-5); Hematocrit 29.3 % (40-54); Hemoglobin 9.7 g/dL (13.0-16.5); Lymphocyte # 0.64 X10^3/ul (0.83-4.51); Mean Corp Hgb Conc 33.1 g/dL (32-36); Mean Corpuscular Hgb 31.3 pg (27.0-32.0); Mean Corpuscular Volume 94.5 fL (80-94); Mean Platelet Vol. 11.3 fl (6.2-12.0); Monocyte% 3.8 % (0-10); NRBC Flagged by Analyzer 0 % (0-5); Neutrophil # 4.37 X10^3/uL (2.7-7.7); POSITIVE COUNT YES; POSITIVE MORPHOLOGY YES; RBC Distribution Width CV 15.5 % (11.6-14.6); RBC Distribution Width SD 53.4 fl (35.1-43.9); White Blood Count 5.3 K/mm3 (4.4-11.0)
[2021-10-12] MEDS: 0.9% Saline Lock 10 ML Syringe IV ×5 (05:28→23:04)
[2021-10-12] MEDS: Insulin Lispro 100 UNIT/ML INSULN.PEN SC ×4 (05:30→21:49)
[2021-10-12 05:33] LABS: Differential Indicated SCAN CRITERIA MET; International Normalized Ratio 2.4; Prothrombin Time (Protime)PT. 26.2 SECONDS (11.7-14.9)
[2021-10-12 05:34] LABS: Platelet Count 44 K/mm3 (150-450)
--- NOTE | 2021-10-12 05:55 | MRI_ITS ---
EXAM: MR ABDOMEN WITHOUT INTRAVENOUS CONTRAST, MRCP PROTOCOL CLINICAL INDICATION: DIRECT Hyperbilirubinemia TECHNIQUE: Multiplanar and multisequence MR images of the abdomen without intravenous contrast obtained with MRCP sequence. Three-dimensional post-processing reconstructions were performed. This report was created using [employer] report generation technology. COMPARISON: Abdominal ultrasound 10/09/2021, CT abdomen October 06, 2021 FINDINGS: LOWER THORAX: Unremarkable. No pleural effusion. LIVER: Unremarkable. Normal morphology. GALLBLADDER AND BILE DUCTS: Multiple large stones are present within the gallbladder. No gallbladder distention or wall edema. No choledochal filling defect. PANCREAS: Unremarkable. No focal cystic mass. No pancreatic duct dilation. SPLEEN: Unremarkable. Non-enlarged. ADRENALS: Unremarkable. No nodules. KIDNEYS AND URETERS: 15 mm right renal cyst is noted. Normal renal size and position. No hydronephrosis. INTRAPERITONEAL SPACE: Small volume ascites noted within the upper abdomen. VASCULATURE: Unremarkable. Abdominal aorta is non-dilated. LYMPH NODES: No enlarged lymph nodes. MRI/MRCP Abdomen without Contrast IMPRESSION: 1. Cholelithiasis. 2. Normal biliary tree. 3. Small volume ascites. Electronically Signed: Shawn Hernández MD at 14:33 EDT ,
[2021-10-12 05:58] LABS: ALB/GLOB Ratio 0.4 RATIO (0.9-2.4); AST(SGOT) 39 U/L (15-37); Alanine Aminotransfer ALT/SGPT 19 U/L (16-61); Albumin, Serum 1.4 g/dL (3.2-5.0); Alkaline Phosphatase 62 U/L (45-117); Anion Gap 4 (5-15); BUN 40 mg/dL (7-18); BUN/Creat Ratio 29.4 RATIO (10-20); Calcium,Total 8.1 mg/dL (8.5-10.1); Chloride 108 mmol/L (98-107); Creatinine, Serum 1.36 mg/dL (0.70-1.30); EST Glomerular Filtration Rate 53 mL/min (>60); Est Glom Filt Rate - Afr Amer 64 mL/min (>60); Estimated Creatinine Clearance 40.51 ml/min; Globulin 3.9 g/dL (2.2-4.2); Glucose 251 mg/dL (74-106); Potassium 3.7 mmol/L (3.5-5.1); Protein, Total 5.3 g/dL (6.4-8.2); Sodium Level 140 mmol/L (136-145)
[2021-10-12 06:06] LABS: Bedside Glucose 235 mg/dL (74-106)
[2021-10-12 06:35] LABS: Differential Comment SCANNED
[2021-10-12 08:27] LABS: Hemoglobin A1c 8.4 % (3.8-5.6)
--- NOTE | 2021-10-12 08:31 | PCM.PN.INT ---
Assessment & Plan Assessment/Plan (1) Acute respiratory failure with hypoxemia: PLAN: RECOMMENDATIONS: 1. Continue aggressive bronchopulmonary hygiene. 2. Dietary advancement per speech therapy. Await modified barium swallow. 3. Continue antimicrobials as ordered. 4. Gastroenterology following. Follow-up MRCP. 5. Continue PPI therapy twice daily. 6. Continue to monitor INR daily. 7. Physical therapy to work with the patient. IMPRESSIONS: 1. Acute hypoxemic respiratory failure Improved. The patient decompensated from a respiratory perspective following several episodes of profound emesis with elaine aspiration. He ultimately required ICU transfer and emergent intubation. The patient did have significant GI contents in his posterior oropharynx with witnessed aspiration at the time of intubation as well. Patient will need to complete 7 days of antimicrobials total. The patient improved from a respiratory perspective and was able to be extubated on October 09. Patient has been able to be weaned to room air. Continue aggressive bronchopulmonary hygiene. 2. Septic shock Resolved. The patient presented with sepsis due to suspected aspiration pneumonia with acute sepsis related organ dysfunction as evidenced by acute respiratory failure requiring invasive mechanical ventilatory support, along with acute on chronic kidney disease and hyperbilirubinemia. The patient remains hemodynamically stable without any further need for vasopressor support. 3. Bowel obstruction CT abdomen/pelvis was concerning for an acute bowel obstruction. General surgery is following. The patient's bowel obstruction appears to have improved with conservative measures including gastric decompression via OG tube, which has since been removed following extubation. Patient is to have an MRCP later today. 4. Acute on chronic kidney disease Improving. Likely prerenal in etiology in the setting of #2. Will continue supplemental IV fluid hydration. Continue to monitor urine output. No current indication for renal replacement therapy. 5. Coagulopathy The patient is systemically anticoagulated on Coumadin as an outpatient. He presented with a supratherapeutic INR. In light of his clinical decompensation, vitamin K was provided. His coagulopathy has improved. Recommend following PT/INR daily. Continue to hold Coumadin for now. 6. Hyperbilirubinemia Unclear etiology. Alk phosphatase has been normal. There has not been any significant increases in his transaminase levels. Liver ultrasound was unremarkable. Gastroenterology is currently following with recommendations for MRCP. 7. History of coronary artery disease/atrial flutter/hypertension/hyperlipidemia/chronic ITP Complicates care, management, recovery and prognosis. Continue to hold home antihypertensives. This note was generated with Dragon dictation software. It may contain incorrect words, spelling, and punctuation that were not noted in checking the note before signing. Subjective Subjective Patient did well overnight. No acute issues were reported. Patient remains afebrile and has been able to be weaned to room air. Patient is scheduled to have a modified barium swallow to evaluate for aspiration and remains NPO. Patient also reportedly to have an MRCP. Objective Data Objective Data Vital Signs: Vital Signs Temp Pulse Resp BP Pulse Ox 36.6 C 61 18 136/53 H 93 10/12/21 03:15 10/12/21 07:00 10/12/21 03:15 10/12/21 03:15 10/12/21 03:15 Oxygen Flow Rate (L/min) 2 Oxygen Delivery Method Room Air Weight: 99.6 kg Body Mass Index (BMI) 28.8 Intake & Output: Intake and Output for Last 24 Hours 10/10/21 10/11/21 10/12/21 23:59 23:59 23:59 Intake Total 1715.83 / 1715.83 2430.83 / 2480.83 100 / 100 Output Total 1600 / 1600 750 / 1000 550 / 550 Balance 115.83 / 115.83 1680.83 / 1480.83 -450 / -450 Medical Nutrition Assessment Dietitian: Malnutrition Criteria Met Start: 10/07/21 10:07 Freq: Status: Active Protocol: Document 10/12/21 08:20 AG (Rec: 10/12/21 08:20 AG Desktop) Nutrition Malnutrition Evidence of Malnutrition Exists Yes Malnutrition (severe): Acute Illness/Injury Evidenced By Suboptimal Energy Intake ( Severe),Weight Loss (Severe) Clinical Problem Acute Disease or Injury Related Malnutrition Etiology severe, acute malnutrition r/t GI dysfunction Signs/Symptoms as evidenced by unintentional wt loss of 15.7#/8% x 1 week 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 Will monitor PO intake and blood sugars- may benefit from consistent carbohydrate diet in addition to cardiac diet. ONS if PO intake fails. Lab / Micro Data Result Diagrams: 10/12/21 04:25 10/12/21 04:25 Labs: Laboratory Results - last 24 hr 10/11/21 07:40: Direct Bilirubin 2.92 H 10/11/21 11:49: POC Glucose 241 H 10/11/21 16:59: POC Glucose 280 H 10/11/21 22:55: POC Glucose 252 H 10/12/21 04:25: PT 26.2 H, INR 2.4 10/12/21 04:25: WBC 5.3, RBC 3.10 L, Hgb 9.7 L, Hct 29.3 L, MCV 94.5 H, MCH 31.3, MCHC 33.1, RDW Std Deviation 53.4 H, RDW Coeff of Mila 15.5 H, Plt Count 44 L*, MPV 11.3, Immature Gran % (Auto) 0.900, Neut % (Auto) 82.0 H, Lymph % (Auto) 12.0 L, Fisher % (Auto) 3.8, Eos % (Auto) 1.1, Baso % (Auto) 0.2, Absolute Neuts (auto) 4.4, Absolute Lymphs (auto) 0.64 L, Nucleated RBC % 0, Differential Comment SCANNED, Diff Path Review May foll 10/12/21 04:25: Sodium 140, Potassium 3.7, Chloride 108 H, Carbon Dioxide 28.0, Anion Gap 4 L, BUN 40 H, Creatinine 1.36 H, Estim Creat Clear Calc 40.51, Est GFR (MDRD) Af Amer 64, Est GFR (MDRD) Non-Af 53 L, BUN/Creatinine Ratio 29.4 H, Glucose 251 H, Calcium 8.1 L, Total Bilirubin 3.10 H, AST 39 H, ALT 19, Alkaline Phosphatase 62, Total Protein 5.3 L, Albumin 1.4 L, Globulin 3.9, Albumin/Globulin Ratio 0.4 L 10/12/21 04:25: Hemoglobin A1c 8.4 H 10/12/21 05:29: POC Glucose 235 H Micro: Microbiology 10/07/21 06:40 Blood Culture (Wb) - Left Forearm Blood Culture - Final No growth in 5 days. 10/07/21 06:25 Blood Culture (Wb) - Line Draw Blood Culture - Final No growth in 5 days. 10/06/21 13:45 Sputum, Induced/Lukens Gram Stain - Final 10/06/21 13:45 Sputum, Induced/Lukens Respiratory Culture - Final Klebsiella oxytoca 10/06/21 17:45 Gastric Fluid/Contents Gastric Occult Blood - Final Occult Blood Positive 10/06/21 15:08 Mucosa - Nose Respiratory Panel (PCR) - Final Rhythm Strip Rhythm Strip: Paced rhythm Rate: 65 Ectopy: None Physical Exam Const alert and no apparent distress Constitutional Narrative: Quite fatigued in appearance. Slight anasarca noted General Appearance: cooperative Nutritional Appearance: obese HEENT normocephalic and head/scalp atraumatic Eyes PERRL and conjunctivae normal Neck supple General: trachea midline and CVC in place Chest inspection of chest normal Resp Resp Narrative: Weak cough Auscultation: rhonchi and diminished lung sounds; Negative for wheezes Cardio regular rate and regular rhythm Cardio Narrative: Paced rhythm on telemetry. GI soft to palpation and non-tender Extremity General Extremity: edema; Negative for clubbing Skin no rashes or lesions noted Neuro CN's II-XII intact bilaterally, moves all extremities and no focal motor deficits Psych Mood & Affect: flat affect Charges/Coding Visit Charges Inpatient E&M: 06549 Subs Hosp L2
--- NOTE | 2021-10-12 08:48 | PN.SURG_ITS ---
Subjective Subjective Patient seen and examined during AM rounds. He reports that he had another small bowel movement this morning. Denies any abdominal pain. He confirms that he is still awaiting a speech evaluation for swallow safety. Objective Data Objective Data Vital Signs: Vital Signs Temp Pulse Resp BP Pulse Ox 97.9 F 61 18 136/53 H 93 10/12/21 03:15 10/12/21 07:00 10/12/21 03:15 10/12/21 03:15 10/12/21 03:15 Oxygen Flow Rate (L/min) 2 Oxygen Delivery Method Room Air Weight: 219 lb 9.286 oz Body Mass Index (BMI) 28.8 Intake & Output: Intake and Output for Last 24 Hours 10/10/21 10/11/21 10/12/21 23:59 23:59 23:59 Intake Total 1715.83 / 1715.83 2430.83 / 2480.83 100 / 100 Output Total 1600 / 1600 750 / 1000 550 / 550 Balance 115.83 / 115.83 1680.83 / 1480.83 -450 / -450 Medical Nutrition Assessment Dietitian: Malnutrition Criteria Met Start: 10/07/21 10:07 Freq: Status: Active Protocol: Document 10/12/21 08:20 AG (Rec: 10/12/21 08:20 AG Desktop) Nutrition Malnutrition Evidence of Malnutrition Exists Yes Malnutrition (severe): Acute Illness/Injury Evidenced By Suboptimal Energy Intake ( Severe),Weight Loss (Severe) Clinical Problem Acute Disease or Injury Related Malnutrition Etiology severe, acute malnutrition r/t GI dysfunction Signs/Symptoms as evidenced by 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 Will monitor PO intake and blood sugars- may benefit from consistent carbohydrate diet in addition to cardiac diet. ONS if PO intake fails. Lab / Micro Data Result Diagrams: 10/12/21 04:25 10/12/21 04:25 Labs: Laboratory Results - last 24 hr 10/11/21 07:40: Direct Bilirubin 2.92 H 10/11/21 11:49: POC Glucose 241 H 10/11/21 16:59: POC Glucose 280 H 10/11/21 22:55: POC Glucose 252 H 10/12/21 04:25: PT 26.2 H, INR 2.4 10/12/21 04:25: WBC 5.3, RBC 3.10 L, Hgb 9.7 L, Hct 29.3 L, MCV 94.5 H, MCH 31.3, MCHC 33.1, RDW Std Deviation 53.4 H, RDW Coeff of Mila 15.5 H, Plt Count 44 L*, MPV 11.3, Immature Gran % (Auto) 0.900, Neut % (Auto) 82.0 H, Lymph % (Auto) 12.0 L, [place] % (Auto) 3.8, Eos % (Auto) 1.1, Baso % (Auto) 0.2, Absolute Neuts (auto) 4.4, Absolute Lymphs (auto) 0.64 L, Nucleated RBC % 0, Differential Comment SCANNED, Diff Path Review September10/12/21 04:25: Sodium 140, Potassium 3.7, Chloride 108 H, Carbon Dioxide 28.0, Anion Gap 4 L, BUN 40 H, Creatinine 1.36 H, Estim Creat Clear Calc 40.51, Est GFR (MDRD) Af Amer 64, Est GFR (MDRD) Non-Af 53 L, BUN/Creatinine Ratio 29.4 H, Glucose 251 H, Calcium 8.1 L, Total Bilirubin 3.10 H, AST 39 H, ALT 19, Alkaline Phosphatase 62, Total Protein 5.3 L, Albumin 1.4 L, Globulin 3.9, Albumin/Globulin Ratio 0.4 L 10/12/21 04:25: Hemoglobin A1c 8.4 H 10/12/21 05:29: POC Glucose 235 H Micro: Microbiology 10/07/21 06:40 Blood Culture (Wb) - Left Forearm Blood Culture - Final No growth in 5 days. 10/07/21 06:25 Blood Culture (Wb) - Line Draw Blood Culture - Final No growth in 5 days. 10/06/21 13:45 Sputum, Induced/Lukens Gram Stain - Final 10/06/21 13:45 Sputum, Induced/Lukens Respiratory Culture - Final Klebsiella oxytoca 10/06/21 17:45 Gastric Fluid/Contents Gastric Occult Blood - Final Occult Blood Positive 10/06/21 15:08 Mucosa - Nose Respiratory Panel (PCR) - Final Rhythm Strip Rhythm Strip: Paced rhythm Rate: 65 Ectopy: None Physical Exam Const no apparent distress Resp normal respiratory effort Resp Narrative: Upper airway rattling audible GI GI Narrative: Nondistended, anasarca present, soft, nontender to palpation x4 quadrants Assessment & Plan Assessment/Plan (1) Bowel obstruction: QUALIFIERS: Intestinal obstruction type: unspecified Intestinal obstruction extent: partial Qualified Code(s): K56.600 - Partial intestinal obstruction, unspecified as to cause PLAN: Patient having consistent bowel function now. Abdominal exam b enign. Awaiting repeat evaluation with speech therapy for swallow eval. Patient cleared from a surgical standpoint for diet trial (recommend full liquid consistency) once speech therapy has approved patient for p.o. intake. Charges/Coding Visit Charges Inpatient E&M: 30344 Subs Hosp L2
[2021-10-12] MEDS: Insulin Glargine-YFGN 100 UNIT/ML Pen SC (09:47)
--- NOTE | 2021-10-12 11:40 | CASEMGMT ---
KASIE called patient's , Patricia. KASIE asked if Patricia could bring in a copy of patient's insurance card. Their son is coming up this afternoon and she will have him bring it in. 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 KASIE asked about patient going to a penitentiary facility. Patricia asked if patient could go to [facility]. KASIE told her SW can check, but SW needs a copy of patient's insurance card to make sure [facility] is in network. Melvina Christine TARIFF SUPERVISOR GAGE
[2021-10-12 11:45] LABS: Bedside Glucose 224 mg/dL (74-106)
--- NOTE | 2021-10-12 11:59 | CASEMGMT ---
KASIE called [facility] and left a message with Juana regarding referral. KASIE also faxed referral. Await response. Melvina Christine REGISTER OF WILLS FOOD SAFETY SPECIALIST
--- NOTE | 2021-10-12 13:27 | PCM.PN.HOSP ---
Subjective Subjective Follow-up on septic shock/bowel obstruction: Patient was seen and examined. He was waiting on evaluation by speech therapy. Kept NPO. Reportedly, he had a bowel movement today. He is also going for MRCP today. Objective Data Objective Data Vital Signs: Vital Signs Temp Pulse Resp BP Pulse Ox 98.4 F 93 22 H 135/64 H 92 10/12/21 09:40 10/12/21 13:02 10/12/21 13:02 10/12/21 13:02 10/12/21 13:02 Oxygen Flow Rate (L/min) 2 Oxygen Delivery Method Nasal Cannula Weight: 99.6 kg Body Mass Index (BMI) 28.8 Intake & Output: Intake and Output for Last 24 Hours 10/10/21 10/11/21 10/12/21 23:59 23:59 23:59 Intake Total 1715.83 / 1715.83 2430.83 / 2480.83 1069.16 / 1069.16 Output Total 1600 / 1600 750 / 1000 550 / 550 Balance 115.83 / 115.83 1680.83 / 1480.83 519.16 / 519.16 Medical Nutrition Assessment Dietitian: Malnutrition Criteria Met Start: 10/07/21 10:07 Freq: Status: Active Protocol: Document 10/12/21 08:20 AG (Rec: 10/12/21 08:20 AG Desktop) Nutrition Malnutrition Evidence of Malnutrition Exists Yes Malnutrition (severe): Acute Illness/Injury Evidenced By Suboptimal Energy Intake ( Severe),Weight Loss (Severe) Clinical Problem Acute Disease or Injury Related Malnutrition Etiology severe, acute malnutrition r/t GI dysfunction Signs/Symptoms as evidenced by 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 Will monitor PO intake and blood sugars- may benefit from consistent carbohydrate diet in addition to cardiac diet. ONS if PO intake fails. Lab / Micro Data Result Diagrams: 10/12/21 04:25 10/12/21 04:25 Labs: Laboratory Results - last 24 hr 10/11/21 16:59: POC Glucose 280 H 10/11/21 22:55: POC Glucose 252 H 10/12/21 04:25: PT 26.2 H, INR 2.4 10/12/21 04:25: WBC 5.3, RBC 3.10 L, Hgb 9.7 L, Hct 29.3 L, MCV 94.5 H, MCH 31.3, MCHC 33.1, RDW Std Deviation 53.4 H, RDW Coeff of Mila 15.5 H, Plt Count 44 L*, MPV 11.3, Immature Gran % (Auto) 0.900, Neut % (Auto) 82.0 H, Lymph % (Auto) 12.0 L, [place] % (Auto) 3.8, Eos % (Auto) 1.1, Baso % (Auto) 0.2, Absolute Neuts (auto) 4.4, Absolute Lymphs (auto) 0.64 L, Nucleated RBC % 0, Differential Comment SCANNED, Diff Path Review September10/12/21 04:25: Sodium 140, Potassium 3.7, Chloride 108 H, Carbon Dioxide 28.0, Anion Gap 4 L, BUN 40 H, Creatinine 1.36 H, Estim Creat Clear Calc 40.51, Est GFR (MDRD) Af Amer 64, Est GFR (MDRD) Non-Af 53 L, BUN/Creatinine Ratio 29.4 H, Glucose 251 H, Calcium 8.1 L, Total Bilirubin 3.10 H, AST 39 H, ALT 19, Alkaline Phosphatase 62, Total Protein 5.3 L, Albumin 1.4 L, Globulin 3.9, Albumin/Globulin Ratio 0.4 L 10/12/21 04:25: Hemoglobin A1c 8.4 H 10/12/21 05:29: POC Glucose 235 H 10/12/21 11:17: POC Glucose 224 H Micro: Microbiology 10/07/21 06:40 Blood Culture (Wb) - Left Forearm Blood Culture - Final No growth in 5 days. 10/07/21 06:25 Blood Culture (Wb) - Line Draw Blood Culture - Final No growth in 5 days. 10/06/21 13:45 Sputum, Induced/Lukens Gram Stain - Final 10/06/21 13:45 Sputum, Induced/Lukens Respiratory Culture - Final Klebsiella oxytoca 10/06/21 17:45 Gastric Fluid/Contents Gastric Occult Blood - Final Occult Blood Positive 10/06/21 15:08 Mucosa - Nose Respiratory Panel (PCR) - Final Rhythm Strip Rhythm Strip: Paced rhythm Rate: 65 Ectopy: None Physical Exam Narrative Physical exam: General: Alert, Oriented x3, Cooperative, appears very frail, obese HEENT: Atraumatic Oral: Moist Mucosa Neck: Supple Lungs: Diminished to auscultation Cardiovascular: HS I+II, regular, no murmurs Abdomen: Bowel Sounds Present, Soft, Non Tender Extremities: Bilateral leg edema +2 Skin: No rashes, No breakdown Neurological: Grossly intact Psych/Mental Status: Appropriate Assessment & Plan Assessment/Plan (1) Acute respiratory failure with hypoxemia: PLAN: 1. Acute hypoxic respiratory failure secondary to aspiration pneumonia, resolved Patient is currently on 2 L of oxygen, continue to monitor 2. Septic shock secondary to Klebsiella aspiration pneumonia/intra-abdominal infection, resolved Patient had evidence of organ dysfunction Blood cultures are negative, vital signs stable Continue IV Zosyn, ID following 3. Acute small bowel obstruction, resolved, Status post NG tube insertion; removal on 10/09 Patient has had bowel movement, General surgery consulted, follow-up 4. Dysphagia, going for modified barium swallow, speech therapy following Will follow-up on recommendations. 5. CESAR on CKD stage IIIb, back to baseline Creatinine today is 1.36, baseline is around 1.3 6. Probable GI bleed, likely secondary to gastritis, Stool for occult blood was positive Continue on IV PPI twice daily 7. Elevated liver function, improving Ultrasound of the liver showed multiple gallstones and sludge. MRCP showed cholelithiasis, normal biliary tree. 8. Chronic idiopathic thrombocytopenia, platelet count is 44,000 Platelet count on admission was 100,000, not on heparin, Will continue to trend 9. Type 2 DM, blood sugars are fairly controlled Continue Lantus, insulin sliding scale 10. DVT PPx- SCDs Charges/Coding Visit Charges Inpatient E&M: 92225 Subs Hosp L2
--- NOTE | 2021-10-12 13:29 | PCM.PN.ID ---
ID ID: Route of nutrition/ use of supplements: [] Nutritional Intake: [] IV Site: [] Hoang Catheter: [] Assessment & Plan Assessment/Plan (1) Acute respiratory failure with hypoxemia: PLAN: Treating for aspiration pneumonia. Overall much improved. CESAR resolving, off vent. Sputum with klebs. Cont zosyn. Bili better. Pt gone to MRI today. If no sign of infection seen, plan on stopping zosyn tomorrow (day 7 today). Will follow (2) Acute kidney injury:
--- NOTE | 2021-10-12 14:07 | SP.MBSS_ITS ---
Modified Barium Swallow - Patient Information Study Date: 10/12/21 Study Time: 13:00 Direct Billable Minutes: 105 Total Minutes procedure & reportin Diagnosis: Acute respiratory failure with hypoxemia (J96.01) Referring Physician: Leatha Abernathy Reason for Referral: Objectively assess swallow function, risk for aspiration, and determine recommendations for least restrictive diet textures and compensatory strategies to improve safety of swallow. 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 He presented to [facility] ED on 10/05/21 with history of ~ 1 week of intermittent nausea, occasional emesis, poor oral intake, cramping, and diarrhea. He also had increased fatigue, weakness, and debility. The patient was transferred to ICU 10/06/21 following several episodes of emesis with aspiration. Pt being treated for sepsis due to concerns for aspiration PNA. He has additionally been managed for partial intestinal obstruction with placement of NG tube for suction. Speech consult placed to assess swallow function and aspiration risk s/p extubation 10/09/2021. He was initially recommended to remain NPO by speech therapy due to overt s/s of aspiration with trials. On 10/11/2021 the patient was upgraded to puree textures / honey thick liquids. He was recommended for MBS study to objectively assess aspiration risk. Current Diet Ordered: Puree Textures / Moderately thick Liquids Dentition: Natural Teeth, Upper Dentures Mental Status: WNL - Followed commands WNL Respiratory Status: Oxygenating on Room Air - Penetration-Aspiration Scale Penetration-Aspiration Scale: OBJECTIVE ASSESSMENT OF SWALLOW FUNCTION (QUANTITATIVE ? PER TRIAL): PENETRATION / ASPIRATION SCALE (GOMEZ): 1 = does not enter airway 2 = enters airway/above vocal folds/ejected 3 = enters airway/above vocal folds/not ejected 4 = enters airway/contacts vocal folds/ejected 5 = enters airway/contacts vocal folds/not ejected 6 = enters airway/below vocal folds/ejected 7 = enters airway/below vocal folds/not ejected despite effort 8 = enters airway/below vocal folds/no effort VIDEOFLOROSCOPIC SCALE SCORE (GOMEZ): Grade I = aspiration of material that has penetrated into the laryngeal vestibule, intact cough reflex Grade II = aspiration < 10 % of the bolus, intact cough reflex Grade III = aspiration of < 10 % of the bolus, reduced cough reflex or aspiration of > 10 % of the bolus, intact cough reflex Grade IV = aspiration of > 10 % of the bolus, reduced cough reflex - Penetration-Aspiration Scale Score Thin Liquid via teaspoon Result: 8= enters airway/below vocal folds/no effort Comment: Grade III = aspiration of < 10 % of the bolus, no cough reflex Thin Liquid via teaspoon Trial 2 Result: 8= enters airway/below vocal folds/no effort Comment: Grade III = aspiration of < 10 % of the bolus, no cough reflex [place] Thick Liquid via teaspoon Result: 1= does not enter airway [place] Thick Liquid via small single sip from cup Result: 7= enters airways/below vocal folds/not ejected despite effort Comment: Grade IV = aspiration of ~10% of the bolus, reduced cough reflex [place] Thick Liquid via teaspoon Effortful swallow Result: 3= enters airways/above vocal folds/not ejected [place] Thick Liquid via teaspoon Result: 1= does not enter airway [place] Thick Liquid via small single sip from cup Result: 1= does not enter airway Pudding via teaspoon esophageal screen Result: 1= does not enter airway - Oral Phase Labial Seal: No Labial Escape Tongue Control During Bolus Hold: Posterior escape of less than half of bolus Bolus Preparation/Mastication: Disorganized chewing/mashing with solid pieces of bolus unchewed Bolus Transport/Lingual Motion: Delayed initiation of tongue motion Oral Residue: Residue collection on oral structures - Pharyngeal Phase Initiation of Pharyngeal Swallow: Bolus head at posterior laryngeal surgace of epiglottis Soft Palate Elevation: No bolus between soft palate and pharyngeal wall Laryngeal Elevation: Partial superior movement thyroid cart/partial apprx aryt- epig petiole Anterior Hyoid Excursion: Partial anterior movement Epiglottic Movement: Partial inversion Laryngeal Vestibule Closure at Height of Swallow: Incomplete; narrow column of air/contrast in laryngeal vestibule Pharyngeal Stripping Wave: Present - diminished Pharyngoesophageal Segment Opening: Parital distension and partial duration; parital obstruction of flow Tongue Base Retraction: Wide column of contrast between tongue base & post. pharyngeal wall Pharyngeal Residue: Collection of residue within or on pharyngeal structures - Esophageal Phase Esophageal Clearance: Esophageal retention w/ retrograde flow below pharyngoesophageal seg. - Retention of both pudding and cookie boluses, especially observed in mid and distal esophagus. Retrograde flow of boluses observed below the upper esophageal sphincter. - Treatment Strategies Effects of treatment strategies attemped:: Effortful swallow = effective at decreasing pharyngeal residue in the vallecula and pyriform sinuses. - Diagnosis/Impression Diagnosis: Moderate oropharyngeal phase dysphagia (R13.12) Impression: The oral phase is marked by decreased mastication abilities, delayed initiation of tongue motion for A-P transport, posterior loss of thin liquid bolus to the posterior surface of the epiglottis prior to swallow onset, and mild-moderate oral residue after the swallow. The pharyngeal phase is marked by decreased airway closure during the swallow and moderate-severe pharyngeal residues. He has decreased anterior hyoid excursion and laryngeal elevation with resulting decreased airway closure during the swallow. He demonstrates tongue base retraction, pharyngeal stripping wave, and UES opening with resulting pharyngeal residue in the vallecula and pyriform sinuses. With use of effortful and multiple swallows, the patient effectively cleared pharyngeal residue. The patient demonstrated SILENT aspiration of thin liquid trials. He demonstrated aspiration of nectar thick liquids via cup with weak and ineffective cough reflex. Penetration of nectar thick liquids via tsp with effortful swallow in the laryngeal vestibule without full ejection. He is at risk to aspirate contrast remaining in the laryngeal vestibule after the swallow. The esophageal phase is marked by retention of pudding and cookie boluses in the mid and distal esophagus. The patient also demonstrated retrograde flow of pudding bolus below UES. He had retention of honey/moderately thick liquid trial in the upper esophagus. Concern for aspiration of reflux. - Recommendations Diet: Mechanical Soft Textures - Minced and moist textures (IDDSI Level 5), Honey-thick Liquids Comment: Effortful swallows on each bite/sip. Consider smaller, more frequent meals (e.g. 4-5 smaller meals as compared to 3 larger meals per day). Discontinue meal if increased s/s of aspiration. Compensatory Strategies: Small Bites, Small Sips, Slow Rate, Multiple Swallows, Sitting upright, Remain sitting upright for 30 minutes after PO intake Supervision: 1:1 Close Supervision Recommend Repeat Modified Barium Swallow: Yes - Repeat MBS study recommended 2-4 weeks after implementation of oropharyngeal strengthening exercise program. Would NOT advance liquids prior to repeat MBS study. Need for Skilled Speech Therapy Services: Yes Comment: Will recommend the patient for skilled dysphagia therapy to address deficits in oropharyngeal swallow function. Would consider the patient for oropharyngeal strengthening to improve laryngeal elevation, hyoid excursion, tongue base retraction, and pharyngeal contraction. The patient would benefit from thorough education regarding diet recommendations and recommended compensatory strategies. Would consider the patient for implementation of [place] Free Water Protocol (FFWP) at next level of care if he is demonstrating good tolerance of current diet to encourage hydration and promote increased opportunities for swallowing throughout the patient?s day. Recommended Referrals: GI Consult - Pt is currently being followed by binding nicker, Dr. Landaverde. Would recommend addressing EXCELLENCE LEADER concerns for esophageal retention, slow motility, and retrograde flow of bolus. EXCELLENCE LEADER concerned for risk for aspiration of reflux. Education Completed: 1. Described result of evaluation., 2. Pt understands evaluation & agrees with goals and treatment plan., 7. Pt requires further education on strategies & risks. - Status Active ST Patient: Active - Contact Information [facility] Speech Therapy:: Sara Cannon M.A. [facility]-EXCELLENCE LEADER Speech-Language Pathologist [facility] [address] [place] [address] [email or web address] [phone] 10/12/21 14:10
--- NOTE | 2021-10-12 14:18 | PN_ITS ---
Subjective Subjective He had his MRCP and is awaiting swallowing eval. He has been n.p.o. He has not been coughing. He denies any abdominal pain. He does look less yellow today. His urine has been clearing up Objective Data Objective Data Vital Signs: Vital Signs Temp Pulse Resp BP Pulse Ox 98.4 F 93 22 H 135/64 H 92 10/12/21 09:40 10/12/21 13:02 10/12/21 13:02 10/12/21 13:02 10/12/21 13:02 Oxygen Flow Rate (L/min) 2 Oxygen Delivery Method Room Air Weight: 219 lb 9.286 oz Body Mass Index (BMI) 28.8 Intake & Output: Intake and Output for Last 24 Hours 10/10/21 10/11/21 10/12/21 23:59 23:59 23:59 Intake Total 1715.83 / 1715.83 2430.83 / 2480.83 1069.16 / 1069.16 Output Total 1600 / 1600 750 / 1000 725 / 725 Balance 115.83 / 115.83 1680.83 / 1480.83 344.16 / 344.16 Medical Nutrition Assessment Dietitian: Malnutrition Criteria Met Start: 10/07/21 10:07 Freq: Status: Active Protocol: Document 10/12/21 08:20 AG (Rec: 10/12/21 08:20 AG Desktop) Nutrition Malnutrition Evidence of Malnutrition Exists Yes Malnutrition (severe): Acute Illness/Injury Evidenced By Suboptimal Energy Intake ( Severe),Weight Loss (Severe) Clinical Problem Acute Disease or Injury Related Malnutrition Etiology severe, acute malnutrition r/t GI dysfunction Signs/Symptoms as evidenced by unintentional 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 Will monitor PO intake and blood sugars- may benefit from consistent carbohydrate diet in addition to cardiac diet. ONS if PO intake fails. Lab / Micro Data Result Diagrams: 10/12/21 04:25 10/12/21 04:25 Labs: Laboratory Results - last 24 hr 10/11/21 16:59: POC Glucose 280 H 10/11/21 22:55: POC Glucose 252 H 10/12/21 04:25: PT 26.2 H, INR 2.4 10/12/21 04:25: WBC 5.3, RBC 3.10 L, Hgb 9.7 L, Hct 29.3 L, MCV 94.5 H, MCH 31.3, MCHC 33.1, RDW Std Deviation 53.4 H, RDW Coeff of Mila 15.5 H, Plt Count 44 L*, MPV 11.3, Immature Gran % (Auto) 0.900, Neut % (Auto) 82.0 H, Lymph % (Auto) 12.0 L, [place] % (Auto) 3.8, Eos % (Auto) 1.1, Baso % (Auto) 0.2, Absolute Neuts (auto) 4.4, Absolute Lymphs (auto) 0.64 L, Nucleated RBC % 0, Differential Comment SCANNED, Diff Path Review September10/12/21 04:25: Sodium 140, Potassium 3.7, Chloride 108 H, Carbon Dioxide 28.0, Anion Gap 4 L, BUN 40 H, Creatinine 1.36 H, Estim Creat Clear Calc 40.51, Est GFR (MDRD) Af Amer 64, Est GFR (MDRD) Non-Af 53 L, BUN/Creatinine Ratio 29.4 H, Glucose 251 H, Calcium 8.1 L, Total Bilirubin 3.10 H, AST 39 H, ALT 19, Alkaline Phosphatase 62, Total Protein 5.3 L, Albumin 1.4 L, Globulin 3.9, Albumin/Globulin Ratio 0.4 L 10/12/21 04:25: Hemoglobin A1c 8.4 H 10/12/21 05:29: POC Glucose 235 H 10/12/21 11:17: POC Glucose 224 H Micro: Microbiology 10/07/21 06:40 Blood Culture (Wb) - Left Forearm Blood Culture - Final No growth in 5 days. 10/07/21 06:25 Blood Culture (Wb) - Line Draw Blood Culture - Final No growth in 5 days. 10/06/21 13:45 Sputum, Induced/Lukens Gram Stain - Final 10/06/21 13:45 Sputum, Induced/Lukens Respiratory Culture - Final Klebsiella oxytoca 10/06/21 17:45 Gastric Fluid/Contents Gastric Occult Blood - Final Occult Blood Positive 10/06/21 15:08 Mucosa - Nose Respiratory Panel (PCR) - Final Rhythm Strip Rhythm Strip: Paced rhythm Rate: 65 Ectopy: None Physical Exam Const alert General Appearance: cooperative Orientation / Consciousness: oriented to person HEENT hearing grossly normal bilaterally Head and Scalp: normal to inspection Face and Sinus: face symmetric Nose: external nose normal Mouth: oral and palatal mucosa normal Eyes conjunctivae normal General Eye: normal appearance of both eyes Neck full ROM General: normal visual inspection Lymph Lymphatic: no lymphadenopathy noted Chest inspection of chest normal and palpation of chest normal Chest: symmetrical chest wall rise Resp normal respiratory effort Effort and Inspection: able to speak in complete sentences Cardio regular rate GI non-distended Percussion: normal to percussion Rectal Exam: deferred Neuro Speech: speech normal Gait (Neuro): normal gait Assessment & Plan Assessment/Plan (1) Hyperbilirubinemia: PLAN: Direct and conjugated hyperbilirubinemia. I suspect that it was from the bowel obstruction or pseudoobstruction. However I am concerned that he may have elements of portal hypertension leading to worsening thrombocytopenia possibly secondary to passive congestion from congestive heart failure. His bilirubin is improving which is a good sign. His MRCP is pending. From what I can see there were no filling defects in the common bile duct or pancreatic duct and there was no sign of double duct sign. However he has some very large gallstones that could be exhibiting a Mirizzi's effect on his hepatobiliary system. There is no proximal ductal dilation. However with the proximity of the gallbladder to the bile duct in this MRCP study it has to be on the differential diagnosis. Recommend to continue ursodiol 250 mg twice a day. With his age and other comorbidities if he does have underlying severe liver disease he would not be a transplant candidate. (2) Bowel obstruction: QUALIFIERS: Intestinal obstruction type: unspecified Intestinal obstruction extent: partial Qualified Code(s): K56.600 - Partial intestinal obstruction, unspecified as to cause PLAN: No sign of bowel obstruction at this time. Patient did have bowel movement. Charges/Coding Visit Charges Inpatient E&M: 69039 Subs Hosp L2
--- NOTE | 2021-10-12 14:32 | CASEMGMT ---
KASIE received a call from Juana at [facility] and she asked if patient was getting a Modified Barium Swallow today. KASIE let her know patient did get one. Results printed out and faxed to [facility]. Await [facility]'s response. Melvina ALMONTE
[2021-10-12 16:35] LABS: Bedside Glucose 192 mg/dL (74-106)
[2021-10-12] MEDS: Atorvastatin Calcium 10 MG Tablet PO (23:04)
[2021-10-12 23:21] LABS: Bedside Glucose 186 mg/dL (74-106)
[2021-10-13] VITALS (18 sets, daily range): BP systolic 109–147; BP diastolic 31–63; PULSE 58–74; RESP 16–18; TEMP 36.3–36.6; O2SAT 92–99; BMI 31.6
--- NOTE | 2021-10-13 | GASB_PTH ---
PATIENT: WILBUR GORMAN LOC: [facility] U#:[id number] AGE/SX: 80/M ROOM: [facility] RE10/06/[address]: Dr. Leatha Abernathy MD : [id number] BED: 1 DIS: 10/14/2021 SPEC #: [id number] RECD: 10/13/21 14:31 STATUS: YUE GIORDANO #: [id number] JAYLAN: 10/13/21 00:[address]: Leatha Abernathy DEPT: SURGICAL PATHOLOGY RECD BY: Ulises Ramon ENTERED: 10/14/21 11:43 SP TYPE: Gastric Bx OTHR DR: MD Dr. Dwayne Ramirez MD Dr. Christophe Bursley, MD Dr. Derek Brown, DO Dr. Juan Miguel Proano, MD Dr. Michael Bortz, MD Dr. Prakash Chand, MD Dr. Robert Leininger, MD Christina Muller, CASE HARDENER-C Tissues: Gastric mucous membrane Procedures: Surgery Specimen Level IV HEADER OPERATION: EGD with biopsy (MAC) PRE-OP DIAGNOSIS: Cholelithiasis, normal biliary tree, small volume ascites TISSUE SUBMITTED: Gastric body biopsy MICROSCOPIC DIAGNOSIS Gastric body, biopsy: Chronic gastritis. See comment. AM:steve 10/15/2021 COMMENT The results of immunohistochemistry for Helicobacter pylori will be reported separately ([id number]). MICROSCOPIC DESCRIPTION Slides are reviewed. GROSS DESCRIPTION Received in fixative is one container labeled with the patient's name and designated gastric body. The specimen consists of two irregular fragments of light vizcarra soft tissue that in aggregate measure 0.6 x 0.3 x 0.1 cm. The specimen is totally submitted in one cassette. / SJ:steve 10/14/2021 TC:3 CPT: 82303
[2021-10-13 06:32] LABS: Absolute Lymphocyte Count 0.72 X10^3/uL (0.83-4.51); Absolute Neutrophil Count 4.1 X10^3/uL (2.0-7.7); Basophil# 0.01 X10^3/uL; Basophil% 0.2 % (0-1); Eosinophil# 0.12 X10^3/uL; Eosinophils% 2.3 % (0-5); Hematocrit 29.5 % (40-54); Hemoglobin 9.6 g/dL (13.0-16.5); Lymphocyte # 0.72 X10^3/ul (0.83-4.51); Lymphocyte % 13.9 % (19-41); Mean Corp Hgb Conc 32.5 g/dL (32-36); Mean Corpuscular Hgb 30.9 pg (27.0-32.0); Mean Corpuscular Volume 94.9 fL (80-94); Mean Platelet Vol. 11.2 fl (6.2-12.0); Monocyte# 0.19 X10^3/uL; Monocyte% 3.7 % (0-10); NRBC Flagged by Analyzer 0 % (0-5); Neutrophil # 4.09 X10^3/uL (2.7-7.7); Neutrophil % 78.7 % (47-70); POSITIVE COUNT YES; POSITIVE MORPHOLOGY YES; Platelet Count 55 K/mm3 (150-450); RBC Distribution Width CV 15.9 % (11.6-14.6); RBC Distribution Width SD 54.8 fl (35.1-43.9); Red Blood Count 3.11 M/mm3 (4.6-6.2); White Blood Count 5.2 K/mm3 (4.4-11.0)
[2021-10-13 06:35] LABS: Differential Indicated SCAN CRITERIA MET
[2021-10-13 06:39] LABS: International Normalized Ratio 2.7; Prothrombin Time (Protime)PT. 28.2 SECONDS (11.7-14.9)
[2021-10-13 06:51] LABS: Bedside Glucose 169 mg/dL (74-106)
[2021-10-13 07:10] LABS: ALB/GLOB Ratio 0.4 RATIO (0.9-2.4); AST(SGOT) 35 U/L (15-37); Alanine Aminotransfer ALT/SGPT 21 U/L (16-61); Albumin, Serum 1.5 g/dL (3.2-5.0); Alkaline Phosphatase 62 U/L (45-117); Anion Gap 5 (5-15); Anisocytosis 1+; BUN 38 mg/dL (7-18); Calcium,Total 8.1 mg/dL (8.5-10.1); Chloride 111 mmol/L (98-107); Creatinine, Serum 1.31 mg/dL (0.70-1.30); EST Glomerular Filtration Rate 56 mL/min (>60); Est Glom Filt Rate - Afr Amer 67 mL/min (>60); Estimated Creatinine Clearance 42.06 ml/min; Glucose 185 mg/dL (74-106); Macrocytosis 1+; Potassium 3.7 mmol/L (3.5-5.1); Protein, Total 5.5 g/dL (6.4-8.2); Sodium Level 144 mmol/L (136-145)
[2021-10-13 07:11] LABS: Atypical Lymphocyte 1+ %; Platelet Estimate MOD DEC (ADEQ)
--- NOTE | 2021-10-13 07:49 | CASEMGMT ---
KASIE received an e-mail from Juana at [facility] and they can accept patient. She asked KASIE to notify her when to start pre-cert. Melvina ALMONTE
--- NOTE | 2021-10-13 08:17 | PCM.PN.INT ---
Assessment & Plan Assessment/Plan (1) Acute respiratory failure with hypoxemia: PLAN: RECOMMENDATIONS: 1. Continue aggressive bronchopulmonary hygiene. 2. Dietary advancement per speech therapy. Await potential upper GI 3. Continue antimicrobials as ordered. 4. Gastroenterology following. 5. Continue PPI therapy twice daily. 6. Continue to monitor INR daily. 7. Physical therapy to work with the patient. IMPRESSIONS: 1. Acute hypoxemic respiratory failure Improved. The patient decompensated from a respiratory perspective following several episodes of profound emesis with elaine aspiration. He ultimately required ICU transfer and emergent intubation. The patient did have significant GI contents in his posterior oropharynx with witnessed aspiration at the time of intubation as well. Patient will need to complete 7 days of antimicrobials total. The patient improved from a respiratory perspective and was able to be extubated on October 09. Patient has been able to be weaned to room air. Continue aggressive bronchopulmonary hygiene. Cannot exclude the need for NT suctioning. 2. Septic shock Resolved. The patient presented with sepsis due to suspected aspiration pneumonia with acute sepsis related organ dysfunction as evidenced by acute respiratory failure requiring invasive mechanical ventilatory support, along with acute on chronic kidney disease and hyperbilirubinemia. The patient remains hemodynamically stable without any further need for vasopressor support. 3. Bowel obstruction CT abdomen/pelvis was concerning for an acute bowel obstruction. General surgery is following. The patient's bowel obstruction appears to have improved with conservative measures including gastric decompression via OG tube, which has since been removed following extubation. MRCP was relatively unremarkable except for gallstones. 4. Acute on chronic kidney disease Relatively stable. Likely prerenal in etiology in the setting of #2. Will continue supplemental IV fluid hydration. Continue to monitor urine output. No current indication for renal replacement therapy. 5. Coagulopathy The patient is systemically anticoagulated on Coumadin as an outpatient. He presented with a supratherapeutic INR. In light of his clinical decompensation, vitamin K was provided. His coagulopathy has improved. Recommend following PT/INR daily. INR therapeutic 6. Hyperbilirubinemia Unclear etiology. Alk phosphatase has been normal. There has not been any significant increases in his transaminase levels. Liver ultrasound was unremarkable. Gastroenterology is currently following with recommendations for ursodiol 7. History of coronary artery disease/atrial flutter/hypertension/hyperlipidemia/chronic ITP Complicates care, management, recovery and prognosis. Continue to hold home antihypertensives. This note was generated with Dragon dictation software. It may contain incorrect words, spelling, and punctuation that were not noted in checking the note before signing. Subjective Subjective Patient did okay overnight. Patient remains on room air, but is still having difficulty with mobilizing secretions. Testing results were reviewed and noted. Patient reports he has been compliant with Acapella and incentive spirometer. No bleeding complications have been reported. Objective Data Objective Data Vital Signs: Vital Signs Temp Pulse Resp BP Pulse Ox 36.6 C 66 18 142/45 H 94 10/13/21 02:15 10/13/21 07:33 10/13/21 02:15 10/13/21 02:15 10/13/21 02:15 Oxygen Flow Rate (L/min) 2 Oxygen Delivery Method Room Air Weight: 94.3 kg Body Mass Index (BMI) 31.6 Intake & Output: Intake and Output for Last 24 Hours 10/11/21 10/12/21 10/13/21 23:59 23:59 23:59 Intake Total 2430.83 / 2480.83 1289.16 / 1289.16 50 / 50 Output Total 750 / 1000 950 / 1325 800 / 800 Balance 1680.83 / 1480.83 339.16 / -35.84 -750 / -750 Medical Nutrition Assessment Dietitian: Malnutrition Criteria Met Start: 10/07/21 10:07 Freq: Status: Active Protocol: Document 10/12/21 08:20 AG (Rec: 10/12/21 08:20 AG Desktop) Nutrition Malnutrition Evidence of Malnutrition Exists Yes Malnutrition (severe): Acute Illness/Injury Evidenced By Suboptimal Energy Intake ( Severe),Weight Loss (Severe) Clinical Problem Acute Disease or Injury Related Malnutrition Etiology severe, acute malnutrition r/t GI dysfunction Signs/Symptoms as evidenced by unintentional wt loss of 15.7#/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 Will monitor PO intake and blood sugars- may benefit from consistent carbohydrate diet in addition to cardiac diet. ONS if PO intake fails. Lab / Micro Data Result Diagrams: 10/13/21 06:12 10/13/21 06:12 Labs: Laboratory Results - last 24 hr 10/12/21 04:25: Hemoglobin A1c 8.4 H 10/12/21 11:17: POC Glucose 224 H 10/12/21 16:27: POC Glucose 192 H 10/12/21 21:48: POC Glucose 186 H 10/13/21 06:12: PT 28.2 H, INR 2.7 10/13/21 06:12: WBC 5.2, RBC 3.11 L, Hgb 9.6 L, Hct 29.5 L, MCV 94.9 H, MCH 30.9, MCHC 32.5, RDW Std Deviation 54.8 H, RDW Coeff of Mila 15.9 H, Plt Count 55 L, MPV 11.2, Immature Gran % (Auto) 1.200 H, Neut % (Auto) 78.7 H, Lymph % (Auto) 13.9 L, [place] % (Auto) 3.7, Eos % (Auto) 2.3, Baso % (Auto) 0.2, Absolute Neuts (auto) 4.1, Absolute Lymphs (auto) 0.72 L, Nucleated RBC % 0, Atypical Lymphocytes 1+, Platelet Estimate MOD DEC, Anisocytosis 1+, Macrocytosis 1+ 10/13/21 06:12: Sodium 144, Potassium 3.7, Chloride 111 H, Carbon Dioxide 28.0, Anion Gap 5, BUN 38 H, Creatinine 1.31 H, Estim Creat Clear Calc 42.06, Est GFR (MDRD) Af Amer 67, Est GFR (MDRD) Non-Af 56 L, BUN/Creatinine Ratio 29.0 H, Glucose 185 H, Calcium 8.1 L, Total Bilirubin 2.60 H, AST 35, ALT 21, Alkaline Phosphatase 62, Total Protein 5.5 L, Albumin 1.5 L, Globulin 4.0, Albumin/Globulin Ratio 0.4 L 10/13/21 06:14: POC Glucose 169 H Micro: Microbiology 10/07/21 06:40 Blood Culture (Wb) - Left Forearm Blood Culture - Final No growth in 5 days. 10/07/21 06:25 Blood Culture (Wb) - Line Draw Blood Culture - Final No growth in 5 days. 10/06/21 13:45 Sputum, Induced/Lukens Gram Stain - Final 10/06/21 13:45 Sputum, Induced/Lukens Respiratory Culture - Final Klebsiella oxytoca 10/06/21 17:45 Gastric Fluid/Contents Gastric Occult Blood - Final Occult Blood Positive 10/06/21 15:08 Mucosa - Nose Respiratory Panel (PCR) - Final Radiography Diagnostic Testing: Radiology Impression MRCP 10/12/21 05:55 IMPRESSION: 1. Cholelithiasis. 2. Normal biliary tree. 3. Small volume ascites. Electronically Signed: Shawn Hernández MD at 14:33 EDT Reading Location ID and State: [facility] / [place] Tel , Service support , Rhythm Strip Rhythm Strip: Paced rhythm Rate: 65 Ectopy: None Physical Exam Const alert and no apparent distress Constitutional Narrative: Quite fatigued in appearance. Slight anasarca noted General Appearance: cooperative Nutritional Appearance: obese HEENT normocephalic and head/scalp atraumatic Eyes PERRL and conjunctivae normal Neck supple General: trachea midline and CVC in place Chest inspection of chest normal Resp Resp Narrative: Weak cough Auscultation: rhonchi and diminished lung sounds; Negative for wheezes Cardio regular rate and regular rhythm Cardio Narrative: Paced rhythm on telemetry. GI soft to palpation and non-tender Extremity General Extremity: edema; Negative for clubbing Skin no rashes or lesions noted Neuro CN's II-XII intact bilaterally, moves all extremities and no focal motor deficits Psych Mood & Affect: flat affect Charges/Coding Visit Charges Inpatient E&M: 51690 Subs Hosp L2
[2021-10-13] MEDS: Insulin Glargine-YFGN 100 UNIT/ML Pen SC (08:23)
--- NOTE | 2021-10-13 08:50 | PN.SURG_ITS ---
Subjective Subjective Patient seen and examined during AM rounds. He denies any abdominal discomfort. When asked about his diet/swallow study eval yesterday, he states that it was tasteless, but denies any provocation of symptoms. Objective Data Objective Data Vital Signs: Vital Signs Temp Pulse Resp BP Pulse Ox 97.8 F 66 18 142/45 H 94 10/13/21 02:15 10/13/21 07:33 10/13/21 02:15 10/13/21 02:15 10/13/21 02:15 Oxygen Flow Rate (L/min) 2 Oxygen Delivery Method Room Air Weight: 207 lb 14.334 oz Body Mass Index (BMI) 31.6 Intake & Output: Intake and Output for Last 24 Hours 10/11/21 10/12/21 10/13/21 23:59 23:59 23:59 Intake Total 2430.83 / 2480.83 1289.16 / 1289.16 50 / 50 Output Total 750 / 1000 950 / 1325 800 / 800 Balance 1680.83 / 1480.83 339.16 / -35.84 -750 / -750 Medical Nutrition Assessment Dietitian: Malnutrition Criteria Met Start: 10/07/21 10:07 Freq: Status: Active Protocol: Document 10/12/21 08:20 AG (Rec: 10/12/21 08:20 AG Desktop) Nutrition Malnutrition Evidence of Malnutrition Exists Yes Malnutrition (severe): Acute Illness/Injury Evidenced By Suboptimal Energy Intake ( Severe),Weight Loss (Severe) Clinical Problem Acute Disease or Injury Related Malnutrition Etiology severe, acute malnutrition r/t GI dysfunction Signs/Symptoms as evidenced by unintentional wt 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 Will monitor PO intake and blood sugars- may benefit from consistent carbohydrate diet in addition to cardiac diet. ONS if PO intake fails. Lab / Micro Data Result Diagrams: 10/13/21 06:12 10/13/21 06:12 Labs: Laboratory Results - last 24 hr 10/12/21 11:17: POC Glucose 224 H 10/12/21 16:27: POC Glucose 192 H 10/12/21 21:48: POC Glucose 186 H 10/13/21 06:12: PT 28.2 H, INR 2.7 10/13/21 06:12: WBC 5.2, RBC 3.11 L, Hgb 9.6 L, Hct 29.5 L, MCV 94.9 H, MCH 30.9, MCHC 32.5, RDW Std Deviation 54.8 H, RDW Coeff of Mila 15.9 H, Plt Count 55 L, MPV 11.2, Immature Gran % (Auto) 1.200 H, Neut % (Auto) 78.7 H, Lymph % (Auto) 13.9 L, [place] % (Auto) 3.7, Eos % (Auto) 2.3, Baso % (Auto) 0.2, Absolute Neuts (auto) 4.1, Absolute Lymphs (auto) 0.72 L, Nucleated RBC % 0, Atypical Lymphocytes 1+, Platelet Estimate MOD DEC, Anisocytosis 1+, Macrocytosis 1+ 10/13/21 06:12: Sodium 144, Potassium 3.7, Chloride 111 H, Carbon Dioxide 28.0, Anion Gap 5, BUN 38 H, Creatinine 1.31 H, Estim Creat Clear Calc 42.06, Est GFR (MDRD) Af Amer 67, Est GFR (MDRD) Non-Af 56 L, BUN/Creatinine Ratio 29.0 H, Glucose 185 H, Calcium 8.1 L, Total Bilirubin 2.60 H, AST 35, ALT 21, Alkaline Phosphatase 62, Total Protein 5.5 L, Albumin 1.5 L, Globulin 4.0, Albumin/Globulin Ratio 0.4 L 10/13/21 06:14: POC Glucose 169 H Micro: Microbiology 10/07/21 06:40 Blood Culture (Wb) - Left Forearm Blood Culture - Final No growth in 5 days. 10/07/21 06:25 Blood Culture (Wb) - Line Draw Blood Culture - Final No growth in 5 days. 10/06/21 13:45 Sputum, Induced/Lukens Gram Stain - Final 10/06/21 13:45 Sputum, Induced/Lukens Respiratory Culture - Final Klebsiella oxytoca 10/06/21 17:45 Gastric Fluid/Contents Gastric Occult Blood - Final Occult Blood Positive 10/06/21 15:08 Mucosa - Nose Respiratory Panel (PCR) - Final Radiography Diagnostic Testing: Radiology Impression MRCP 10/12/21 05:55 IMPRESSION: 1. Cholelithiasis. 2. Normal biliary tree. 3. Small volume ascites. Electronically Signed: Shawn Hernández MD at 14:33 EDT , Rhythm Strip Rhythm Strip: Paced rhythm Rate: 65 Ectopy: None Physical Exam Const no apparent distress Resp Resp Narrative: Upper airway rattling audible GI GI Narrative: Nondistended, soft, mildly tender to palpation in the right upper quadrant?otherwise unremarkable Assessment & Plan Assessment/Plan (1) Bowel obstruction: QUALIFIERS: Intestinal obstruction type: unspecified Intestinal obstruction extent: partial Qualified Code(s): K56.600 - Partial intestinal obstruction, unspecified as to cause PLAN: Patient having consistent bowel function now. Appears to have tolerated diet, but remains a high aspiration risk. He is pending a EGD exam with gastroenterology later today. Abdominal exam benign. Given his tolerance of oral intake, and now consistent bowel function I do not find cause for surgical intervention at this time. Therefore, surgery will sign off, but remain available to any future needs. Thank you for this consultation. Charges/Coding Visit Charges Inpatient E&M: 29288 Subs Hosp L2
--- NOTE | 2021-10-13 08:59 | PCM.PROGNOTE ---
Subjective Subjective No acute events for the patient overnight. His pain is better. He does have a mild cough. He denies any chest pain or shortness of breath. He has been tolerating a diet. He also had a bowel movement overnight. Objective Data Objective Data Vital Signs: Vital Signs Temp Pulse Resp BP Pulse Ox 97.8 F 66 18 142/45 H 94 10/13/21 02:15 10/13/21 07:33 10/13/21 02:15 10/13/21 02:15 10/13/21 02:15 Oxygen Flow Rate (L/min) 2 Oxygen Delivery Method Room Air Weight: 207 lb 14.334 oz Body Mass Index (BMI) 31.6 Intake & Output: Intake and Output for Last 24 Hours 10/11/21 10/12/21 10/13/21 23:59 23:59 23:59 Intake Total 2430.83 / 2480.83 1289.16 / 1289.16 50 / 50 Output Total 750 / 1000 950 / 1325 800 / 800 Balance 1680.83 / 1480.83 339.16 / -35.84 -750 / -750 Medical Nutrition Assessment Dietitian: Malnutrition Criteria Met Start: 10/07/21 10:07 Freq: Status: Active Protocol: Document 10/12/21 08:20 AG (Rec: 10/12/21 08:20 AG Desktop) Nutrition Malnutrition Evidence of Malnutrition Exists Yes Malnutrition (severe): Acute Illness/Injury Evidenced By Suboptimal Energy Intake ( Severe),Weight Loss (Severe) Clinical Problem Acute Disease or Injury Related Malnutrition Etiology severe, acute malnutrition r/t GI dysfunction Signs/Symptoms as evidenced 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 Will monitor PO intake and blood sugars- may benefit from consistent carbohydrate diet in addition to cardiac diet. ONS if PO intake fails. Lab / Micro Data Result Diagrams: 10/13/21 06:12 10/13/21 06:12 Labs: Laboratory Results - last 24 hr 10/12/21 11:17: POC Glucose 224 H 10/12/21 16:27: POC Glucose 192 H 10/12/21 21:48: POC Glucose 186 H 10/13/21 06:12: PT 28.2 H, INR 2.7 10/13/21 06:12: WBC 5.2, RBC 3.11 L, Hgb 9.6 L, Hct 29.5 L, MCV 94.9 H, MCH 30.9, MCHC 32.5, RDW Std Deviation 54.8 H, RDW Coeff of Mila 15.9 H, Plt Count 55 L, MPV 11.2, Immature Gran % (Auto) 1.200 H, Neut % (Auto) 78.7 H, Lymph % (Auto) 13.9 L, Hitchcock % (Auto) 3.7, Eos % (Auto) 2.3, Baso % (Auto) 0.2, Absolute Neuts (auto) 4.1, Absolute Lymphs (auto) 0.72 L, Nucleated RBC % 0, Atypical Lymphocytes 1+, Platelet Estimate MOD DEC, Anisocytosis 1+, Macrocytosis 1+ 10/13/21 06:12: Sodium 144, Potassium 3.7, Chloride 111 H, Carbon Dioxide 28.0, Anion Gap 5, BUN 38 H, Creatinine 1.31 H, Estim Creat Clear Calc 42.06, Est GFR (MDRD) Af Amer 67, Est GFR (MDRD) Non-Af 56 L, BUN/Creatinine Ratio 29.0 H, Glucose 185 H, Calcium 8.1 L, Total Bilirubin 2.60 H, AST 35, ALT 21, Alkaline Phosphatase 62, Total Protein 5.5 L, Albumin 1.5 L, Globulin 4.0, Albumin/Globulin Ratio 0.4 L 10/13/21 06:14: POC Glucose 169 H Micro: Microbiology 10/07/21 06:40 Blood Culture (Wb) - Left Forearm Blood Culture - Final No growth in 5 days. 10/07/21 06:25 Blood Culture (Wb) - Line Draw Blood Culture - Final No growth in 5 days. 10/06/21 13:45 Sputum, Induced/Lukens Gram Stain - Final 10/06/21 13:45 Sputum, Induced/Lukens Respiratory Culture - Final Klebsiella oxytoca 10/06/21 17:45 Gastric Fluid/Contents Gastric Occult Blood - Final Occult Blood Positive 10/06/21 15:08 Mucosa - Nose Respiratory Panel (PCR) - Final Radiography Diagnostic Testing: Radiology Impression MRCP 10/12/21 05:55 IMPRESSION: 1. Cholelithiasis. 2. Normal biliary tree. 3. Small volume ascites. Electronically Signed: Shawn Hernández MD at 14:33 EDT , Rhythm Strip Rhythm Strip: Paced rhythm Rate: 65 Ectopy: None Physical Exam Const alert General Appearance: cooperative Orientation / Consciousness: oriented to person HEENT hearing grossly normal bilaterally Head and Scalp: normal to inspection Face and Sinus: face symmetric Nose: external nose normal Mouth: oral and palatal mucosa normal Eyes conjunctivae normal General Eye: normal appearance of both eyes Neck full ROM General: normal visual inspection Lymph Lymphatic: no lymphadenopathy noted Chest inspection of chest normal and palpation of chest normal Chest: symmetrical chest wall rise Resp normal respiratory effort Effort and Inspection: able to speak in complete sentences Cardio regular rate GI non-distended Percussion: normal to percussion Rectal Exam: deferred Neuro Speech: speech normal Gait (Neuro): normal gait Assessment & Plan Assessment/Plan (1) Hyperbilirubinemia: PLAN: Hyperbilirubinemia continues to improve. His MRCP yesterday did not show any signs of hepatocellular disease the liver. Also the biliary system did not show any signs of primary sclerosing cholangitis. There is therapy and continues to improve. I suspect that this is most likely secondary to bowel obstruction. Continue on ursodiol. (2) Bowel obstruction: QUALIFIERS: Intestinal obstruction type: unspecified Intestinal obstruction extent: partial Qualified Code(s): K56.600 - Partial intestinal obstruction, unspecified as to cause PLAN: He has had a bowel movements and tolerating a diet. Bowel regimen of Colace 100 mg twice a day as a stool softener. He may also need osmotic laxatives in the form of MiraLAX on a daily basis. But we will just (3) Anemia: PLAN: We we will perform an upper endoscopy today. I would like to see if there is any signs of portal hypertension in his esophagus stomach or proximal small bowel. His hemoglobin has decreased and he will likely future. Await his upper GI tract to make sure that he has no signs of acute on chronic blood loss anemia. Charges/Coding Visit Charges Inpatient E&M: 19716 Subs Hosp L2
[2021-10-13 09:29] LABS: Pathologist Review Reviewed
[2021-10-13 09:32] LABS: Pathologist Review Reviewed
--- NOTE | 2021-10-13 10:04 | CASEMGMT ---
KASIE spoke with physician and pre-cert can be started. KASIE notified Juana at [facility] and she will start the pre-cert. Plan: [facility] pending pre-cert. Melvina ALMONTE
--- NOTE | 2021-10-13 10:58 | PCM.PN.ID ---
Physical Exam Narrative Feeling better, still some cough, no fever, no abd pain, no n/v/d. Const alert and no apparent distress General Appearance: cooperative Resp Auscultation: rhonchi Cardio regular rate and regular rhythm GI soft to palpation, non-tender and non-distended Skin no rashes or lesions noted ID ID: Route of nutrition/ use of supplements: [] Nutritional Intake: [] IV Site: [] Hoang Catheter: [] Assessment & Plan Assessment/Plan (1) Acute respiratory failure with hypoxemia: PLAN: Treating for aspiration pneumonia. Overall much improved. CESAR resolving, off vent. Sputum with klebs. Bili better. MRCP reviewed. Will stop zosyn. Will follow as needed (2) Acute kidney injury:
--- NOTE | 2021-10-13 11:09 | CASEMGMT ---
SW spoke with patient and let him know that he will need to go somewhere at discharge for short term rehab. SW let patient know SW spoke with his family and they would like him to go to [facility]. Patient was in agreement with this except he was concerned [facility] is yazidi and he is not. SW told patient they do not force their restorationism on anyone. Plan: d/c to [facility] pending insurance approval. Melvina Christine MANAGEMENT TRAINER GAGE
[2021-10-13] MEDS: Insulin Lispro 100 UNIT/ML INSULN.PEN SC (12:24)
[2021-10-13 12:30] LABS: Bedside Glucose 184 mg/dL (74-106)
[2021-10-13 12:33] LABS: Pathologist Review Reviewed
--- NOTE | 2021-10-13 12:42 | CASEMGMT ---
KASIE received a call from Juana at [facility]. She went to start the pre-cert for patient and they are not in network with patient's insurance. Juana apologized. KASIE was not able to obtain the correct insurance card from family so KASIE called [employer] to find out specifically which plan patient has. Patient has [facility] Medicare Advantage plan #7 . KASIE pulled up the facilities in network with this insurance. KASIE spoke with patient and he told SW to call his family. KASIE called patient's and let her know above. She was open to KASIE making referral to [facility], but she does want to talk with her granddaughter jabier regarding facilities. KASIE faxed referral to [facility]. KASIE also called and left a voice mail regarding referral. Melvina Christine EXCHANGE MECHANIC GAGE
--- NOTE | 2021-10-13 13:39 | PCM.PN.HOSP ---
Subjective Subjective Follow-up on septic shock/bowel obstruction: Patient was seen and examined. He has been kept NPO. He will undergo endoscopy today to evaluate anemia. He denied any new complaints. Objective Data Objective Data Vital Signs: Vital Signs Temp Pulse Resp BP Pulse Ox 97.8 F 60 18 147/34 H 94 10/13/21 09:00 10/13/21 12:20 10/13/21 09:00 10/13/21 09:00 10/13/21 10:58 Oxygen Flow Rate (L/min) 2 Oxygen Delivery Method Room Air Weight: 94.3 kg Body Mass Index (BMI) 31.6 Intake & Output: Intake and Output for Last 24 Hours 10/11/21 10/12/21 10/13/21 23:59 23:59 23:59 Intake Total 2430.83 / 2480.83 1289.16 / 1289.16 210 / 210 Output Total 750 / 1000 950 / 1325 800 / 800 Balance 1680.83 / 1480.83 339.16 / -35.84 -590 / -590 Medical Nutrition Assessment Dietitian: Malnutrition Criteria Met Start: 10/07/21 10:07 Freq: Status: Active Protocol: Document 10/12/21 08:20 AG (Rec: 10/12/21 08:20 AG Desktop) Nutrition Malnutrition Evidence of Malnutrition Exists Yes Malnutrition (severe): Acute Illness/Injury Evidenced By Suboptimal Energy Intake ( Severe),Weight Loss (Severe) Clinical Problem Acute Disease or Injury Related Malnutrition Etiology severe, acute malnutrition r/t GI dysfunction Signs/Symptoms as evidenced by 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 Will monitor PO intake and blood sugars- may benefit from consistent carbohydrate diet in addition to cardiac diet. ONS if PO intake fails. Lab / Micro Data Result Diagrams: 10/13/21 06:12 10/13/21 06:12 Labs: Laboratory Results - last 24 hr 10/10/21 04:03: Diff Path Review Reviewed 10/11/21 07:40: Diff Path Review Reviewed 10/12/21 04:25: Diff Path Review Reviewed 10/12/21 16:27: POC Glucose 192 H 10/12/21 21:48: POC Glucose 186 H 10/13/21 06:12: PT 28.2 H, INR 2.7 10/13/21 06:12: WBC 5.2, RBC 3.11 L, Hgb 9.6 L, Hct 29.5 L, MCV 94.9 H, MCH 30.9, MCHC 32.5, RDW Std Deviation 54.8 H, RDW Coeff of Mila 15.9 H, Plt Count 55 L, MPV 11.2, Immature Gran % (Auto) 1.200 H, Neut % (Auto) 78.7 H, Lymph % (Auto) 13.9 L, Stafford % (Auto) 3.7, Eos % (Auto) 2.3, Baso % (Auto) 0.2, Absolute Neuts (auto) 4.1, Absolute Lymphs (auto) 0.72 L, Nucleated RBC % 0, Atypical Lymphocytes 1+, Platelet Estimate MOD DEC, Anisocytosis 1+, Macrocytosis 1+ 10/13/21 06:12: Sodium 144, Potassium 3.7, Chloride 111 H, Carbon Dioxide 28.0, Anion Gap 5, BUN 38 H, Creatinine 1.31 H, Estim Creat Clear Calc 42.06, Est GFR (MDRD) Af Amer 67, Est GFR (MDRD) Non-Af 56 L, BUN/Creatinine Ratio 29.0 H, Glucose 185 H, Calcium 8.1 L, Total Bilirubin 2.60 H, AST 35, ALT 21, Alkaline Phosphatase 62, Total Protein 5.5 L, Albumin 1.5 L, Globulin 4.0, Albumin/Globulin Ratio 0.4 L 10/13/21 06:14: POC Glucose 169 H 10/13/21 12:24: POC Glucose 184 H Micro: Microbiology 10/07/21 06:40 Blood Culture (Wb) - Left Forearm Blood Culture - Final No growth in 5 days. 10/07/21 06:25 Blood Culture (Wb) - Line Draw Blood Culture - Final No growth in 5 days. 10/06/21 13:45 Sputum, Induced/Lukens Gram Stain - Final 10/06/21 13:45 Sputum, Induced/Lukens Respiratory Culture - Final Klebsiella oxytoca 10/06/21 17:45 Gastric Fluid/Contents Gastric Occult Blood - Final Occult Blood Positive 10/06/21 15:08 Mucosa - Nose Respiratory Panel (PCR) - Final Radiography Diagnostic Testing: Radiology Impression MRCP 10/12/21 05:55 IMPRESSION: 1. Cholelithiasis. 2. Normal biliary tree. 3. Small volume ascites. Electronically Signed: Shawn Hernández MD at 14:33 EDT Reading Location ID and State: [address] [place] [address] Tel , Service support , Rhythm Strip Rhythm Strip: Paced rhythm Rate: 65 Ectopy: None Physical Exam Narrative Physical exam: General: Alert, Oriented x3, Cooperative, appears very frail, obese HEENT: Atraumatic Oral: Moist Mucosa Neck: Supple Lungs: Diminished to auscultation Cardiovascular: HS I+II, regular, no murmurs Abdomen: Bowel Sounds Present, Soft, Non Tender Extremities: Bilateral leg edema +2 Skin: No rashes, No breakdown Neurological: Grossly intact Psych/Mental Status: Appropriate Assessment & Plan Assessment/Plan (1) Acute respiratory failure with hypoxemia: PLAN: 1. Acute hypoxic respiratory failure secondary to aspiration pneumonia, resolved Patient is currently on room air, continue to monitor 2. Septic shock secondary to Klebsiella aspiration pneumonia/intra-abdominal infection, resolved Patient had evidence of organ dysfunction Blood cultures are negative, vital signs stable Completed IV Zosyn today, ID following 3. Acute small bowel obstruction, resolved, Status post NG tube insertion; removal on 10/09 Patient has had bowel movements General surgery following 4. Dysphagia, patient on modified diet 5. CESAR on CKD stage IIIb, back to baseline Creatinine today is 1.31, baseline is around 1.3 6. Probable GI bleed, with acute blood loss anemia, likely secondary to gastritis, Stool for occult blood was positive Continue on IV PPI twice daily Patient going for EGD today 7. Elevated liver function, improving Ultrasound of the liver showed multiple gallstones and sludge. MRCP showed cholelithiasis, normal biliary tree. 8. Chronic idiopathic thrombocytopenia, platelet count is 55,000 Platelet count on admission was 100,000, not on heparin, Will continue to trend 9. Type 2 DM, blood sugars are fairly controlled Continue Lantus, insulin sliding scale 10. Severe acute malnutrition, 15.7% weight loss, poor p.o. intake, Lockstitch Back Maker consulted, continue supplements 11. DVT PPx- SCDs Charges/Coding Visit Charges Inpatient E&M: 72704 Subs Hosp L2
[2021-10-13] MEDS: Lactated Ringers 1,000 ML 15 ML IV (13:45)
--- NOTE | 2021-10-13 13:48 | CASEMGMT ---
KASIE spoke with Alla from [facility]. They can take patient. KASIE told her patient's wants to talk with her granddaughter this evening to make sure this choice is okay. KASIE will let her know tomorrow. Melvina Christine FIELD SALES ASSOCIATE GAGE
--- NOTE | 2021-10-13 14:18 | OP.EGD_ITS ---
Patient Name: Brady Wright Procedure Date: 10/13/2021 1:56 PM Date of : 1940 Age: 80 Procedure: Upper GI endoscopy Indications: Iron deficiency anemia Providers: Junaid Landaverde DO Medicines: Monitored Anesthesia Care Patient Profile: This is an 80 year old male. Refer to note in patient chart for documentation of history and physical. Patient has symptoms. Complications: No immediate complications. Procedure: Pre-Anesthesia Assessment: - Prior to the procedure, a History and Physical was performed, and patient medications and allergies were reviewed. The patient is competent. The risks and benefits of the procedure and the sedation options and risks were discussed with the patient. All questions were answered and informed consent was obtained. Patient identification and proposed procedure were verified by the physician in the pre-procedure area. Mental Status Examination: alert and oriented. Airway Examination: normal oropharyngeal airway and neck mobility. Respiratory Examination: clear to auscultation. CV Examination: normal. Prophylactic Antibiotics: The patient does not require prophylactic antibiotics. Prior Anticoagulants: The patient has taken no previous anticoagulant or antiplatelet agents. ASA Grade Assessment: II - A patient with mild systemic disease. After reviewing the risks and benefits, the patient was deemed in satisfactory condition to undergo the procedure. The anesthesia plan was to use moderate sedation / analgesia (conscious sedation). Immediately prior to administration of medications, the patient was re-assessed for adequacy to receive sedatives. The heart rate, respiratory rate, oxygen saturations, blood pressure, adequacy of pulmonary ventilation, and response to care were monitored throughout the procedure. The physical status of the patient was re-assessed after the procedure. After obtaining informed consent, the endoscope was passed under direct vision. Throughout the procedure, the patient's blood pressure, pulse, and oxygen saturations were monitored continuously. The gastroscope was introduced through the mouth, and advanced to the second part of duodenum. The upper GI endoscopy was accomplished without difficulty. The patient tolerated the procedure well. Scope In: 2:04:16 PM Scope Out: 2:08:32 PM Total Procedure Duration Time 0 hours 4 minutes 16 seconds Findings: LA Grade B (one or more mucosal breaks greater than 5 mm, not extending between the tops of two mucosal folds) esophagitis with no bleeding was found 36 to 39 cm from the incisors. Biopsies were taken with a cold forceps for histology. Verification of patient identification for the specimen was done. Estimated blood loss was minimal. Scattered moderate inflammation characterized by congestion (edema), erosions, erythema, friability and granularity was found in the cardia. Biopsies were taken with a cold forceps for histology. Verification of patient identification for the specimen was done. Estimated blood loss was minimal. Scattered severe inflammation characterized by congestion (edema), erosions, erythema, friability and granularity was found in the gastric fundus, in the gastric body, on the anterior wall of the stomach, on the greater curvature of the stomach, on the lesser curvature of the stomach, on the posterior wall of the stomach, at the incisura and in the gastric antrum. Biopsies were taken with a cold forceps for histology. An acquired benign-appearing, intrinsic mild stenosis was found in the first portion of the duodenum and was traversed. Impression: - LA Grade B reflux esophagitis. Biopsied. - Gastritis. Biopsied. - Gastritis. Biopsied. - Acquired duodenal stenosis. Recommendation: - Await pathology results. -Protonix 40 mg twice a day x8 weeks. Keep a close eye on his platelet count as he has thrombocytopenia and it can cause worsening thrombocytopenia. - Repeat upper endoscopy in 1 year for surveillance. - Return to GI clinic. - Continue present medications. Procedure Code(s): --- Professional --- 85224, Esophagogastroduodenoscopy, flexible, transoral; with biopsy, single or multiple CPT copyright 2017 [employer]. All rights reserved. The codes documented in this report are preliminary and upon funeral home director review may be revised to meet current compliance requirements. Junaid Landaverde DO 10/13/2021 2:17:48 PM This report has been signed electronically. Number of Addenda: 1 Note Initiated On: 10/13/2021 1:56 PM Addendum Number: 1 Addendum Date: 02/19/2022 6:10:20 AM MAC was used as sedation for this procedure. Junaid Landaverde DO 02/19/2022 6:10:24 AM This report has been signed electronically.
--- NOTE | 2021-10-13 14:18 | OP.CCLET_ITS ---
02/19/2022 Billy Merrill Re : Upper GI endoscopy procedure for Brady Wright Dear Desirae This procedure was performed on Wednesday, October 13, 2021. My impressions and recommendations are as follows: Impressions : - LA Grade B reflux esophagitis. Biopsied. - Gastritis. Biopsied. - Gastritis. Biopsied. - Acquired duodenal stenosis. Recommendations : - Await pathology results. -Protonix 40 mg twice a day x8 weeks. Keep a close eye on his platelet count as he has thrombocytopenia and it can cause worsening thrombocytopenia. - Repeat upper endoscopy in 1 year for surveillance. - Return to GI clinic. - Continue present medications. My findings are described in the full procedure note, which is enclosed. If I can be of further assistance, please feel free to contact me at . Sincerely, Junaid Friend, 10/13/2021 2:17:48 PM This report has been signed electronically.
--- NOTE | 2021-10-13 16:15 | IMM_PTH ---
PATIENT: WILBUR GORMAN LOC: [facility] U#:[id number] AGE/SX: 80/M ROOM: [facility] RE10/06/[address]: Dr. Leatha Abernathy MD : 1940 BED: 1 DIS: 10/14/2021 SPEC #: [id number] RECD: 10/14/21 13:07 STATUS: YUE RERosi #: [id number] JAYLAN: 10/13/21 16:[address]: Junaid Landaverde DEPT: IMMUNOHISTOCHEMISTRY RECD BY: Debbie Baeza ENTERED: 10/14/21 13:09 SP TYPE: IMMUNO OTHR DR: MD Dr. Denise Smyth MD Dr. Bruce Arthur, MD Dr. Christophe Bursley, MD Dr. Derek Brown, DO Dr. Juan Miguel Proano, MD Dr. Michael Bortz, MD Dr. Prakash Chand, MD Dr. Robert Leininger, MD Christina Muller, DISTRICT ADMINISTRATIVE ASSISTANT-C Tissues: Stomach, NOS Procedures: H Pylori (initial) PHYSICIAN & [place] [id number] SPECIMEN INFORMATION: Tissue Source: Gastric body Clinical Info: Cholelithiasis, normal biliary tree, small volume ascites Specimen Number: [id number] CPT code: 84472 METHODOLOGY: Deparaffinized sections of prefer/formalin-fixed tissue or PAP/DQ stained slides are incubated with monoclonal/polyclonal antibodies/oligonucleotide probes. Localization is made via biotin free immunoperoxidase method. Appropriate controls are performed and reacted as expected. Results on target cell population are indicated in the following table: RESULTS: ANTIBODY / CLONE RESULT H Pylori (polyclonal) negative These tests were developed and their performance characteristics determined by [facility]. They may not have been cleared or approved by the U.S. Food and Drug Administration. The FDA has determined that such clearance or approval is not necessary. The above immunohistochemical/dualISH markers are ordered and reviewed by the Pathologist. INTERPRETATION: Gastric body, biopsy: Negative for Helicobacter pylori organisms. AM:steve 10/15/2021
[2021-10-13 16:55] LABS: Bedside Glucose 141 mg/dL (74-106)
[2021-10-13] MEDS: Atorvastatin Calcium 10 MG Tablet PO (22:13)
[2021-10-13 22:21] LABS: Bedside Glucose 140 mg/dL (74-106)
[2021-10-14 03:00] VITALS: BP 134/48; PULSE 60; RESP 20; TEMP 36.4; O2SAT 92
[2021-10-14 06:56] LABS: Bedside Glucose 130 mg/dL (74-106)
[2021-10-14 07:00] VITALS: PULSE 63
--- NOTE | 2021-10-14 07:45 | PCM.PN.INT ---
Assessment & Plan Assessment/Plan (1) Acute respiratory failure with hypoxemia: PLAN: RECOMMENDATIONS: 1. Continue aggressive bronchopulmonary hygiene. 2. Dietary advancement per speech therapy. Noted upper GI results 3. Continue antimicrobials as ordered. 4. Gastroenterology following. 5. Continue PPI therapy twice daily. 6. Continue to monitor INR daily. 7. Hemodynamically stable on room air. Will sign off from a pulmonary/critical care perspective IMPRESSIONS: 1. Acute hypoxemic respiratory failure Resolved. The patient decompensated from a respiratory perspective following several episodes of profound emesis with elaine aspiration. He ultimately required ICU transfer and emergent intubation. The patient did have significant GI contents in his posterior oropharynx with witnessed aspiration at the time of intubation as well. Patient will need to complete 7 days of antimicrobials total. The patient improved from a respiratory perspective and was able to be extubated on October 09. Patient has been able to be weaned to room air. Continue aggressive bronchopulmonary hygiene. Cannot exclude the need for NT suctioning, but has been stable for several days on room air. Will sign off from a critical care perspective. 2. Septic shock Resolved. The patient presented with sepsis due to suspected aspiration pneumonia with acute sepsis related organ dysfunction as evidenced by acute respiratory failure requiring invasive mechanical ventilatory support, along with acute on chronic kidney disease and hyperbilirubinemia. The patient remains hemodynamically stable without any further need for vasopressor support. 3. Bowel obstruction CT abdomen/pelvis was concerning for an acute bowel obstruction. General surgery is following. The patient's bowel obstruction appears to have improved with conservative measures including gastric decompression via OG tube, which has since been removed following extubation. MRCP was relatively unremarkable except for gallstones. EGD completed yesterday showing severe inflammation with multiple biopsies pending. 4. Acute on chronic kidney disease Relatively stable. Likely prerenal in etiology in the setting of #2. Will continue supplemental IV fluid hydration. Continue to monitor urine output. No current indication for renal replacement therapy. 5. Coagulopathy The patient is systemically anticoagulated on Coumadin as an outpatient. He presented with a supratherapeutic INR. In light of his clinical decompensation, vitamin K was provided. His coagulopathy has improved. Recommend following PT/INR daily. INR therapeutic 6. Hyperbilirubinemia Unclear etiology. Alk phosphatase has been normal. There has not been any significant increases in his transaminase levels. Liver ultrasound was unremarkable. Gastroenterology is currently following with recommendations for ursodiol 7. History of coronary artery disease/atrial flutter/hypertension/hyperlipidemia/chronic ITP Complicates care, management, recovery and prognosis. Continue to hold home antihypertensives. This note was generated with [employer] dictation software. It may contain incorrect words, spelling, and punctuation that were not noted in checking the note before signing. Subjective Subjective Patient did well overnight. No acute issues were reported. Patient continues to have a wet cough, but no elaine aspiration has been reported. Patient remains on room air and tolerating well. Objective Data Objective Data Vital Signs: Vital Signs Temp Pulse Resp BP Pulse Ox 36.4 C L 63 20 H 134/48 H 92 10/14/21 03:00 10/14/21 07:00 10/14/21 03:00 10/14/21 03:00 10/14/21 03:00 Oxygen Flow Rate (L/min) 2 Oxygen Delivery Method Room Air Weight: 93 kg Body Mass Index (BMI) 31.6 Intake & Output: Intake and Output for Last 24 Hours 10/12/21 10/13/21 10/14/21 23:59 23:59 23:59 Intake Total 1289.16 / 1289.16 368.5 / 368.5 0 / 0 Output Total 950 / 1325 1725 / 1775 70 / 70 Balance 339.16 / -35.84 -1356.5 / -1406.5 -70 / -70 Medical Nutrition Assessment Dietitian: Malnutrition Criteria Met Start: 10/07/21 10:07 Freq: Status: Active Protocol: Document 10/12/21 08:20 AG (Rec: 10/12/21 08:20 AG Desktop) Nutrition Malnutrition Evidence of Malnutrition Exists Yes Malnutrition (severe): Acute Illness/Injury Evidenced By Suboptimal Energy Intake ( Severe),Weight Loss (Severe) Clinical Problem Acute Disease or Injury Related Malnutrition Etiology severe, acute malnutrition r/t GI dysfunction Signs/Symptoms as evidenced by 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 Will monitor PO intake and blood sugars- may benefit from consistent carbohydrate diet in addition to cardiac diet. ONS if PO intake fails. Lab / Micro Data Result Diagrams: 10/13/21 06:12 10/13/21 06:12 Labs: Laboratory Results - last 24 hr 10/10/21 04:03: Diff Path Review Reviewed 10/11/21 07:40: Diff Path Review Reviewed 10/12/21 04:25: Diff Path Review Reviewed 10/13/21 12:24: POC Glucose 184 H 10/13/21 16:48: POC Glucose 141 H 10/13/21 22:12: POC Glucose 140 H 10/14/21 06:44: POC Glucose 130 H Micro: Microbiology 10/07/21 06:40 Blood Culture (Wb) - Left Forearm Blood Culture - Final No growth in 5 days. 10/07/21 06:25 Blood Culture (Wb) - Line Draw Blood Culture - Final No growth in 5 days. 10/06/21 13:45 Sputum, Induced/Lukens Gram Stain - Final 10/06/21 13:45 Sputum, Induced/Lukens Respiratory Culture - Final Klebsiella oxytoca 10/06/21 17:45 Gastric Fluid/Contents Gastric Occult Blood - Final Occult Blood Positive 10/06/21 15:08 Mucosa - Nose Respiratory Panel (PCR) - Final Rhythm Strip Rhythm Strip: Paced rhythm Rate: 65 Ectopy: None Physical Exam Const alert and no apparent distress Constitutional Narrative: Quite fatigued in appearance. Slight anasarca noted General Appearance: cooperative Nutritional Appearance: obese HEENT normocephalic and head/scalp atraumatic Eyes PERRL and conjunctivae normal Neck supple General: trachea midline and CVC in place Chest inspection of chest normal Resp Resp Narrative: Weak cough Auscultation: rhonchi and diminished lung sounds; Negative for wheezes Cardio regular rate and regular rhythm Cardio Narrative: Paced rhythm on telemetry. GI soft to palpation and non-tender Extremity General Extremity: edema; Negative for clubbing Skin no rashes or lesions noted Neuro CN's II-XII intact bilaterally, moves all extremities and no focal motor deficits Psych Mood & Affect: flat affect Charges/Coding Visit Charges Inpatient E&M: 24266 Subs Hosp L2
[2021-10-14 08:31] LABS: Absolute Lymphocyte Count 0.79 X10^3/uL (0.83-4.51); Absolute Neutrophil Count 3.9 X10^3/uL (2.0-7.7); Basophil# 0.01 X10^3/uL; Basophil% 0.2 % (0-1); Eosinophil# 0.14 X10^3/uL; Eosinophils% 2.8 % (0-5); Hematocrit 31.2 % (40-54); Hemoglobin 9.8 g/dL (13.0-16.5); Lymphocyte # 0.79 X10^3/ul (0.83-4.51); Lymphocyte % 15.8 % (19-41); Mean Corp Hgb Conc 31.4 g/dL (32-36); Mean Corpuscular Hgb 31.1 pg (27.0-32.0); Mean Platelet Vol. 12.5 fl (6.2-12.0); NRBC Flagged by Analyzer 0 % (0-5); Neutrophil # 3.85 X10^3/uL (2.7-7.7); POSITIVE COUNT YES; Platelet Count 78 K/mm3 (150-450); RBC Distribution Width CV 16.7 % (11.6-14.6); RBC Distribution Width SD 60.2 fl (35.1-43.9); Red Blood Count 3.15 M/mm3 (4.6-6.2)
[2021-10-14 08:34] LABS: Differential Indicated SCAN CRITERIA MET
[2021-10-14 08:50] LABS: ALB/GLOB Ratio 0.4 RATIO (0.9-2.4); AST(SGOT) 63 U/L (15-37); Alanine Aminotransfer ALT/SGPT 24 U/L (16-61); Albumin, Serum 1.6 g/dL (3.2-5.0); Alkaline Phosphatase 71 U/L (45-117); Anion Gap 3 (5-15); BUN 39 mg/dL (7-18); BUN/Creat Ratio 26.7 RATIO (10-20); Calcium,Total 8.5 mg/dL (8.5-10.1); Chloride 115 mmol/L (98-107); Creatinine, Serum 1.46 mg/dL (0.70-1.30); EST Glomerular Filtration Rate 49 mL/min (>60); Est Glom Filt Rate - Afr Amer 59 mL/min (>60); Estimated Creatinine Clearance 37.74 ml/min; Globulin 4.4 g/dL (2.2-4.2); Glucose 127 mg/dL (74-106); Potassium 4.7 mmol/L (3.5-5.1); Sodium Level 148 mmol/L (136-145)
[2021-10-14 09:00] VITALS: BP 135/48; PULSE 60; RESP 18; TEMP 36.4; O2SAT 95
[2021-10-14 09:12] LABS: Platelet Estimate MOD DEC (ADEQ); Red Cell Morphology NORM C+C NORMAL (NORM C&C)
[2021-10-14] MEDS: Insulin Glargine-YFGN 100 UNIT/ML Pen SC (09:12)
--- NOTE | 2021-10-14 10:23 | CASEMGMT ---
KASIE called patient's and she was okay with [facility]. KASIE told her patient will stay until his insurance approves him which would be tomorrow or Tuesday. KASIE called [facility] and spoke with Preeti. KASIE asked Preeti to please start the pre-cert. Plan: d/c to [facility] under skilled level of care pending insurance authorization. Melvina ALMONTE
[2021-10-14 10:33] VITALS: O2SAT 91
[2021-10-14 11:00] VITALS: PULSE 71
[2021-10-14] MEDS: Insulin Lispro 100 UNIT/ML INSULN.PEN SC (11:24)
[2021-10-14 11:46] LABS: Bedside Glucose 169 mg/dL (74-106)
--- NOTE | 2021-10-14 13:37 | CASEMGMT ---
KASIE received a voice mail from Andriy at [facility]. She was asking which facility patient will be going to. KASIE told her [facility]. Melvina ALMONTE
--- NOTE | 2021-10-14 14:25 | PCM.TXEXTCAR ---
Diet 10/13/21 14:18 Diet: Cardiac - Heart Healthy Is pt able to select menu?: No Diet Comments: 1:1 sup., multiple effortful swallows, discont. meal if s/s of aspiration Routine Orders/Code Status Enema Type: Fleetz Enema Frequency: Daily PRN Suppository Type: Dulcolax 10mg Suppository Frequency: Daily PRN Keep PO Greater than or Equal to (%): 94 Routine Lab Work: CBC (within 3 days) and BMP (within 3 days) Therapies Weight Bearing: Weight bearing as tolerated Physical Therapy: Eval and Treat Occupational Therapy: Eval and Treat Speech Therapy: Eval and Treat Problem/Diagnosis (1) Acute respiratory failure with hypoxemia: Status: Acute Allergies/Procedures Done in Hospital Allergies amlodipine Allergy (Verified 10/05/21 16:18) Unknown glimepiride Allergy (Verified 10/05/21 16:18) Unknown rosiglitazone [From Avandia] Allergy (Verified 10/05/21 16:18) Unknown Procedures: EGD and - (MRCP, Modified barium swallow) Type of Care/Length of Stay Estimated LOS: Convalescent Care Less Than 30 days Type of Care Needed: Skilled Rehab Potential: Fair Prognosis: Fair Additional Orders/Day of Discharge Day of Discharge: 10/14/21 Dietary and Speech Recommendations Dietitian Recommendations/Changes: when medically appropriate, continue cardiac diet as tolerated- texture/consistency per PROFESSOR OF GEOLOGY. Will monitor PO intake and blood sugars- may benefit from consistent carbohydrate diet in addition to cardiac diet. ONS if PO intake fails. Discharge Plan Admission Admit Date/Time: 10/06/21 09:43 Primary Reason for Your Visit: Resp failure/aspiration pneumonia Attending Provider: Leatha Abernathy Primary Care Provider: Billy Merrill Consulting Providers: Denise Kolb ; Antwon Fortune ; Peter Burrell ; Dwayne Cantu ; Deshawn Madison ; Vaishali Ye NP ; Sterling Hawkins ; Juan J Bruner Instructions Additional Instructions / Restrictions: Admitted with a supratherapeutic INR, this improved in the hospital. Patient's Coumadin was not continued at the time of discharge. Follow-up with cardiology for reevaluation. Discharge Orders/Prescriptions Prescriptions: New acetaminophen [Tylenol] 325 mg Tablet 650 mg PO Q6H PRN PRN (Reason: Pain 1-10 Or Fever) Qty: 0 RF: 0 albuterol sulfate 2.5 mg /3 mL (0.083 %) Solution For Nebulization 2.5 mg inhalation Q2H PRN PRN (Reason: Dyspnea, wheezing) Qty: 0 RF: 0 insulin glargine-yfgn 100 unit/mL (3 mL) Insulin Pen 5 unit subcut DAILY Qty: 0 RF: 0 pantoprazole 40 mg tablet,delayed release (DR/EC) 40 mg PO BID 30 Days Qty: 60 RF: 0 Continued metoprolol tartrate 25 MG tablet 25 mg PO BID RF: 0 cholecalciferol (vitamin D3) [Vitamin D3] 1,000 UNIT tablet 2,000 unit PO DAILY RF: 0 lovastatin 40 mg tablet 40 mg PO QHS RF: 0 Januvia 50 mg tablet 50 mg PO DAILY RF: 0 Trulicity 0.75 mg/0.5 mL pen injector 0.75 mg SUBCUT SA RF: 0 Held aspirin 81 MG tablet,chewable 81 mg PO DAILY@0800 RF: 0 Hold Instructions: Resume on 10/21/21. Discontinued warfarin [Jantoven] 4 MG tablet 4 mg PO DAILY RF: 0 Referrals / Follow Up: Billy Merrill MD [Primary Care Provider] - In 1 Week Junaid Landaverde DO [STAFF PHYSICIAN] - Within 2 Weeks Marty Blankenship MD [STAFF PHYSICIAN] - Within 2 Weeks Disposition Disposition (needs filled in before D/C Order can be placed): [facility]
--- NOTE | 2021-10-14 14:50 | CASEMGMT ---
KASIE received a voice mail from Preeti at [facility] and patient was approved. KASIE notified RN and physician. KASIE also called patient's and let her know. She asked that SW call her with a pickle cutter time. KASIE called Preeti back and notified her that patient has been approved. Melvina Christine MSW GAGE
[2021-10-14 15:00] VITALS: BP 135/48; PULSE 60; RESP 18; TEMP 36.4; O2SAT 95
--- NOTE | 2021-10-14 15:12 | NURSING ---
This nurse called pts Patricia, updated her on pts day and plan to d/c to [facility] later today.
--- NOTE | 2021-10-14 15:20 | CASEMGMT ---
KASIE arranged for patient to get picked up at 5p via cot by [facility]. KASIE faxed orders, negative COVID, and product picker time to [facility]. KASIE completed a 7000 on [facility]. KASIE notified patient, RN, racing secretary, and Preeti at [facility]. All in agreement with d/c plan. Plan: d/c to [facility] under skilled level of care on a 7000. [facility] transported via cot. Melvina ALMONTE
--- NOTE | 2021-10-14 15:27 | NURSING ---
Attempted to call report to [facility], ended up being sent to [facility], will try again later.
--- NOTE | 2021-10-14 15:32 | CASEMGMT ---
Pt's updated that pt will be picked up at 1700 to be transported to [facility], voices understanding and voices no further questions/concerns/needs. Brandon SCHROEDER CM
--- NOTE | 2021-10-14 15:45 | NURSING ---
Second attempt to call report for pt transfer to [facility]. Ended up with voicemail again. Will try later.
[2021-10-14 16:31] LABS: Bedside Glucose 170 mg/dL (74-106)
--- NOTE | 2021-10-14 16:36 | NURSING ---
Report called to nurse Luo for pt d/c to [facility].
--- NOTE | 2021-10-14 17:26 | PN_ITS ---
Subjective Subjective Patient has been sleeping a lot. He is able to wake up and answer questions. Objective Data Objective Data Vital Signs: Vital Signs Temp Pulse Resp BP Pulse Ox 97.5 F L 60 18 135/48 H 95 10/14/21 15:00 10/14/21 15:00 10/14/21 15:00 10/14/21 15:00 10/14/21 15:00 Oxygen Flow Rate (L/min) 2 Oxygen Delivery Method Room Air Weight: 205 lb 0.478 oz Body Mass Index (BMI) 31.6 Intake & Output: Intake and Output for Last 24 Hours 10/12/21 10/13/21 10/14/21 23:59 23:59 23:59 Intake Total 1289.16 / 1289.16 368.5 / 368.5 350 / 350 Output Total 950 / 1325 1725 / 1775 270 / 270 Balance 339.16 / -35.84 -1356.5 / -1406.5 80 / 80 Medical Nutrition Assessment Dietitian: Malnutrition Criteria Met Start: 10/07/21 10:07 Freq: Status: Active Protocol: Document 10/12/21 08:20 AG (Rec: 10/12/21 08:20 AG Desktop) Nutrition Malnutrition Evidence of Malnutrition Exists Yes Malnutrition (severe): Acute Illness/Injury Evidenced By Suboptimal Energy Intake ( Severe),Weight Loss (Severe) Clinical Problem Acute Disease or Injury Related Malnutrition Etiology severe, acute malnutrition r/t GI dysfunction Signs/Symptoms as evidenced by 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 Will monitor PO intake and blood sugars- may benefit from consistent carbohydrate diet in addition to cardiac diet. ONS if PO intake fails. Lab / Micro Data Result Diagrams: 10/14/21 08:05 10/14/21 08:05 Labs: Laboratory Results - last 24 hr 10/13/21 22:12: POC Glucose 140 H 10/14/21 06:44: POC Glucose 130 H 10/14/21 08:05: WBC 5.0, RBC 3.15 L, Hgb 9.8 L, Hct 31.2 L, MCV 99.0 H, MCH 31.1, MCHC 31.4 L, RDW Std Deviation 60.2 H, RDW Coeff of Mila 16.7 H, Plt Count 78 L, MPV 12.5 H, Immature Gran % (Auto) 0.200, Neut % (Auto) 77.0 H, Lymph % (Auto) 15.8 L, Arthur % (Auto) 4.0, Eos % (Auto) 2.8, Baso % (Auto) 0.2, Absolute Neuts (auto) 3.9, Absolute Lymphs (auto) 0.79 L, Nucleated RBC % 0, Platelet Estimate MOD DEC, RBC Morphology NORM C+C 10/14/21 08:05: Sodium 148 H, Potassium 4.7, Chloride 115 H, Carbon Dioxide 30.0, Anion Gap 3 L, BUN 39 H, Creatinine 1.46 H, Estim Creat Clear Calc 37.74, Est GFR (MDRD) Af Amer 59 L, Est GFR (MDRD) Non-Af 49 L, BUN/Creatinine Ratio 26.7 H, Glucose 127 H, Calcium 8.5, Total Bilirubin 2.30 H, AST 63 H, ALT 24, Alkaline Phosphatase 71, Total Protein 6.0 L, Albumin 1.6 L, Globulin 4.4 H, Albumin/Globulin Ratio 0.4 L 10/14/21 11:15: POC Glucose 169 H 10/14/21 16:16: POC Glucose 170 H Micro: Microbiology 10/14/21 14:30 Nasal Secretion SARS-CoV-2 Antigen (Rapid) - Final 10/07/21 06:40 Blood Culture (Wb) - Left Forearm Blood Culture - Final No growth in 5 days. 10/07/21 06:25 Blood Culture (Wb) - Line Draw Blood Culture - Final No growth in 5 days. 10/06/21 13:45 Sputum, Induced/Lukens Gram Stain - Final 10/06/21 13:45 Sputum, Induced/Lukens Respiratory Culture - Final Klebsiella oxytoca 10/06/21 17:45 Gastric Fluid/Contents Gastric Occult Blood - Final Occult Blood Positive 10/06/21 15:08 Mucosa - Nose Respiratory Panel (PCR) - Final Rhythm Strip Rhythm Strip: Paced rhythm Rate: 65 Ectopy: None Physical Exam Const alert General Appearance: cooperative Orientation / Consciousness: oriented to person HEENT hearing grossly normal bilaterally Head and Scalp: normal to inspection Face and Sinus: face symmetric Nose: external nose normal Mouth: oral and palatal mucosa normal Eyes conjunctivae normal General Eye: normal appearance of both eyes Neck full ROM General: normal visual inspection Lymph Lymphatic: no lymphadenopathy noted Chest inspection of chest normal and palpation of chest normal Chest: symmetrical chest wall rise Resp normal respiratory effort Effort and Inspection: able to speak in complete sentences Cardio regular rate GI non-distended Percussion: normal to percussion Rectal Exam: deferred Neuro Speech: speech normal Gait (Neuro): normal gait Assessment & Plan Assessment/Plan (1) Anemia: PLAN: Anemia secondary to acute GI blood loss from esophageal varices status post banding treatment. He is not having any esophageal dysphagia secondary to banding treatment. Hemoglobin seems to be fairly stable. Continue to monitor. (2) Hyperbilirubinemia: PLAN: Hyperbilirubinemia secondary to acute decompensated liver disease. This seems to be also stable. (3) Cirrhosis: PLAN: Mota associated cirrhosis with a meld of 14 with today's labs. They are improving. (4) Hepatic encephalopathy: PLAN: He is still exhibiting signs of stage II-III hepatic encephalopathy. His ammonia level did go up. I do not think his ammonia went up secondary to continued GI bleed. He is off octreotide. He only needs oral Protonix at this time. I think is taking him longer to clear it due to acute kidney injury. He will need to increase lactulose to 20 cc every 4 hours. Charges/Coding Visit Charges Inpatient E&M: 30361 Subs Hosp L3
--- NOTE | 2021-11-13 08:38 | DS.PCM_ITS ---
Providers Date of Admission: 10/06/21 Date of Discharge: 10/14/21 Primary Care Physician: Dr. Billy Merrill MD Consultations 10/06/21 09:56 Consult: Acquisition Professional / Pulmonary Medicine Routine Consulting Provider: [facility] Reason for Consult: Severe hypoxia, vomited, aspiration EMERGENT Consult: No Notified: Yes Date Notified: 10/06/21 Time Notified: 09:56 Method of Notification: Text 10/06/21 12:47 Consult: General Surgery Routine Consulting Provider: Antwon Fortune Reason for Consult: Mechanical obstruction EMERGENT Consult: No Notified: Yes Date Notified: 10/06/21 Time Notified: 12:47 Method of Notification: Answering Service 10/06/21 14:37 Consult: Urology Routine Consulting Provider: Sterling Hawkins Reason for Consult: difficulty inserting catheter EMERGENT Consult: No Notified: Yes Date Notified: 10/06/21 Time Notified: 14:38 Method of Notification: Verbal 10/09/21 08:29 Consult: Infectious Disease Routine Consulting Provider: Peter Burrell Reason for Consult: septic shock due to Aspiration, SBO. Febrile on unasyn, GNR on Sputum EMERGENT Consult: No Notified: Yes Date Notified: 10/09/21 Time Notified: 08:29 Method of Notification: Text 10/10/21 13:29 Consult: Gastroenterology Routine Consulting Provider: Alicia Gastroenterasia Reason for Consult: Hyperbili of unclear etiology, ?Need for MRCP EMERGENT Consult: No Notified: Yes Date Notified: 10/10/21 Time Notified: 06:27 Method of Notification: Verbal Method of Consult:: In-Person Comments:: Dr Landaverde here to see patient Reason For Visit: SUPRATHERAPEUTIC INR, GASTROENTERITIS Diagnosis Discharge Diagnosis (1) Anemia: Status: Acute Code(s): D64.9 - Anemia, unspecified (2) Hyperbilirubinemia: Status: Acute Code(s): E80.6 - Other disorders of bilirubin metabolism (3) Cirrhosis: Status: Acute Code(s): K74.60 - Unspecified cirrhosis of liver (4) Hepatic encephalopathy: Status: Acute Code(s): K72.90 - Hepatic failure, unspecified without coma Medications at Discharge Home Medications aspirin 81 mg chewable tablet 81 mg PO DAILY@0800 afib 05/05/18 cholecalciferol (vitamin D3) 25 mcg (1,000 unit) tablet (Vitamin D3) 2,000 unit PO DAILY supplement 05/05/18 metoprolol tartrate 25 mg tablet 25 mg PO BID bp 05/05/18 dulaglutide 0.75 mg/0.5 mL subcutaneous pen injector (Trulicity) 0.75 mg subcut SA diabetes 10/05/21 lovastatin 40 mg tablet 40 mg PO QHS cholesterol 10/05/21 sitagliptin 50 mg tablet (Januvia) 50 mg PO DAILY diabetes 10/05/21 acetaminophen 325 mg tablet (Tylenol) 650 mg PO Q6H PRN PRN Pain 1-10 Or Fever #0 tabs 10/14/21 albuterol sulfate 2.5 mg (3 mL) inhalation Q2H PRN PRN Dyspnea, wheezing #0 mL 10/14/21 insulin glargine-yfgn 100 unit/mL (3 mL) subcutaneous pen 5 unit (0.05 mL) subcu t DAILY #0 mL 10/14/21 pantoprazole 40 mg tablet,delayed release 40 mg PO BID 30 days #60 tabs 10/14/21 Hospital Course Operations None Procedures EGD (10/13/21) Summary of Care Provided Minutes Spent on Discharge: 45 Hospital Course: 81-year-old male with past medical history of chronic idiopathic thrombocytopenia, atrial flutter on Coumadin, history of second-degree heart block status post pacemaker, type II DM, CAD status post CABG who comes in with intermittent nausea and vomiting, poor p.o. intake, intermittent loose stools, fatigue progressive weakness. Patient was felt to have acute gastroenteritis. He had a significant INR of 8.4. His Coumadin was held. Patient continued to have persistent abdominal distention with multiple episodes of nausea and vomiting. CT of the abdomen pelvis showed distended fluid-filled loops of proximal small bowel. He was found to have acute hypoxic respiratory failure believed to be secondary to aspiration from several witnessed events of aspiration. He was transferred to the ICU. He was intubated. He was started on empiric antibiotics. Patient did receive vitamin K as his INR went up. A central line was also placed on 10/06/21. He was started on Levophed for septic shock. Patient sputum cultures came back growing Klebsiella. Patient was continued on IV Zosyn and vancomycin was discontinued. General surgery was consulted for the bowel obstruction. An OG tube was placed to facilitate gastric decompression. He had evidence of acute kidney injury on chronic kidney disease. Urology was consulted as it was difficult placing Hoang catheter. Patient had a tight phimosis. Patient improved and was extubated on 10/09/21. He progressively improved and was maintaining appropriate oxygen saturation on room air. His acute kidney injury also improved with IV hydration and was back to baseline. Gastroenterology was consulted for coffee-ground aspirates and hyperb ilirubinemia. Patient's liver ultrasound showed multiple gallstones and sludge. MRCP showed cholelithiasis and a normal biliary tree. Patient was continued on IV PPI. Speech therapy was consulted and modified barium swallow was recommended. Findings of the barium enema showed esophageal retention with retrograde flow below pharyngoesophageal segment consistent with moderate oropharyngeal phase dysphagia. It was recommended that patient be on mechanical soft textures, honey thick liquids. Patient had evidence of malnutrition and was followed by relief map modeler and put on supplements. Patient underwent EGD on 09/21/21. Findings showed reflux esophagitis, gastritis and acquired duodenal stenosis. Biopsies were taken. Patient was kept on oral PPI twice daily for 6 weeks. He will follow-up with gastroenterology. He was seen in evaluated by PT and OT and skilled for discharge [facility]. He will also be followed with speech therapy. Physical Exam Narrative Physical exam: General: Alert, Oriented x3, Cooperative, appears very frail, obese HEENT: Atraumatic Oral: Moist Mucosa Neck: Supple Lungs: Diminished to auscultation Cardiovascular: HS I+II, regular, no murmurs Abdomen: Bowel Sounds Present, Soft, Non Tender Extremities: Bilateral leg edema +2 Skin: No rashes, No breakdown Neurological: Grossly intact Psych/Mental Status: Appropriate Weight / BMI Weight Weight: 93 kg Body Mass Index (BMI) 31.6 ABG / Lab / Microbiology Data Result Diagrams: 10/14/21 08:05 10/14/21 08:05 Microbiology: Microbiology 10/14/21 14:30 Nasal Secretion SARS-CoV-2 Antigen (Rapid) - Final 10/07/21 06:40 Blood Culture (Wb) - Left Forearm Blood Culture - Final No growth in 5 days. 10/07/21 06:25 Blood Culture (Wb) - Line Draw Blood Culture - Final No growth in 5 days. 10/06/21 13:45 Sputum, Induced/Lukens Gram Stain - Final 10/06/21 13:45 Sputum, Induced/Lukens Respiratory Culture - Final Klebsiella oxytoca 10/06/21 17:45 Gastric Fluid/Contents Gastric Occult Blood - Final Occult Blood Positive 10/06/21 15:08 Mucosa - Nose Respiratory Panel (PCR) - Final D/C Instructions Discharge Diet: 2000 mg Sodium Diet and Carb Control Diet Discharge Activity: Return to Normal Activity Meaningful Use Info Meaningful Use Diagnoses (Choose all that apply): None applicable Discharge Plan Admission Admit Date/Time: 10/06/21 09:43 Primary Reason for Your Visit: Resp failure/aspiration pneumonia Attending Provider: Leatha Abernathy Primary Care Provider: Billy Merrill Consulting Providers: Denise Kolb ; Antwon Fortune ; Peter Burrell ; Dwayne Cantu ; Deshawn Madison ; Vaishali Ye NP ; Sterling Hawkins ; Juan J Bruner Instructions Additional Instructions / Restrictions: Admitted with a supratherapeutic INR, this improved in the hospital. Patient's Coumadin was not continued at the time of discharge. Follow-up with cardiology for reevaluation. Discharge Orders/Prescriptions Prescriptions: New acetaminophen [Tylenol] 325 mg Tablet 650 mg PO Q6H PRN PRN (Reason: Pain 1-10 Or Fever) Qty: 0 0RF albuterol sulfate 2.5 mg /3 mL (0.083 %) Solution For Nebulization 2.5 mg inhalation Q2H PRN PRN (Reason: Dyspnea, wheezing) Qty: 0 0RF insulin glargine-yfgn 100 unit/mL (3 mL) Insulin Pen 5 unit subcut DAILY Qty: 0 0RF pantoprazole 40 mg tablet,delayed release (DR/EC) 40 mg PO BID 30 Days Qty: 60 0RF Continued metoprolol tartrate 25 MG tablet 25 mg PO BID cholecalciferol (vitamin D3) [Vitamin D3] 1,000 UNIT tablet 2,000 unit PO DAILY lovastatin 40 mg tablet 40 mg PO QHS Label Comments: TAKE 1 TABLET BY MOUTH ONCE DAILY AT BEDTIME Januvia 50 mg tablet 50 mg PO DAILY Label Comments: TAKE 1 TABLET BY MOUTH ONCE DAILY Trulicity 0.75 mg/0.5 mL pen injector 0.75 mg SUBCUT SA Label Comments: INJECT THE CONTENTS OF ONE PEN SUBCUTANEOUSLY ONCE A WEEK. DISCARD PEN AFTER USE Held aspirin 81 MG tablet,chewable 81 mg PO DAILY@0800 Hold Instructions: Resume on 10/21/21. Discontinued warfarin [Jantoven] 4 MG tablet 4 mg PO DAILY Referrals / Follow Up: Billy Merrill MD [Primary Care Provider] - In 1 Week Marty Blankenship MD [STAFF PHYSICIAN] - Within 2 Weeks Junaid Landaverde DO [STAFF PHYSICIAN] - Within 2 Weeks Disposition Disposition (needs filled in before D/C Order can be placed): [facility] Charges/Coding Visit Charges Inpatient E&M: 37266 Disch Hosp
== END 2021-10-14 17:43 | disposition skilled nursing facility (03) | DRG 871 ==
LOC: ED 19:25 → PCU 19:52 → ICU 10-06 16:22 → PCU 10-10 15:08
PROVIDERS: Internal Medicine; Internal Medicine Critical Care Medicine; Internal Medicine Gastroenterology; Admitting Provider Family Medicine; Emergency Provider Emergency Medicine; PCP Family Medicine; Visit Provider Internal Medicine
PROC: 0DJ08ZZ Inspection of Upper Intestinal Tract, Via Natural or Artificial Opening Endoscopic (ICD-10-PCS; CPT 43235; principal; 2021-10-13 16:10)
DX: A41.9 Sepsis, unspecified organism (principal); J96.01 Acute respiratory failure with hypoxia; J69.0 Pneumonitis due to inhalation of food and vomit; R65.21 Severe sepsis with septic shock; E43 Unspecified severe protein-calorie malnutrition; J15.6 Pneumonia due to other Gram-negative bacteria; K29.51 Unspecified chronic gastritis with bleeding; N17.9 Acute kidney failure, unspecified; K56.600 Partial intestinal obstruction, unspecified as to cause; I48.92 Unspecified atrial flutter; D69.3 Immune thrombocytopenic purpura; D68.9 Coagulation defect, unspecified; D62 Acute posthemorrhagic anemia; E11.22 Type 2 diabetes mellitus with diabetic chronic kidney disease; K72.90 Hepatic failure, unspecified without coma; N18.32 Chronic kidney disease, stage 3b; I44.1 Atrioventricular block, second degree; E86.0 Dehydration; W19.XXXA Unspecified fall, initial encounter; I12.9 Hypertensive chronic kidney disease with stage 1 through stage 4 chronic kidney disease, or unspecified chronic kidney disease; I25.10 Atherosclerotic heart disease of native coronary artery without angina pectoris; E78.5 Hyperlipidemia, unspecified; K46.9 Unspecified abdominal hernia without obstruction or gangrene; N47.1 Phimosis; E80.7 Disorder of bilirubin metabolism, unspecified; B96.1 Klebsiella pneumoniae [K. pneumoniae] as the cause of diseases classified elsewhere; K80.20 Calculus of gallbladder without cholecystitis without obstruction; D50.9 Iron deficiency anemia, unspecified; K75.81 Nonalcoholic steatohepatitis (NASH); I95.9 Hypotension, unspecified; Z95.1 Presence of aortocoronary bypass graft; Z79.01 Long term (current) use of anticoagulants; Z79.82 Long term (current) use of aspirin; Z79.899 Other long term (current) drug therapy; Z87.891 Personal history of nicotine dependence; Z79.84 Long term (current) use of oral hypoglycemic drugs; E66.9 Obesity, unspecified; Z95.0 Presence of cardiac pacemaker; Z87.19 Personal history of other diseases of the digestive system; R13.12 Dysphagia, oropharyngeal phase; K21.00 Gastro-esophageal reflux disease with esophagitis, without bleeding; Z68.31 Body mass index [BMI] 31.0-31.9, adult; T45.7X5A Adverse effect of anticoagulant antagonists, vitamin K and other coagulants, initial encounter
CPT/HCPCS: 31500; 31720; 36415; 36600; 71045; 71046; 74018; 74019; 74176; 74181; 74230; 76705; 80053; 80202; 81001; 82248; 82271; 82550; 82803; 82962; 82977; 83036; 83690; 83735; 84100; 84145; 84478; 85025; 85610; 87040; 87070; 87077; 87186; 87205; 87426; 87633; 87635; 88305; 88342; 92526; 92610; 92611; 93005; 94002; 94003; 94640; 94660; 94667; 94668; 94762; 97110; 97162; 97166; 97530; 97535; 99251; 99283; J7030; J7040; J7050; J7120; A4216; C1751; G0463; J0295; J2405; J3010; J3490; U0003; U0005